=== PATIENT | male | born 1950 | race Caucasian/White ===

== ENCOUNTER → 2021-11-11 | Outpatient (CLI) | payer BC, MEDICARE ==
--- NOTE | 2021-11-11 13:47 | CT ---
EXAMINATION TYPE: CT chest wo con DATE OF EXAM: 11/11/2021 COMPARISON: Outside x-ray 10/24/2021 HISTORY: chest pain CT DLP: 714 mGycm. Automated Exposure Control for Dose Reduction was Utilized. TECHNIQUE: CT scan of the thorax is performed without IV contrast. FINDINGS: LUNGS: There is loss of volume on the left with hyperinflation compatible with COPD. Subsegmental con solidation and pleural thickening on the left with a very tiny pleural effusion. Volume loss is stabl e relative to recent CT scan. Emphysematous changes are noted and there is interlobular septal thickening compatible with chronic i nterstitial lung disease such as pulmonary fibrosis. No focal pneumonia. No pneumothorax. There is subpleural sub-5 mm nodularity bilaterally which most l ikely is benign.. MEDIASTINUM: Lack of IV contrast is noted to limit evaluation for mediastinal and especially hilar ad enopathy. There are no definitive greater than 1 cm hilar or mediastinal lymph nodes. There is mild a neurysmal dilation of the ascending aorta measuring 4.2 cm. Sternotomy changes are seen. There is mil d atherosclerotic changes aorta. There is dense coronary artery calcification. Calcification involvin g the apex of the myocardium can be associated with mild hernia calcinosis and previous infarction.. OTHER: Hypertrophic and degenerative change of the spine. There is cortical loss involving the left k idney compatible with chronic medical renal disease. IMPRESSION: 1. COPD with findings suggestive of pulmonary fibrosis. There is elevated left hemidiaphragm with chr onic pleural thickening and tiny effusion. Stable from recent chest x-ray. 2. Coronary artery calcification with calcification involving the apex of the myocardium in the ray tible with myocardial calcinosis in previous infarction correlate clinically. 3. 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
== END | disposition home or self-care (01) ==
LOC: RADCTMAIN 13:05
PROVIDERS: ATTEND Thoracic Surgery (Cardiothoracic Vascular Surgery)
DX: J44.9 Chronic obstructive pulmonary disease, unspecified (principal); I25.10 Atherosclerotic heart disease of native coronary artery without angina pectoris
CPT/HCPCS: 71250

== ENCOUNTER → 2021-11-17 | Outpatient (CLI) | payer BC, MEDICARE ==
[2021-11-17 07:30] LABS: Basophils # (A) 0.1 k/uL (0-0.2); Basophils % (A) 2 %; Eosinophils # (A) 0.4 k/uL (0-0.7); Eosinophils % (A) 5 %; HCT 51.6 % (39.0-53.0); HGB 16.7 gm/dL (13.0-17.5); Lymphocytes # (A) 1.6 k/uL (1.0-4.8); Lymphocytes % (A) 22 %; MCH 30.5 pg (25.0-35.0); MCHC 32.4 g/dL (31.0-37.0); Mean Platelet Volume 7.5; Monocytes # (A) 0.6 k/uL (0-1.0); Monocytes % (A) 9 %; Neutrophils # (A) 4.5 k/uL (1.3-7.7); Neutrophils % (A) 62 %; Platelet Count 205 k/uL (150-450); RBC 5.49 m/uL (4.30-5.90); RDW 15.1 % (11.5-15.5); WBC 7.3 k/uL (3.8-10.6)
[2021-11-17 07:38] LABS: Partial Thromboplastin Time 27.9 sec (22.0-30.0); Prothrombin Time 10.5 sec (9.0-12.0)
[2021-11-17 07:42] LABS: Potassium 4.5 mmol/L (3.5-5.1)
== END | disposition home or self-care (01) ==
LOC: LABPAT 06:57
PROVIDERS: ATTEND Thoracic Surgery (Cardiothoracic Vascular Surgery)
DX: Z01.812 Encounter for preprocedural laboratory examination (principal); R07.9 Chest pain, unspecified
CPT/HCPCS: 80051; 82565; 82947; 85025; 85610; 85730; 93005

== ENCOUNTER 2021-11-18 13:15 | Day surgery (SDC) | payer BC, MEDICARE ==
[2021-11-17 13:06] VITALS: BMI 36.0
[2021-11-18] MEDS ORDERED: LACTATED RINGERS 1,000 ML IV ONE (13:53)
[2021-11-18] MEDS ORDERED: ONDANSETRON 4 MG/2 ML VIAL ONE (13:59)
[2021-11-18] MEDS ORDERED: ONDANSETRON 4 MG/2 ML VIAL IVP ONE (14:00)
[2021-11-18] MEDS ORDERED: DEXAMETHASONE SOD PHOSPHATE 4 MG/ML 1 ML VIAL IVP ONE (14:00)
[2021-11-18] MEDS ORDERED: LIDOCAINE 2% INJ 20 MG/ML (2 ML VIAL) ONE (15:39)
[2021-11-18] MEDS ORDERED: PROPOFOL 10 MG/ML 20 ML VIAL IV ONE (15:39)
[2021-11-18] MEDS ORDERED: fentaNYL (PF) 50 MCG/ML 2 ML AMP ONE (15:39)
[2021-11-18] MEDS ORDERED: MIDAZOLAM 2 MG/2 ML VIAL ONE (15:39)
[2021-11-18] MEDS ORDERED: BUPIVACAINE (PF) 0.25% 30 ML VIAL SQ ONE ×2 (15:55→16:15)
--- NOTE | 2021-11-18 16:34 | P.OP ---
Date of Procedure: 11/18/21 Preoperative Diagnosis: Sternal pain Postoperative Diagnosis: same Anesthesia: MAC Surgeon: Sukumar Glynn Estimated Blood Loss (ml): 10 Pathology: none sent Condition: stable Disposition: PACU Indications for Procedure: This patient is a 71 year-old male who had a CABG years ago. He presented to my office with sternal wire pain. CT scan revealed no vital structures behind the first sternal wire which is the culprit wire. He asked that the wire be removed due to recent worsening discomfort. Operative Findings: Wire tip elevated from sternal table. Description of Procedure: The patient was brought to the operating room and placed in the supine position. General anesthesia was induced with LMA. The chest was prepped and draped in the usual sterile fashion, antibiotics were given and a time-out was performed. I made a 3cm incision over the sternal notch and carried it down to the wire using electrocautery. The wire was cut and removed. The wound was closed in layers of vicryl. 0.25% marcaine was instilled into the wound and glue was applied. The patient was awaken from anesthesia and transferred to recovery in stable condition.
[2021-11-18 16:41] VITALS: TEMP 96.8
[2021-11-18 17:15] VITALS: RESP 20
[2021-11-18 17:36] VITALS: BP 125/79
[2021-11-18 17:55] VITALS: PULSE 70
== END 2021-11-18 18:21 | disposition home or self-care (01) ==
LOC: OR 13:15
PROVIDERS: ATTEND Thoracic Surgery (Cardiothoracic Vascular Surgery)
DX: Z47.2 Encounter for removal of internal fixation device (principal); R07.2 Precordial pain; Z95.1 Presence of aortocoronary bypass graft; Z88.0 Allergy status to penicillin; Z79.82 Long term (current) use of aspirin; Z79.899 Other long term (current) drug therapy; E78.5 Hyperlipidemia, unspecified; I10 Essential (primary) hypertension; I25.10 Atherosclerotic heart disease of native coronary artery without angina pectoris
CPT/HCPCS: 20680; J2250; J1100; J0690; J2405; J3010; J2704; J2001

== ENCOUNTER 2023-02-12 10:29 | Inpatient (IN) | payer BC, MEDICARE ==
[2023-02-12 11:55] LABS: INR 1.1 (<1.2); Partial Thromboplastin Time 24.5 sec (22.0-30.0); Prothrombin Time 12.2 sec (10.0-12.5)
[2023-02-12 11:58] LABS: Basophils # (A) 0.1 k/uL (0-0.2); Basophils % (A) 1 %; Eosinophils # (A) 0.1 k/uL (0-0.7); Eosinophils % (A) 1 %; HCT 45.2 % (39.0-53.0); HGB 15.2 gm/dL (13.0-17.5); Lymphocytes # (A) 1.4 k/uL (1.0-4.8); Lymphocytes % (A) 14 %; MCH 31.8 pg (25.0-35.0); MCHC 33.6 g/dL (31.0-37.0); MCV 94.7 fL (80.0-100.0); Mean Platelet Volume 9.1; Monocytes # (A) 0.8 k/uL (0-1.0); Monocytes % (A) 9 %; Neutrophils # (A) 7.2 k/uL (1.3-7.7); Neutrophils % (A) 75 %; Platelet Count 168 k/uL (150-450); RBC 4.77 m/uL (4.30-5.90); RDW 15.1 % (11.5-15.5); WBC 9.7 k/uL (3.8-10.6)
[2023-02-12 12:02] LABS: ALT 20 U/L (4-49); African American GFR (CKD) 60 (>60 ml/min/1.73 sqM); Albumin 4.2 g/dL (3.5-5.0); Anion Gap 13 mmol/L; Blood Urea Nitrogen 26 mg/dL (9-20); Calcium 9.1 mg/dL (8.4-10.2); Carbon Dioxide 24 mmol/L (22-30); Chloride 100 mmol/L (98-107); Glucose 119 mg/dL (74-99); Non-African American GFR(CKD) 52 (>60 ml/min/1.73 sqM); Sodium 137 mmol/L (137-145); Total Bilirubin 1.8 mg/dL (0.2-1.3); Total Protein 7.5 g/dL (6.3-8.2)
[2023-02-12 12:03] LABS: Magnesium 2.3 mg/dL (1.6-2.3); Potassium 3.8 mmol/L (3.5-5.1)
[2023-02-12 12:04] LABS: AST 37 U/L (17-59); Alkaline Phosphatase 137 U/L (38-126)
[2023-02-12 12:11] LABS: NT-Pro-B-Type Natriuretic Pept 5850 pg/mL
--- NOTE | 2023-02-12 12:15 | XR ---
EXAMINATION TYPE: XR chest 2V DATE OF EXAM: 02/12/2023 11:54 AM CLINICAL INDICATION:Male, 72 years old with history of difficulty breathing; [facility] COMPARISON: Chest radiographs from 12/10/2021 TECHNIQUE: XR chest 2V Frontal and lateral views of the chest. FINDINGS: Lungs/Pleura: There is no evidence of pleural effusion, focal consolidation, or pneumothorax. Pulmonary vascularity: Pulmonary vascular congestion. Heart/mediastinum: Cardiomediastinal silhouette is enlarged and stable. Musculoskeletal: No acute osseous pathology. Midline sternotomy wires are noted. Other findings: None IMPRESSION: Cardiomegaly, pulmonary vascular congestion and left pleural effusion. Correlate with BNP for congest [place] heart failure.
[2023-02-12 12:31] LABS: Appearance,Urine Clear (Clear); Bilirubin,Urine Negative (Negative); Blood,Urine Negative (Negative); Color,Urine Light Yellow; Glucose,Urine (UA) Negative (Negative); Ketones,Urine Negative (Negative); Leukocyte Esterase,Urine Negative (Negative); Nitrite,Urine Negative (Negative); PH, Urine 5.5 (5.0-8.0); Protein,Urine Negative (Negative); Specific Gravity,Urine 1.011 (1.001-1.035); Urobilinogen,Urine <2.0 mg/dL (<2.0)
[2023-02-12] MEDS ORDERED: NALOXONE 0.4 MG/ML 1 ML VIAL IV PRN (12:54)
[2023-02-12] MEDS ORDERED: ASPIRIN 81 MG PO STA (12:54)
[2023-02-12] MEDS: FUROSEMIDE 10 MG/ML 4 ML VIAL IV SCH ×2 (13:12→20:06)
--- NOTE | 2023-02-12 13:15 | P.HPIM ---
History of Present Illness 72-year-old male with known history of CABG and congestive heart failure noncompliant with his medications as her heart failure medications are making him feel worse came in with compensative shortness of breath orthopnea progressively getting worse for last few days. Patient is found to have pulmonary edema with the elevated BNP of around 5000. As per the patient patient's last EF was 60%. Following with a oven loader and titrates his Lasix at home apparently patient is taking 40 mg of Lasix not taking anything else. She denied any chest pain. EKG is not available in the system yet troponin is mildly elevated to 0.072. REVIEW OF SYSTEMS: CONSTITUTIONAL: No fever, no malaise, no fatigue. HEENT: No recent visual problems or hearing problems. Denied any sore throat. CARDIOVASCULAR: No chest pain, no palpitations, no syncope. PULMONARY:no hemoptysis. GASTROINTESTINAL: No diarrhea, no nausea, no vomiting, no abdominal pain. NEUROLOGICAL: No headaches, no weakness, no numbness. HEMATOLOGICAL: Denies any bleeding or petechiae. GENITOURINARY: Denies any burning micturition, frequency, or urgency. MUSCULOSKELETAL/RHEUMATOLOGICAL: Denies any joint pain, swelling, or any muscle pain. ENDOCRINE: Denies any polyuria or polydipsia. The rest of the 14-point review of systems is negative. PHYSICAL EXAMINATION: GENERAL: The patient is alert and oriented x3, not in any acute distress. Well developed, well nourished. HEENT: Pupils are round and equally reacting to light. EOMI. No scleral icterus. No conjunctival pallor. Normocephalic, atraumatic. No pharyngeal erythema. No thyromegaly. CARDIOVASCULAR: S1 and S2 present. No murmurs, rubs, or gallops. PULMONARY: Chest is clear to auscultation, no wheezing or crackles. ABDOMEN: Soft, nontender, nondistended, normoactive bowel sounds. No palpable organomegaly. MUSCULOSKELETAL: No joint swelling or deformity. EXTREMITIES: No cyanosis, clubbing, mild ankle edema bilateral lower extremities NEUROLOGICAL: Gross neurological examination did not reveal any focal deficits. SKIN: No rashes. Assessment and plan -Congestive heart failure with acute exacerbation, ejection fraction is not known patient was started on 40 mg twice a day of Lasix with the close input and output monitoring. -Mildly elevated first set of troponin we'll repeat troponins troponin elevation may be related to heart failure etiology will evaluate the patient -Chronic kidney disease stage II with a mild acute renal failure competent secondary to prerenal azotemia. Heart failure exacerbation expected to improve with Lasix -Coronary artery disease status post CABG Sayra patient doesn't want to take all the cardiac medications because of which was just started on aspirin for now and continue to discuss with the patient regarding importance of statins. DVT prophylaxis: Probably will need to be on intravenous heparin because of elevated troponins Past Medical History Past Medical History: Coronary Artery Disease (CAD) History of Any Multi-Drug Resistant Organisms: None Reported Past Surgical History: Coronary Bypass/CABG Past Anesthesia/Blood Transfusion Reactions: No Reported Reaction Past Psychological History: No Psychological Hx Reported Smoking Status: Current every day smoker Past Alcohol Use History: Occasional Past Drug Use History: None Reported - Past Family History Mother Family Medical History: Unable to Obtain Additional Family Medical History / Comment(s): pt is adopted Medications and Allergies Home Medications Medication Instructions Recorded Confirmed Type Aspirin [Adult Low Dose Aspirin EC] 81 mg PO DAILY 11/17/21 02/12/23 History Furosemide [Lasix] 40 mg PO DIRECTED 02/12/23 02/12/23 History Allergies Allergy/AdvReac Type Severity Reaction Status Date / Time lisinopril Allergy Unknown Verified 02/12/23 12:54 metoprolol Allergy Unknown Verified 02/12/23 12:54 mexiletine Allergy Unknown Verified 02/12/23 12:54 Penicillins Allergy Anaphylaxis Verified 02/12/23 12:54 pravastatin Allergy Unknown Verified 02/12/23 12:54 NF-yogurt Allergy Anaphylaxis Uncoded 02/12/23 12:54 Physical Exam Vitals: Vital Signs Temp Pulse Resp BP Pulse Ox 02/12/23 10:33 97.5 F L 82 20 127/54 96 Intake and Output 02/11/23 02/12/23 02/12/23 22:59 06:59 14:59 Other: Weight 95.254 kg Results CBC & Chem 7: 02/12/23 11:32 02/12/23 11:32 Labs: Abnormal Lab Results - Last 24 Hours (Table) 02/12/23 02/12/23 Range/Units 11:32 11:32 BUN 26 H (9-20) mg/dL Creatinine 1.36 H (0.66-1.25) mg/dL Glucose 119 H (74-99) mg/dL Total Bilirubin 1.8 H (0.2-1.3) mg/dL Alkaline Phosphatase 137 H (38-126) U/L Troponin I 0.072 H* (0.000-0.034) ng/mL
--- NOTE | 2023-02-12 13:40 | ED ---
General Adult HPI - General Chief complaint: Shortness of Breath Stated complaint: sob Time Seen by Provider: 02/12/23 10:39 Source: patient, RN notes reviewed, old records reviewed Mode of arrival: ambulatory Limitations: no limitations - History of Present Illness Initial comments: Patient is a 72-year-old male with past medical history remarkable for CHF, coronary bypass presents immersed department plenty of shortness of breath. Has been ongoing for the last 2-3 weeks. Is relatively noncompliant with most medications, but does titrate his own Lasix dosing based on state of volume overload status at home. This is nonproductive cough, exertional dyspnea, mild lower extremity edema, orthopnea. Presents for further evaluation at this time. Denies chest pain, abdominal pain, nausea, vomiting, fevers, chills, productive cough. Is not normally on oxygen at home. - Related Data Home Medications Medication Instructions Recorded Confirmed Aspirin [Adult Low Dose Aspirin EC] 81 mg PO DAILY 11/17/21 02/12/23 Furosemide [Lasix] 40 mg PO DIRECTED 02/12/23 02/12/23 Allergies Allergy/AdvReac Type Severity Reaction Status Date / Time lisinopril Allergy Unknown Verified 02/12/23 12:54 metoprolol Allergy Unknown Verified 02/12/23 12:54 mexiletine Allergy Unknown Verified 02/12/23 12:54 Penicillins Allergy Anaphylaxis Verified 02/12/23 12:54 pravastatin Allergy Unknown Verified 02/12/23 12:54 NF-yogurt Allergy Anaphylaxis Uncoded 02/12/23 12:54 Review of Systems ROS Statement: Those systems with pertinent positive or pertinent negative responses have been documented in the HPI. Review of Systems: CONST: Denies fever EYES: Denies blurry vision ENT: Denies nasal congestion C/V: Denies Chest pain RESP: Endorses shortness of breath GI: Denies abdominal pain : Denies dysuria SKIN: Denies rash. MSK: Denies joint pain. NEURO: Denies headache ROS Other: All systems not noted in ROS Statement are negative. Past Medical History Past Medical History: Coronary Artery Disease (CAD) History of Any Multi-Drug Resistant Organisms: None Reported Past Surgical History: Coronary Bypass/CABG Past Anesthesia/Blood Transfusion Reactions: No Reported Reaction Past Psychological History: No Psychological Hx Reported Smoking Status: Current every day smoker Past Alcohol Use History: Occasional Past Drug Use History: None Reported - Past Family History Mother Family Medical History: Unable to Obtain Additional Family Medical History / Comment(s): pt is adopted General Exam - General Exam Comments Initial Comments: General: Appears in no acute distress. HEAD: Normal with no signs of head trauma. EYES: PERRLA, EOMI, conjunctiva normal, no discharge. ENT: Hearing grossly intact, normal oropharynx. RESPIRATORY: Coarse breath sounds bilaterally. No significant hypoxia at rest. Mild increased work of breathing. C/V: Regular rate and rhythm. S1 and S2 auscultated, mild peripheral edema bilaterally, peripheral pulses 2+ and intact throughout ABD: Abd is soft, nontender, nondistended EXT: Normal range of motion, no obvious deformity SKIN: No rashes or lesions observed on exposed skin. NEURO: Alert and oriented x 4. Limitations: no limitations Course Vital Signs 02/12/23 02/12/23 10:33 13:14 Temperature 97.5 F L Pulse Rate 82 88 Respiratory 20 20 Rate Blood Pressure 127/54 111/93 O2 Sat by Pulse 96 97 Oximetry Medical Decision Making - Medical Decision Making Was pt. sent in by a medical professional or institution (, PA, CAMPUS ADMINISTRATIVE ASSISTANT, urgent care, hospital, or jail...) When possible be specific @ -No Did you speak to anyone other than the patient for history (EMS, parent, family, police, friend...)? What history was obtained from this source @ -No Did you review nursing and triage notes (agree or disagree)? Why? @ -I reviewed and agree with nursing and triage notes Were old charts reviewed (outside hosp., previous admission, EMS record, old EKG, old radiological studies, urgent care reports/EKG's, jail records)? Report findings @ -Old charts reviewed Differential Diagnosis (chest pain, altered mental status, abdominal pain women, abdominal pain men, vaginal bleeding, weakness, fever, dyspnea, syncope, headache, dizziness, GI bleed, back pain, seizure, CVA, palpatations, mental health, musculoskeletal)? @ -Differential Dyspnea: Coronary syndrome, arrhythmia, tamponade, asthma, COPD, pulmonary embolism, pneumonia, pneumothorax, pulmonary effusion, anaphylaxis, diabetic ketoacidosis, flailed chest, pulmonary contusion, diaphragmatic rupture, anemia, neuromuscular, this is not meant to be an all-inclusive list. EKG interpreted by me (3pts min.). @ -As above X-rays interpreted by me (1pt min.). @ -Chest x-ray shows left pleural effusion and pulmonary vascular congestion. CT interpreted by me (1pt min.). @ -None done U/S interpreted by me (1pt. min.). @ -None done What testing was considered but not performed or refused? (CT, X-rays, U/S, labs)? Why? @ -None What meds were considered but not given or refused? Why? @ -None Did you discuss the management of the patient with other professionals (professionals i.e. , PA, CAMPUS ADMINISTRATIVE ASSISTANT, lab, RT, psych nurse, hospice social worker, supercharger mechanic, teacher, horticultural technical officer, case assistant)? Give summary @ -I spoke with Dr. Navas who accepted the admission as a city call admit. Was smoking cessation discussed for >3mins.? @ -No Was critical care preformed (if so, how long)? @ -No Were there social determinants of health that impacted care today? How? (Homelessness, low income, unemployed, alcoholism, drug addiction, transportation, low edu. Level, literacy, decrease access to med. care, [place] [facility], rehab)? @ -No Was there de-escalation of care discussed even if they declined (Discuss DNR or withdrawal of care, Hospice)? DNR status @ -No What co-morbidities impacted this encounter? (DM, HTN, Smoking, COPD, CAD, Cancer, CVA, ARF, Chemo, Hep., AIDS, mental health diagnosis, sleep apnea, morbid obesity)? @ -None Was patient admitted / discharged? Hospital course, mention meds given and [place], prescriptions, significant lab abnormalities, going to OR and other pertinent info. @ -Based on the patient's presentation and physical exam, he will be worked up for congestive heart failure. He was in agreement this plan. Vital signs within except for limits. Chest x-ray shows pulmonary vascular congestion and left pleural effusion. EKG shows no obvious acute ischemia. Labs remarkable for elevated BNP of 5800, as well as mildly elevated troponin of 0.072 likely se condary to CHF. On reevaluation I updated the patient. Patient will be admitted to the hospital. He was in agreement this plan. He was started on IV Lasix, echo was ordered. Patient agreement this plan. Cardiology consulted. I spoke with Dr. Navas who accepted the admission as a city call admit. Undiagnosed new problem with uncertain prognosis? @ -No Drug Therapy requiring intensive monitoring for toxicity (Heparin, Nitro, Insulin, Cardizem)? @ -No Were any procedures done? @ -No Diagnosis/symptom? @ -CHF, elevated troponin, pleural effusion Acute, or Chronic, or Acute on Chronic? @ -Acute Uncomplicated (without systemic symptoms) or Complicated (systemic symptoms)? @ -Complicated Side effects of treatment? @ -No Exacerbation, Progression, or Severe Exacerbation? @ -No Poses a threat to life or bodily function? How? (Chest pain, [place], [place], pneumonia, PE, COPD, DKA, ARF, appy, cholecystitis, CVA, Diverticulitis, Homicidal, Suicidal, threat to staff... and all critical care pts) @ -Yes - Lab Data Result diagrams: 02/12/23 11:32 02/12/23 11:32 Lab Results 02/12/23 02/12/23 02/12/23 Range/Units 11:32 11:32 11:32 WBC 9.7 (3.8-10.6) k/uL RBC 4.77 (4.30-5.90) m/uL Hgb 15.2 (13.0-17.5) gm/dL Hct 45.2 (39.0-53.0) % MCV 94.7 (80.0-100.0) fL MCH 31.8 (25.0-35.0) pg MCHC 33.6 (31.0-37.0) g/dL RDW 15.1 (11.5-15.5) % Plt Count 168 (150-450) k/uL MPV 9.1 Neutrophils % 75 % Lymphocytes % 14 % Monocytes % 9 % Eosinophils % 1 % Basophils % 1 % Neutrophils # 7.2 (1.3-7.7) k/uL Lymphocytes # 1.4 (1.0-4.8) k/uL Monocytes # 0.8 (0-1.0) k/uL Eosinophils # 0.1 (0-0.7) k/uL Basophils # 0.1 (0-0.2) k/uL PT 12.2 (10.0-12.5) sec INR 1.1 (<1.2) APTT 24.5 (22.0-30.0) sec Sodium 137 (137-145) mmol/L Potassium 3.8 (3.5-5.1) mmol/L Chloride 100 (98-107) mmol/L Carbon Dioxide 24 (22-30) mmol/L Anion Gap 13 mmol/L BUN 26 H (9-20) mg/dL Creatinine 1.36 H (0.66-1.25) mg/dL Est GFR (CKD-EPI)AfAm 60 (>60 ml/min/1.73 sqM) Est GFR (CKD-EPI)NonAf 52 (>60 ml/min/1.73 sqM) Glucose 119 H (74-99) mg/dL Calcium 9.1 (8.4-10.2) mg/dL Magnesium 2.3 (1.6-2.3) mg/dL Total Bilirubin 1.8 H (0.2-1.3) mg/dL AST 37 (17-59) U/L ALT 20 (4-49) U/L Alkaline Phosphatase 137 H (38-126) U/L Troponin I (0.000-0.034) ng/mL NT-Pro-B Natriuret Pep 5850 pg/mL Total Protein 7.5 (6.3-8.2) g/dL Albumin 4.2 (3.5-5.0) g/dL Urine Color Urine Appearance (Clear) Urine pH (5.0-8.0) Ur Specific [place] (1.001-1.035) Urine Protein (Negative) Urine Glucose (UA) (Negative) Urine Ketones (Negative) Urine Blood (Negative) Urine Nitrite (Negative) Urine Bilirubin (Negative) Urine Urobilinogen (<2.0) mg/dL Ur Leukocyte Esterase (Negative) Influenza Type A (PCR) (Not Detectd) Influenza Type B (PCR) (Not Detectd) RSV (PCR) (Not Detectd) SARS-CoV-2 (PCR) (Not Detectd) 02/12/23 02/12/23 02/12/23 Range/Units 11:32 11:32 12:07 WBC (3.8-10.6) k/uL RBC (4.30-5.90) m/uL Hgb (13.0-17.5) gm/dL Hct (39.0-53.0) % MCV (80.0-100.0) fL MCH (25.0-35.0) pg MCHC (31.0-37.0) g/dL RDW (11.5-15.5) % Plt Count (150-450) k/uL MPV Neutrophils % % Lymphocytes % % Monocytes % % Eosinophils % % Basophils % % Neutrophils # (1.3-7.7) k/uL Lymphocytes # (1.0-4.8) k/uL Monocytes # (0-1.0) k/uL Eosinophils # (0-0.7) k/uL Basophils # (0-0.2) k/uL PT (10.0-12.5) sec INR (<1.2) APTT (22.0-30.0) sec Sodium (137-145) mmol/L Potassium (3.5-5.1) mmol/L Chloride (98-107) mmol/L Carbon Dioxide (22-30) mmol/L Anion Gap mmol/L BUN (9-20) mg/dL Creatinine (0.66-1.25) mg/dL Est GFR (CKD-EPI)AfAm (>60 ml/min/1.73 sqM) Est GFR (CKD-EPI)NonAf (>60 ml/min/1.73 sqM) Glucose (74-99) mg/dL Calcium (8.4-10.2) mg/dL Magnesium (1.6-2.3) mg/dL Total Bilirubin (0.2-1.3) mg/dL AST (17-59) U/L ALT (4-49) U/L Alkaline Phosphatase (38-126) U/L Troponin I 0.072 H* (0.000-0.034) ng/mL NT-Pro-B Natriuret Pep pg/mL Total Protein (6.3-8.2) g/dL Albumin (3.5-5.0) g/dL Urine Color Light Yellow Urine Appearance Clear (Clear) Urine pH 5.5 (5.0-8.0) Ur Specific [place] 1.011 (1.001-1.035) Urine Protein Negative (Negative) Urine Glucose (UA) Negative (Negative) Urine Ketones Negative (Negative) Urine Blood Negative (Negative) Urine Nitrite Negative (Negative) Urine Bilirubin Negative (Negative) Urine Urobilinogen <2.0 (<2.0) mg/dL Ur Leukocyte Esterase Negative (Negative) Influenza Type A (PCR) Not Detected (Not Detectd) Influenza Type B (PCR) Not Detected (Not Detectd) RSV (PCR) Not Detected (Not Detectd) SARS-CoV-2 (PCR) Not Detected (Not Detectd) - EKG Data -: EKG Interpreted by Me EKG Comments: 12-lead Electrocardiogram Interpretation Note EKG was reviewed and interpreted by myself. 12-lead ECG performed at 1144 is interpreted by me as revealing normal sinus rhythm at a rate of 81 beats per minute. Right axis deviation. TX intervals 226 ms, QRS duration is 148 ms, QTc is 413 ms.. Frequent PVCs present. There were no ST or T wave abnormalities to suggest myocardial ischemia or injury. R wave progression across the precordium was delayed. By my interpretation this EKG is non-diagnostic for acute ischemia. Disposition Clinical Impression: CHF (congestive heart failure), Elevated troponin, Pleural effusion Disposition: ADMITTED IP TO THIS HOSP Condition: Stable Referrals: None,Stated [Primary Care Provider] - 1-2 days Time of Disposition: 12:40
[2023-02-12] MEDS ORDERED: HEPARIN SODIUM,PORCINE 5,000 UNIT/ML 1 ML VIAL SQ SCH (16:00)
[2023-02-12] MEDS: HEPARIN SOD,PORK IN 0.45% NACL 25,000 UNIT in 0.45% NACL 1 250ML.BAG IV SCH (16:06)
--- NOTE | 2023-02-12 17:46 | CA ---
Transthoracic Echo Report Name: Iam Mims Age: 72 Gender: M : 1950 Exam Date: 02/12/2023 13:27 Exam Location: [facility] Ht (in): 67 Wt (lb): 210 Ordering Physician: Oscar Velarde MD Attending/Referring Phys: Event Marketing Representative Marily Mccann RDCS Procedure CPT: Indications: chf Cardiac Hx: Hx of CABG Technical Quality: Technically difficult study Contrast 1: Definity Total Dose (mL): 2 Contrast 2: Total Dose (mL): MEASUREMENTS (Male / Female) Normal Values 2D ECHO LV Diastolic Diameter PLAX 6.2 cm 4.2 - 5.9 / 3.9 - 5.3 cm LV Systolic Diameter PLAX 5.4 cm IVS Diastolic Thickness 1.3 cm 0.6 - 1.0 / 0.6 - 0.9 cm LVPW Diastolic Thickness 1.2 cm 0.6 - 1.0 / 0.6 - 0.9 cm LV Relative Wall Thickness 0.4 RV Internal Dim ED PLAX 3.3 cm LA Systolic Diameter LX 4.6 cm 3.0 - 4.0 / 2.7 - 3.8 cm LV Diastolic Volume MOD BP 78.4 cm??? 67 - 155 / 56 - 104 cm??? LV Systolic Volume MOD BP 48.5 cm??? 22 - 58 / 19 - 49 cm??? LV Ejection Fraction MOD BP 38.1 % >= 55 % LV Cardiac Index MOD BP 1304.3 cm???/min???m??? LV Diastolic Volume MOD 4C 98.9 cm??? LV Systolic Volume MOD 4C 54.7 cm??? LV Ejection Fraction MOD 4C 44.7 % LV Cardiac Index MOD 4C 1928.0 cm???/min???m??? LV Diastolic Length 4C 7.6 cm LV Systolic Length 4C 7.2 cm LV Diastolic Volume MOD 2C 72.6 cm??? LV Systolic Volume MOD 2C 48.5 cm??? LV Ejection Fraction MOD 2C 33.3 % LV Cardiac Index MOD 2C 1053.6 cm???/min???m??? LV Diastolic Length 2C 7.1 cm LV Systolic Length 2C 6.7 cm LA Volume 100.9 cm??? 18 - 58 / 22 - 52 cm??? LA Volume Index 46.8 cm???/m??? 16 - 28 cm???/m??? M-MODE Aortic Root Diameter MM 3.4 cm AV Cusp Separation MM 1.7 cm DOPPLER AV Peak Velocity 93.9 cm/s AV Peak Gradient 3.5 mmHg MV Area PHT 6.9 cm??? MV Deceleration Time 135.3 ms TR Peak Velocity 371.6 cm/s TR Peak Gradient 55.2 mmHg Right Ventricular Systolic Press 59.4 mmHg FINDINGS Left Ventricle Left ventricular ejection fraction is estimated at 15-20 %. Severly decreased left ventricular ejection fraction. Moderate left ventricular dilatation. Apical akinesia Right Ventricle Mild right ventricular dilatation. Severe pulmonary hypertension. Right ventricular systolic pressure estimated at 59 mm hg. Right Atrium Moderate RA dilatation Left Atrium Severe LA dilatation Mitral Valve Structurally normal mitral valve. Mild mitral regurgitation. Aortic Valve Trileaflet aortic valve. Aortic valve sclerosis. Tricuspid Valve Structurally normal tricuspid valve. Mild tricuspid regurgitation. Pulmonic Valve Structurally normal pulmonic valve. Trace pulmonic regurgitation. Pericardium No pericardial effusion. Aorta Normal size aortic root and proximal ascending aorta. CONCLUSIONS Left ventricular ejection fraction is estimated at 15-20 %. Severly decreased left ventricular ejection fraction. Moderate left ventricular dilatation. Apical akinesia Severe pulmonary hypertension. Right ventricular systolic pressure estimated at 59 mm hg. Previewed by: Dr Ned Vazquez (Electronically Signed) Final Date: 12 February 2023 17:45
[2023-02-12 21:47] LABS: INR 1.2 (<1.2); Partial Thromboplastin Time 36.2 sec (22.0-30.0)
[2023-02-13 04:14] LABS: African American GFR (CKD) 67 (>60 ml/min/1.73 sqM); Anion Gap 11 mmol/L; Blood Urea Nitrogen 26 mg/dL (9-20); Calcium 8.8 mg/dL (8.4-10.2); Carbon Dioxide 26 mmol/L (22-30); Chloride 100 mmol/L (98-107); Glucose 114 mg/dL (74-99); Magnesium 2.4 mg/dL (1.6-2.3); Non-African American GFR(CKD) 58 (>60 ml/min/1.73 sqM); Sodium 137 mmol/L (137-145)
[2023-02-13] MEDS ORDERED: Potassium Replacement Protocol 1 EACH MISC MISCELLANE PRN (04:43)
[2023-02-13] MEDS: POTASSIUM CHLORIDE ER 20 MEQ TAB.ER PO SCH ×2 (05:46→05:47)
[2023-02-13 08:14] LABS: Basophils # (A) 0.1 k/uL (0-0.2); Basophils % (A) 1 %; Eosinophils # (A) 0.1 k/uL (0-0.7); Eosinophils % (A) 1 %; HCT 46.5 % (39.0-53.0); Lymphocytes # (A) 1.3 k/uL (1.0-4.8); Lymphocytes % (A) 18 %; MCH 31.3 pg (25.0-35.0); MCHC 32.3 g/dL (31.0-37.0); MCV 96.8 fL (80.0-100.0); Mean Platelet Volume 9.2; Monocytes # (A) 0.7 k/uL (0-1.0); Monocytes % (A) 9 %; Neutrophils # (A) 5.1 k/uL (1.3-7.7); Neutrophils % (A) 69 %; Platelet Count 158 k/uL (150-450); RDW 15.1 % (11.5-15.5); WBC 7.4 k/uL (3.8-10.6)
[2023-02-13 08:43] LABS: African American GFR (CKD) 64 (>60 ml/min/1.73 sqM); Anion Gap 14 mmol/L; Blood Urea Nitrogen 27 mg/dL (9-20); Calcium 9.1 mg/dL (8.4-10.2); Carbon Dioxide 22 mmol/L (22-30); Chloride 101 mmol/L (98-107); Glucose 116 mg/dL (74-99); Non-African American GFR(CKD) 55 (>60 ml/min/1.73 sqM); Potassium 3.8 mmol/L (3.5-5.1); Sodium 137 mmol/L (137-145)
[2023-02-13] MEDS: FUROSEMIDE 10 MG/ML 4 ML VIAL IV SCH ×2 (09:18→20:24)
--- NOTE | 2023-02-13 10:57 | P.PN ---
Subjective 72-year-old male with known history of CABG and congestive heart failure noncompliant with his medications as her heart failure medications are making him feel worse came in with compensative shortness of breath orthopnea progressively getting worse for last few days. Patient is found to have pulmonary edema with the elevated BNP of around 5000. As per the patient patient's last EF was 60%. Following with a quiller machine fixer and titrates his Lasix at home apparently patient is taking 40 mg of Lasix not taking anything else. She denied any chest pain. EKG is not available in the system yet troponin is mildly elevated to 0.072. 02/13/2023 Patient does feel better but still short of breath still requiring oxygen still has pedal edema and bibasilar crackles patient was started on losartan and patient is also on IV heparin for elevated troponin and cardiology evaluated the patient awaiting their recommendations. Patient's serum creatinine is fairly stable at 1.29 Constitutional: Denied any fatigue denied any fever. Cardio vascular: denied any chest pain, palpitations Gastrointestinal denied any nausea vomiting Pulmonary: Patient does have shortness of breath Neurologic denied any new focal deficits All inpatient medications were reviewed and appropriate changes in these medications as dictated in the interval history and assessment and plan. PHYSICAL EXAMINATION: GENERAL: The patient is alert and oriented x3, not in any acute distress. Well developed, well nourished. HEENT: Pupils are round and equally reacting to light. EOMI. No scleral icterus. No conjunctival pallor. Normocephalic, atraumatic. No pharyngeal erythema. No thyromegaly. CARDIOVASCULAR: S1 and S2 present. No murmurs, rubs, or gallops. PULMONARY: Chest is clear to auscultation, no wheezing or crackles. ABDOMEN: Soft, nontender, nondistended, normoactive bowel sounds. No palpable organomegaly. MUSCULOSKELETAL: No joint swelling or deformity. EXTREMITIES: No cyanosis, clubbing, mild ankle edema bilateral lower extremities NEUROLOGICAL: Gross neurological examination did not reveal any focal deficits. SKIN: No rashes. Assessment and plan -Congestive heart failure chronic systolic dysfunction with acute exacerbation, and has EF of 15-20% patient is on 40 mg twice a day of Lasix with the close input and output monitoring. There is slight improvement in his heart failure but still requiring oxygen patient was started on losartan -Elevated troponins: Unsure whether patient has type I non-ST elevation [place] cardiology will evaluate the patient and patient is on IV heparin -Chronic kidney disease stage II with a mild acute renal failure competent secondary to prerenal azotemia. Heart failure exacerbation expected to improve with Lasix -Coronary artery disease status post CABG Sayra patient doesn't want to take all the cardiac medications because of which was just started on aspirin for now and continue to discuss with the patient regarding importance of statins. DVT prophylaxis: Probably will need to be on intravenous heparin because of elevated troponins Objective - Vital Signs Vital signs: Vital Signs Temp 97.6 F 02/13/23 09:15 Pulse 59 L 02/13/23 09:15 Resp 22 02/13/23 09:15 BP 112/74 02/13/23 09:15 Pulse Ox 94 L 02/13/23 09:15 FiO2 Intake & Output 02/12/23 02/13/23 02/13/23 18:59 06:59 18:59 Intake Total 320.167 103.6 Output Total 825 Balance -504.833 103.6 Weight 95.254 kg 79 kg Intake: Intake, IV Titration 84.167 103.6 Amount Heparin Sod,Pork in 0.45% 84.167 103.6 NaCl 25,000 unit In 0.45 % NaCl 1 250ml.bag @ 10. 498 UNITS/KG/HR 10 mls/hr IV .Q24H [facility] Rx#: [id number] Oral 236 Output: Urine 825 Other: Voiding Method Toilet Toilet Urinal Urinal # Voids 2 - Labs CBC & Chem 7: 02/13/23 07:21 02/13/23 07:21 Labs: Abnormal Lab Results - Last 24 Hours (Table) 02/12/23 02/12/23 02/12/23 Range/Units 11:32 11:32 14:19 PT (10.0-12.5) sec INR (<1.2) APTT (22.0-30.0) sec Potassium (3.5-5.1) mmol/L BUN 26 H (9-20) mg/dL Creatinine 1.36 H (0.66-1.25) mg/dL Glucose 119 H (74-99) mg/dL Magnesium (1.6-2.3) mg/dL Total Bilirubin 1.8 H (0.2-1.3) mg/dL Alkaline Phosphatase 137 H (38-126) U/L Troponin I 0.072 H* 0.075 H* (0.000-0.034) ng/mL 02/12/23 02/12/23 02/13/23 Range/Units 18:16 21:30 03:01 PT 13.0 H (10.0-12.5) sec INR 1.2 H (<1.2) APTT 36.2 H (22.0-30.0) sec Potassium 3.0 L (3.5-5.1) mmol/L BUN 26 H (9-20) mg/dL Creatinine (0.66-1.25) mg/dL Glucose 114 H (74-99) mg/dL Magnesium 2.4 H (1.6-2.3) mg/dL Total Bilirubin (0.2-1.3) mg/dL Alkaline Phosphatase (38-126) U/L Troponin I 0.094 H* (0.000-0.034) ng/mL 02/13/23 02/13/23 Range/Units 07:21 07:21 PT (10.0-12.5) sec INR (<1.2) APTT 33.6 H (22.0-30.0) sec Potassium (3.5-5.1) mmol/L BUN 27 H (9-20) mg/dL Creatinine 1.29 H (0.66-1.25) mg/dL Glucose 116 H (74-99) mg/dL Magnesium (1.6-2.3) mg/dL Total Bilirubin (0.2-1.3) mg/dL Alkaline Phosphatase (38-126) U/L Troponin I (0.000-0.034) ng/mL
[2023-02-13] MEDS ORDERED: POTASSIUM CHLORIDE ER 20 MEQ TAB.ER PO SCH (11:00)
[2023-02-13] MEDS: LOSARTAN 25 MG TAB PO SCH (11:30)
--- NOTE | 2023-02-13 13:52 | P.CRDCN ---
History of Present Illness Consult date: 02/13/23 Consult reason: congestive heart failure, shortness of breath Chief complaint: shortness of breath History of present illness: History of present illness: Patient is a pleasant 72-year-old male with significant past medical history of CAD and CHF who presented with complaints of worsening shortness of breath for the past couple weeks. He reports that he used to follow with Dr. Talbert in [place] however he retired approximately 3 years ago and has apparently not seen cardiology since then. Family history is unknown as he is adopted. He denies smoking, uses alcohol rarely. He reports up until couple weeks ago he had not been having any issues. He could walk 1 to 2 miles without difficulty. Then he began getting progressively short of breath. He denies any swelling. He has only been taking aspirin and Lasix at home. He reports many ALLERGIES to his heart medications in the past and has stopped them. Troponins were elevated 0.072, 0.075, 0.094. BNP 5850. Creat 1.29. EKG shows sinus rhythm with first- degree AV block and frequent PVCs. Echocardiogram 02/12/23 with EF 15-20%, apical akinesis, severe pulmonary hypertension, RVSP 59. Prior EF unknown. X-ray shows cardiomegaly, pulmonary vascular congestion and left pleural effusion. REVIEW OF SYSTEMS: No fever or chills. No cough or expectoration. No diaphoresis. Patient denies headache, dizziness, blurred vision, double vision. Patient denies any stomach discomfort. No nausea, vomiting. No hematochezia. No hematemesis. Denies any black stools or blood in his stools. Denies dysuria or hematuria. No muscle weakness or numbness. No chest pain or pressure. Reports shortness of breath. PHYSICAL EXAMINATION: This is a 72-year-old male in no apparent distress at the time of my examination. HEENT: Head is atraumatic, normocephalic. Pupils are equal, round. Sclerae anicteric. Conjunctivae are clear. Mucous membranes of the mouth are moist. Neck is supple. There is no jugular venous distention. No carotid bruit is heard. CHEST EXAMINATION: Lungs are diminished with bibsilar crackles. On [place] O2. No chest wall tenderness is noted on palpation or with deep breathing. HEART EXAMINATION: Heart regular rate and rhythm. S1, S2 heard. No murmurs, gallops or rub. ABDOMEN: Soft, nontender. Bowel sounds are heard. EXTREMITIES: 2+ peripheral pulses with no evidence of peripheral edema and no calf tenderness noted. NEUROLOGIC EXAMINATION: Patient is awake, alert and oriented x3. IMPRESSION AND PLAN: 1. Acute on chronic systolic heart failure, EF 15% 2. CAD status post CABG 3. Dyspnea 4. Medical noncompliance 5. Pulmonary hypertension, RVSP 59 6. Pleural effusion, left 7. Elevated troponins PLAN: Patient with medical noncompliance. He has multiple ALLERGIES to LYNETTE inhibitor's and beta blockers. Continue IV diuretics. Monitor kidney function. Consider left and right heart catheterization. Start losartan 12.5 mg to try to optimize heart failure regimen as tolerates. Suspect possible stage D heart failure given inability to tolerate medications due to multiple ALLERGIES an ejection fraction of 15%. Hold beta blockers given concern of end-stage heart failure. We'll continue to follow. I am dictating on behalf of Dr. Kameron King's history/physical and assessment/plan. Past Medical History Past Medical History: Coronary Artery Disease (CAD), Myocardial Infarction (NC) Additional Past Medical History / Comment(s): last NC 2014 Last Myocardial Infarction Date:: 2014 History of Any Multi-Drug Resistant Organisms: None Reported Past Surgical History: Coronary Bypass/CABG Past Anesthesia/Blood Transfusion Reactions: No Reported Reaction Past Psychological History: No Psychological Hx Reported Smoking Status: Former smoker Past Alcohol Use History: Occasional Past Drug Use History: None Reported - Past Family History Mother Family Medical History: Unable to Obtain Additional Family Medical History / Comment(s): pt is adopted Medications and Allergies Home Medications Medication Instructions Recorded Confirmed Type Aspirin [Adult Low Dose Aspirin EC] 81 mg PO DAILY 11/17/21 02/12/23 History Furosemide [Lasix] 40 mg PO DAILY 02/12/23 02/12/23 History Allergies Allergy/AdvReac Type Severity Reaction Status Date / Time lisinopril Allergy Unknown Verified 02/12/23 12:54 metoprolol Allergy Unknown Verified 02/12/23 12:54 mexiletine Allergy Unknown Verified 02/12/23 12:54 Penicillins Allergy Anaphylaxis Verified 02/12/23 12:54 pravastatin Allergy Unknown Verified 02/12/23 12:54 NF-yogurt Allergy Anaphylaxis Uncoded 12/15/23 12:54 Physical Exam Vitals: Vital Signs Temp Pulse Pulse Resp BP BP Pulse Ox 02/13/23 11:29 98.1 F 62 22 109/69 98 02/13/23 09:15 97.6 F 59 L 22 112/74 94 L 02/13/23 04:00 61 22 103/59 98 02/13/23 02:00 70 24 02/13/23 00:00 70 24 94/62 97 02/12/23 20:00 74 22 102/63 97 02/12/23 19:40 74 24 102/63 97 02/12/23 18:00 78 20 91/51 97 02/12/23 16:09 87 22 106/83 97 Intake and Output 02/12/23 02/13/23 02/13/23 22:59 06:59 14:59 Intake Total 236 84.167 103.6 Output Total 825 300 Balance 236 -740.833 -196.4 Intake: Intake, IV Titration 84.167 103.6 Amount Heparin Sod,Pork in 0.45% 84.167 103.6 NaCl 25,000 unit In 0.45 % NaCl 1 250ml.bag @ 10. 498 UNITS/KG/HR 10 mls/hr IV .Q24H [facility] Rx#: [id number] Oral 236 Output: Urine 825 300 Other: Voiding Method Toilet Toilet Toilet Urinal Urinal Urinal # Voids 2 Weight 95.254 kg 79 kg Results 02/13/23 07:21 02/13/23 07:21 Cardiac Enzymes 02/12/23 02/12/23 Range/Units 14:19 18:16 Troponin I 0.075 H* 0.094 H* (0.000-0.034) ng/mL Coagulation 02/12/23 02/13/23 Range/Units 21:30 07:21 PT 13.0 H (10.0-12.5) sec APTT 36.2 H 33.6 H (22.0-30.0) sec CBC 02/13/23 Range/Units 07:21 WBC 7.4 (3.8-10.6) k/uL RBC 4.80 (4.30-5.90) m/uL Hgb 15.0 (13.0-17.5) gm/dL Hct 46.5 (39.0-53.0) % Plt Count 158 (150-450) k/uL Comprehensive Metabolic Panel 02/13/23 02/13/23 Range/Units 03:01 07:21 Sodium 137 137 (137-145) mmol/L Potassium 3.0 L 3.8 (3.5-5.1) mmol/L Chloride 100 101 (98-107) mmol/L Carbon Dioxide 26 22 (22-30) mmol/L BUN 26 H 27 H (9-20) mg/dL Creatinine 1.25 1.29 H (0.66-1.25) mg/dL Glucose 114 H 116 H (74-99) mg/dL Calcium 8.8 9.1 (8.4-10.2) mg/dL Current Medications Generic Name Dose Route Start Last Admin Trade Name Freq PRN Reason Stop Dose Admin Furosemide 40 mg 02/12/23 13:00 02/13/23 09:18 Furosemide 10 Mg/Ml 4 Ml Vial IV 40 mg Q12HR [facility] Administration Heparin Sodium/Sodium Chloride 250 mls @ 10 mls/hr 02/12/23 16:00 02/13/23 09:09 25,000 unit/ Sodium Chloride IV 15.6 units/kg/hr .Q24H [facility] 14.86 mls/hr Titration Protocol 10.498 UNITS/KG/HR Losartan Potassium 12.5 mg 02/13/23 10:45 02/13/23 11:30 Losartan 25 Mg Tab PO 12.5 mg DAILY [facility]OLA Administration Miscellaneous Information 1 each 02/13/23 04:43 Potassium Replacement Protocol 1 Each Misc MISCELLANE DAILY PRN Per Protocol Protocol Naloxone HCl 0.2 mg 02/12/23 12:54 Naloxone 0.4 Mg/Ml 1 Ml Vial IV Q2M PRN Opioid Reversal Intake and Output 02/12/23 02/13/23 02/13/23 22:59 06:59 14:59 Intake Total 236 84.167 103.6 Output Total 825 300 Balance 236 -740.833 -196.4 Intake: Intake, IV Titration 84.167 103.6 Amount Heparin Sod,Pork in 0.45% 84.167 103.6 NaCl 25,000 unit In 0.45 % NaCl 1 250ml.bag @ 10. 498 UNITS/KG/HR 10 mls/hr IV .Q24H [facility] Rx#: [id number] Oral 236 Output: Urine 825 300 Other: Voiding Method Toilet Toilet Toilet Urinal Urinal Urinal # Voids 2 Weight 95.254 kg 79 kg 02/13/23 07:21 02/13/23 07:21
[2023-02-13] MEDS: HEPARIN SOD,PORK IN 0.45% NACL 25,000 UNIT in 0.45% NACL 1 250ML.BAG IV SCH (14:47)
[2023-02-13 23:28] LABS: Magnesium 2.4 mg/dL (1.6-2.3); Potassium 3.2 mmol/L (3.5-5.1)
[2023-02-14] MEDS: POTASSIUM CHLORIDE ER 20 MEQ TAB.ER PO SCH ×2 (00:05→05:15)
[2023-02-14 08:21] LABS: African American GFR (CKD) 57 (>60 ml/min/1.73 sqM); Anion Gap 11 mmol/L; Blood Urea Nitrogen 31 mg/dL (9-20); Calcium 9.1 mg/dL (8.4-10.2); Carbon Dioxide 24 mmol/L (22-30); Chloride 103 mmol/L (98-107); Glucose 113 mg/dL (74-99); Non-African American GFR(CKD) 49 (>60 ml/min/1.73 sqM); Potassium 3.9 mmol/L (3.5-5.1); Sodium 138 mmol/L (137-145)
[2023-02-14] MEDS: FUROSEMIDE 10 MG/ML 4 ML VIAL IV SCH (08:51)
[2023-02-14] MEDS: LOSARTAN 25 MG TAB PO SCH (08:51)
--- NOTE | 2023-02-14 11:59 | P.PN ---
Subjective 72-year-old male with known history of CABG and congestive heart failure noncompliant with his medications as her heart failure medications are making him feel worse came in with compensative shortness of breath orthopnea progressively getting worse for last few days. Patient is found to have pulmonary edema with the elevated BNP of around 5000. As per the patient patient's last EF was 60%. Following with a etl programmer and titrates his Lasix at home apparently patient is taking 40 mg of Lasix not taking anything else. She denied any chest pain. EKG is not available in the system yet troponin is mildly elevated to 0.072. 02/13/2023 Patient does feel better but still short of breath still requiring oxygen still has pedal edema and bibasilar crackles patient was started on losartan and patient is also on IV heparin for elevated troponin and cardiology evaluated the patient awaiting their recommendations. Patient's serum creatinine is fairly stable at 1.29 Constitutional: Denied any fatigue denied any fever. Cardio vascular: denied any chest pain, palpitations Gastrointestinal denied any nausea vomiting Pulmonary: Improved shortness of breath Neurologic denied any new focal deficits All inpatient medications were reviewed and appropriate changes in these medications as dictated in the interval history and assessment and plan. PHYSICAL EXAMINATION: GENERAL: The patient is alert and oriented x3, not in any acute distress. Well developed, well nourished. HEENT: Pupils are round and equally reacting to light. EOMI. No scleral icterus. No conjunctival pallor. Normocephalic, atraumatic. No pharyngeal erythema. No thyromegaly. CARDIOVASCULAR: S1 and S2 present. No murmurs, rubs, or gallops. PULMONARY: Chest is clear to auscultation, no wheezing or crackles. ABDOMEN: Soft, nontender, nondistended, normoactive bowel sounds. No palpable organomegaly. MUSCULOSKELETAL: No joint swelling or deformity. EXTREMITIES: No cyanosis, clubbing, mild ankle edema bilateral lower extremities NEUROLOGICAL: Gross neurological examination did not reveal any focal deficits. SKIN: No rashes. Assessment and plan -Congestive heart failure chronic systolic dysfunction with acute exacerbation, and has EF of 15-20% patient is fairly euvolemic patient will be switched to oral Lasix, continue with losartan slight worsening of serum creatinine which was monitored blood pressure is low because of heart failure and extremely low EF -Elevated troponins: Unsure whether patient has type I non-ST elevation [place] cardiology will evaluate the patient and patient is on IV heparin, cardiac catheterization tomorrow -Chronic kidney disease stage II with a mild acute renal failure competent secondary to prerenal azotemia from heart failure -Coronary artery disease status post CABG , history of CABG in the past continue with aspirin DVT prophylaxis: Probably will need to be on intravenous heparin because of elevated troponins Objective - Vital Signs Vital signs: Vital Signs Temp 97.9 F 02/14/23 11:41 Pulse 86 02/14/23 11:41 Resp 20 02/14/23 11:41 BP 92/69 02/14/23 11:41 Pulse Ox 92 L 02/14/23 11:41 FiO2 Intake & Output 02/13/23 02/14/23 02/14/23 18:59 06:59 18:59 Intake Total 165.833 222 Output Total 300 400 300 Balance -134.167 -400 -78 Weight 79.4 kg Intake: Intake, IV Titration 165.833 0 Amount Heparin Sod,Pork in 0.45% 165.833 0 NaCl 25,000 unit In 0.45 % NaCl 1 250ml.bag @ 10. 498 UNITS/KG/HR 10 mls/hr IV .Q24H [facility] Rx#: [id number] Oral 222 Output: Urine 300 400 300 Other: Voiding Method Toilet Toilet Toilet Urinal Urinal Urinal - Labs CBC & Chem 7: 02/13/23 07:21 02/14/23 07:19 Labs: Abnormal Lab Results - Last 24 Hours (Table) 02/13/23 02/13/23 02/14/23 Range/Units 15:02 22:30 07:19 APTT 49.7 H 103.6 H* (22.0-30.0) sec Potassium 3.2 L (3.5-5.1) mmol/L BUN (9-20) mg/dL Creatinine (0.66-1.25) mg/dL Glucose (74-99) mg/dL Magnesium 2.4 H (1.6-2.3) mg/dL 02/14/23 Range/Units 07:19 APTT (22.0-30.0) sec Potassium (3.5-5.1) mmol/L BUN 31 H (9-20) mg/dL Creatinine 1.42 H (0.66-1.25) mg/dL Glucose 113 H (74-99) mg/dL Magnesium (1.6-2.3) mg/dL
[2023-02-14] MEDS: ASPIRIN 81 MG PO SCH (12:05)
[2023-02-14] MEDS ORDERED: NITROGLYCERIN SL TABS 0.4 MG TAB SUBLINGUAL PRN (12:32)
[2023-02-14] MEDS ORDERED: ALPRAZolam 0.5 MG TAB PO PRN (12:32)
[2023-02-14] MEDS ORDERED: ALPRAZolam 0.25 MG TAB PO PRN (12:32)
--- NOTE | 2023-02-14 12:42 | P.PN ---
Subjective Progress Note Date: 02/14/23 Consult reason: congestive heart failure, shortness of breath Chief complaint: shortness of breath History of present illness: History of present illness: Patient is a pleasant 72-year-old male with significant past medical history of CAD and CHF who presented with complaints of worsening shortness of breath for the past couple weeks. He reports that he used to follow with Dr. Talbert in [place] however he retired approximately 3 years ago and has apparently not seen cardiology since then. Family history is unknown as he is adopted. He denies smoking, uses alcohol rarely. He reports up until couple weeks ago he had not been having any issues. He could walk 1 to 2 miles without difficulty. Then he began getting progressively short of breath. He denies any swelling. He has only been taking aspirin and Lasix at home. He reports many ALLERGIES to his heart medications in the past and has stopped them. Troponins were elevated 0.072, 0.075, 0.094. BNP 5850. Creat 1.29. EKG shows sinus rhythm with first- degree AV block and frequent PVCs. Echocardiogram 02/12/23 with EF 15-20%, apical akinesis, severe pulmonary hypertension, RVSP 59. Prior EF unknown. X-ray shows cardiomegaly, pulmonary vascular congestion and left pleural effusion. 02/14 Patient remains on Heparin gtt, IV Lasix. He is still on O2 at 3L. He states he ambulated the full floor and tolerated well. No lightheadedness or dizziness, no chest pain. He states he is breathing better. BP 94/64, HR 73, afebrile, PO 99%. Discussed options of cardiac catheterization being done tomorrow which patient initially stated he wanted to wait until after the first of the year in March. He subsequently agreed to have the cardiac catheterization tomorrow. He is also in agreement to take the necessary medication such as Plavix and aspirin following procedure if indicated. Patient is in agreement. PHYSICAL EXAMINATION: This is a 72-year-old male in no apparent distress at the time of my examination. HEENT: Head is atraumatic, normocephalic. Pupils are equal, round. Sclerae anicteric. Conjunctivae are clear. Mucous membranes of the mouth are moist. Neck is supple. There is no jugular venous distention. No carotid bruit is heard. CHEST EXAMINATION: Lungs are diminished with bibsilar crackles. On [place] O2. No chest wall tenderness is noted on palpation or with deep breathing. HEART EXAMINATION: Heart regular rate and rhythm. S1, S2 heard. No murmurs, gallops or rub. ABDOMEN: Soft, nontender. Bowel sounds are heard. EXTREMITIES: 2+ peripheral pulses with no evidence of peripheral edema and no calf tenderness noted. NEUROLOGIC EXAMINATION: Patient is awake, alert and oriented x3. IMPRESSION AND PLAN: 1. Acute on chronic systolic heart failure, EF 15% 2. CAD status post CABG 3. Dyspnea 4. Medical noncompliance 5. Pulmonary hypertension, RVSP 59 6. Pleural effusion, left 7. Elevated troponins PLAN: Patient with medical noncompliance. He has multiple ALLERGIES to LYNETTE inhibitor's and beta blockers. Continue oral diuretics. Monitor kidney function. Consider left and right heart catheterization. Patient will be scheduled for cardiac cath tomowow with Dr. King Please obain CABG and cath reports from Shon Arora (Dr. Talbert) Continue losartan 12.5 mg to try to optimize heart failure regimen as tolerates--add parameters due to hypotension Suspect possible stage D heart failure given inability to tolerate medications due to multiple ALLERGIES an ejection fraction of 15%. Hold beta blockers given concern of end-stage heart failure. We'll continue to follow. Nurse practitioner note has been reviewed, I agree with the documented findings and plan of care. Patient was seen and examined. Objective - Vital Signs Vital signs: Vital Signs Temp 98.2 F 02/14/23 08:49 Pulse 73 02/14/23 08:49 Resp 20 02/14/23 08:49 BP 94/64 02/14/23 08:49 Pulse Ox 99 02/14/23 08:49 FiO2 Intake & Output 02/13/23 02/14/23 02/14/23 18:59 06:59 18:59 Intake Total 165.833 222 Output Total 300 400 300 Balance -134.167 -400 -78 Weight 79.4 kg Intake: Intake, IV Titration 165.833 0 Amount Heparin Sod,Pork in 0.45% 165.833 0 NaCl 25,000 unit In 0.45 % NaCl 1 250ml.bag @ 10. 498 UNITS/KG/HR 10 mls/hr IV .Q24H [facility] Rx#: [id number] Oral 222 Output: Urine 300 400 300 Other: Voiding Method Toilet Toilet Toilet Urinal Urinal Urinal - Labs CBC & Chem 7: 02/13/23 07:21 02/14/23 07:19 Labs: Abnormal Lab Results - Last 24 Hours (Table) 02/13/23 02/13/23 02/14/23 Range/Units 15:02 22:30 07:19 APTT 49.7 H 103.6 H* (22.0-30.0) sec Potassium 3.2 L (3.5-5.1) mmol/L BUN (9-20) mg/dL Creatinine (0.66-1.25) mg/dL Glucose (74-99) mg/dL Magnesium 2.4 H (1.6-2.3) mg/dL 02/14/23 Range/Units 07:19 APTT (22.0-30.0) sec Potassium (3.5-5.1) mmol/L BUN 31 H (9-20) mg/dL Creatinine 1.42 H (0.66-1.25) mg/dL Glucose 113 H (74-99) mg/dL Magnesium (1.6-2.3) mg/dL
[2023-02-15] MEDS: HEPARIN SOD,PORK IN 0.45% NACL 25,000 UNIT in 0.45% NACL 1 250ML.BAG IV SCH (04:06)
[2023-02-15] MEDS: ASPIRIN 81 MG PO SCH (05:31)
[2023-02-15] MEDS ORDERED: ASPIRIN 325 MG TAB PO ONE (06:00)
[2023-02-15] MEDS ORDERED: ATORVASTATIN 80 MG TAB PO ONE (06:00)
[2023-02-15] MEDS ORDERED: HEPARIN SODIUM,PORCINE 10,000 UNIT in SODIUM CHLORIDE 0.9% 1,000 ML IRRIGATION PRN (07:00)
[2023-02-15] MEDS ORDERED: HEPARIN SODIUM,PORCINE (1 ML) 2,500 UNIT in SODIUM CHLORIDE 0.9% 250 ML IRRIGATION PRN (07:00)
[2023-02-15 07:07] LABS: African American GFR (CKD) 60 (>60 ml/min/1.73 sqM); Anion Gap 12 mmol/L; Blood Urea Nitrogen 32 mg/dL (9-20); Calcium 9.2 mg/dL (8.4-10.2); Carbon Dioxide 23 mmol/L (22-30); Chloride 102 mmol/L (98-107); Glucose 109 mg/dL (74-99); Non-African American GFR(CKD) 52 (>60 ml/min/1.73 sqM); Potassium 3.6 mmol/L (3.5-5.1); Sodium 137 mmol/L (137-145)
--- NOTE | 2023-02-15 10:56 | P.PN ---
Subjective Progress Note Date: 02/15/23 Consult reason: congestive heart failure, shortness of breath Chief complaint: shortness of breath History of present illness: History of present illness: Patient is a pleasant 72-year-old male with significant past medical history of CAD and CHF who presented with complaints of worsening shortness of breath for the past couple weeks. He reports that he used to follow with Dr. Talbert in [place] however he retired approximately 3 years ago and has apparently not seen cardiology since then. Family history is unknown as he is adopted. He denies smoking, uses alcohol rarely. He reports up until couple weeks ago he had not been having any issues. He could walk 1 to 2 miles without difficulty. Then he began getting progressively short of breath. He denies any swelling. He has only been taking aspirin and Lasix at home. He reports many ALLERGIES to his heart medications in the past and has stopped them. Troponins were elevated 0.072, 0.075, 0.094. BNP 5850. Creat 1.29. EKG shows sinus rhythm with first- degree AV block and frequent PVCs. Echocardiogram 02/12/23 with EF 15-20%, apical akinesis, severe pulmonary hypertension, RVSP 59. Prior EF unknown. X-ray shows cardiomegaly, pulmonary vascular congestion and left pleural effusion. 02/14 Patient remains on Heparin gtt, IV Lasix. He is still on O2 at 3L. He states he ambulated the full floor and tolerated well. No lightheadedness or dizziness, no chest pain. He states he is breathing better. BP 94/64, HR 73, afebrile, PO 99%. Discussed options of cardiac catheterization being done tomorrow which patient initially stated he wanted to wait until after the first of the year in March. He subsequently agreed to have the cardiac catheterization tomorrow. He is also in agreement to take the necessary medication such as Plavix and aspirin following procedure if indicated. Patient is in agreement. 02/15 patient is seen today in follow-up. He continues to be willing to go through with cardiac catheterization today that scheduled with Dr. King.blood pressure 111/75, heart rate 76, afebrile, pulse ox 96% on 2 L.repeat blood work reveals potassium 3.6, BUN 32 creatinine 1.35. Telemetry sinus rhythm. Patient remains on heparin drip which will be discontinued. PHYSICAL EXAMINATION: This is a 72-year-old male in no apparent distress at the time of my examination. HEENT: Head is atraumatic, normocephalic. Pupils are equal, round. Sclerae anicteric. CHEST EXAMINATION: Lungs are diminished with bibsilar crackles. HEART EXAMINATION: Heart regular rate and rhythm. S1, S2 heard. No murmurs, gallops or rub. EXTREMITIES: 2+ peripheral pulses with no evidence of peripheral edema and no calf tenderness noted. NEUROLOGIC EXAMINATION: Patient is awake, alert and oriented x3. IMPRESSION AND PLAN: 1. Acute on chronic systolic heart failure, EF 15% 2. CAD status post CABG 3. Dyspnea 4. Medical noncompliance 5. Pulmonary hypertension, RVSP 59 6. Pleural effusion, left 7. Elevated troponins PLAN: Patient with medical noncompliance. He has multiple ALLERGIES to LYNETTE inhibitor's and beta blockers. Continue oral diuretics. Monitor kidney function. Patient will be scheduled for cardiac cath today with Dr. King Please obain CABG and cath reports from [facility] (Dr. Talbert) Continue losartan 12.5 mg to try to optimize heart failure regimen as tolerates--add parameters due to hypotension Suspect possible stage D heart failure given inability to tolerate medications due to multiple ALLERGIES an ejection fraction of 15%. Hold beta blockers given concern of end-stage heart failure. We'll continue to follow. Nurse practitioner note has been reviewed, I agree with the documented findings and plan of care. Patient was seen and examined. Objective - Vital Signs Vital signs: Vital Signs Temp 98.3 F 02/15/23 08:25 Pulse 76 02/15/23 08:25 Resp 16 02/15/23 08:25 BP 111/75 02/15/23 08:25 Pulse Ox 96 02/15/23 08:25 FiO2 Intake & Output 02/14/23 02/15/23 02/15/23 18:59 06:59 18:59 Intake Total 222 219.037 46.808 Output Total 700 Balance -478 219.037 46.808 Weight 79 kg Intake: Intake, IV Titration 0 219.037 46.808 Amount Heparin Sod,Pork in 0.45% 0 219.037 46.808 NaCl 25,000 unit In 0.45 % NaCl 1 250ml.bag @ 10. 498 UNITS/KG/HR 10 mls/hr IV .Q24H [facility] Rx#: [id number] Oral 222 Output: Urine 700 Other: Voiding Method Toilet Toilet Urinal # Voids 9 # Bowel Movements 1 - Labs CBC & Chem 7: 02/13/23 07:21 02/15/23 06:31 Labs: Abnormal Lab Results - Last 24 Hours (Table) 02/14/23 02/15/23 02/15/23 Range/Units 16:28 06:31 06:31 APTT 71.4 H 66.0 H (22.0-30.0) sec BUN 32 H (9-20) mg/dL Creatinine 1.35 H (0.66-1.25) mg/dL Glucose 109 H (74-99) mg/dL
[2023-02-15] MEDS ORDERED: LIDOCAINE 1% INJ 10MG/ML (20 ML MDV) ONE (13:12)
[2023-02-15] MEDS ORDERED: fentaNYL (PF) 50 MCG/ML 2 ML AMP ONE (13:13)
[2023-02-15] MEDS ORDERED: fentaNYL (PF) 50 MCG/1 ML VIAL IVP ONE (13:27)
[2023-02-15] MEDS ORDERED: MIDAZOLAM 2 MG/2 ML VIAL IVP ONE (13:27)
[2023-02-15] MEDS ORDERED: SODIUM CHLORIDE 0.9% 1,000 ML IV ONE (13:28)
[2023-02-15] MEDS ORDERED: LIDOCAINE 1% INJ 10MG/ML (20 ML MDV) SQ ONE (13:28)
[2023-02-15 14:00] LABS: O2 Sat Blood Gas 95.9 %
[2023-02-15 14:05] LABS: O2 Sat Blood Gas 54.3 %
[2023-02-15] MEDS ORDERED: CLOPIDOGREL 75 MG TAB PO ONE (14:05)
[2023-02-15] MEDS ORDERED: IOPAMIDOL-370 100ML BTL INJ ONE ×3 (14:05→14:23)
[2023-02-15] MEDS: HEPARIN SODIUM 1,000 UN/ML (10ML VL) IV ONE ×2 (14:05→14:16)
[2023-02-15] MEDS ORDERED: CLOPIDOGREL 75 MG TAB ONE (14:06)
[2023-02-15 14:07] LABS: O2 Sat Blood Gas 56.6 %
[2023-02-15] MEDS ORDERED: NITROGLYCERIN 1000MCG/10ML SYRINGE INTRACORON ONE (14:20)
--- NOTE | 2023-02-15 15:09 | P.PRCINT ---
Percutaneous Coronary Int. - Percutaneous Coronary Intervention Percutaneous Coronary Intervention: PROCEDURES PERFORMED: Left heart catheterization, bilateral coronary angiography, ultrasound guided arterial access, TOLLIVER to LAD angiography, balloon angioplasty mid RCA with 3.0 x 12 mm noncompliant balloon INDICATION: Non-STEMI, cardiomyopathy CONSENT:I have discussed the risks, benefits and alternative therapies for the above-mentioned procedure and for both sedation/analgesia as well as necessary blood product administration, if indicated, as they pertain to this patient. The patient has indicated understanding and acceptance of the risks and procedures discussed. PROCEDURE: After the risks, benefits and alternatives of the above mentioned procedure explained in detail with the patient, informed consent was obtained. Patient was taken to the catheterization lab and prepped and draped in usual fashion. Ultrasound guidance was used to assess for arterial access. 1% lidocaine was used to anesthetize the right femoral vein and artery. A 6-Algerian sheath was placed in the right femoral vein and artery using modified Seldinger technique and ultrasound guidance. A 6-Algerian [place] catheter was inserted into the right atrium, right ventricle, pulmonary artery and pulmonary A wedge position and pressure measurements and oxygen saturation were obtained. Thermodilution was performed. Next, Left coronary angiography was performed with a 6-Algerian JL 4.0 catheter and right coronary angiography was performed with a 4-Algerian FR4 catheter in various views. A TOLLIVER to LAD angiography was performed with a 6-Algerian FR4. Aortic root angiography was performed with a 6- Algerian pigtail catheter with power injection. No other grafts were noted to be patent other than TOLLIVER to LAD. A 6-Algerian FR4 catheter was inserted into the left ventricle and pressure measurements were obtained. The decision was made to perform angioplasty of the RCA. Heparin was given for ACT greater than 250. A 6-Algerian AL 0.75 guide was used to engage the RCA. A 0.014 BMW wire was advanced in the distal RCA. Balloon angioplasty was performed with a 2.5 x 12, 2.75 x 12 noncompliant and 3.0 x 12 mm noncompliant balloon. Given in-stent stenosis, medical noncompliance decision was made to perform angioplasty with excellent result. The wire was pulled and final angiograms were performed. Per intervention there was 90% stenosis and NATHAN-3 flow and postintervention there is less than 10% stenosis and NATHAN-3 flow. Right femoral angiogram showed adequate anatomy for closure and a 6-Algerian Angio-Seal was placed with hemostasis achieved. The venous sheath was left in place to be pulled in the post catheterization holding area. The patient tolerated the procedure well. Patient was transported back to the post catheterization holding area in stable condition. Conscious Sedation: Patient was monitored under the direct supervision of myself for conscious sedation using Versed and fentanyl for a total duration of 71 minutes HEMODYNAMICS: Aorta: 97/62 LV: 97/12, LVEDP 19 PCWP: 21 PA: 60/28 RV: 67/10 RA: 14 Right femoral oxygen saturation: 96% PA oxygen saturation: 57% RA oxygen saturation: 54% Cardiac output by thermodilution: 3.1 L/m Cardiac index by thermodilution: 1.6 L/m/m Cardiac output by Praveena: 3.1 L/m/m Cardiac index by Praveena: 1.6 L/m/m SELECTIVE CORONARY ARTERIOGRAPHY: LEFT MAIN: The left main is a large caliber vessel which bifurcates into the LAD and circumflex. There is ostial 20-30% left main stenosis LEFT ANTERIOR DESCENDING CORONARY ARTERY: LAD is a large caliber vessel which wraps around to the apex. There is 100% proximal LAD stenosis LEFT CIRCUMFLEX CORONARY ARTERY: Left circumflex is a moderate caliber vessel which gives off 3 small to moderate caliber OM branches. There is a 40-50% mid circumflex stenosis between the OM 2 and on 3 and otherwise mild luminal irregularities. RIGHT CORONARY ARTERY: The right coronary artery is a moderate caliber vessel which gives off a PDA and PLV branch and is the dominant vessel. There is a proximal to mid RCA stent with mid RCA 90% stenosis and otherwise mild 20-30% stenoses. TOLLIVER to LAD: Only patent graft noted and is patent. TOLLIVER to LAD back flows to the mid LAD and fills a small caliber diagonal branch as well. FINAL IMPRESSION: 1. CAD as described above including 100% proximal LAD stenosis, 40-50% mid circumflex stenosis, 90% RCA in-stent stenosis 2. Elevated left and right sided filling pressures 3. Decreased cardiac output, cardiac index 4. Pulmonary hypertension related to left-sided heart failure 5. Status post balloon angioplasty RCA 3.0 x 12 mm noncompliant balloon PLAN: 1. Aggressive risk factor modification per most recent ACC/AHA guidelines. 2. Continue Dual anti platelets with aspirin and Plavix for 12 months 3. Patient with end-stage heart failure with decreased cardiac output, cardiac index. Avoid beta raj. Unlikely candidate for advanced heart failure options due to medical noncompliance
[2023-02-15] MEDS ORDERED: MAG HYDROX/AL HYDROX/SIMETH 30 ML CUP PO PRN (15:10)
[2023-02-15] MEDS ORDERED: ZOLPIDEM 5 MG TAB PO PRN (15:10)
[2023-02-15] MEDS ORDERED: ATROPINE SULFATE 0.1 MG/ML 10ML SYRINGE IV PRN (15:10)
[2023-02-15] MEDS ORDERED: RX INFO: IV CONTRAST WAS GIVEN 1 EACH MISC MISCELLANE PRN (15:10)
[2023-02-15] MEDS ORDERED: SODIUM CHLORIDE 0.9% 1,000 ML in EMPTY BAG 1 BAG IV SCH (15:15)
[2023-02-15] MEDS: LOSARTAN 25 MG TAB PO SCH (18:18)
[2023-02-15] MEDS: FUROSEMIDE 40 MG TAB PO SCH (18:18)
[2023-02-16 04:46] VITALS: RESP 18
--- NOTE | 2023-02-16 05:56 | P.PN ---
Subjective Progress Note Date: 02/15/23 Subjective 72-year-old male with known history of CABG and congestive heart failure noncompliant with his medications as her heart failure medications are making him feel worse came in with compensative shortness of breath orthopnea progressively getting worse for last few days. Patient is found to have pulmonary edema with the elevated BNP of around 5000. As per the patient patient's last EF was 60%. Following with a senior finance manager and titrates his Lasix at home apparently patient is taking 40 mg of Lasix not taking anything else. She denied any chest pain. EKG is not available in the system yet troponin is mildly elevated to 0.072. 02/13/2023 Patient does feel better but still short of breath still requiring oxygen still has pedal edema and bibasilar crackles patient was started on losartan and patient is also on IV heparin for elevated troponin and cardiology evaluated the patient awaiting their recommendations. Patient's serum creatinine is fairly stable at 1.29 02/14/2023 Patient has slight worsening of serum creatinine to 1.4 to patient is bit hypotensive as well but patient's EF is only 15% and was started on low-dose of losartan patient will be switched to oral Lasix patient is fairly euvolemic at this time. Patient wanted to get cardiac catheterization here tomorrow. Able to wean him off oxygen. Patient orthopnea and paroxysmal nocturnal dyspnea resolved 02/15/2023 Patient is seen in follow-up this morning currently nothing by mouth as patient is scheduled to undergo cardiac catheterization. Patient remains on 2 L via nasal cannula and reports to feeling significant shortness of breath. Patient does have extensive past medical history of previous smoking most likely COPD as well as continued CHF with poor EF. Patient has been up and walking around the room and has reported he needs to take frequent breaks due to significant shortness of breath. Will await cardiac catheterization report and discuss further with cardiology. Will perform home O2 eval upon discharge. Patient is currently afebrile with no reported chest pain or palpitations. Patient did have some stomach upset earlier today and reports has resolved. Patient is extremely agitated and feels frustrated about his medical conditions and overall care. Review of systems: Constitutional: Denied any fatigue denied any fever. Cardio vascular: denied any chest pain, palpitations Gastrointestinal denied any nausea vomiting Pulmonary: Reports continued shortness of breath, feels extremely short of breath with exertion Neurologic: denied any new focal deficits All inpatient medications were reviewed and appropriate changes in these medications as dictated in the interval history and assessment and plan. PHYSICAL EXAMINATION: GENERAL: The patient is alert and oriented x3, appears anxious and frustrated. Well developed, well nourished. HEENT: Pupils are round and equally reacting to light. EOMI. No scleral icterus. No conjunctival pallor. Normocephalic, atraumatic. No pharyngeal erythema. No thyromegaly. CARDIOVASCULAR: S1 and S2 present. No murmurs, rubs, or gallops. PULMONARY: Diminished breath sounds bilaterally otherwise Chest is clear to auscultation, no wheezing or crackles. ABDOMEN: Soft, nontender, nondistended, normoactive bowel sounds. No palpable organomegaly. MUSCULOSKELETAL: No joint swelling or deformity. EXTREMITIES: No cyanosis, clubbing, mild ankle edema bilateral lower extremities NEUROLOGICAL: Gross neurological examination did not reveal any focal deficits. SKIN: No rashes. Assessment and plan: -Congestive heart failure chronic systolic dysfunction with acute exacerbation, and has EF of 15-20% patient is fairly euvolemic, has been switched to oral Lasix, continue with losartan slight worsening of serum creatinine which was monitored blood pressure is low because of heart failure and extremely low EF -Acute hypoxic respiratory failure, currently on 2 L, multifactorial secondary to CHF exacerbation and possible COPD -Elevated troponins: Unsure whether patient has type I non-ST elevation MT. cardiology following and continued on IV heparin and scheduled to undergo cardiac catheterization today -Chronic kidney disease stage II with a mild acute renal failure component secondary to prerenal azotemia from heart failure -Coronary artery disease status post CABG , history of CABG in the past continue with aspirin -Former smoker of many years, likely COPD -GI prophylaxis -DVT prophylaxis: On IV heparin -Full code currently and requesting to be DO NOT RESUSCITATE, will await cardiac catheterization The impression and plan of care has been dictated by Bernarda Mendez, Nurse Practitioner as directed. Dr. Eloise MD I have performed a history and examination and MDM of this patient, discussed the same with the dictator, and agree with the dictator's assessment and plan as written ,documented as a scribe. Based on total visit time, I have performed more than 50% of the visit. Objective - Vital Signs Vital signs: Vital Signs Temp 98.3 F 02/15/23 08:25 Pulse 76 02/15/23 08:25 Resp 16 02/15/23 08:25 BP 111/75 02/15/23 08:25 Pulse Ox 96 02/15/23 08:25 FiO2 Intake & Output 02/14/23 02/15/23 02/15/23 18:59 06:59 18:59 Intake Total 222 219.037 46.808 Output Total 700 Balance -478 219.037 46.808 Weight 79 kg Intake: Intake, IV Titration 0 219.037 46.808 Amount Heparin Sod,Pork in 0.45% 0 219.037 46.808 NaCl 25,000 unit In 0.45 % NaCl 1 250ml.bag @ 10. 498 UNITS/KG/HR 10 mls/hr IV .Q24H [facility] Rx#: [id number] Oral 222 Output: Urine 700 Other: Voiding Method Toilet Toilet Urinal # Voids 9 # Bowel Movements 1 - Labs CBC & Chem 7: 02/13/23 07:21 02/15/23 06:31 Labs: Abnormal Lab Results - Last 24 Hours (Table) 02/14/23 02/15/23 02/15/23 Range/Units 16:28 06:31 06:31 APTT 71.4 H 66.0 H (22.0-30.0) sec BUN 32 H (9-20) mg/dL Creatinine 1.35 H (0.66-1.25) mg/dL Glucose 109 H (74-99) mg/dL
[2023-02-16 06:46] LABS: Basophils % (A) 1 %; Eosinophils # (A) 0.1 k/uL (0-0.7); Eosinophils % (A) 2 %; HCT 46.4 % (39.0-53.0); HGB 15.6 gm/dL (13.0-17.5); Lymphocytes % (A) 14 %; MCH 32.5 pg (25.0-35.0); MCHC 33.7 g/dL (31.0-37.0); MCV 96.4 fL (80.0-100.0); Mean Platelet Volume 8.8; Monocytes # (A) 0.6 k/uL (0-1.0); Monocytes % (A) 9 %; Neutrophils # (A) 5.1 k/uL (1.3-7.7); Neutrophils % (A) 73 %; Platelet Count 161 k/uL (150-450); RBC 4.81 m/uL (4.30-5.90); RDW 15.2 % (11.5-15.5); WBC 6.9 k/uL (3.8-10.6)
[2023-02-16 07:01] LABS: African American GFR (CKD) 74 (>60 ml/min/1.73 sqM); Anion Gap 13 mmol/L; Blood Urea Nitrogen 26 mg/dL (9-20); Calcium 9.2 mg/dL (8.4-10.2); Carbon Dioxide 18 mmol/L (22-30); Chloride 105 mmol/L (98-107); Glucose 117 mg/dL (74-99); Non-African American GFR(CKD) 64 (>60 ml/min/1.73 sqM); Sodium 136 mmol/L (137-145)
[2023-02-16 07:03] LABS: Potassium 4.5 mmol/L (3.5-5.1)
[2023-02-16] MEDS ORDERED: PANTOPRAZOLE 40 MG TABLET PO SCH (07:30)
[2023-02-16] MEDS: LOSARTAN 25 MG TAB PO SCH (08:54)
[2023-02-16] MEDS: FUROSEMIDE 40 MG TAB PO SCH (08:54)
[2023-02-16] MEDS: ASPIRIN 81 MG PO SCH (08:54)
[2023-02-16] MEDS ORDERED: CLOPIDOGREL 75 MG TAB PO SCH (09:00)
[2023-02-16 09:11] VITALS: TEMP 98
--- NOTE | 2023-02-16 10:58 | P.PN ---
Subjective Progress Note Date: 02/16/23 Consult reason: congestive heart failure, shortness of breath Chief complaint: shortness of breath History of present illness: History of present illness: Patient is a pleasant 72-year-old male with significant past medical history of CAD and CHF who presented with complaints of worsening shortness of breath for the past couple weeks. He reports that he used to follow with Dr. Talbert in [place] however he retired approximately 3 years ago and has apparently not seen cardiology since then. Family history is unknown as he is adopted. He denies smoking, uses alcohol rarely. He reports up until couple weeks ago he had not been having any issues. He could walk 1 to 2 miles without difficulty. Then he began getting progressively short of breath. He denies any swelling. He has only been taking aspirin and Lasix at home. He reports many ALLERGIES to his heart medications in the past and has stopped them. Troponins were elevated 0.072, 0.075, 0.094. BNP 5850. Creat 1.29. EKG shows sinus rhythm with first- degree AV block and frequent PVCs. Echocardiogram 02/12/23 with EF 15-20%, apical akinesis, severe pulmonary hypertension, RVSP 59. Prior EF unknown. X-ray shows cardiomegaly, pulmonary vascular congestion and left pleural effusion. 02/14 Patient remains on Heparin gtt, IV Lasix. He is still on O2 at 3L. He states he ambulated the full floor and tolerated well. No lightheadedness or dizziness, no chest pain. He states he is breathing better. BP 94/64, HR 73, afebrile, PO 99%. Discussed options of cardiac catheterization being done tomorrow which patient initially stated he wanted to wait until after the first of the year in March. He subsequently agreed to have the cardiac catheterization tomorrow. He is also in agreement to take the necessary medication such as Plavix and aspirin following procedure if indicated. Patient is in agreement. 02/15 patient is seen today in follow-up. He continues to be willing to go through with cardiac catheterization today that scheduled with Dr. King.blood pressure 111/75, heart rate 76, afebrile, pulse ox 96% on 2 L.repeat blood work reveals potassium 3.6, BUN 32 creatinine 1.35. Telemetry sinus rhythm. Patient remains on heparin drip which will be discontinued. 02/16 Surgery, patient underwent left heart catheterization which revealed 100% proximal LAD stenosis, 40-50% mid circumflex stenosis, 90% RCA in-stent stenosis. Elevated left and right sided filling pressures. Decreased cardiac output, cardiac index. Pulmonary hypertension related to left-sided heart failure. Patient underwent balloon angioplasty of the RCA with plan for aspirin and Plavix for 12 months. Patient denies any new concerns today. No significa nt tenderness, hematoma at the right groin site. Blood pressure 113/74, heart rate 80, pulse ox 97% on room air. Repeat blood work reveals hemoglobin 15.6. BUN 26 creatinine 1.14. PHYSICAL EXAMINATION: This is a 72-year-old male in no apparent distress at the time of my examination. HEENT: Head is atraumatic, normocephalic. Pupils are equal, round. Sclerae anicteric. CHEST EXAMINATION: Lungs are diminished. HEART EXAMINATION: Heart regular rate and rhythm. S1, S2 heard. No murmurs, gallops or rub. EXTREMITIES: 2+ peripheral pulses with no evidence of peripheral edema and no calf tenderness noted. NEUROLOGIC EXAMINATION: Patient is awake, alert and oriented x3. IMPRESSION AND PLAN: 1. Acute on chronic systolic heart failure, EF 15% 2. CAD status post CABG 3. Dyspnea 4. Medical noncompliance 5. Pulmonary hypertension, RVSP 59 6. Pleural effusion, left 7. Elevated troponins PLAN: Patient with medical noncompliance. He has multiple ALLERGIES to LYNETTE inhibitor's and beta blockers and statin. Continue current cardiac medications Suspect possible stage D heart failure given inability to tolerate medications due to multiple ALLERGIES an ejection fraction of 15%. No beta raj due to end-stage heart failure and decreased cardio output Patient is cleared from cardiology for discharge to make follow-up with Dr. King in 1-2 weeks. Nurse practitioner note has been reviewed, I agree with the documented findings and plan of care. Patient was seen and examined. Objective - Vital Signs Vital signs: Vital Signs Temp 97.9 F 02/16/23 04:40 Pulse 71 02/16/23 04:40 Resp 18 02/16/23 04:40 BP 109/74 02/16/23 04:40 Pulse Ox 98 02/16/23 04:40 FiO2 Intake & Output 02/15/23 02/16/23 02/16/23 18:59 06:59 18:59 Intake Total 196.808 Balance 196.808 Weight 79.6 kg Intake: IV 150 Intake, IV Titration 46.808 Amount Heparin Sod,Pork in 0.45% 46.808 NaCl 25,000 unit In 0.45 % NaCl 1 250ml.bag @ 10. 498 UNITS/KG/HR 10 mls/hr IV .Q24H [facility] Rx#: [id number] Oral 0 Other: Voiding Method Toilet Toilet # Voids 1 - Labs CBC & Chem 7: 02/16/23 06:23 02/16/23 06:23 Labs: Abnormal Lab Results - Last 24 Hours (Table) 02/16/23 Range/Units 06:23 Sodium 136 L (137-145) mmol/L Carbon Dioxide 18 L (22-30) mmol/L BUN 26 H (9-20) mg/dL Glucose 117 H (74-99) mg/dL
[2023-02-16 11:13] VITALS: BMI 27.4
[2023-02-16] MEDS: HEPARIN SOD,PORK IN 0.45% NACL 25,000 UNIT in 0.45% NACL 1 250ML.BAG IV SCH (11:39)
[2023-02-16 12:01] VITALS: BP 145/95; PULSE 83
== END 2023-02-16 14:26 | disposition home or self-care (01) | DRG 250 ==
LOC: EC 10:29 → 3SCARD 12:54
PROVIDERS: ADMIT Internal Medicine; ATTEND Internal Medicine
PROC: B2131ZZ Fluoroscopy of Multiple Coronary Artery Bypass Grafts using Low Osmolar Contrast (ICD-10-PCS; 2023-02-15)
PROC: 02703ZZ Dilation of Coronary Artery, One Artery, Percutaneous Approach (ICD-10-PCS; principal; 2023-02-15 10:25)
PROC: 4A023N7 Measurement of Cardiac Sampling and Pressure, Left Heart, Percutaneous Approach (ICD-10-PCS; 2023-02-15 10:25)
PROC: B2111ZZ Fluoroscopy of Multiple Coronary Arteries using Low Osmolar Contrast (ICD-10-PCS; 2023-02-15 10:25)
PROC: B2181ZZ Fluoroscopy of Left Internal Mammary Bypass Graft using Low Osmolar Contrast (ICD-10-PCS; 2023-02-15 10:25)
DX: I13.0 Hypertensive heart and chronic kidney disease with heart failure and stage 1 through stage 4 chronic kidney disease, or unspecified chronic kidney disease (principal); I21.4 Non-ST elevation (NSTEMI) myocardial infarction; I50.23 Acute on chronic systolic (congestive) heart failure; J96.01 Acute respiratory failure with hypoxia; N17.9 Acute kidney failure, unspecified; T82.855A Stenosis of coronary artery stent, initial encounter; Z20.822 Contact with and (suspected) exposure to COVID-19; E11.22 Type 2 diabetes mellitus with diabetic chronic kidney disease; N18.2 Chronic kidney disease, stage 2 (mild); F17.210 Nicotine dependence, cigarettes, uncomplicated; Z71.6 Tobacco abuse counseling; I25.10 Atherosclerotic heart disease of native coronary artery without angina pectoris; I25.2 Old myocardial infarction; I08.1 Rheumatic disorders of both mitral and tricuspid valves; I27.20 Pulmonary hypertension, unspecified; I44.0 Atrioventricular block, first degree; Y83.1 Surgical operation with implant of artificial internal device as the cause of abnormal reaction of the patient, or of later complication, without mention of misadventure at the time of the procedure; Z79.82 Long term (current) use of aspirin; Z79.899 Other long term (current) drug therapy; Z91.148 Patient's other noncompliance with medication regimen for other reason; Z95.1 Presence of aortocoronary bypass graft; Z88.0 Allergy status to penicillin; Z88.8 Allergy status to other drugs, medicaments and biological substances
CPT/HCPCS: 36415; 71046; 76937; 80048; 80053; 81003; 82810; 83735; 83880; 84132; 84484; 85018; 85025; 85610; 85730; 87636; 92920; 93005; 93306; 93461; 93567; 96365; 96366; 96375; 99285

== ENCOUNTER 2023-04-08 11:30 | Inpatient (IN) | payer BC, MEDICARE ==
[2023-04-08 12:39] LABS: Anisocytosis Slight; Basophils % (A) 0 %; Eosinophils # (A) 0.1 k/uL (0-0.7); Eosinophils % (A) 1 %; HGB 16.1 gm/dL (13.0-17.5); Lymphocytes % (A) 8 %; MCH 31.6 pg (25.0-35.0); MCHC 32.9 g/dL (31.0-37.0); MCV 95.8 fL (80.0-100.0); Mean Platelet Volume 9.6; Monocytes % (A) 7 %; Neutrophils # (A) 10.9 k/uL (1.3-7.7); Neutrophils % (A) 83 %; Platelet Count 191 k/uL (150-450); RBC 5.12 m/uL (4.30-5.90); RDW 16.2 % (11.5-15.5); WBC 13.2 k/uL (3.8-10.6)
--- NOTE | 2023-04-08 12:44 | ED ---
General Adult HPI - General Chief complaint: Shortness of Breath Stated complaint: SOB Time Seen by Provider: 04/08/23 11:58 Source: patient, RN notes reviewed Mode of arrival: ambulatory Limitations: no limitations - History of Present Illness Initial comments: 73-year-old male presents emergency department chief complaint shortness of breath. Patient states he has had increasing shortness of breath the last few days. Patient states he has extensive cardiac history including multiple stents, CAD, CHF, CABG Patient states he does have a history of CHF states he has poor functioning heart in which she is on Lasix, multiple other cardiac medications. He states he sees Dr. King which she had a heart cath in January. Patient noticed increase the leg swelling - Related Data Home Medications Medication Instructions Recorded Confirmed Aspirin [Adult Low Dose Aspirin EC] 81 mg PO DAILY 11/17/21 04/08/23 Allergies Allergy/AdvReac Type Severity Reaction Status Date / Time lisinopril Allergy Unknown Verified 04/08/23 13:36 metoprolol Allergy Unknown Verified 04/08/23 13:36 mexiletine Allergy Unknown Verified 04/08/23 13:36 Penicillins Allergy Anaphylaxis Verified 04/08/23 13:36 pravastatin Allergy Unknown Verified 04/08/23 13:36 Review of Systems ROS Statement: Those systems with pertinent positive or pertinent negative responses have been documented in the HPI. ROS Other: All systems not noted in ROS Statement are negative. Past Medical History Past Medical History: Coronary Artery Disease (CAD), Myocardial Infarction (VT) Additional Past Medical History / Comment(s): last VT 2014 Last Myocardial Infarction Date:: 2014 History of Any Multi-Drug Resistant Organisms: None Reported Past Surgical History: Coronary Bypass/CABG Additional Past Surgical History / Comment(s): Angiogram, Past Anesthesia/Blood Transfusion Reactions: No Reported Reaction Past Psychological History: No Psychological Hx Reported Smoking Status: Former smoker Past Alcohol Use History: Occasional Past Drug Use History: None Reported - Past Family History Mother Family Medical History: Unable to Obtain Additional Family Medical History / Comment(s): pt is adopted General Exam Limitations: no limitations General appearance: alert, in no apparent distress Head exam: Present: atraumatic, normocephalic, normal inspection Eye exam: Present: normal appearance, PERRL, EOMI. Absent: scleral icterus, conjunctival injection, periorbital swelling ENT exam: Present: normal exam, normal oropharynx, mucous membranes moist Neck exam: Present: normal inspection, full ROM. Absent: tenderness, meningismus, lymphadenopathy Respiratory exam: Present: decreased breath sounds. Absent: normal lung sounds bilaterally, respiratory distress, wheezes, rales, rhonchi, stridor Cardiovascular Exam: Present: tachycardia, irregular rhythm, normal heart sounds. Absent: regular rate, normal rhythm, systolic murmur, diastolic murmur, rubs, gallop, clicks Extremities exam: Present: pedal edema Course Vital Signs 04/08/23 04/08/23 04/08/23 11:46 12:53 14:32 Temperature 97.8 F Pulse Rate 133 H 101 H 109 H Respiratory 20 16 22 Rate Blood Pressure 125/86 110/86 118/97 O2 Sat by Pulse 98 96 96 Oximetry 04/08/23 04/08/23 15:58 16:41 Temperature Pulse Rate 98 Respiratory 19 26 H Rate Blood Pressure 113/88 O2 Sat by Pulse 97 Oximetry EKG Findings - EKG Comments: EKG Findings:: EKG performed at 12: 03 atrial flutter with a rate of 116 QRS 130 QT/QTc 333/402 - EKG Results: EKG: interpreted by JOSE MIGUEL Medical Decision Making - Medical Decision Making Was pt. sent in by a medical professional or institution (, PA, FINISHING TUNNEL OPERATOR, urgent care, hospital, or fci...) When possible be specific @ -No Did you speak to anyone other than the patient for history (EMS, parent, family, police, friend...)? What history was obtained from this source @ -No Did you review nursing and triage notes (agree or disagree)? Why? @ -I reviewed and agree with nursing and triage notes Were old charts reviewed (outside hosp., previous admission, EMS record, old EKG, old radiological studies, urgent care reports/EKG's, fci records)? Report findings @ -Reviewed recent admission, cardiology evaluation, heart cath, echocardiogram Differential Diagnosis (chest pain, altered mental status, abdominal pain women, abdominal pain men, vaginal bleeding, weakness, fever, dyspnea, syncope, headache, dizziness, GI bleed, back pain, seizure, CVA, palpatations, mental health, musculoskeletal)? @ -[Differential Dyspnea: Coronary syndrome, arrhythmia, tamponade, asthma, COPD, pulmonary embolism, pneumonia, pneumothorax, pulmonary effusion, anaphylaxis, diabetic ketoacidosis, flailed chest, pulmonary contusion, diaphragmatic rupture, anemia, neuromuscular, this is not meant to be an all-inclusive list. EKG interpreted by me (3pts min.). @ -As above X-rays interpreted by me (1pt min.). @ -Chest x-ray shows pulmonary edema CT interpreted by me (1pt min.). @ -None done U/S interpreted by me (1pt. min.). @ -[All show Limited abdomen no acute process evidence of gallbladder adenomyostosis What testing was considered but not performed or refused? (CT, X-rays, U/S, labs)? Why? @ -None What meds were considered but not given or refused? Why? @ -None Did you discuss the management of the patient with other professionals (professionals i.e. , PA, FINISHING TUNNEL OPERATOR, lab, RT, psych nurse, 7th grade social studies teacher, svp research & ebusiness operations, teacher, county records management officer, caseworker)? Give summary @ -Dr. Nguyen for admission secondary to acute CHF exacerbation Was smoking cessation discussed for >3mins.? @ -No Was critical care preformed (if so, how long)? @ -No Were there social determinants of health that impacted care today? How? (Homelessness, low income, unemployed, alcoholism, drug addiction, transportation, low edu. Level, literacy, decrease access to med. care, [place] [facility], rehab)? @ -No Was there de-escalation of care discussed even if they declined (Discuss DNR or withdrawal of care, Hospice)? DNR status @ -No What co-morbidities impacted this encounter? (DM, HTN, Smoking, COPD, CAD, Cancer, CVA, ARF, Chemo, Hep., AIDS, mental health diagnosis, sleep apnea, morbid obesity)? @ -[CAD, CHF Was patient admitted / discharged? Hospital course, mention meds given and route, prescriptions, significant lab abnormalities, going to OR and other pertinent info. @ -Admitted patient is found to have acute CHF exacerbation, mild hypoxia requiring oxygenation at this time. Patient was given Lasix. Patient is medication noncompliance history of CHF with an EF of 15% patient does have some hepatic congestion related to CHF. Ultrasound is reviewed and shows no evidence of acute process he does have gallbladder adenomatosis. Patient was given Lasix. Patient will have repeat potassium as it was mildly elevated. Patient presenting atrial flutter heart rate improved without medication treatment. Undiagnosed new problem with uncertain prognosis? @ -[No Drug Therapy requiring intensive monitoring for toxicity (Heparin, Nitro, Insulin, Cardizem)? @ -No Were any procedures done? @ -No Diagnosis/symptom? @ -[Acute CHF exacerbation, elevated troponin, pulmonary edema Acute, or Chronic, or Acute on Chronic? @ -Acute Uncomplicated (without systemic symptoms) or Complicated (systemic symptoms)? @ -[Complicated Side effects of treatment? @ -No Exacerbation, Progression, or Severe Exacerbation? @ -Exacerbation Poses a threat to life or bodily function? How? (Chest pain, USA, VT, pneumonia, PE, COPD, DKA, ARF, appy, cholecystitis, CVA, Diverticulitis, Homicidal, Suicidal, threat to staff... and all critical care pts) @ -yes CHF possible ACS] - Lab Data Result diagrams: 04/08/23 12:20 04/08/23 12:20 Lab Results 04/08/23 04/08/23 04/08/23 Range/Units 12:20 12:20 12:20 WBC 13.2 H (3.8-10.6) k/uL RBC 5.12 (4.30-5.90) m/uL Hgb 16.1 (13.0-17.5) gm/dL Hct 49.0 (39.0-53.0) % MCV 95.8 (80.0-100.0) fL MCH 31.6 (25.0-35.0) pg MCHC 32.9 (31.0-37.0) g/dL RDW 16.2 H (11.5-15.5) % Plt Count 191 (150-450) k/uL MPV 9.6 Neutrophils % 83 % Lymphocytes % 8 % Monocytes % 7 % Eosinophils % 1 % Basophils % 0 % Neutrophils # 10.9 H (1.3-7.7) k/uL Lymphocytes # 1.0 (1.0-4.8) k/uL Monocytes # 1.0 (0-1.0) k/uL Eosinophils # 0.1 (0-0.7) k/uL Basophils # 0.0 (0-0.2) k/uL Anisocytosis Slight PT 15.6 H (10.0-12.5) sec INR 1.5 H (<1.2) APTT 27.7 (22.0-30.0) sec Sodium 136 L (137-145) mmol/L Potassium 5.8 H (3.5-5.1) mmol/L Chloride 104 (98-107) mmol/L Carbon Dioxide 19 L (22-30) mmol/L Anion Gap 13 mmol/L BUN 48 H (9-20) mg/dL Creatinine 1.24 (0.66-1.25) mg/dL Est GFR (CKD-EPI)AfAm 67 (>60 ml/min/1.73 sqM) Est GFR (CKD-EPI)NonAf 58 (>60 ml/min/1.73 sqM) Glucose 112 H (74-99) mg/dL Lactic Ac Sepsis Rflx Plasma Lactic Acid Chris (0.7-2.0) mmol/L Calcium 9.6 (8.4-10.2) mg/dL Magnesium 2.7 H (1.6-2.3) mg/dL Total Bilirubin 3.8 H (0.2-1.3) mg/dL AST 179 H (17-59) U/L ALT 108 H (4-49) U/L Alkaline Phosphatase 177 H (38-126) U/L Troponin I (0.000-0.034) ng/mL NT-Pro-B Natriuret Pep 81986 pg/mL Total Protein 8.1 (6.3-8.2) g/dL Albumin 4.3 (3.5-5.0) g/dL Lipase (23-300) U/L 04/08/23 04/08/23 04/08/23 Range/Units 12:20 12:20 12:20 WBC (3.8-10.6) k/uL RBC (4.30-5.90) m/uL Hgb (13.0-17.5) gm/dL Hct (39.0-53.0) % MCV (80.0-100.0) fL MCH (25.0-35.0) pg MCHC (31.0-37.0) g/dL RDW (11.5-15.5) % Plt Count (150-450) k/uL MPV Neutrophils % % Lymphocytes % % Monocytes % % Eosinophils % % Basophils % % Neutrophils # (1.3-7.7) k/uL Lymphocytes # (1.0-4.8) k/uL Monocytes # (0-1.0) k/uL Eosinophils # (0-0.7) k/uL Basophils # (0-0.2) k/uL Anisocytosis PT (10.0-12.5) sec INR (<1.2) APTT (22.0-30.0) sec Sodium (137-145) mmol/L Potassium (3.5-5.1) mmol/L Chloride (98-107) mmol/L Carbon Dioxide (22-30) mmol/L Anion Gap mmol/L BUN (9-20) mg/dL Creatinine (0.66-1.25) mg/dL Est GFR (CKD-EPI)AfAm (>60 ml/min/1.73 sqM) Est GFR (CKD-EPI)NonAf (>60 ml/min/1.73 sqM) Glucose (74-99) mg/dL Lactic Ac Sepsis Rflx Plasma Lactic Acid Chris 2.2 H* (0.7-2.0) mmol/L Calcium (8.4-10.2) mg/dL Magnesium (1.6-2.3) mg/dL Total Bilirubin (0.2-1.3) mg/dL AST (17-59) U/L ALT (4-49) U/L Alkaline Phosphatase (38-126) U/L Troponin I 0.070 H* (0.000-0.034) ng/mL NT-Pro-B Natriuret Pep pg/mL Total Protein (6.3-8.2) g/dL Albumin (3.5-5.0) g/dL Lipase 74 (23-300) U/L 04/08/23 04/08/23 Range/Units 13:08 15:47 WBC (3.8-10.6) k/uL RBC (4.30-5.90) m/uL Hgb (13.0-17.5) gm/dL Hct (39.0-53.0) % MCV (80.0-100.0) fL MCH (25.0-35.0) pg MCHC (31.0-37.0) g/dL RDW (11.5-15.5) % Plt Count (150-450) k/uL MPV Neutrophils % % Lymphocytes % % Monocytes % % Eosinophils % % Basophils % % Neutrophils # (1.3-7.7) k/uL Lymphocytes # (1.0-4.8) k/uL Monocytes # (0-1.0) k/uL Eosinophils # (0-0.7) k/uL Basophils # (0-0.2) k/uL Anisocytosis PT (10.0-12.5) sec INR (<1.2) APTT (22.0-30.0) sec Sodium (137-145) mmol/L Potassium (3.5-5.1) mmol/L Chloride (98-107) mmol/L Carbon Dioxide (22-30) mmol/L Anion Gap mmol/L BUN (9-20) mg/dL Creatinine (0.66-1.25) mg/dL Est GFR (CKD-EPI)AfAm (>60 ml/min/1.73 sqM) Est GFR (CKD-EPI)NonAf (>60 ml/min/1.73 sqM) Glucose (74-99) mg/dL Lactic Ac Sepsis Rflx Y Plasma Lactic Acid Chris 2.2 H* (0.7-2.0) mmol/L Calcium (8.4-10.2) mg/dL Magnesium (1.6-2.3) mg/dL Total Bilirubin (0.2-1.3) mg/dL AST (17-59) U/L ALT (4-49) U/L Alkaline Phosphatase (38-126) U/L Troponin I (0.000-0.034) ng/mL NT-Pro-B Natriuret Pep pg/mL Total Protein (6.3-8.2) g/dL Albumin (3.5-5.0) g/dL Lipase (23-300) U/L Disposition Clinical Impression: CHF (congestive heart failure), Elevated troponin, Hepatic congestion Disposition: ADMITTED IP TO THIS HOSP Condition: Poor Referrals: None,Stated [Primary Care Provider] - 1-2 days Time of Disposition: 16:18
--- NOTE | 2023-04-08 12:57 | XR ---
EXAMINATION TYPE: XR chest 2V DATE OF EXAM: 04/08/2023 COMPARISON: 02/12/2023 HISTORY: Shortness of breath TECHNIQUE: Frontal and lateral views of the chest are obtained. FINDINGS: Scattered senescent parenchymal changes noted. Hyperinflation compatible with COPD. Pulmonary venous congestion with cardiomegaly and small left-sided effusion somewhat improved from prior study. No evidence for infiltrate. No evidence for atelectasis. Mediastinal structures are stable and grossly unremarkable. No evidence for hilar prominence. Degenerative changes dorsal spine. IMPRESSION: 1. Pulmonary venous congestion with cardiomegaly and small left-sided effusion somewhat improved from prior study.
[2023-04-08 13:02] LABS: INR 1.5 (<1.2); Partial Thromboplastin Time 27.7 sec (22.0-30.0); Prothrombin Time 15.6 sec (10.0-12.5)
[2023-04-08 13:06] LABS: ALT 108 U/L (4-49); AST 179 U/L (17-59); African American GFR (CKD) 67 (>60 ml/min/1.73 sqM); Albumin 4.3 g/dL (3.5-5.0); Alkaline Phosphatase 177 U/L (38-126); Anion Gap 13 mmol/L; Blood Urea Nitrogen 48 mg/dL (9-20); Calcium 9.6 mg/dL (8.4-10.2); Carbon Dioxide 19 mmol/L (22-30); Chloride 104 mmol/L (98-107); Glucose 112 mg/dL (74-99); Magnesium 2.7 mg/dL (1.6-2.3); Non-African American GFR(CKD) 58 (>60 ml/min/1.73 sqM); Sodium 136 mmol/L (137-145); Total Bilirubin 3.8 mg/dL (0.2-1.3); Total Protein 8.1 g/dL (6.3-8.2)
[2023-04-08 13:09] LABS: Potassium 5.8 mmol/L (3.5-5.1)
[2023-04-08 13:14] LABS: NT-Pro-B-Type Natriuretic Pept 12900 pg/mL
[2023-04-08] MEDS: FUROSEMIDE 10 MG/ML 4 ML VIAL IV STA (14:31)
--- NOTE | 2023-04-08 16:31 | US ---
EXAMINATION TYPE: US abdomen limited DATE OF EXAM: 04/08/2023 COMPARISON: NONE CLINICAL INDICATION: Male, 73 years old with history of Transaminitis; pain TECHNIQUE: Multiple sonographic images of the right upper quadrant are obtained. FINDINGS: EXAM MEASUREMENTS: Liver Length: 16.4 cm Gallbladder Wall: 0.5 cm CBD: .5 cm Right Kidney: 11.4 x 5.3 x 4.2 cm Pancreas: Obscured by bowel gas Liver: wnl Gallbladder: Ringdown visualized anterior wall. Evidence for sonographic Dillard's sign: No CBD: wnl Right Kidney: No hydronephrosis or masses seen IMPRESSION: 1. No evidence for acute process. 2. Gallbladder adenomyomatosis.
[2023-04-08] MEDS ORDERED: HEPARIN SODIUM 1,000 UN/ML (10ML VL) IV PRN (16:37)
--- NOTE | 2023-04-08 17:01 | P.HPIM ---
History of Present Illness H&P Date: 04/08/23 History of Presenting Illness: Patient is a very pleasant 73-year-old male with a past medical history of CAD status post CABG, Chronic systolic heart failure with previously known EF of 15 to 20%, ischemic cardiomyopathy, severe pulmonary hypertension, and medication noncompliance. Pt reports that his employment and claims aide is Dr. King and that he has not seen him since his last hospitalization back in January. Patient reports employment and claims aide recommended AICD placement secondary to his severely impaired heart function but patient declined stating he will never get that procedure. During last hospitalization patient was also discharged home on aspirin 81 mg daily, Lasix 40 mg daily, losartan 12.5 mg daily, Plavix 75 mg daily, Jardiance 10 mg daily and as needed nitroglycerin sublingual tablets 0.4 mg. Patient reports he did not take any of these medications because they are not good for you. Patient states the last time he took medications was during previous hospitalization. Patient denies following up outpatient with PCP and reports last time he saw his employment and claims aide was just after his last hospitalization back in January. He presented to the emergency department today for reports of progressively worsening shortness of breath accompanied by bilateral lower extremity swelling. Patient reports increased shortness of breath beginning ap proximately 3 to 4 days ago and progressively worsening. Patient reports his legs swell every now and then, but have also increased in swelling over the past few days. He denies having any headache, lightheadedness, dizziness, chest pain, palpitations, diaphoresis, nausea, or vomiting. He underwent full evaluation in the emergency department. Vital signs upon arrival showing heart rate of 133, blood pressure 125/86, respiratory rate 20, temp 97.8 F, and SpO2 of 98% on room air. EKG showing atrial flutter with RVR at 116 bpm with occasional PACs. Labs completed and reviewed. CBC showing leukocytosis with WBC count of 13.2, coagulation profile showing elevated PT of 15.6 and INR of 1.5. BMP showing hyperkalemia with potassium of 5.8 but reported as a hemolyzed specimen, elevated BUN of 48, and blood glucose of 112. Lactic acid elevated at 2.2. Liver profile showing hyperbilirubinemia with bilirubin of 3.8 and transaminitis with AST of 179, ALT of 108, and alkaline phosphatase of 177. Troponin elevated at 0.070 and proBNP of 12,900. Chest x-ray was completed showing pulmonary venous congestion with cardiomegaly and small left-sided pleural effusion. Abdominal ultrasound showing gallbladder adenomyomatosis. In the emergency department patient was given aspirin 325 mg p.o. x 1 dose, Lasix 40 mg IVP x 1 dose, and started on low intensity heparin infusion at 10 units/kg/h. Patient admitted under our services with consultation to cardiology for acute systolic heart failure exacerbation and general surgery for gallbladder adenomyomatosis accompanied by hyperbilirubinemia and transaminitis. Review of systems: Pertinent positives and negatives as discussed in HPI, a complete review of systems was performed and all other systems are negative. Physical exam: Vital signs reviewed and stable. General: Nontoxic, no distress and appears stated age. Derm: Skin warm and dry, normal coloration for ethnicity. Head: Atraumatic, normocephalic and symmetric. Eyes: EOMs intact, no lid lag, and anicteric sclera Mouth: no lip lesions, mucus membranes moist Cardiovascular: Irregularly irregular, systolic murmur, positive posterior tibial pulses bilaterally, and cap refill < 2 seconds. Lungs: Respirations even, regular, and unlabored on supplemental oxygen. Lungs diminished, no rhonchi, no rales, no wheezing, and no accessory muscle usage. Abdominal: soft, nontender to palpation, no guarding, no appreciable organomegaly Ext: ROM intact. No gross muscle atrophy, 2+ pitting bilateral lower extremity edema, no contractures Neuro: Speech clear, face symmetrical and CN II-XII grossly intact with no noted focal neuro deficits Psych: Alert and oriented to person, place, time, and situation. Appropriate and pleasant affect. Assessment and Plan of Care: Acute exacerbation of chronic systolic heart failure Elevated troponin History of CAD status post CABG Ischemic cardiomyopathy with previously known EF of 15 to 20% Severe pulmonary hypertension -Cardiology consult -Telemetry monitoring -Trend troponins -ProBNP -Daily weights -Close monitoring of I's and O's -Cardiac diet -Lasix -Aspirin, atorvastatin, and metoprolol -Continuation of daily medications including: -Lipid profile and Hgb A1c with a.m. labs. -Continued close monitoring of electrolytes while diuresing. Transaminitis with hyperbilirubinemia, possibly secondary to gallbladder adenomyomatosis vs right-sided heart failure Lactic acidosis Elevated INR -Abdominal ultrasound showing gallbladder adenomyomatosis -Liver profile showing hyperbilirubinemia with total bili of 3.8 and transaminitis with AST of 179, ALT of 108, and alkaline phosphatase of 177 -Consult placed to general surgery for evaluation -Hepatitis panel was drawn in the emergency department and pending results. Patient with extremely guarded prognosis. Data and imaging reviewed: As stated above in HPI The patient is admitted with an anticipated greater than 2 midnight stay for evaluation of acute systolic heart failure exacerbation CODE STATUS: Full code DVT prophylaxis: Heparin Anticipated discharge date: Pending clinical course Anticipated discharge place: Pending clinical course Patient was seen independently by Nurse Practitioner. This document was prepared using [employer] dictation software. Please allow for errors in sheet metal fabricator while rare they do occur. I reviewed the documentation as provided by the SHAREE above, who is the original author of this note. I agree with the documented assessment and plan, with the following changes: none Past Medical History Past Medical History: Coronary Artery Disease (CAD), Myocardial Infarction (CT) Additional Past Medical History / Comment(s): last CT 2014 Last Myocardial Infarction Date:: 2014 History of Any Multi-Drug Resistant Organisms: None Reported Past Surgical History: Coronary Bypass/CABG Additional Past Surgical History / Comment(s): Angiogram, Past Anesthesia/Blood Transfusion Reactions: No Reported Reaction Past Psychological History: No Psychological Hx Reported Smoking Status: Former smoker Past Alcohol Use History: Occasional Past Drug Use History: None Reported - Past Family History Mother Family Medical History: Unable to Obtain Additional Family Medical History / Comment(s): pt is adopted Medications and Allergies Home Medications Medication Instructions Recorded Confirmed Type Aspirin [Adult Low Dose Aspirin EC] 81 mg PO DAILY 11/17/21 04/08/23 History Allergies Allergy/AdvReac Type Severity Reaction Status Date / Time lisinopril Allergy Unknown Verified 04/08/23 13:36 metoprolol Allergy Unknown Verified 04/08/23 13:36 mexiletine Allergy Unknown Verified 04/08/23 13:36 Penicillins Allergy Anaphylaxis Verified 04/08/23 13:36 pravastatin Allergy Unknown Verified 04/08/23 13:36 Physical Exam Osteopathic Statement: *. No significant issues noted on an osteopathic structural exam other than those noted in the History and Physical/Consult. Vitals: Vital Signs Temp Pulse Resp BP Pulse Ox 04/08/23 16:57 99.2 F 105 H 16 112/81 99 04/08/23 16:41 26 H 04/08/23 15:58 98 19 113/88 97 04/08/23 14:32 109 H 22 118/97 96 04/08/23 12:53 101 H 16 110/86 96 04/08/23 11:46 97.8 F 133 H 20 125/86 98 Intake and Output 04/08/23 04/08/23 04/08/23 06:59 14:59 22:59 Other: Weight 99.79 kg Results CBC & Chem 7: 04/09/23 07:02 04/09/23 07:02 Labs: Abnormal Lab Results - Last 24 Hours (Table) 04/08/23 04/08/23 04/08/23 Range/Units 12:20 12:20 12:20 WBC 13.2 H (3.8-10.6) k/uL RDW 16.2 H (11.5-15.5) % Neutrophils # 10.9 H (1.3-7.7) k/uL PT 15.6 H (10.0-12.5) sec INR 1.5 H (<1.2) Sodium 136 L (137-145) mmol/L Potassium 5.8 H (3.5-5.1) mmol/L Carbon Dioxide 19 L (22-30) mmol/L BUN 48 H (9-20) mg/dL Glucose 112 H (74-99) mg/dL Plasma Lactic Acid Chris (0.7-2.0) mmol/L Magnesium 2.7 H (1.6-2.3) mg/dL Total Bilirubin 3.8 H (0.2-1.3) mg/dL AST 179 H (17-59) U/L ALT 108 H (4-49) U/L Alkaline Phosphatase 177 H (38-126) U/L Troponin I (0.000-0.034) ng/mL 04/08/23 04/08/23 04/08/23 Range/Units 12:20 12:20 15:47 WBC (3.8-10.6) k/uL RDW (11.5-15.5) % Neutrophils # (1.3-7.7) k/uL PT (10.0-12.5) sec INR (<1.2) Sodium (137-145) mmol/L Potassium (3.5-5.1) mmol/L Carbon Dioxide (22-30) mmol/L BUN (9-20) mg/dL Glucose (74-99) mg/dL Plasma Lactic Acid Chris 2.2 H* 2.2 H* (0.7-2.0) mmol/L Magnesium (1.6-2.3) mg/dL Total Bilirubin (0.2-1.3) mg/dL AST (17-59) U/L ALT (4-49) U/L Alkaline Phosphatase (38-126) U/L Troponin I 0.070 H* (0.000-0.034) ng/mL
[2023-04-08] MEDS: ASPIRIN 325 MG TAB PO STA (17:15)
[2023-04-08] MEDS: HEPARIN SOD,PORK IN 0.45% NACL 25,000 UNIT in 0.45% NACL 1 250ML.BAG IV SCH (17:15)
[2023-04-08] MEDS: HEPARIN SODIUM 1,000 UN/ML (10ML VL) IV ONE (17:20)
[2023-04-08 19:18] LABS: Hepatitis A Antibody IgM Nonreactive; Hepatitis B Core IgM Nonreactive; Hepatitis B Surface Antigen Nonreactive; Hepatitis C IgG Antibody Nonreactive
[2023-04-08] MEDS: FUROSEMIDE 10 MG/ML 4 ML VIAL IV SCH (20:15)
[2023-04-09 07:20] LABS: Basophils % (A) 0 %; Eosinophils # (A) 0.1 k/uL (0-0.7); Eosinophils % (A) 1 %; HCT 44.5 % (39.0-53.0); HGB 14.5 gm/dL (13.0-17.5); Hypochromasia Slight; Lymphocytes # (A) 0.9 k/uL (1.0-4.8); Lymphocytes % (A) 7 %; MCH 31.7 pg (25.0-35.0); MCHC 32.5 g/dL (31.0-37.0); MCV 97.5 fL (80.0-100.0); Macrocytosis Slight; Mean Platelet Volume 8.8; Monocytes # (A) 1.1 k/uL (0-1.0); Monocytes % (A) 8 %; Neutrophils # (A) 11.2 k/uL (1.3-7.7); Neutrophils % (A) 83 %; Platelet Count 178 k/uL (150-450); RBC 4.56 m/uL (4.30-5.90); RDW 15.7 % (11.5-15.5); WBC 13.5 k/uL (3.8-10.6)
[2023-04-09 07:32] LABS: ALT 89 U/L (4-49); AST 84 U/L (17-59); African American GFR (CKD) 71 (>60 ml/min/1.73 sqM); Albumin 3.4 g/dL (3.5-5.0); Alkaline Phosphatase 158 U/L (38-126); Anion Gap 11 mmol/L; Blood Urea Nitrogen 47 mg/dL (9-20); Calcium 8.7 mg/dL (8.4-10.2); Carbon Dioxide 23 mmol/L (22-30); Chloride 103 mmol/L (98-107); Glucose 111 mg/dL (74-99); Magnesium 2.4 mg/dL (1.6-2.3); Non-African American GFR(CKD) 61 (>60 ml/min/1.73 sqM); Potassium 3.5 mmol/L (3.5-5.1); Sodium 137 mmol/L (137-145); Total Bilirubin 2.7 mg/dL (0.2-1.3); Total Protein 6.3 g/dL (6.3-8.2)
[2023-04-09 07:35] LABS: INR 1.5 (<1.2); Prothrombin Time 15.9 sec (10.0-12.5)
[2023-04-09] MEDS: ASPIRIN 81 MG PO SCH (08:46)
[2023-04-09] MEDS: LOSARTAN 25 MG TAB PO SCH (08:58)
[2023-04-09] MEDS ORDERED: ASPIRIN 325 MG TAB PO SCH (09:00)
[2023-04-09] MEDS: CLOPIDOGREL 75 MG TAB PO SCH (09:03)
[2023-04-09] MEDS: POTASSIUM CHLORIDE ER 20 MEQ TAB.ER PO STA (09:03)
[2023-04-09] MEDS: APIXABAN 5 MG TAB PO SCH (09:03)
[2023-04-09] MEDS: carvediloL 3.125 MG TAB PO SCH (09:04)
--- NOTE | 2023-04-09 10:54 | CDI ---
Documentation Clarification Form Date: From: Kristal Kim Phone: [phone] Admit Date: 04/08/2023 04:59:00 PM Patient Name: Iam Mims Visit Number: [id number] Discharge Date: ATTENTION: The Clinical Documentation Specialists (CDI) and [facility] Coding Staff appreciate your assistance in clarifying documentation. Please respond to the clarification below the line at the bottom and electronically sign. The CDI & [facility] Coding staff will review the response and follow-up if needed. Please note: Queries are made part of the Legal Health Record. If you have any questions, please contact the author of this message via ITS. Dr. Sarah Nguyen Your patient has "mild hypoxia requiring oxygenation at this time" documented in the ED Note on 04/08. Based on this information and the findings below, is there an additional diagnosis that is clinically appropriate for this patient? History/Risk Factors: "73-year-old male with a past medical history of CAD status post CABG, Chronic systolic heart failure with previously known EF of 15 to 20%, ischemic cardiomyopathy, severe pulmonary hypertension, and medication noncompliance." - Per H&P on 04/08 Tobacco use: Former Home oxygen: no Clinical Indicators: "chief complaint shortness of breath. Patient states he has had increasing shortness of breath the last few days" "found to have acute CHF exacerbation, mild hypoxia requiring oxygenation at this time" - Per ED Note Vital signs / Pulse oximetry: 04/08 11: 46 - Temp. 97.8, HR 133, RR 20, BP 125/86, 98% on room air 04/08 14:32 - HR 109, RR 22, BP 118/97, O2 96% on 2L NC 04/08 16:41 - RR 26 "Short of Breath" - Per Vitals note 04/09 04:00 - O2 94% on 2L NC 04/09 08:00 - O2 86% on 2L NC 04/09 09:54 - O2 98% on 2L NC Lung/Breathing assessment: "decreased breath sounds" - Per ED Note on 04/08 Lactate: 04/08 - 2.2, 2.1, 2.0 Treatment: Per H&P on 04/08: Cardiology consult, daily weights, close monitoring of I&O's, Lasix Per ED note on 04/08: oxygen Is there an additional diagnosis that is clinically appropriate for this patient? [x] Acute Hypoxic Respiratory Failure [ ] Acute Respiratory Distress [ ] Acute Respiratory Insufficiency [ ] Other Diagnosis, please specify [ ] Unable to determine MTDD
--- NOTE | 2023-04-09 11:40 | P.CRDCN ---
History of Present Illness History of present illness: HISTORY OF PRESENT ILLNESS: This is a 73-year-old male with a past medical history significant for coronary artery disease with previous CABG and stenting, congestive heart failure, and m edication noncompliance. Patient follows in the office with Dr. King. We have been asked to see the patient in consultation for congestive heart failure. Patient examined at the bedside. Patient presented to the hospital with a chief complaint of shortness of breath. It is noted that the patient was recently hospitalized in January and underwent balloon angioplasty of RCA in-stent restenosis. The patient was discharged home on multiple cardiac medications including aspirin, Lasix, losartan, Plavix, and Jardiance. The patient states he stopped taking all of these medications because they did not make him feel unwell. He states that he felt like he was "stoned" all the time. The patient was found to be in congestive heart failure. He was started on IV Lasix. He was also started on IV heparin secondary to abnormal troponins. He denies having any chest pain or pressure. EKG on admission reveals atrial fibrillation/flutter. The patient denies a history of atrial fibrillation or atrial flutter. DIAGNOSTICS: - EKG reveals atrial fibrillation with no signs of acute ischemia - Chest xray pulmonary venous congestion with cardiomegaly and small left-sided pleural effusion - Laboratory data: WBC 13.5. Hemoglobin 14.5. Platelet count 178. Sodium 137. Potassium 3.5. BUN is 47. Creatinine 1.17. Lactic acid 2.1. AST 84. ALT 89. proBNP 12,900. Troponin 0.070. - Current home cardiac medications include none - Most recent echocardiogram obtained in January 2023 revealed ejection fraction 15 to 20%, severe pulmonary hypertension, mild TR, mild MR - Cardiac catheterization history: January 2023 revealing coronary artery disease including 100% proximal LAD stenosis, 40 to 50% mid circumflex stenosis, 90% RCA in-stent stenosis. Elevated left and right-sided filling pressures. Decreased cardiac output and cardiac index. Pulmonary hypertension related to left-sided heart failure. Patient underwent balloon angioplasty of the RCA. REVIEW OF SYSTEMS: At the time of my exam: CONSTITUTIONAL: Denies fever or chills. HEENT: Denies blurred vision, vision changes, or eye pain. Denies hemoptysis CARDIOVASCULAR: Denies chest pain. Denies orthopnea. Denies PND. Denies palpitations RESPIRATORY: Denies shortness of breath. GASTROINTESTINAL: Denies abdominal pain. Denies nausea or vomiting. HEMATOLOGIC: Denies bleeding disorders. GENITOURINARY: Denies any blood in urine. SKIN: Denies pruitis. Denies rash. PHYSICAL EXAM: VITAL SIGNS: Reviewed. GENERAL: Well-developed in no acute distress. HEENT: Head is normocephalic. Pupils are equal, round. Sclerae anicteric. Mucous membranes of the mouth are moist. Neck supple. Positive JVD LUNGS: Respirations even and unlabored. Lungs diminished with bibasilar rales HEART: Irregular rate and rhythm. S1 and S2 heard. ABDOMEN: Soft. Nondistended. Nontender. EXTREMITIES: Normal range of motion. No clubbing or cyanosis. Peripheral pulses intact. 2+ bilateral lower extremity edema NEUROLOGIC: Awake and alert. Oriented x 3. ASSESSMENT: Shortness of breath Acute on chronic heart failure with reduced EF, 15 to 20% New onset atrial fibrillation/flutter Abnormal troponins, flat, type II [place] Coronary artery disease with previous CABG and stenting Status post balloon angioplasty of RCA in-stent stenosis, January 2023 Ischemic cardiomyopathy, refusing AICD implantation Pulmonary hypertension History of medication noncompliance Reported intolerance to multiple medications including beta-blockers and Ald actone Transaminitis Former nicotine dependence PLAN: No need to repeat echocardiogram as this was performed in January 2023 Patient has previously refused AICD implantation. Patient now states he will think about it. Discontinue IV heparin. Begin Eliquis 5 mg twice a day Add Plavix 75 mg daily due to recent balloon angioplasty. Discontinue aspirin. Patient with previous intolerance to metoprolol. We will add carvedilol 3.125 mg twice a day and assess patient response Add atorvastatin 40 mg at night Continue IV Lasix 40 mg every 12 hours Daily weights, accurate I&O, and monitoring of kidney function Continue to monitor blood pressure. If blood pressure remains stable, will add Entresto tomorrow Patient educated on importance of medication noncompliance Further recommendations pending patient course Nurse practitioner note has been reviewed by physician. Signing provider agrees with the documented findings, assessment, and plan of care documented by ETHANOL OPERATOR as a scribe. Past Medical History Past Medical History: Coronary Artery Disease (CAD), Myocardial Infarction ([place]) Additional Past Medical History / Comment(s): last [place] 2014 Last Myocardial Infarction Date:: 2014 History of Any Multi-Drug Resistant Organisms: None Reported Past Surgical History: Coronary Bypass/CABG Additional Past Surgical History / Comment(s): Angiogram, Past Anesthesia/Blood Transfusion Reactions: No Reported Reaction Date of Last Stent Placement:: unknown Past Psychological History: No Psychological Hx Reported Smoking Status: Former smoker Past Alcohol Use History: Occasional Past Drug Use History: None Reported - Past Family History Mother Family Medical History: Unable to Obtain Additional Family Medical History / Comment(s): pt is adopted Medications and Allergies Home Medications Medication Instructions Recorded Confirmed Type Aspirin [Adult Low Dose Aspirin EC] 81 mg PO DAILY 11/17/21 04/08/23 History Allergies Allergy/AdvReac Type Severity Reaction Status Date / Time lisinopril Allergy Unknown Verified 04/08/23 13:36 metoprolol Allergy Unknown Verified 04/08/23 13:36 mexiletine Allergy Unknown Verified 04/08/23 13:36 Penicillins Allergy Anaphylaxis Verified 04/08/23 13:36 pravastatin Allergy Unknown Verified 04/08/23 13:36 Physical Exam Vitals: Vital Signs Temp Pulse Pulse Resp BP BP Pulse Ox 04/09/23 04:00 97.6 F 97 22 102/53 94 L 04/09/23 02:00 105 H 23 04/09/23 01:25 97.5 F L 89 21 105/56 95 04/08/23 23:29 98 16 95/79 99 04/08/23 20:00 105 H 16 101/82 100 04/08/23 16:57 99.2 F 105 H 16 112/81 99 04/08/23 16:41 26 H 04/08/23 15:58 98 19 113/88 97 04/08/23 14:32 109 H 22 118/97 96 04/08/23 12:53 101 H 16 110/86 96 04/08/23 11:46 97.8 F 133 H 20 125/86 98 Intake and Output 04/08/23 04/09/23 04/09/23 22:59 06:59 14:59 Intake Total 1080 Output Total 1000 800 Balance -1000 280 Intake: Oral 1080 Output: Urine 1000 800 Other: Voiding Method Urinal Toilet Urinal # Voids 3 Weight 99.79 kg 77.9 kg Results 04/09/23 07:02 04/09/23 07:02 Cardiac Enzymes 04/08/23 04/08/23 04/09/23 Range/Units 12:20 12:20 07:02 AST 179 H 84 H (17-59) U/L Troponin I 0.070 H* (0.000-0.034) ng/mL Coagulation 04/08/23 04/08/23 04/09/23 Range/Units 12:20 22:20 07:02 PT 15.6 H 15.9 H (10.0-12.5) sec APTT 27.7 60.3 H (22.0-30.0) sec 04/09/23 Range/Units 07:02 PT (10.0-12.5) sec APTT 45.1 H (22.0-30.0) sec CBC 04/08/23 04/09/23 Range/Units 12:20 07:02 WBC 13.2 H 13.5 H (3.8-10.6) k/uL RBC 5.12 4.56 (4.30-5.90) m/uL Hgb 16.1 14.5 (13.0-17.5) gm/dL Hct 49.0 44.5 (39.0-53.0) % Plt Count 191 178 (150-450) k/uL Comprehensive Metabolic Panel 04/08/23 04/08/23 04/09/23 Range/Units 12:20 18:58 07:02 Sodium 136 L 137 (137-145) mmol/L Potassium 5.8 H 4.1 3.5 (3.5-5.1) mmol/L Chloride 104 103 (98-107) mmol/L Carbon Dioxide 19 L 23 (22-30) mmol/L BUN 48 H 47 H (9-20) mg/dL Creatinine 1.24 1.17 (0.66-1.25) mg/dL Glucose 112 H 111 H (74-99) mg/dL Calcium 9.6 8.7 (8.4-10.2) mg/dL AST 179 H 84 H (17-59) U/L ALT 108 H 89 H (4-49) U/L Alkaline Phosphatase 177 H 158 H (38-126) U/L Total Protein 8.1 6.3 (6.3-8.2) g/dL Albumin 4.3 3.4 L (3.5-5.0) g/dL Current Medications Generic Name Dose Route Start Last Admin Trade Name Eva PRN Reason Stop Dose Admin Aspirin 81 mg 04/09/23 09:00 Aspirin 81 Mg PO DAILY YOLA Furosemide 40 mg 04/08/23 21:00 04/08/23 20:15 Furosemide 10 Mg/Ml 4 Ml Vial IV 40 mg Q12H YOLA Administration Heparin Sodium (Porcine) 0 unit 04/08/23 16:37 Heparin Sodium 1,000 Un/Ml (10ml Vl) IV PER PROTOCOL PRN Low PTT Protocol Heparin Sodium/Sodium Chloride 250 mls @ 9.999 mls/hr 04/08/23 16:45 04/08/23 17:15 25,000 unit/ Sodium Chloride IV 10.02 units/kg/hr .Q24H YOLA 9.999 mls/hr Administration Protocol 10.02 UNITS/KG/HR Intake and Output 04/08/23 04/09/23 04/09/23 22:59 06:59 14:59 Intake Total 1080 Output Total 1000 800 Balance -1000 280 Intake: Oral 1080 Output: Urine 1000 800 Other: Voiding Method Urinal Toilet Urinal # Voids 3 Weight 99.79 kg 77.9 kg 04/09/23 07:02 04/09/23 07:02
--- NOTE | 2023-04-09 12:56 | P.GSCN ---
History of Present Illness Consult date: 04/09/23 History of present illness: CHIEF COMPLAINT: Shortness of breath HISTORY OF PRESENT ILLNESS: This is a 73-year-old male who presented to the hospital with shortness of breath. He was found to have evidence of acute CHF exacerbation, new onset of atrial fibrillation and type II [place]. Patient is followed by cardiology. He is on IV heparin and IV Lasix. He has a significant cardiac history with prior CABG and stenting, reduced EF 15 to 20%. Patient does have elevated liver enzymes. Gallbladder ultrasound was completed and had reported adenomyomatosis of the gallbladder. Surgical service was consulted for evaluation. Patient currently denies any abdominal pain. Denies any nausea or vomiting. Denies any fever chills or sweats. Patient seen and examined with Dr. Smith PAST MEDICAL HISTORY: Coronary Artery Disease (CAD), Myocardial Infarction ([place]) PAST SURGICAL HISTORY: CABG, cardiac stents MEDICATIONS: See below ALLERGIES: See below SOCIAL HISTORY: No illicit drug use. REVIEW OF SYSTEMS: CONSTITUTIONAL: Denies fever or chills. HEENT: Denies blurred vision, vision changes, or eye pain. Denies hemoptysis CARDIOVASCULAR: Denies chest pain or pressure. RESPIRATORY: No shortness of breath. GASTROINTESTINAL: See HPI for pertinent findings HEMATOLOGIC: Denies bleeding disorders. GENITOURINARY: Denies any blood in urine or increased urinary frequency. SKIN: Denies pruitis. Denies rash. PHYSICAL EXAM: VITAL SIGNS: Reviewed GENERAL: Well-developed in no acute distress. HEENT: No sclera icterus. Extraocular movements grossly intact. Moist buccal mucosa. Head is atraumatic, normocephalic. No nasal drainage. ABDOMEN: Soft. Nondistended. Nontender NEUROLOGIC: Alert and oriented. Cranial nerves II through XII grossly intact. LABORATORY DATA: WBC 13.5 Hgb 14.5 platelets 178 INR 1.5 Sodium is 137 potassium is 3.5 creatinine 1.17 Total bilirubin 3.8 down to 2.7 AST 179 down to 84 ALT 108 down to 89 alk phos 177 down to 158 Mildly elevated troponins Elevated BNP Lipase 74 Hepatitis panel nonreactive IMAGING: Chest x-ray reports pulmonary venous congestion with cardiomegaly and small left-sided effusion somewhat improved from prior study gallbladder ultrasound reports no evidence for acute process. Gallbladder adenomyomatosis ASSESSMENT: 1. Gallbladder adenomyomatosis noted on ultrasound. Patient has no right upper quadrant abdominal pain 2. Elevated LFTs trending down 3. Acute on chronic CHF exacerbation PLAN: -Dr. Smith recommends outpatient cholecystectomy when medically stable. Patient is high surgical risk due to extensive cardiac history. -Continue heart healthy diet -Continue to monitor Thank you for this consultation Physician [employer] note has been reviewed by physician. Signing provider agrees with the documented findings, assessment, and plan of care. Past Medical History Past Medical History: Coronary Artery Disease (CAD), Myocardial Infarction ([place]) Additional Past Medical History / Comment(s): last [place] 2014 Last Myocardial Infarction Date:: 2014 History of Any Multi-Drug Resistant Organisms: None Reported Past Surgical History: Coronary Bypass/CABG Additional Past Surgical History / Comment(s): Angiogram, Past Anesthesia/Blood Transfusion Reactions: No Reported Reaction Date of Last Stent Placement:: unknown Past Psychological History: No Psychological Hx Reported Smoking Status: Former smoker Past Alcohol Use History: Occasional Past Drug Use History: None Reported - Past Family History Mother Family Medical History: Unable to Obtain Additional Family Medical History / Comment(s): pt is adopted Medications and Allergies Home Medications Medication Instructions Recorded Confirmed Type Aspirin [Adult Low Dose Aspirin EC] 81 mg PO DAILY 11/17/21 04/08/23 History Allergies Allergy/AdvReac Type Severity Reaction Status Date / Time lisinopril Allergy Unknown Verified 04/08/23 13:36 metoprolol Allergy Unknown Verified 04/08/23 13:36 mexiletine Allergy Unknown Verified 04/08/23 13:36 Penicillins Allergy Anaphylaxis Verified 04/08/23 13:36 pravastatin Allergy Unknown Verified 04/08/23 13:36 Surgical - Exam Vital Signs Temp Pulse Resp BP Pulse Ox 97.8 F 133 H 20 125/86 98 04/08/23 11:46 04/08/23 11:46 04/08/23 11:46 04/08/23 11:46 04/08/23 11:46 Results - Labs 04/09/23 07:02 04/09/23 07:02 Abnormal Lab Results - Last 24 Hours (Table) 04/08/23 04/08/23 04/08/23 Range/Units 12:20 12:20 12:20 WBC 13.2 H (3.8-10.6) k/uL RDW 16.2 H (11.5-15.5) % Neutrophils # 10.9 H (1.3-7.7) k/uL Lymphocytes # (1.0-4.8) k/uL Monocytes # (0-1.0) k/uL PT 15.6 H (10.0-12.5) sec INR 1.5 H (<1.2) APTT (22.0-30.0) sec Sodium 136 L (137-145) mmol/L Potassium 5.8 H (3.5-5.1) mmol/L Carbon Dioxide 19 L (22-30) mmol/L BUN 48 H (9-20) mg/dL Glucose 112 H (74-99) mg/dL Plasma Lactic Acid Chris (0.7-2.0) mmol/L Magnesium 2.7 H (1.6-2.3) mg/dL Total Bilirubin 3.8 H (0.2-1.3) mg/dL AST 179 H (17-59) U/L ALT 108 H (4-49) U/L Alkaline Phosphatase 177 H (38-126) U/L Troponin I (0.000-0.034) ng/mL Albumin (3.5-5.0) g/dL 04/08/23 04/08/23 04/08/23 Range/Units 12:20 12:20 15:47 WBC (3.8-10.6) k/uL RDW (11.5-15.5) % Neutrophils # (1.3-7.7) k/uL Lymphocytes # (1.0-4.8) k/uL Monocytes # (0-1.0) k/uL PT (10.0-12.5) sec INR (<1.2) APTT (22.0-30.0) sec Sodium (137-145) mmol/L Potassium (3.5-5.1) mmol/L Carbon Dioxide (22-30) mmol/L BUN (9-20) mg/dL Glucose (74-99) mg/dL Plasma Lactic Acid Chris 2.2 H* 2.2 H* (0.7-2.0) mmol/L Magnesium (1.6-2.3) mg/dL Total Bilirubin (0.2-1.3) mg/dL AST (17-59) U/L ALT (4-49) U/L Alkaline Phosphatase (38-126) U/L Troponin I 0.070 H* (0.000-0.034) ng/mL Albumin (3.5-5.0) g/dL 04/08/23 04/08/23 04/09/23 Range/Units 18:58 22:20 07:02 WBC 13.5 H (3.8-10.6) k/uL RDW 15.7 H (11.5-15.5) % Neutrophils # 11.2 H (1.3-7.7) k/uL Lymphocytes # 0.9 L (1.0-4.8) k/uL Monocytes # 1.1 H (0-1.0) k/uL PT (10.0-12.5) sec INR (<1.2) APTT 60.3 H (22.0-30.0) sec Sodium (137-145) mmol/L Potassium (3.5-5.1) mmol/L Carbon Dioxide (22-30) mmol/L BUN (9-20) mg/dL Glucose (74-99) mg/dL Plasma Lactic Acid Chris 2.1 H* (0.7-2.0) mmol/L Magnesium (1.6-2.3) mg/dL Total Bilirubin (0.2-1.3) mg/dL AST (17-59) U/L ALT (4-49) U/L Alkaline Phosphatase (38-126) U/L Troponin I (0.000-0.034) ng/mL Albumin (3.5-5.0) g/dL 04/09/23 04/09/23 04/09/23 Range/Units 07:02 07:02 07:02 WBC (3.8-10.6) k/uL RDW (11.5-15.5) % Neutrophils # (1.3-7.7) k/uL Lymphocytes # (1.0-4.8) k/uL Monocytes # (0-1.0) k/uL PT 15.9 H (10.0-12.5) sec INR 1.5 H (<1.2) APTT 45.1 H (22.0-30.0) sec Sodium (137-145) mmol/L Potassium (3.5-5.1) mmol/L Carbon Dioxide (22-30) mmol/L BUN 47 H (9-20) mg/dL Glucose 111 H (74-99) mg/dL Plasma Lactic Acid Chris (0.7-2.0) mmol/L Magnesium 2.4 H (1.6-2.3) mg/dL Total Bilirubin 2.7 H (0.2-1.3) mg/dL AST 84 H (17-59) U/L ALT 89 H (4-49) U/L Alkaline Phosphatase 158 H (38-126) U/L Troponin I (0.000-0.034) ng/mL Albumin 3.4 L (3.5-5.0) g/dL 04/09/23 Range/Units 09:54 WBC (3.8-10.6) k/uL RDW (11.5-15.5) % Neutrophils # (1.3-7.7) k/uL Lymphocytes # (1.0-4.8) k/uL Monocytes # (0-1.0) k/uL PT (10.0-12.5) sec INR (<1.2) APTT (22.0-30.0) sec Sodium (137-145) mmol/L Potassium (3.5-5.1) mmol/L Carbon Dioxide (22-30) mmol/L BUN (9-20) mg/dL Glucose (74-99) mg/dL Plasma Lactic Acid Chris (0.7-2.0) mmol/L Magnesium (1.6-2.3) mg/dL Total Bilirubin (0.2-1.3) mg/dL AST (17-59) U/L ALT (4-49) U/L Alkaline Phosphatase (38-126) U/L Troponin I 0.066 H* (0.000-0.034) ng/mL Albumin (3.5-5.0) g/dL Diabetes panel 04/08/23 04/08/23 04/09/23 Range/Units 12:20 18:58 07:02 Sodium 136 L 137 (137-145) mmol/L Potassium 5.8 H 4.1 3.5 (3.5-5.1) mmol/L Chloride 104 103 (98-107) mmol/L Carbon Dioxide 19 L 23 (22-30) mmol/L BUN 48 H 47 H (9-20) mg/dL Creatinine 1.24 1.17 (0.66-1.25) mg/dL Glucose 112 H 111 H (74-99) mg/dL Calcium 9.6 8.7 (8.4-10.2) mg/dL AST 179 H 84 H (17-59) U/L ALT 108 H 89 H (4-49) U/L Alkaline Phosphatase 177 H 158 H (38-126) U/L Total Protein 8.1 6.3 (6.3-8.2) g/dL Albumin 4.3 3.4 L (3.5-5.0) g/dL Calcium panel 04/08/23 04/09/23 Range/Units 12:20 07:02 Calcium 9.6 8.7 (8.4-10.2) mg/dL Albumin 4.3 3.4 L (3.5-5.0) g/dL Pituitary panel 04/08/23 04/08/23 04/09/23 Range/Units 12:20 18:58 07:02 Sodium 136 L 137 (137-145) mmol/L Potassium 5.8 H 4.1 3.5 (3.5-5.1) mmol/L Chloride 104 103 (98-107) mmol/L Carbon Dioxide 19 L 23 (22-30) mmol/L BUN 48 H 47 H (9-20) mg/dL Creatinine 1.24 1.17 (0.66-1.25) mg/dL Glucose 112 H 111 H (74-99) mg/dL Calcium 9.6 8.7 (8.4-10.2) mg/dL Adrenal panel 04/08/23 04/08/23 04/09/23 Range/Units 12:20 18:58 07:02 Sodium 136 L 137 (137-145) mmol/L Potassium 5.8 H 4.1 3.5 (3.5-5.1) mmol/L Chloride 104 103 (98-107) mmol/L Carbon Dioxide 19 L 23 (22-30) mmol/L BUN 48 H 47 H (9-20) mg/dL Creatinine 1.24 1.17 (0.66-1.25) mg/dL Glucose 112 H 111 H (74-99) mg/dL Calcium 9.6 8.7 (8.4-10.2) mg/dL Total Bilirubin 3.8 H 2.7 H (0.2-1.3) mg/dL AST 179 H 84 H (17-59) U/L ALT 108 H 89 H (4-49) U/L Alkaline Phosphatase 177 H 158 H (38-126) U/L Total Protein 8.1 6.3 (6.3-8.2) g/dL Albumin 4.3 3.4 L (3.5-5.0) g/dL
--- NOTE | 2023-04-09 13:09 | P.PN ---
Subjective Progress Note Date: 04/09/23 Hospital course: Patient is a very pleasant 73-year-old male with a past medical history of CAD status post CABG, Chronic systolic heart failure with previously known EF of 15 to 20%, ischemic cardiomyopathy, severe pulmonary hypertension, and medication noncompliance. Pt reports that his manager food beverage is Dr. King and that he has not seen him since his last hospitalization back in January. Patient reports manager food beverage recommended AICD placement secondary to his severely impaired heart function but patient declined stating he will never get that procedure. During last hospitalization patient was also discharged home on aspirin 81 mg daily, Lasix 40 mg daily, losartan 12.5 mg daily, Plavix 75 mg daily, Jardiance 10 mg daily and as needed nitroglycerin sublingual tablets 0.4 mg. Patient reports he did not take any of these medications because they are not good for you. Patient states the last time he took medications was during previous hospita lization. Patient denies following up outpatient with PCP and reports last time he saw his manager food beverage was just after his last hospitalization back in January. He presented to the emergency department today for reports of progressively worsening shortness of breath accompanied by bilateral lower extremity swelling. He underwent full evaluation in the emergency department. Vital signs upon arrival showing heart rate of 133, blood pressure 125/86, respiratory rate 20, temp 97.8 F, and SpO2 of 98% on room air. EKG showing atrial flutter with RVR at 116 bpm with occasional PACs. Labs completed and reviewed. CBC showing leukocytosis with WBC count of 13.2, coagulation profile showing elevated PT of 15.6 and INR of 1.5. BMP showing hyperkalemia with potassium of 5.8 but reported as a hemolyzed specimen, elevated BUN of 48, and blood glucose of 112. Lactic acid elevated at 2.2. Liver profile showing hyperbilirubinemia with bilirubin of 3.8 and transaminitis with AST of 179, ALT of 108, and alkaline phosphatase of 177. Troponin elevated at 0.070 and proBNP of 12,900. Chest x-ray was completed showing pulmonary venous congestion with cardiomegaly and small left-sided pleural effusion. Abdominal ultrasound showing gallbladder adenomyomatosis. In the emergency department patient was given aspirin 325 mg p.o. x 1 dose, Lasix 40 mg IVP x 1 dose, and started on low intensity heparin infusion at 10 units/kg/h. Patient admitted under our services with consultation to cardiology for acute systolic heart failure exacerbation and general surgery for gallbladder adenomyomatosis accompanied by hyperbilirubinemia and transaminitis. Physical exam: Vital signs reviewed and stable. General: Nontoxic, no distress and appears stated age. Derm: Skin warm and dry, normal coloration for ethnicity. Head: Atraumatic, normocephalic and symmetric. Eyes: EOMs intact, no lid lag, and anicteric sclera Mouth: no lip lesions, mucus membranes moist Cardiovascular: Irregularly irregular, systolic murmur, positive posterior tibial pulses bilaterally, and cap refill < 2 seconds. Lungs: Respirations even, regular, and unlabored on supplemental oxygen. Lungs diminished, no rhonchi, no rales, no wheezing, and no accessory muscle usage. Abdominal: soft, nontender to palpation, no guarding, no appreciable organomegaly Ext: ROM intact. No gross muscle atrophy, 2+ pitting bilateral lower extremity edema, no contractures Neuro: Speech clear, face symmetrical and CN II-XII grossly intact with no noted focal neuro deficits Psych: Alert and oriented to person, place, time, and situation. Appropriate and pleasant affect. Assessment and Plan of Care: Acute exacerbation of chronic systolic heart failure Acute hypoxic respiratory failure secondary to CHF exacerbation. New onset atrial fibrillation/flutter with episodes of RVR Elevated troponins, flat likely chronic secondary to CHF History of CAD status post CABG Ischemic cardiomyopathy with previously known EF of 15 to 20% Severe pulmonary hypertension -Cardiology evaluated discontinued heparin infusion starting patient on Eliquis 5 mg twice daily and recommending AICD implantation. -Continue Daily weights and Close monitoring of I's and O's -Cardiac diet -Continue Lasix 40 mg IVP every 12 hours -Continue Eliquis 5 mg twice daily, atorvastatin 40 mg nightly, carvedilol 3.125 mg twice daily, and Plavix 75 mg daily. -Continuation of daily medications including: -Lipid profile and Hgb A1c with a.m. labs. -Continued close monitoring of electrolytes while diuresing. Transaminitis with hyperbilirubinemia, possibly secondary to gallbladder adenomyomatosis vs right-sided heart failure Lactic acidosis, resolved Elevated INR -Abdominal ultrasound showing gallbladder adenomyomatosis -Liver profile showing improvement of hyperbilirubinemia and transaminitis with IV diuresis, therefore it is likely these are resulting from right-sided heart failure. -Morning labs showing total bili decreasing to 2.7, AST of 84, ALT of 89, and alkaline phosphatase of 158. -General surgery evaluated recommending outpatient cholecystectomy if patient able to become medically stable, currently patient unstable for surgical intervention at this time. -Hepatitis panel was drawn in the emergency department and nonreactive Patient with extremely guarded prognosis. Data and imaging reviewed: Vital signs reviewed. Blood pressure 135/71, heart rate 86, respiratory rate 16, temp 97.6 F, and SpO2 of 94% on 2 L. Troponins trended resulting at 0.070 and 0.066. Morning labs completed and reviewed. CBC showing mild leukocytosis with WBC count of 13.5 otherwise showing no significant abnormalities. BMP unremarkable with the exception of slight elevation of BUN but improved from yesterday's labs with renal function stable with BUN of 47, creatinine 1.17, GFR of 61. Blood glucose 111. Magnesium was 2.4. Liver profile improving with total bili of 2.7, AST of 84, ALT of 89, and alkaline phosphatase of 158. CODE STATUS: Full code DVT prophylaxis: Heparin Anticipated discharge date: Pending clinical course Anticipated discharge place: Pending clinical course Patient was seen independently by Nurse Practitioner. This document was prepared using [employer] dictation software. Please allow for errors in director of guidance while rare they do occur. I reviewed the documentation as provided by the SHAREE above, who is the original author of this note. I agree with the documented assessment and plan, with the following changes: none Objective - Vital Signs Vital signs: Vital Signs Temp 97.6 F 04/09/23 04:00 Pulse 97 04/09/23 04:00 Resp 22 04/09/23 04:00 BP 102/53 04/09/23 04:00 Pulse Ox 94 L 04/09/23 04:00 FiO2 Intake & Output 04/08/23 04/09/23 04/09/23 18:59 06:59 18:59 Intake Total 1080 Output Total 1000 800 Balance -1000 280 Weight 99.79 kg 77.9 kg Intake: Oral 1080 Output: Urine 1000 800 Other: Voiding Method Toilet Urinal # Voids 3 - Labs CBC & Chem 7: 04/10/23 07:51 04/10/23 07:51 Labs: Abnormal Lab Results - Last 24 Hours (Table) 02/10/2204/08/23 04/08/23 Range/Units 12:20 12:20 12:20 WBC 13.2 H (3.8-10.6) k/uL RDW 16.2 H (11.5-15.5) % Neutrophils # 10.9 H (1.3-7.7) k/uL Lymphocytes # (1.0-4.8) k/uL Monocytes # (0-1.0) k/uL PT 15.6 H (10.0-12.5) sec INR 1.5 H (<1.2) APTT (22.0-30.0) sec Sodium 136 L (137-145) mmol/L Potassium 5.8 H (3.5-5.1) mmol/L Carbon Dioxide 19 L (22-30) mmol/L BUN 48 H (9-20) mg/dL Glucose 112 H (74-99) mg/dL Plasma Lactic Acid Chris (0.7-2.0) mmol/L Magnesium 2.7 H (1.6-2.3) mg/dL Total Bilirubin 3.8 H (0.2-1.3) mg/dL AST 179 H (17-59) U/L ALT 108 H (4-49) U/L Alkaline Phosphatase 177 H (38-126) U/L Troponin I (0.000-0.034) ng/mL Albumin (3.5-5.0) g/dL 04/08/23 04/08/23 04/08/23 Range/Units 12:20 12:20 15:47 WBC (3.8-10.6) k/uL RDW (11.5-15.5) % Neutrophils # (1.3-7.7) k/uL Lymphocytes # (1.0-4.8) k/uL Monocytes # (0-1.0) k/uL PT (10.0-12.5) sec INR (<1.2) APTT (22.0-30.0) sec Sodium (137-145) mmol/L Potassium (3.5-5.1) mmol/L Carbon Dioxide (22-30) mmol/L BUN (9-20) mg/dL Glucose (74-99) mg/dL Plasma Lactic Acid Chris 2.2 H* 2.2 H* (0.7-2.0) mmol/L Magnesium (1.6-2.3) mg/dL Total Bilirubin (0.2-1.3) mg/dL AST (17-59) U/L ALT (4-49) U/L Alkaline Phosphatase (38-126) U/L Troponin I 0.070 H* (0.000-0.034) ng/mL Albumin (3.5-5.0) g/dL 04/08/23 04/08/23 04/09/23 Range/Units 18:58 22:20 07:02 WBC 13.5 H (3.8-10.6) k/uL RDW 15.7 H (11.5-15.5) % Neutrophils # 11.2 H (1.3-7.7) k/uL Lymphocytes # 0.9 L (1.0-4.8) k/uL Monocytes # 1.1 H (0-1.0) k/uL PT (10.0-12.5) sec INR (<1.2) APTT 60.3 H (22.0-30.0) sec Sodium (137-145) mmol/L Potassium (3.5-5.1) mmol/L Carbon Dioxide (22-30) mmol/L BUN (9-20) mg/dL Glucose (74-99) mg/dL Plasma Lactic Acid Chris 2.1 H* (0.7-2.0) mmol/L Magnesium (1.6-2.3) mg/dL Total Bilirubin (0.2-1.3) mg/dL AST (17-59) U/L ALT (4-49) U/L Alkaline Phosphatase (38-126) U/L Troponin I (0.000-0.034) ng/mL Albumin (3.5-5.0) g/dL 04/09/23 04/09/23 04/09/23 Range/Units 07:02 07:02 07:02 WBC (3.8-10.6) k/uL RDW (11.5-15.5) % Neutrophils # (1.3-7.7) k/uL Lymphocytes # (1.0-4.8) k/uL Monocytes # (0-1.0) k/uL PT 15.9 H (10.0-12.5) sec INR 1.5 H (<1.2) APTT 45.1 H (22.0-30.0) sec Sodium (137-145) mmol/L Potassium (3.5-5.1) mmol/L Carbon Dioxide (22-30) mmol/L BUN 47 H (9-20) mg/dL Glucose 111 H (74-99) mg/dL Plasma Lactic Acid Chris (0.7-2.0) mmol/L Magnesium 2.4 H (1.6-2.3) mg/dL Total Bilirubin 2.7 H (0.2-1.3) mg/dL AST 84 H (17-59) U/L ALT 89 H (4-49) U/L Alkaline Phosphatase 158 H (38-126) U/L Troponin I (0.000-0.034) ng/mL Albumin 3.4 L (3.5-5.0) g/dL
[2023-04-09] MEDS: ALPRAZolam 0.5 MG TAB PO PRN (18:02)
[2023-04-09] MEDS: ATORVASTATIN 40 MG TAB PO SCH (21:09)
[2023-04-10] MEDS: POTASSIUM CHLORIDE ER 20 MEQ TAB.ER PO SCH (08:55)
[2023-04-10 08:56] LABS: Anisocytosis Slight; HCT 44.6 % (39.0-53.0); HGB 14.3 gm/dL (13.0-17.5); Hypochromasia Slight; MCH 31.3 pg (25.0-35.0); MCV 98.1 fL (80.0-100.0); Macrocytosis Slight; Mean Platelet Volume 9.8; Platelet Count 172 k/uL (150-450); RBC 4.55 m/uL (4.30-5.90); RDW 16.2 % (11.5-15.5); WBC 12.2 k/uL (3.8-10.6)
[2023-04-10 09:18] LABS: ALT 102 U/L (4-49); AST 94 U/L (17-59); African American GFR (CKD) 77 (>60 ml/min/1.73 sqM); Albumin 3.3 g/dL (3.5-5.0); Alkaline Phosphatase 183 U/L (38-126); Anion Gap 10 mmol/L; Blood Urea Nitrogen 48 mg/dL (9-20); Calcium 8.6 mg/dL (8.4-10.2); Carbon Dioxide 24 mmol/L (22-30); Chloride 102 mmol/L (98-107); Glucose 134 mg/dL (74-99); Magnesium 2.5 mg/dL (1.6-2.3); Non-African American GFR(CKD) 66 (>60 ml/min/1.73 sqM); Sodium 136 mmol/L (137-145); Total Bilirubin 2.7 mg/dL (0.2-1.3); Total Protein 6.3 g/dL (6.3-8.2)
--- NOTE | 2023-04-10 13:34 | P.PN ---
Subjective Progress Note Date: 04/10/23 Hospital course: Patient is a very pleasant 73-year-old male with a past medical history of CAD status post CABG, Chronic systolic heart failure with previously known EF of 15 to 20%, ischemic cardiomyopathy, severe pulmonary hypertension, and medication noncompliance. Pt reports that his lining feller is Dr. King and that he has not seen him since his last hospitalization back in January. Patient reports lining feller recommended AICD placement secondary to his severely impaired heart function but patient declined stating he will never get that procedure. During last hospitalization patient was also discharged home on aspirin 81 mg daily, Lasix 40 mg daily, losartan 12.5 mg daily, Plavix 75 mg daily, Jardiance 10 mg daily and as needed nitroglycerin sublingual tablets 0.4 mg. Patient reports he did not take any of these medications because they are not good for you. Patient states the last time he took medications was during previous hospita lization. Patient denies following up outpatient with PCP and reports last time he saw his lining feller was just after his last hospitalization back in January. He presented to the emergency department today for reports of progressively worsening shortness of breath accompanied by bilateral lower extremity swelling. He underwent full evaluation in the emergency department. Vital signs upon arrival showing heart rate of 133, blood pressure 125/86, respiratory rate 20, temp 97.8 F, and SpO2 of 98% on room air. EKG showing atrial flutter with RVR at 116 bpm with occasional PACs. Labs completed and reviewed. CBC showing leukocytosis with WBC count of 13.2, coagulation profile showing elevated PT of 15.6 and INR of 1.5. BMP showing hyperkalemia with potassium of 5.8 but reported as a hemolyzed specimen, elevated BUN of 48, and blood glucose of 112. Lactic acid elevated at 2.2. Liver profile showing hyperbilirubinemia with bilirubin of 3.8 and transaminitis with AST of 179, ALT of 108, and alkaline phosphatase of 177. Troponin elevated at 0.070 and proBNP of 12,900. Chest x-ray was completed showing pulmonary venous congestion with cardiomegaly and small left-sided pleural effusion. Abdominal ultrasound showing gallbladder adenomyomatosis. In the emergency department patient was given aspirin 325 mg p.o. x 1 dose, Lasix 40 mg IVP x 1 dose, and started on low intensity heparin infusion at 10 units/kg/h. Patient admitted under our services with consultation to cardiology for acute systolic heart failure exacerbation and general surgery for gallbladder adenomyomatosis accompanied by hyperbilirubinemia and transaminitis.Troponins trended resulting at 0.070 and 0.066. Physical exam: Vital signs reviewed and stable. General: Nontoxic, no distress and appears stated age. Derm: Skin warm and dry, normal coloration for ethnicity. Head: Atraumatic, normocephalic and symmetric. Eyes: EOMs intact, no lid lag, and anicteric sclera Mouth: no lip lesions, mucus membranes moist Cardiovascular: Irregularly irregular, systolic murmur, positive posterior tibial pulses bilaterally, and cap refill < 2 seconds. Lungs: Respirations even, regular, and unlabored on supplemental oxygen. Lungs diminished, no rhonchi, no rales, no wheezing, and no accessory muscle usage. Abdominal: soft, nontender to palpation, no guarding, no appreciable organomegaly Ext: ROM intact. No gross muscle atrophy, 2+ pitting bilateral lower extremity edema, no contractures Neuro: Speech clear, face symmetrical and CN II-XII grossly intact with no noted focal neuro deficits Psych: Alert and oriented to person, place, time, and situation. Appropriate and pleasant affect. Assessment and Plan of Care: Acute exacerbation of chronic systolic heart failure Acute hypoxic respiratory failure secondary to CHF exacerbation. New onset atrial fibrillation/flutter with episodes of RVR Elevated troponins, flat likely chronic secondary to CHF History of CAD status post CABG Ischemic cardiomyopathy with previously known EF of 15 to 20% Severe pulmonary hypertension -Cardiology evaluated discontinued heparin infusion starting patient on Eliquis 5 mg twice daily and recommending AICD implantation. -Continue Daily weights and Close monitoring of I's and O's -Cardiac diet -Continue Lasix 40 mg IVP every 12 hours -Continue Eliquis 5 mg twice daily, atorvastatin 40 mg nightly, carvedilol 3.125 mg twice daily, and Plavix 75 mg daily. -Continuation of daily medications including: -Lipid profile and Hgb A1c with a.m. labs. -Continued close monitoring of electrolytes while diuresing. Transaminitis with hyperbilirubinemia, possibly secondary to gallbladder adenomyomatosis vs right-sided heart failure Lactic acidosis, resolved Elevated INR -Abdominal ultrasound showing gallbladder adenomyomatosis -Liver profile showing improvement of hyperbilirubinemia and transaminitis with IV diuresis, therefore it is likely these are resulting from right-sided heart failure. -Morning labs showing total bili decreasing to 2.7, AST of 84, ALT of 89, and alkaline phosphatase of 158. -General surgery evaluated recommending outpatient cholecystectomy if patient able to become medically stable, currently patient unstable for surgical intervention at this time. -Hepatitis panel was drawn in the emergency department and nonreactive Patient with extremely guarded prognosis. Data and imaging reviewed: Vital signs reviewed. Blood pressure 99/60, heart rate 97, respiratory rate 18, temp 97.4 F, SpO2 of 97% on 2 L. .Morning labs reviewed. CBC showing mild leukocytosis with WBC count of 12.2 otherwise normal findings. BMP revealing persistent but stable prerenal azotemia with BUN of 48 otherwise normal findings. Magnesium 2.5. Liver profile continues to show hyperbilirubinemia with total bili of 2.7 and transaminitis with AST of 94, ALT 102, and alkaline phosphatase of 183. CODE STATUS: Full code DVT prophylaxis: Heparin Anticipated discharge date: Pending clinical course Anticipated discharge place: Pending clinical course Patient was seen independently by Nurse Practitioner. This document was prepared using [employer] dictation software. Please allow for errors in welding systems and equipment repairer while rare they do occur. I reviewed the documentation as provided by the SHAREE above, who is the original author of this note. I agree with the documented assessment and plan, with the following changes: none Objective - Vital Signs Vital signs: Vital Signs Temp 98.2 F 04/09/23 19:26 Pulse 105 H 04/10/23 03:40 Resp 18 04/10/23 03:40 BP 103/74 04/10/23 03:40 Pulse Ox 92 L 04/10/23 03:40 FiO2 Intake & Output 04/09/23 04/10/23 04/10/23 18:59 06:59 18:59 Intake Total 1016 540 Output Total 400 300 350 Balance 616 240 -350 Weight 77.9 kg 77.5 kg Intake: Oral 1016 540 Output: Urine 400 300 350 Other: Voiding Method Toilet Toilet Urinal Urinal - Labs CBC & Chem 7: 04/12/23 06:59 04/12/23 06:59 Labs: Abnormal Lab Results - Last 24 Hours (Table) 04/09/23 04/09/23 Range/Units 09:54 12:56 Troponin I 0.066 H* 0.056 H* (0.000-0.034) ng/mL
[2023-04-10] MEDS: AMIODARONE 200 MG TAB PO SCH (13:47)
--- NOTE | 2023-04-10 15:15 | P.PN ---
Subjective HISTORY OF PRESENT ILLNESS: This is a 73-year-old male with a past medical history significant for coronary artery disease with previous CABG and stenting, congestive heart failure, and medication noncompliance. Patient follows in the office with Dr. King. We have been asked to see the patient in consultation for congestive heart failure. Patient examined at the bedside. Patient presented to the hospital with a chief complaint of shortness of breath. It is noted that the patient was recently hospitalized in January and underwent balloon angioplasty of RCA in-stent restenosis. The patient was discharged home on multiple cardiac medications including aspirin, Lasix, losartan, Plavix, and Jardiance. The patient states he stopped taking all of these medications because they did not make him feel unwell. He states that he felt like he was "stoned" all the time. The patient was found to be in congestive heart failure. He was started on IV Lasix. He was also started on IV heparin secondary to abnormal troponins. He denies having any chest pain or pressure. EKG on admission reveals atrial fibrillation/flutter. The patient denies a history of atrial fibrillation or atrial flutter. DIAGNOSTICS: - EKG reveals atrial fibrillation with no signs of acute ischemia - Chest xray pulmonary venous congestion with cardiomegaly and small left-sided pleural effusion - Laboratory data: WBC 13.5. Hemoglobin 14.5. Platelet count 178. Sodium 137. Potassium 3.5. BUN is 47. Creatinine 1.17. Lactic acid 2.1. AST 84. ALT 89 . proBNP 12,900. Troponin 0.070. - Current home cardiac medications include none - Most recent echocardiogram obtained in January 2023 revealed ejection fraction 15 to 20%, severe pulmonary hypertension, mild TR, mild MR - Cardiac catheterization history: January 2023 revealing coronary artery d isease including 100% proximal LAD stenosis, 40 to 50% mid circumflex stenosis, 90% RCA in-stent stenosis. Elevated left and right-sided filling pressures. Decreased cardiac output and cardiac index. Pulmonary hypertension related to left-sided heart failure. Patient underwent balloon angioplasty of the RCA. 04/10/2023 Pt is seen and examined sitting up at the edge of the bed. He states he just got back from the bathroom. He denies shortness of breath. He is tachy on exam in atrial fib. He answers questions but is not forthcoming and somewhat crabby. Blood pressure is well controlled, 109/76, heart rate 95-110 on telemetry. Laboratory data reviewed, WBC 12.2, hemoglobin 14.3, platelets 172, sodium 136, potassium 4 and creatinine 1.1. PHYSICAL EXAM: VITAL SIGNS: Reviewed. GENERAL: Well-developed in no acute distress. HEENT: Head is normocephalic. Pupils are equal, round. Sclerae anicteric. Mucous membranes of the mouth are moist. Neck supple. Positive JVD LUNGS: Respirations even and unlabored. Lungs diminished with bibasilar rales HEART: Irregular rate and rhythm. S1 and S2 heard. Tachycardic. ABDOMEN: Soft. Nondistended. Nontender. EXTREMITIES: Normal range of motion. No clubbing or cyanosis. Peripheral pulses intact. 2+ bilateral lower extremity edema NEUROLOGIC: Awake and alert. Oriented x 3. ASSESSMENT: Shortness of breath Acute on chronic heart failure with reduced EF, 15 to 20% New onset atrial fibrillation/flutter Abnormal troponins, flat, type II ND Coronary artery disease with previous CABG and stenting Status post balloon angioplasty of RCA in-stent stenosis, January 2023 Ischemic cardiomyopathy, refusing AICD implantation Pulmonary hypertension History of medication noncompliance Reported intolerance to multiple medications including beta-blockers and Aldactone Transaminitis Former nicotine dependence PLAN: Add amiodarone 400 mg twice a day. Initiate entresto 24/26 mg by mouth twice a day. No need to repeat echocardiogram as this was performed in January 2023 Patient has previously refused AICD implantation. Patient now states he will think about it. Continue IV Lasix 40 mg every 12 hours Daily weights, accurate I&O, and monitoring of kidney function Continue to monitor blood pressure. Patient educated on importance of medication noncompliance Further recommendations pending patient course Nurse practitioner note has been reviewed by physician. Signing provider agrees with the documented findings, assessment, and plan of care documented by CAREER TECHNICAL SUPERVISOR as a scribe. Objective - Vital Signs Vital signs: Vital Signs Temp 97.4 F L 04/10/23 08:50 Pulse 58 L 04/10/23 11:40 Resp 18 04/10/23 13:28 BP 109/76 04/10/23 11:40 Pulse Ox 97 04/10/23 11:40 FiO2 Intake & Output 04/09/23 04/10/23 04/10/23 18:59 06:59 18:59 Intake Total 1016 540 118 Output Total 400 300 650 Balance 610 491 -918 Weight 77.9 kg 77.5 kg Intake: Oral 1016 540 118 Output: Urine 400 300 650 Other: Voiding Method Toilet Toilet Toilet Urinal Urinal Urinal - Labs CBC & Chem 7: 04/10/23 07:51 04/10/23 07:51 Labs: Abnormal Lab Results - Last 24 Hours (Table) 04/10/23 04/10/23 Range/Units 07:51 07:51 WBC 12.2 H (3.8-10.6) k/uL RDW 16.2 H (11.5-15.5) % Sodium 136 L (137-145) mmol/L BUN 48 H (9-20) mg/dL Glucose 134 H (74-99) mg/dL Magnesium 2.5 H (1.6-2.3) mg/dL Total Bilirubin 2.7 H (0.2-1.3) mg/dL AST 94 H (17-59) U/L ALT 102 H (4-49) U/L Alkaline Phosphatase 183 H (38-126) U/L Albumin 3.3 L (3.5-5.0) g/dL
[2023-04-10] MEDS: SACUBITRIL/VALSARTAN 24 MG-26 MG TABLET PO SCH (20:09)
[2023-04-11 08:45] LABS: Anisocytosis Slight; HCT 44.8 % (39.0-53.0); HGB 14.4 gm/dL (13.0-17.5); Hypochromasia Slight; MCH 31.5 pg (25.0-35.0); MCHC 32.1 g/dL (31.0-37.0); MCV 97.9 fL (80.0-100.0); Macrocytosis Slight; Mean Platelet Volume 9.5; Platelet Count 197 k/uL (150-450); RBC 4.58 m/uL (4.30-5.90); RDW 16.1 % (11.5-15.5); WBC 10.9 k/uL (3.8-10.6)
[2023-04-11 09:01] LABS: ALT 96 U/L (4-49); AST 74 U/L (17-59); African American GFR (CKD) 57 (>60 ml/min/1.73 sqM); Albumin 2.9 g/dL (3.5-5.0); Alkaline Phosphatase 184 U/L (38-126); Anion Gap 7 mmol/L; Blood Urea Nitrogen 61 mg/dL (9-20); Calcium 8.2 mg/dL (8.4-10.2); Carbon Dioxide 29 mmol/L (22-30); Chloride 98 mmol/L (98-107); Glucose 121 mg/dL (74-99); Magnesium 2.7 mg/dL (1.6-2.3); Non-African American GFR(CKD) 50 (>60 ml/min/1.73 sqM); Potassium 4.4 mmol/L (3.5-5.1); Sodium 134 mmol/L (137-145); Total Protein 5.7 g/dL (6.3-8.2)
--- NOTE | 2023-04-11 11:18 | P.PN ---
Subjective Progress Note Date: 04/11/23 Patient corina clinically unchanged. His abdomen is soft. There is no sign of tenderness. Chronic cholecystitis. Patient will be scheduled for outpatient cholecystectomy when medically stable. Objective - Vital Signs Vital signs: Vital Signs Temp 97.5 F L 04/11/23 05:58 Pulse 57 L 04/11/23 08:00 Resp 18 04/11/23 08:00 BP 73/52 04/11/23 08:00 Pulse Ox 97 04/11/23 08:00 FiO2 Intake & Output 04/10/23 04/11/23 04/11/23 18:59 06:59 18:59 Intake Total 358 236 236 Output Total 650 Balance -292 236 236 Weight 78.5 kg Intake: Oral 358 236 236 Output: Urine 650 Other: Voiding Method Toilet Toilet Toilet Urinal Urinal Urinal # Bowel Movements 1 - Labs CBC & Chem 7: 04/11/23 08:02 04/11/23 08:02 Labs: Abnormal Lab Results - Last 24 Hours (Table) 04/11/23 04/11/23 Range/Units 08:02 08:02 WBC 10.9 H (3.8-10.6) k/uL RDW 16.1 H (11.5-15.5) % Sodium 134 L (137-145) mmol/L BUN 61 H (9-20) mg/dL Creatinine 1.40 H (0.66-1.25) mg/dL Glucose 121 H (74-99) mg/dL Calcium 8.2 L (8.4-10.2) mg/dL Magnesium 2.7 H (1.6-2.3) mg/dL Total Bilirubin 2.0 H (0.2-1.3) mg/dL AST 74 H (17-59) U/L ALT 96 H (4-49) U/L Alkaline Phosphatase 184 H (38-126) U/L Total Protein 5.7 L (6.3-8.2) g/dL Albumin 2.9 L (3.5-5.0) g/dL
[2023-04-11] MEDS: DOBUTamine DRIP 500 MG in DEXTROSE/WATER 1 250ML.BAG IV SCH (12:29)
--- NOTE | 2023-04-11 13:41 | P.PN ---
Subjective HISTORY OF PRESENT ILLNESS: This is a 73-year-old male with a past medical history significant for coronary artery disease with previous CABG and stenting, congestive heart failure, and medication noncompliance. Patient follows in the office with Dr. King. We have been asked to see the patient in consultation for congestive heart failure. Patient examined at the bedside. Patient presented to the hospital with a chief complaint of shortness of breath. It is noted that the patient was recently hospitalized in January and underwent balloon angioplasty of RCA in-stent restenosis. The patient was discharged home on multiple cardiac medications including aspirin, Lasix, losartan, Plavix, and Jardiance. The patient states he stopped taking all of these medications because they did not make him feel unwell. He states that he felt like he was "stoned" all the time. The patient was found to be in congestive heart failure. He was started on IV Lasix. He was also started on IV heparin secondary to abnormal troponins. He denies having any chest pain or pressure. EKG on admission reveals atrial fibrillation/flutter. The patient denies a history of atrial fibrillation or atrial flutter. DIAGNOSTICS: - EKG reveals atrial fibrillation with no signs of acute ischemia - Chest xray pulmonary venous congestion with cardiomegaly and small left-sided pleural effusion - Laboratory data: WBC 13.5. Hemoglobin 14.5. Platelet count 178. Sodium 137. Potassium 3.5. BUN is 47. Creatinine 1.17. Lactic acid 2.1. AST 84. ALT 89 . proBNP 12,900. Troponin 0.070. - Current home cardiac medications include none - Most recent echocardiogram obtained in January 2023 revealed ejection fraction 15 to 20%, severe pulmonary hypertension, mild TR, mild MR - Cardiac catheterization history: January 2023 revealing coronary artery d isease including 100% proximal LAD stenosis, 40 to 50% mid circumflex stenosis, 90% RCA in-stent stenosis. Elevated left and right-sided filling pressures. Decreased cardiac output and cardiac index. Pulmonary hypertension related to left-sided heart failure. Patient underwent balloon angioplasty of the RCA. 04/10/2023 Pt is seen and examined sitting up at the edge of the bed. He states he just got back from the bathroom. He denies shortness of breath. He is tachy on exam in atrial fib. He answers questions but is not forthcoming and somewhat crabby. Blood pressure is well controlled, 109/76, heart rate 95-110 on telemetry. Laboratory data reviewed, WBC 12.2, hemoglobin 14.3, platelets 172, sodium 136, potassium 4 and creatinine 1.1. 04/11/2023 Patient seen and examined resting comfortably in bed with spouse at the bedside. Blood pressure has been running on the low side in the 70s to 80s systolic. Heart rate in the 50s. Laboratory data reviewed, WBC 10.9, hemoglobin 14.4, pl atelets 197, sodium 134, potassium 4.4, creatinine 1.4, magnesium 2.7. PHYSICAL EXAM: VITAL SIGNS: Reviewed. GENERAL: Well-developed in no acute distress. HEENT: Head is normocephalic. Pupils are equal, round. Sclerae anicteric. Mucous membranes of the mouth are moist. Neck supple. Positive JVD LUNGS: Respirations even and unlabored. Lungs diminished with bibasilar rales HEART: Irregular rate and rhythm. S1 and S2 heard. Tachycardic. ABDOMEN: Soft. Nondistended. Nontender. EXTREMITIES: Normal range of motion. No clubbing or cyanosis. Peripheral pulses intact. 2+ bilateral lower extremity edema NEUROLOGIC: Awake and alert. Oriented x 3. ASSESSMENT: Shortness of breath Acute on chronic heart failure with reduced EF, 15 to 20% New onset atrial fibrillation/flutter Abnormal troponins, flat, type II [place] Coronary artery disease with previous CABG and stenting Status post balloon angioplasty of RCA in-stent stenosis, January 2023 Ischemic cardiomyopathy, refusing AICD implantation Pulmonary hypertension History of medication noncompliance Reported intolerance to multiple medications including beta-blockers and Aldactone Transaminitis Former nicotine dependence PLAN: Check baseline TSH with initiation of amiodarone. Discontinue coreg and start metoprolol succinate 12.5 mg daily. He has documented an allergy however it is not an allergy just an intolerance. Please try and see if he can tolerate. Initiate dobutamine infusion. Repeat BMP in the morning. Discussed at length with the patient and his spouse the need for ICD and he is now agreeable, however it seems to be more his spouse that is in agreement. We will discuss further with Dr. King and Dr. Palafox. Explained to them in detail we will continue to optimize his heart failure during this admission and set up for evaluation for ICD in the outpatient setting. No need to repeat echocardiogram as this was performed in January 2023 Continue IV Lasix 40 mg every 12 hours Patient educated on importance of medication noncompliance Further recommendations pending patient course Nurse practitioner note has been reviewed by physician. Signing provider agrees with the documented findings, assessment, and plan of care documented by PEDIATRIC PHYSICAL THERAPIST as a scribe. Objective - Vital Signs Vital signs: Vital Signs Temp 97.5 F L 04/11/23 05:58 Pulse 57 L 04/11/23 12:00 Resp 18 04/11/23 12:00 BP 84/52 04/11/23 12:00 Pulse Ox 97 04/11/23 12:00 FiO2 Intake & Output 04/10/23 04/11/23 04/11/23 18:59 06:59 18:59 Intake Total 358 236 236 Output Total 650 Balance -292 236 236 Weight 78.5 kg Intake: Oral 358 236 236 Output: Urine 650 Other: Voiding Method Toilet Toilet Toilet Urinal Urinal Urinal # Bowel Movements 1 - Labs CBC & Chem 7: 04/11/23 08:02 04/11/23 08:02 Labs: Abnormal Lab Results - Last 24 Hours (Table) 04/11/23 04/11/23 Range/Units 08:02 08:02 WBC 10.9 H (3.8-10.6) k/uL RDW 16.1 H (11.5-15.5) % Sodium 134 L (137-145) mmol/L BUN 61 H (9-20) mg/dL Creatinine 1.40 H (0.66-1.25) mg/dL Glucose 121 H (74-99) mg/dL Calcium 8.2 L (8.4-10.2) mg/dL Magnesium 2.7 H (1.6-2.3) mg/dL Total Bilirubin 2.0 H (0.2-1.3) mg/dL AST 74 H (17-59) U/L ALT 96 H (4-49) U/L Alkaline Phosphatase 184 H (38-126) U/L Total Protein 5.7 L (6.3-8.2) g/dL Albumin 2.9 L (3.5-5.0) g/dL
--- NOTE | 2023-04-11 14:47 | P.PN ---
Subjective Progress Note Date: 04/11/23 Hospital course: Patient is a very pleasant 73-year-old male with a past medical history of CAD status post CABG, Chronic systolic heart failure with previously known EF of 15 to 20%, ischemic cardiomyopathy, severe pulmonary hypertension, and medication noncompliance. 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 King and that he has not seen him since his last hospitalization back in January. Patient reports sand mill operator facing sand recommended AICD placement secondary to his severely impaired heart function but patient declined stating he will never get that procedure. During last hospitalization patient was also discharged home on aspirin 81 mg daily, Lasix 40 mg daily, losartan 12.5 mg daily, Plavix 75 mg daily, Jardiance 10 mg daily and as needed nitroglycerin sublingual tablets 0.4 mg. Patient reports he did not take any of these medications because they are not good for you. Patient states the last time he took medications was during previous hospita lization. 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 He presented to the emergency department today for reports of progressively worsening shortness of breath accompanied by bilateral lower extremity swelling. He underwent full evaluation in the emergency department. Vital signs upon arrival showing heart rate of 133, blood pressure 125/86, respiratory rate 20, temp 97.8 F, and SpO2 of 98% on room air. EKG showing atrial flutter with RVR at 116 bpm with occasional PACs. Labs completed and reviewed. CBC showing leukocytosis with WBC count of 13.2, coagulation profile showing elevated PT of 15.6 and INR of 1.5. BMP showing hyperkalemia with potassium of 5.8 but reported as a hemolyzed specimen, elevated BUN of 48, and blood glucose of 112. Lactic acid elevated at 2.2. Liver profile showing hyperbilirubinemia with bilirubin of 3.8 and transaminitis with AST of 179, ALT of 108, and alkaline phosphatase of 177. Troponin elevated at 0.070 and proBNP of 12,900. Chest x-ray was completed showing pulmonary venous congestion with cardiomegaly and small left-sided pleural effusion. Abdominal ultrasound showing gallbladder adenomyomatosis. In the emergency department patient was given aspirin 325 mg p.o. x 1 dose, Lasix 40 mg IVP x 1 dose, and started on low intensity heparin infusion at 10 units/kg/h. Patient admitted under our services with consultation to cardiology for acute systolic heart failure exacerbation and general surgery for gallbladder adenomyomatosis accompanied by hyperbilirubinemia and transaminitis.Troponins trended resulting at 0.070 and 0.066. Physical exam: Vital signs reviewed and stable. General: Nontoxic, no distress and appears stated age. Derm: Skin warm and dry, normal coloration for ethnicity. Head: Atraumatic, normocephalic and symmetric. Eyes: EOMs intact, no lid lag, and anicteric sclera Mouth: no lip lesions, mucus membranes moist Cardiovascular: Irregularly irregular, systolic murmur, positive posterior tibial pulses bilaterally, and cap refill < 2 seconds. Lungs: Respirations even, regular, and unlabored on supplemental oxygen. Lungs diminished, no rhonchi, no rales, no wheezing, and no accessory muscle usage. Abdominal: soft, nontender to palpation, no guarding, no appreciable organomegaly Ext: ROM intact. No gross muscle atrophy, 2+ pitting bilateral lower extremity edema, no contractures Neuro: Speech clear, face symmetrical and CN II-XII grossly intact with no noted focal neuro deficits Psych: Alert and oriented to person, place, time, and situation. Appropriate and pleasant affect. Assessment and Plan of Care: Acute exacerbation of chronic systolic heart failure with EF of 15 to 20% Acute hypoxic respiratory failure secondary to CHF exacerbation. New onset atrial fibrillation/flutter with episodes of RVR Elevated troponins, flat likely chronic secondary to CHF History of CAD status post CABG Ischemic cardiomyopathy with previously known EF of 15 to 20% Severe pulmonary hypertension Acute kidney injury, secondary to much-needed IV diuresis -Cardiology following and starting patient on dobutamine infusion at 2 mcg/kg/min and will further evaluate/schedule for ICD placement. -Continue Daily weights and Close monitoring of I's and O's. Documented urinary output over the past 24 hours is only 650 cc. -Patient to remain on continuous telemetry monitoring -Continue Lasix 40 mg IVP every 12 hours -Continue Eliquis 5 mg twice daily, atorvastatin 40 mg nightly, amiodarone 400 mg twice daily, metoprolol 12.5 mg daily, Entresto 24/26 mg tablet twice daily and Plavix 75 mg daily. -Continued close monitoring of electrolytes while diuresing. Transaminitis with hyperbilirubinemia, possibly secondary to gallbladder adenomyomatosis vs right-sided heart failure Lactic acidosis, resolved Elevated INR -Abdominal ultrasound showing gallbladder adenomyomatosis -Liver profile showing improvement of hyperbilirubinemia and transaminitis with IV diuresis, therefore it is likely these are resulting from right-sided heart failure. -Morning labs showing total bili decreasing to 2.7, AST of 84, ALT of 89, and alkaline phosphatase of 158. -General surgery evaluated recommending outpatient cholecystectomy if patient able to become medically stable, currently patient unstable for surgical intervention at this time. -Hepatitis panel was drawn in the emergency department and nonreactive Patient with extremely guarded prognosis. Data and imaging reviewed: Vital signs reviewed. Blood pressure 73/52, heart rate 57, respiratory rate 18, temp 97.5 F, and SpO2 of 97% on 2 L. Patient being started on dobutamine infusion. .Morning labs reviewed. CBC showing mild leukocytosis with WBC count of 10.9 otherwise normal findings. BMP showing acute kidney injury with BUN of 61, creatinine 1.40, and GFR 50. Liver profile showing persistent hyperbilirubinemia with transaminitis with bilirubin of 2.7, AST 74, ALT 96, and alkaline phosphatase of 184. CODE STATUS: Full code DVT prophylaxis: Heparin Anticipated discharge date: Pending clinical course Anticipated discharge place: Pending clinical course Patient was seen independently by Nurse Practitioner. This document was prepared using [employer] dictation software. Please allow for errors in grain merchandising manager while rare they do occur. Rod Gilbert NP rendered care for this patient independently, reviewed the findings and plan as documented in the note above. I did not physically speak with or examine the patient on this date. Objective - Vital Signs Vital signs: Vital Signs Temp 97.5 F L 04/11/23 05:58 Pulse 58 L 04/11/23 05:58 Resp 18 04/11/23 03:11 BP 73/49 04/11/23 05:58 Pulse Ox 97 04/11/23 03:11 FiO2 Intake & Output 04/10/23 04/11/23 04/11/23 18:59 06:59 18:59 Intake Total 358 236 236 Output Total 650 Balance -292 236 236 Weight 78.5 kg Intake: Oral 358 236 236 Output: Urine 650 Other: Voiding Method Toilet Toilet Urinal Urinal # Bowel Movements 1 - Labs CBC & Chem 7: 04/11/23 08:02 04/11/23 08:02 Labs: Abnormal Lab Results - Last 24 Hours (Table) 04/10/23 04/11/23 Range/Units 07:51 08:02 WBC 10.9 H (3.8-10.6) k/uL RDW 16.1 H (11.5-15.5) % Sodium 136 L (137-145) mmol/L BUN 48 H (9-20) mg/dL Glucose 134 H (74-99) mg/dL Magnesium 2.5 H (1.6-2.3) mg/dL Total Bilirubin 2.7 H (0.2-1.3) mg/dL AST 94 H (17-59) U/L ALT 102 H (4-49) U/L Alkaline Phosphatase 183 H (38-126) U/L Albumin 3.3 L (3.5-5.0) g/dL
[2023-04-12] MEDS: MELATONIN 5 MG TABLET PO ONE (01:36)
[2023-04-12 07:19] LABS: HCT 42.8 % (39.0-53.0); HGB 13.8 gm/dL (13.0-17.5); Hypochromasia Slight; MCH 31.4 pg (25.0-35.0); MCHC 32.2 g/dL (31.0-37.0); MCV 97.3 fL (80.0-100.0); Macrocytosis Slight; Mean Platelet Volume 8.6; Platelet Count 192 k/uL (150-450); WBC 9.7 k/uL (3.8-10.6)
[2023-04-12 07:42] LABS: African American GFR (CKD) 46 (>60 ml/min/1.73 sqM); Anion Gap 8 mmol/L; Blood Urea Nitrogen 70 mg/dL (9-20); Calcium 7.8 mg/dL (8.4-10.2); Carbon Dioxide 22 mmol/L (22-30); Chloride 101 mmol/L (98-107); Glucose 103 mg/dL (74-99); Magnesium 2.6 mg/dL (1.6-2.3); Non-African American GFR(CKD) 40 (>60 ml/min/1.73 sqM); Sodium 131 mmol/L (137-145)
[2023-04-12 07:44] LABS: Potassium 4.5 mmol/L (3.5-5.1)
[2023-04-12] MEDS: METOPROLOL SUCCINATE (ER) 25 MG TAB.ER.24H PO SCH (09:01)
--- NOTE | 2023-04-12 12:02 | P.PN ---
Subjective Progress Note Date: 04/12/23 HISTORY OF PRESENT ILLNESS: This is a 73-year-old male with a past medical history significant for coronary artery disease with previous CABG and stenting, congestive heart failure, and medication noncompliance. Patient follows in the office with Dr. King. We have been asked to see the patient in consultation for congestive heart failure. Patient examined at the bedside. Patient presented to the hospital with a chief complaint of shortness of breath. It is noted that the patient was recently hospitalized in January and underwent balloon angioplasty of RCA in-stent restenosis. The patient was discharged home on multiple cardiac medications including aspirin, Lasix, losartan, Plavix, and Jardiance. The patient states he stopped taking all of these medications because they did not make him feel unwell. He states that he felt like he was "stoned" all the time. The patient was found to be in congestive heart failure. He was started on IV Lasix. He was also started on IV heparin secondary to abnormal troponins. He denies having any chest pain or pressure. EKG on admission reveals atrial fibrillation/flutter. The patient denies a history of atrial fibrillation or atrial flutter. DIAGNOSTICS: - EKG reveals atrial fibrillation with no signs of acute ischemia - Chest xray pulmonary venous congestion with cardiomegaly and small left-sided pleural effusion - Laboratory data: WBC 13.5. Hemoglobin 14.5. Platelet count 178. Sodium 137. Potassium 3.5. BUN is 47. Creatinine 1.17. Lactic acid 2.1. AST 84. ALT 89. proBNP 12,900. Troponin 0.070. - Current home cardiac medications include none - Most recent echocardiogram obtained in January 2023 revealed ejection fr action 15 to 20%, severe pulmonary hypertension, mild TR, mild MR - Cardiac catheterization history: January 2023 revealing coronary artery disease including 100% proximal LAD stenosis, 40 to 50% mid circumflex stenosis, 90% RCA in-stent stenosis. Elevated left and right-sided filling pressures. Decreased cardiac output and cardiac index. Pulmonary hypertension related to left-sided heart failure. Patient underwent balloon angioplasty of the RCA. 04/10/2023 Pt is seen and examined sitting up at the edge of the bed. He states he just got back from the bathroom. He denies shortness of breath. He is tachy on exam in atrial fib. He answers questions but is not forthcoming and somewhat crabby. Blood pressure is well controlled, 109/76, heart rate 95-110 on telemetry. Laboratory data reviewed, WBC 12.2, hemoglobin 14.3, platelets 172, sodium 136, potassium 4 and creatinine 1.1. 04/11/2023 Patient seen and examined resting comfortably in bed with spouse at the bedside. Blood pressure has been running on the low side in the 70s to 80s systolic. Heart rate in the 50s. Laboratory data reviewed, WBC 10.9, hemoglobin 14.4, platelets 197, sodium 134, potassium 4.4, creatinine 1.4, magnesium 2.7. 04/12 Patient is seen today in follow-up. Patient is on dobutamine 2 mcg/kg/min as well as amiodarone 4 mg twice daily, Eliquis 5 mg twice daily, atorvastatin 40 mg daily, Plavix 75 mg daily, Lasix 40 mg IV every 12 hours, Toprol-XL 12.5 mg daily and Entresto 24-26 mg twice daily. Systolic blood pressures have been low sometimes in the 60s to 70s. He is currently 88/47, heart rate is in the 50s and 60s. Patient states that his shortness of breath is better. Patient's documented weights appear to be increasing. He only has a documented fluid balance of -56 mL. TSH 1.88. Hemoglobin 13.8. Sodium 131, potassium 4.5, BUN 70 creatinine 1.67. PHYSICAL EXAM: VITAL SIGNS: Reviewed. GENERAL: Well-developed in no acute distress. HEENT: Head is normocephalic. Pupils are equal, round. Sclerae anicteric. Mucous membranes of the mouth are moist. Neck supple. Positive JVD LUNGS: Respirations even and unlabored. Lungs diminished with bibasilar rales HEART: Irregular rate and rhythm. S1 and S2 heard. Tachycardic. ABDOMEN: Soft. Nondistended. Nontender. EXTREMITIES: No clubbing or cyanosis. Peripheral pulses intact. 2+ bilateral lower extremity edema NEUROLOGIC: Awake and alert. Oriented x 3. ASSESSMENT: Shortness of breath Acute on chronic heart failure with reduced EF, 15 to 20% New onset atrial fibrillation/flutter Abnormal troponins, flat, type II [place] Coronary artery disease with previous CABG and stenting Status post balloon angioplasty of RCA in-stent stenosis, January 2023 Ischemic cardiomyopathy, refusing AICD implantation Pulmonary hypertension History of medication noncompliance Reported intolerance to multiple medications including beta-blockers and Aldactone Transaminitis Former nicotine dependence PLAN: Continue metoprolol succinate 12.5 mg daily. He has documented an allergy however it is not an allergy just an intolerance. Please try and see if he can tolerate. Continue at 2 mcg/kg/min dobutamine infusion. Monitor HAJA, daily weights, electrolytes and renal function Discussed at length with the patient and his spouse the need for ICD and he is now agreeable, however it seems to be more his spouse that is in agreement. We will discuss further with Dr. King and Dr. Palafox. Explained to them in detail we will continue to optimize his heart failure during this admission and set up for evaluation for ICD in the outpatient setting. No need to repeat echocardiogram as this was performed in January 2023 Continue IV Lasix 40 mg every 12 hours Parameters added for Entresto to hold if systolic is less than 90 Add midodrine 5 mg 3 times daily Patient educated on importance of medication noncompliance Further recommendations pending patient course Nurse practitioner note has been reviewed by physician. Signing provider agrees with the documented findings, assessment, and plan of care documented by ORDER WORKER as a scribe. Objective - Vital Signs Vital signs: Vital Signs Temp 97.6 F 04/12/23 08:00 Pulse 60 04/12/23 08:00 Resp 18 04/12/23 08:00 BP 88/47 04/12/23 08:00 Pulse Ox 95 04/12/23 08:00 FiO2 Intake & Output 04/11/23 04/12/23 04/12/23 18:59 06:59 18:59 Intake Total 596 360 240 Output Total 400 Balance 196 360 240 Weight 79.6 kg Intake: Oral 596 360 240 Output: Urine 400 Other: Voiding Method Toilet Toilet Urinal Urinal # Voids 1 # Bowel Movements 1 - Labs CBC & Chem 7: 04/12/23 06:59 04/12/23 06:59 Labs: Abnormal Lab Results - Last 24 Hours (Table) 04/12/23 04/12/23 Range/Units 06:59 06:59 RDW 16.0 H (11.5-15.5) % Sodium 131 L (137-145) mmol/L BUN 70 H (9-20) mg/dL Creatinine 1.67 H (0.66-1.25) mg/dL Glucose 103 H (74-99) mg/dL Calcium 7.8 L (8.4-10.2) mg/dL Magnesium 2.6 H (1.6-2.3) mg/dL
[2023-04-12] MEDS: MIDODRINE 5 MG TAB PO SCH (12:05)
--- NOTE | 2023-04-12 13:21 | P.PN ---
Subjective Progress Note Date: 04/12/23 CHIEF COMPLAINT: CHF exacerbation HISTORY OF PRESENT ILLNESS: Patient denies any abdominal pain. Denies any nausea or vomiting. Afebrile. WBC 9.7 Hgb 13.8 PHYSICAL EXAM: VITAL SIGNS: Reviewed. GENERAL: Well-developed in no acute distress. ABDOMEN: Soft. Nondistended. Nontender. NEUROLOGIC: Alert and oriented. Cranial nerves II through XII grossly intact. ASSESSMENT: 1. Chronic cholecystitis PLAN: -Dr. Smith recommends outpatient cholecystectomy when medically stable Physician Sign Language Instructor note has been reviewed by physician. Signing provider agrees with the documented findings, assessment, and plan of care. Objective - Vital Signs Vital signs: Vital Signs Temp 97.6 F 04/12/23 08:00 Pulse 71 04/12/23 11:50 Resp 18 04/12/23 11:50 BP 80/45 04/12/23 11:50 Pulse Ox 98 04/12/23 11:50 FiO2 Intake & Output 04/11/23 04/12/23 04/12/23 18:59 06:59 18:59 Intake Total 596 360 240 Output Total 400 Balance 196 360 240 Weight 79.6 kg Intake: Oral 596 360 240 Output: Urine 400 Other: Voiding Method Toilet Toilet Urinal Urinal # Voids 1 # Bowel Movements 1 - Labs CBC & Chem 7: 04/12/23 06:59 04/12/23 06:59 Labs: Abnormal Lab Results - Last 24 Hours (Table) 04/12/23 04/12/23 Range/Units 06:59 06:59 RDW 16.0 H (11.5-15.5) % Sodium 131 L (137-145) mmol/L BUN 70 H (9-20) mg/dL Creatinine 1.67 H (0.66-1.25) mg/dL Glucose 103 H (74-99) mg/dL Calcium 7.8 L (8.4-10.2) mg/dL Magnesium 2.6 H (1.6-2.3) mg/dL
--- NOTE | 2023-04-12 16:55 | P.PN ---
Subjective Progress Note Date: 04/12/23 Hospital course: Patient is a very pleasant 73-year-old male with a past medical history of CAD status post CABG, Chronic systolic heart failure with previously known EF of 15 to 20%, ischemic cardiomyopathy, severe pulmonary hypertension, and medication noncompliance. Pt reports that his river boat captain is Dr. King and that he has not seen him since his last hospitalization back in January. Patient reports river boat captain recommended AICD placement secondary to his severely impaired heart function but patient declined stating he will never get that procedure. During last hospitalization patient was also discharged home on aspirin 81 mg daily, Lasix 40 mg daily, losartan 12.5 mg daily, Plavix 75 mg daily, Jardiance 10 mg daily and as needed nitroglycerin sublingual tablets 0.4 mg. Patient reports he did not take any of these medications because they are not good for you. Patient states the last time he took medications was during previous hospita lization. Patient denies following up outpatient with PCP and reports last time he saw his river boat captain was just after his last hospitalization back in January. He presented to the emergency department 04/08/2023 for reports of progressively worsening shortness of breath accompanied by bilateral lower extremity swelling. He underwent full evaluation in the emergency department. Vital signs upon arrival showing heart rate of 133, blood pressure 125/86, respiratory rate 20, temp 97.8 F, and SpO2 of 98% on room air. EKG showing atrial flutter with RVR at 116 bpm with occasional PACs. Labs completed and reviewed. CBC showing leukocytosis with WBC count of 13.2, coagulation profile showing elevated PT of 15.6 and INR of 1.5. BMP showing hyperkalemia with potassium of 5.8 but reported as a hemolyzed specimen, elevated BUN of 48, and blood glucose of 112. Lactic acid elevated at 2.2. Liver profile showing hyperbilirubinemia with bilirubin of 3.8 and transaminitis with AST of 179, ALT of 108, and alkaline phosphatase of 177. Troponin elevated at 0.070 and proBNP of 12,900. Chest x-ray was completed showing pulmonary venous congestion with cardiomegaly and small left-sided pleural effusion. Abdominal ultrasound showing gallbladder adenomyomatosis. In the emergency department patient was given aspirin 325 mg p.o. x 1 dose, Lasix 40 mg IVP x 1 dose, and started on low intensity heparin infusion at 10 units/kg/h. Patient admitted under our services with consultation to cardiology for acute systolic heart failure exacerbation and general surgery for gallbladder adenomyomatosis accompanied by hyperbilirubinemia and transaminitis. Troponins trended resulting at 0.070 and 0.066. Patient evaluated by general surgery recommending outpatient cholecystectomy once patient is medically stable. Patient was evaluated by cardiology. Heart failure medication regimen was initiated with metoprolol 12.5 mg daily, Entresto 24/26 mg tablet twice daily, Plavix 75 mg daily, atorvastatin 40 mg daily, and Eliquis 5 mg twice daily. Patient also placed on IV diuresis with Lasix and started on dobutamine infusion. Physical exam: Patient seen and fully evaluated at bedside. He reports breathing is slightly better today. He denies having any complaints at this time including headache, lightheadedness, dizziness, chest pain, or palpitations. Vital signs reviewed and stable. General: Nontoxic, no distress and appears stated age. Derm: Skin warm and dry, normal coloration for ethnicity. Head: Atraumatic, normocephalic and symmetric. Eyes: EOMs intact, no lid lag, and anicteric sclera Mouth: no lip lesions, mucus membranes moist Cardiovascular: Irregularly irregular, systolic murmur, positive posterior tibial pulses bilaterally, and cap refill < 2 seconds. Lungs: Respirations even, regular, and unlabored on supplemental oxygen. Lungs diminished, no rhonchi, no rales, no wheezing, and no accessory muscle usage. Abdominal: soft, nontender to palpation, no guarding, no appreciable organomegaly Ext: ROM intact. No gross muscle atrophy, 1-2+ pitting bilateral lower extremity edema, no contractures Neuro: Speech clear, face symmetrical and CN II-XII grossly intact with no noted focal neuro deficits Psych: Alert and oriented to person, place, time, and situation. Appropriate and pleasant affect. Assessment and Plan of Care: Acute exacerbation of chronic systolic heart failure with EF of 15 to 20% Acute hypoxic respiratory failure secondary to CHF exacerbation. New onset atrial fibrillation/flutter with episodes of RVR Elevated troponins, flat likely chronic secondary to CHF History of CAD status post CABG Ischemic cardiomyopathy with previously known EF of 15 to 20% Severe pulmonary hypertension Acute kidney injury, secondary to much-needed IV diuresis -Cardiology following and discussed the possibility of increasing dobutamine infusion secondary to persistent hypotensionhowever cardiology recommending to continue dobutamine infusion at 2 mcg/kg/min and will further evaluate/schedule for ICD placement. -Continue Daily weights and Close monitoring of I's and O's. Documented urinary output over the past 24 hours is only 650 cc. -Patient to remain on continuous telemetry monitoring -Continue Lasix 40 mg IVP every 12 hours -Continue Eliquis 5 mg twice daily, atorvastatin 40 mg nightly, amiodarone 400 mg twice daily, metoprolol 12.5 mg daily, Entresto 24/26 mg tablet twice daily and Plavix 75 mg daily. -Continued close monitoring of electrolytes and renal function while diuresing. Transaminitis with hyperbilirubinemia, possibly secondary to gallbladder adenomyomatosis vs right-sided heart failure Lactic acidosis, resolved Elevated INR -Abdominal ultrasound showing gallbladder adenomyomatosis -Liver profile showing improvement of hyperbilirubinemia and transaminitis with IV diuresis, therefore it is likely these are resulting from right-sided heart failure. -Morning labs showing total bili decreasing to 2.7, AST of 84, ALT of 89, and alkaline phosphatase of 158. -General surgery evaluated recommending outpatient cholecystectomy once medically stable, currently patient unstable for surgical intervention at this time. -Hepatitis panel was drawn in the emergency department and nonreactive Patient with extremely guarded prognosis. Data and imaging reviewed: Vital signs reviewed. Blood pressure 88/47, heart rate 60, respiratory rate 18, temp 97.6 F, and SpO2 of 95% on 2 L. .Morning labs reviewed. CBC unremarkable. BMP revealing hyponatremia with sodium of 131 and acute kidney injury with BUN of 70, creatinine 1.67, and GFR 40. CODE STATUS: Full code DVT prophylaxis: Eliquis Anticipated discharge date: Pending clinical course Anticipated discharge place: Pending clinical course Patient was seen independently by Nurse Practitioner. This document was prepared using [employer] dictation software. Please allow for errors in business account executive while rare they do occur. Rod Gilbert NP rendered care for this patient independently, reviewed the findings and plan as documented in the note above. I did not physically speak with or examine the patient on this date. With low blood pressures and worsening creatinine consistent with acute kidney injury likely related to diuresis versus due to ATN from hypotension. Would consider stopping Entresto and maximizing blood pressures prior to proceeding with guideline directed medical therapy. Patient may also benefit from admission to the ICU with invasive cardiac monitoring via [place] catheter. Objective - Vital Signs Vital signs: Vital Signs Temp 97.3 F L 04/11/23 20:17 Pulse 57 L 04/12/23 03:22 Resp 18 04/12/23 03:22 BP 73/53 04/12/23 03:22 Pulse Ox 93 L 04/12/23 03:22 FiO2 Intake & Output 04/11/23 04/12/23 04/12/23 18:59 06:59 18:59 Intake Total 596 360 Output Total 400 Balance 196 360 Weight 79.6 kg Intake: Oral 596 360 Output: Urine 400 Other: Voiding Method Toilet Toilet Urinal Urinal # Voids 1 # Bowel Movements 1 - Labs CBC & Chem 7: 04/12/23 06:59 04/12/23 06:59 Labs: Abnormal Lab Results - Last 24 Hours (Table) 04/11/23 04/11/23 04/12/23 Range/Units 08:02 08:02 06:59 WBC 10.9 H (3.8-10.6) k/uL RDW 16.1 H 16.0 H (11.5-15.5) % Sodium 134 L (137-145) mmol/L BUN 61 H (9-20) mg/dL Creatinine 1.40 H (0.66-1.25) mg/dL Glucose 121 H (74-99) mg/dL Calcium 8.2 L (8.4-10.2) mg/dL Magnesium 2.7 H (1.6-2.3) mg/dL Total Bilirubin 2.0 H (0.2-1.3) mg/dL AST 74 H (17-59) U/L ALT 96 H (4-49) U/L Alkaline Phosphatase 184 H (38-126) U/L Total Protein 5.7 L (6.3-8.2) g/dL Albumin 2.9 L (3.5-5.0) g/dL 04/12/23 Range/Units 06:59 WBC (3.8-10.6) k/uL RDW (11.5-15.5) % Sodium 131 L (137-145) mmol/L BUN 70 H (9-20) mg/dL Creatinine 1.67 H (0.66-1.25) mg/dL Glucose 103 H (74-99) mg/dL Calcium 7.8 L (8.4-10.2) mg/dL Magnesium 2.6 H (1.6-2.3) mg/dL Total Bilirubin (0.2-1.3) mg/dL AST (17-59) U/L ALT (4-49) U/L Alkaline Phosphatase (38-126) U/L Total Protein (6.3-8.2) g/dL Albumin (3.5-5.0) g/dL
[2023-04-13 08:42] LABS: Anisocytosis Slight; HCT 45.2 % (39.0-53.0); HGB 14.4 gm/dL (13.0-17.5); Hypochromasia Slight; MCH 30.9 pg (25.0-35.0); MCHC 31.9 g/dL (31.0-37.0); MCV 96.9 fL (80.0-100.0); Macrocytosis Slight; Mean Platelet Volume 9.3; Platelet Count 230 k/uL (150-450); RBC 4.67 m/uL (4.30-5.90); RDW 16.2 % (11.5-15.5); WBC 9.1 k/uL (3.8-10.6)
[2023-04-13 08:52] LABS: ALT 89 U/L (4-49); AST 74 U/L (17-59); African American GFR (CKD) 32 (>60 ml/min/1.73 sqM); Albumin 3.1 g/dL (3.5-5.0); Alkaline Phosphatase 176 U/L (38-126); Anion Gap 8 mmol/L; Blood Urea Nitrogen 79 mg/dL (9-20); Calcium 8.3 mg/dL (8.4-10.2); Carbon Dioxide 27 mmol/L (22-30); Chloride 96 mmol/L (98-107); Glucose 101 mg/dL (74-99); Magnesium 2.7 mg/dL (1.6-2.3); Non-African American GFR(CKD) 28 (>60 ml/min/1.73 sqM); Potassium 4.9 mmol/L (3.5-5.1); Sodium 131 mmol/L (137-145); Total Bilirubin 1.4 mg/dL (0.2-1.3); Total Protein 6.2 g/dL (6.3-8.2)
--- NOTE | 2023-04-13 14:12 | P.PN ---
Subjective Progress Note Date: 04/13/23 Hospital course: Patient is a very pleasant 73-year-old male with a past medical history of CAD status post CABG, Chronic systolic heart failure with previously known EF of 15 to 20%, ischemic cardiomyopathy, severe pulmonary hypertension, and medication noncompliance. Pt reports that his wall covering installer is Dr. King and that he has not seen him since his last hospitalization back in January. Patient reports wall covering installer recommended AICD placement secondary to his severely impaired heart function but patient declined stating he will never get that procedure. During last hospitalization patient was also discharged home on aspirin 81 mg daily, Lasix 40 mg daily, losartan 12.5 mg daily, Plavix 75 mg daily, Jardiance 10 mg daily and as needed nitroglycerin sublingual tablets 0.4 mg. Patient reports he did not take any of these medications because they are not good for you. Patient states the last time he took medications was during previous hospitalization. Patient denies following up outpatient with PCP and reports last time he saw his wall covering installer was just after his last hospitalization back in January. He presented to the emergency department 04/08/2023 for reports of progressively worsening shortness of breath accompanied by bilateral lower extremity swelling. He underwent full evaluation in the emergency department. Vital signs upon arrival showing heart rate of 133, blood pressure 125/86, respiratory rate 20, temp 97.8 F, and SpO2 of 98% on room air. EKG showing atrial flutter with RVR at 116 bpm with occasional PACs. Labs completed and reviewed. CBC showing leukocytosis with WBC count of 13.2, coagulation profile showing elevated PT of 15.6 and INR of 1.5. BMP showing hyperkalemia with potassium of 5.8 but reported as a hemolyzed specimen, elevated BUN of 48, and blood glucose of 112. Lactic acid elevated at 2.2. Liver profile showing hyperbilirubinemia with bilirubin of 3.8 and transaminitis with AST of 179, ALT of 108, and alkaline phosphatase of 177. Troponin elevated at 0.070 and proBNP of 12,900. Chest x-ray was completed showing pulmonary venous congestion with cardiomegaly and small left-sided pleural effusion. Abdominal ultrasound showing gallbladder adenomyomatosis. In the emergency department patient was given aspirin 325 mg p.o. x 1 dose, Lasix 40 mg IVP x 1 dose, and started on low intensity heparin infusion at 10 units/kg/h. Patient admitted under our services with consultation to cardiology for acute systolic heart failure exa cerbation and general surgery for gallbladder adenomyomatosis accompanied by hyperbilirubinemia and transaminitis. Troponins trended resulting at 0.070 and 0.066. Patient evaluated by general surgery recommending outpatient cholecystectomy once patient is medically stable. Patient was evaluated by cardiology. Heart failure medication regimen was initiated with metoprolol 12.5 mg daily, Entresto 24/26 mg tablet twice daily, Plavix 75 mg daily, atorvastatin 40 mg daily, and Eliquis 5 mg twice daily. Patient also placed on IV diuresis with Lasix and started on dobutamine infusion. Was hypotensive yesterday, also started on midodrine, blood pressure now improved. Subjective: Patient seen and examined at bedside. No acute events overnight. Denies any significant shortness of breath Physical exam: Vital signs reviewed and stable. General: Nontoxic, no distress and appears stated age. Derm: Skin warm and dry, normal coloration for ethnicity. Head: Atraumatic, normocephalic and symmetric. Eyes: EOMs intact, no lid lag, and anicteric sclera Mouth: no lip lesions, mucus membranes moist Cardiovascular: Irregularly irregular, systolic murmur, positive posterior tibial pulses bilaterally, and cap refill < 2 seconds. Lungs: Respirations even, regular, and unlabored on supplemental oxygen. Lungs diminished, no rhonchi, no rales, no wheezing, and no accessory muscle usage. Abdominal: soft, nontender to palpation, no guarding, no appreciable organomegaly Ext: ROM intact. No gross muscle atrophy, 1-2+ pitting bilateral lower extremity edema, no contractures Neuro: Speech clear, face symmetrical and CN II-XII grossly intact with no noted focal neuro deficits Psych: Alert and oriented to person, place, time, and situation. Appropriate and pleasant affect. Assessment and Plan of Care: Acute exacerbation of chronic systolic heart failure with EF of 15 to 20% Acute hypoxic respiratory failure secondary to CHF exacerbation. New onset atrial fibrillation/flutter with episodes of RVR Elevated troponins, flat likely chronic secondary to CHF History of CAD status post CABG Ischemic cardiomyopathy Severe pulmonary hypertension Acute kidney injury, nonoliguric -Cardiology following, patient on continuous dobutamine infusion 2 mcg/kg/min and will further evaluate/schedule for ICD placement. -Continue Daily weights and Close monitoring of I's and O's -Patient to remain on continuous telemetry monitoring -Continue Lasix 40 mg IVP every 12 hours, monitor electrolytes and renal function -Continue Eliquis 5 mg twice daily, atorvastatin 40 mg nightly, amiodarone 400 m g twice daily, metoprolol 12.5 mg daily, Entresto 24/26 mg tablet twice daily and Plavix 75 mg daily. Transaminitis with hyperbilirubinemia, possibly secondary to gallbladder adenomyomatosis vs right-sided heart failure Lactic acidosis, resolved Elevated INR -Abdominal ultrasound showing gallbladder adenomyomatosis -Liver profile showing improvement of hyperbilirubinemia and transaminitis with IV diuresis, therefore it is likely these are resulting from right-sided heart failure. -General surgery evaluated recommending outpatient cholecystectomy once medically stable, signed off -Hepatitis panel was drawn in the emergency department and nonreactive Patient with extremely guarded prognosis. Data and imaging reviewed: WBC 9.1, hemoglobin 14.4, platelet 230, sodium 131, creatinine 2.27, magnesium 2.7 CODE STATUS: Full code DVT prophylaxis: Eliquis Anticipated discharge date: Pending clinical course Anticipated discharge place: Pending clinical course Objective - Vital Signs Vital signs: Vital Signs Temp 97.3 F L 04/13/23 11:43 Pulse 56 L 04/13/23 11:43 Resp 16 04/13/23 11:43 BP 77/48 04/13/23 11:43 Pulse Ox 95 04/13/23 11:43 FiO2 Intake & Output 04/12/23 04/13/23 04/13/23 18:59 06:59 18:59 Intake Total 1437.2 50 Output Total 875 Balance 562.2 50 Weight 79.379 kg 79.379 kg Intake: Intake, IV Titration 117.2 Amount DOBUTamine DRIP 500 mg In 117.2 Dextrose/Water 1 250ml. bag @ 2 MCG/KG/MIN 4.71 mls/hr IV .Q24H [facility] Rx#: [id number] Oral 1320 50 Output: Urine 875 Other: Voiding Method Toilet Toilet Urinal Urinal # Voids 1 # Bowel Movements 2 - Labs CBC & Chem 7: 04/13/23 08:06 04/13/23 08:06 Labs: Abnormal Lab Results - Last 24 Hours (Table) 04/13/23 04/13/23 Range/Units 08:06 08:06 RDW 16.2 H (11.5-15.5) % Sodium 131 L (137-145) mmol/L Chloride 96 L (98-107) mmol/L BUN 79 H (9-20) mg/dL Creatinine 2.27 H (0.66-1.25) mg/dL Glucose 101 H (74-99) mg/dL Calcium 8.3 L (8.4-10.2) mg/dL Magnesium 2.7 H (1.6-2.3) mg/dL Total Bilirubin 1.4 H (0.2-1.3) mg/dL AST 74 H (17-59) U/L ALT 89 H (4-49) U/L Alkaline Phosphatase 176 H (38-126) U/L Total Protein 6.2 L (6.3-8.2) g/dL Albumin 3.1 L (3.5-5.0) g/dL
--- NOTE | 2023-04-13 14:48 | P.PN ---
Subjective Progress Note Date: 04/13/23 HISTORY OF PRESENT ILLNESS: This is a 73-year-old male with a past medical history significant for coronary artery disease with previous CABG and stenting, congestive heart failure, and medication noncompliance. Patient follows in the office with Dr. King. We have been asked to see the patient in consultation for congestive heart failure. Patient examined at the bedside. Patient presented to the hospital with a chief complaint of shortness of breath. It is noted that the patient was recently hospitalized in January and underwent balloon angioplasty of RCA in-stent restenosis. The patient was discharged home on multiple cardiac medications including aspirin, Lasix, losartan, Plavix, and Jardiance. The patient states he stopped taking all of these medications because they did not make him feel unwell. He states that he felt like he was "stoned" all the time. The patient was found to be in congestive heart failure. He was started on IV Lasix. He was also started on IV heparin secondary to abnormal troponins. He denies having any chest pain or pressure. EKG on admission reveals atrial fibrillation/flutter. The patient denies a history of atrial fibrillation or atrial flutter. DIAGNOSTICS: - EKG reveals atrial fibrillation with no signs of acute ischemia - Chest xray pulmonary venous congestion with cardiomegaly and small left-sided pleural effusion - Laboratory data: WBC 13.5. Hemoglobin 14.5. Platelet count 178. Sodium 137. Potassium 3.5. BUN is 47. Creatinine 1.17. Lactic acid 2.1. AST 84. ALT 89. proBNP 12,900. Troponin 0.070. - Current home cardiac medications include none - Most recent echocardiogram obtained in January 2023 revealed ejection fr action 15 to 20%, severe pulmonary hypertension, mild TR, mild MR - Cardiac catheterization history: January 2023 revealing coronary artery disease including 100% proximal LAD stenosis, 40 to 50% mid circumflex stenosis, 90% RCA in-stent stenosis. Elevated left and right-sided filling pressures. Decreased cardiac output and cardiac index. Pulmonary hypertension related to left-sided heart failure. Patient underwent balloon angioplasty of the RCA. 04/10/2023 Pt is seen and examined sitting up at the edge of the bed. He states he just got back from the bathroom. He denies shortness of breath. He is tachy on exam in atrial fib. He answers questions but is not forthcoming and somewhat crabby. Blood pressure is well controlled, 109/76, heart rate 95-110 on telemetry. Laboratory data reviewed, WBC 12.2, hemoglobin 14.3, platelets 172, sodium 136, potassium 4 and creatinine 1.1. 04/11/2023 Patient seen and examined resting comfortably in bed with spouse at the bedside. Blood pressure has been running on the low side in the 70s to 80s systolic. Heart rate in the 50s. Laboratory data reviewed, WBC 10.9, hemoglobin 14.4, platelets 197, sodium 134, potassium 4.4, creatinine 1.4, magnesium 2.7. 04/12 Patient is seen today in follow-up. Patient is on dobutamine 2 mcg/kg/min as well as amiodarone 4 mg twice daily, Eliquis 5 mg twice daily, atorvastatin 40 mg daily, Plavix 75 mg daily, Lasix 40 mg IV every 12 hours, Toprol-XL 12.5 mg daily and Entresto 24-26 mg twice daily. Systolic blood pressures have been low sometimes in the 60s to 70s. He is currently 88/47, heart rate is in the 50s and 60s. Patient states that his shortness of breath is better. Patient's documented weights appear to be increasing. He only has a documented fluid balance of -56 mL. TSH 1.88. Hemoglobin 13.8. Sodium 131, potassium 4.5, BUN 70 creatinine 1.67. 04/13 Patient's blood pressures remain on the low side 70/56 but patient seems to be asymptomatic. Patient is able to ambulate to the bathroom and back to his bed and does not have lightheadedness or dizziness. He denies having any chest pain and no shortness of breath. Repeat blood work reveals BUN 79 creatinine 2.27. He remains on dobutamine at 2 mics. He is also on amiodarone, Eliquis and Plavix as well as a Toprol and midodrine and Entresto. Lasix 40 mg IV was held this morning. PHYSICAL EXAM: VITAL SIGNS: Reviewed. GENERAL: Well-developed in no acute distress. HEENT: Head is normocephalic. Pupils are equal, round. Sclerae anicteric. Mucous membranes of the mouth are moist. Neck supple. Positive JVD LUNGS: Respirations even and unlabored. Lungs diminished with bibasilar rales HEART: Irregular rate and rhythm. S1 and S2 heard. ABDOMEN: Soft. Nondistended. Nontender. EXTREMITIES: No clubbing or cyanosis. Peripheral pulses intact. 2+ bilateral lower extremity edema NEUROLOGIC: Awake and alert. Oriented x 3. ASSESSMENT: Shortness of breath Acute on chronic heart failure with reduced EF, 15 to 20% New onset atrial fibrillation/flutter Abnormal troponins, flat, type II LA Coronary artery disease with previous CABG and stenting Status post balloon angioplasty of RCA in-stent stenosis, January 2023 Ischemic cardiomyopathy, refusing AICD implantation Pulmonary hypertension History of medication noncompliance Reported intolerance to multiple medications including beta-blockers and Aldactone Transaminitis Former nicotine dependence PLAN: Continue metoprolol succinate 12.5 mg daily. He has documented an allergy however it is not an allergy just an intolerance. Please try and see if he can tolerate. Continue at 2 mcg/kg/min dobutamine infusion. Monitor HAJA, daily weights, electrolytes and renal function Discussed at length with the patient and his spouse the need for ICD and he is now agreeable, however it seems to be more his spouse that is in agreement. We will discuss further with Dr. King and Dr. Palafox. Explained to them in detail we will continue to optimize his heart failure during this admission and set up for evaluation for ICD in the outpatient setting. Continue IV Lasix 40 mg every 12 hours-hold a.m. dose due to hypotension Parameters added for Entresto to hold if systolic is less than 90 Continue midodrine 5 mg 3 times daily Patient educated on importance of medication noncompliance Further recommendations pending patient course Nurse practitioner note has been reviewed by physician. Signing provider agrees with the documented findings, assessment, and plan of care documented by [employer] as a scribe. Objective - Vital Signs Vital signs: Vital Signs Temp 97.5 F L 04/13/23 08:00 Pulse 61 04/13/23 08:00 Resp 16 04/13/23 08:00 BP 70/46 04/13/23 08:00 Pulse Ox 97 04/13/23 08:06 FiO2 Intake & Output 04/12/23 04/13/23 04/13/23 18:59 06:59 18:59 Intake Total 1437.2 50 Output Total 875 Balance 562.2 50 Weight 79.379 kg Intake: Intake, IV Titration 117.2 Amount DOBUTamine DRIP 500 mg In 117.2 Dextrose/Water 1 250ml. bag @ 2 MCG/KG/MIN 4.71 mls/hr IV .Q24H [facility] Rx#: [id number] Oral 1320 50 Output: Urine 875 Other: Voiding Method Toilet Urinal # Voids 1 # Bowel Movements 2 - Labs CBC & Chem 7: 04/13/23 08:06 04/13/23 08:06 Labs: Abnormal Lab Results - Last 24 Hours (Table) 04/13/23 04/13/23 Range/Units 08:06 08:06 RDW 16.2 H (11.5-15.5) % Sodium 131 L (137-145) mmol/L Chloride 96 L (98-107) mmol/L BUN 79 H (9-20) mg/dL Creatinine 2.27 H (0.66-1.25) mg/dL Glucose 101 H (74-99) mg/dL Calcium 8.3 L (8.4-10.2) mg/dL Magnesium 2.7 H (1.6-2.3) mg/dL Total Bilirubin 1.4 H (0.2-1.3) mg/dL AST 74 H (17-59) U/L ALT 89 H (4-49) U/L Alkaline Phosphatase 176 H (38-126) U/L Total Protein 6.2 L (6.3-8.2) g/dL Albumin 3.1 L (3.5-5.0) g/dL
[2023-04-13] MEDS: ZOLPIDEM 5 MG TAB PO PRN (20:44)
[2023-04-14 08:38] LABS: Anisocytosis Slight; HCT 41.4 % (39.0-53.0); HGB 13.4 gm/dL (13.0-17.5); Hypochromasia Slight; MCH 31.1 pg (25.0-35.0); MCHC 32.3 g/dL (31.0-37.0); Mean Platelet Volume 8.8; Platelet Count 211 k/uL (150-450); RBC 4.32 m/uL (4.30-5.90); RDW 16.1 % (11.5-15.5); WBC 11.9 k/uL (3.8-10.6)
[2023-04-14 09:36] LABS: ALT 80 U/L (4-49); AST 64 U/L (17-59); African American GFR (CKD) 25 (>60 ml/min/1.73 sqM); Alkaline Phosphatase 182 U/L (38-126); Anion Gap 10 mmol/L; Calcium 8.2 mg/dL (8.4-10.2); Carbon Dioxide 24 mmol/L (22-30); Chloride 96 mmol/L (98-107); Glucose 106 mg/dL (74-99); Magnesium 2.7 mg/dL (1.6-2.3); Non-African American GFR(CKD) 21 (>60 ml/min/1.73 sqM); Potassium 5.1 mmol/L (3.5-5.1); Sodium 130 mmol/L (137-145); Total Bilirubin 1.3 mg/dL (0.2-1.3); Total Protein 5.9 g/dL (6.3-8.2)
[2023-04-14 09:39] LABS: Blood Urea Nitrogen 101 mg/dL (9-20)
[2023-04-14 10:18] LABS: Glucose,Whole Blood 200 mg/dL (70-110)
[2023-04-14 10:52] LABS: Glucose,Whole Blood 137 mg/dL (70-110)
[2023-04-14] MEDS: AMIODARONE 200 MG TAB PO SCH (11:09)
[2023-04-14 12:31] LABS: VBG PH 7.31 (7.31-7.41)
[2023-04-14] MEDS: MIDODRINE 5 MG TAB PO SCH (12:31)
--- NOTE | 2023-04-14 12:38 | P.NPCON ---
History of Present Illness - Reason for Consult acute renal failure - History of Present Illness Reason for consultation: Acute kidney injury History of present illness: Patient is a 73-year-old male seen in renal consultation for acute kidney injury. Patient's creatinine on admission was 1.24 and as low as 1.1 this admission dated April 10, 2023. It is up to 2.8 this morning. Patient came to the hospital due to shortness of breath. Also worsening edema over the last few days. Patient was receiving IV Lasix as well as dobutamine. Patient states edema did improve. Dobutamine was stopped and he was started back on Entresto. Patient's blood pressure has been low in the systolic 60s to 80s. This morning his blood pressure was again in the systolic 60s and a rapid response was called. He was subsequently transferred to the ICU. Patient has systolic CHF ejection fraction of 15 to 20% with severe pulmonary hypertension. He has been voiding. Denies hematuria or dysuria. Denies use of nonsteroidals. Denies history of diabetes. Patient does have history of coronary artery disease with cardiac stents. Patient has also been in A-fib/flutter at this admission. Vital signs - in A-flutter. Blood pressure low. General: No acute distress. HEENT: Head exam is unremarkable. LUNGS: No audible rhonchi or wheezes. HEART: Irregular rate and rhythm. ABDOMEN: Nontender. EXTREMITITES: 2+ edema. Past Medical History Past Medical History: Coronary Artery Disease (CAD), Myocardial Infarction (VT) Additional Past Medical History / Comment(s): last VT 2014 Last Myocardial Infarction Date:: 2014 History of Any Multi-Drug Resistant Organisms: None Reported Past Surgical History: Coronary Bypass/CABG Additional Past Surgical History / Comment(s): Angiogram, Past Anesthesia/Blood Transfusion Reactions: No Reported Reaction Date of Last Stent Placement:: unknown Past Psychological History: No Psychological Hx Reported Smoking Status: Former smoker Past Alcohol Use History: Occasional Past Drug Use History: None Reported - Past Family History Mother Family Medical History: Unable to Obtain Additional Family Medical History / Comment(s): pt is adopted Medications and Allergies Home Medications Medication Instructions Recorded Confirmed Type Aspirin [Adult Low Dose Aspirin EC] 81 mg PO DAILY 11/17/21 04/08/23 History Allergies Allergy/AdvReac Type Severity Reaction Status Date / Time lisinopril Allergy Unknown Verified 04/08/23 13:36 metoprolol Allergy Unknown Verified 04/08/23 13:36 mexiletine Allergy Unknown Verified 04/08/23 13:36 Penicillins Allergy Anaphylaxis Verified 04/08/23 13:36 pravastatin Allergy Unknown Verified 04/08/23 13:36 Physical Exam Vitals: Vital Signs Temp Pulse Resp BP BP Pulse Ox 04/14/23 11:10 97.6 F 50 L 20 81/55 94 L 04/14/23 10:14 58/30 04/14/23 09:55 65/39 04/14/23 09:50 97.5 F L 51 L 16 62/38 95 04/14/23 07:48 100 04/14/23 07:34 97.7 F 57 L 18 95/60 96 04/14/23 04:00 97.9 F 56 L 18 81/49 100 04/14/23 00:00 97.9 F 50 L 16 80/50 96 04/13/23 20:00 97.8 F 48 L 17 72/49 96 04/13/23 17:21 49 L 16 04/13/23 15:41 97.5 F L 49 L 16 77/50 96 Intake and Output 04/13/23 04/14/23 04/14/23 22:59 06:59 14:59 Intake Total 446.926 Balance 446.926 Intake: Intake, IV Titration 206.926 Amount DOBUTamine DRIP 500 mg In 206.926 Dextrose/Water 1 250ml. bag @ 2 MCG/KG/MIN 4.71 mls/hr IV .Q24H [facility] Rx#: [id number] Oral 240 Other: Voiding Method Toilet Toilet # Voids 1 2 Weight 80.4 kg Results - Lab Results Most recent lab results Calcium 8.2 mg/dL (8.4-10.2) L 04/14/23 08:12 Magnesium 2.7 mg/dL (1.6-2.3) H 04/14/23 08:12 04/14/23 08:12 04/14/23 08:12 Assessment and Plan Plan: Assessment: 1. Acute kidney injury secondary to ATN secondary to hypotension and cardiorenal syndrome. Creatinine as low as 1.1 this admission and is up to 2.8 today. 2. Hypervolemic hyponatremia. 3. Acute on chronic systolic CHF with ejection fraction of 15 to 20% with severe pulmonary hypertension. 4. Coronary disease with cardiac stenting. 5. A-fib/flutter. Cardiology following. 6. Fluid overload. Plan: Increase dose of midodrine to 10 mg 3 times daily. Hold Lasix until blood pressure improves. Check a.m. cortisol level. Hold all antihypertensives including Entresto. Also stop potassium supplementation. May need vasopressor support. Check UA. Check renal ultrasound. Strict I's and O's. Just transferred to the ICU. Thank you for the consultation. I will continue to follow the patient with you during his hospital stay.
--- NOTE | 2023-04-14 13:28 | P.PN ---
Subjective Progress Note Date: 04/14/23 Hospital course: Patient is a very pleasant 73-year-old male with a past medical history of CAD status post CABG, Chronic systolic heart failure with previously known EF of 15 to 20%, ischemic cardiomyopathy, severe pulmonary hypertension, and medication noncompliance. 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 Patient reports shorthand teacher recommended AICD placement secondary to his severely impaired heart function but patient declined stating he will never get that procedure. During last hospitalization patient was also discharged home on aspirin 81 mg daily, Lasix 40 mg daily, losartan 12.5 mg daily, Plavix 75 mg daily, Jardiance 10 mg daily and as needed nitroglycerin sublingual tablets 0.4 mg. Patient reports he did not take any of these medications because they are not good for you. Patient states the last time he took medications was during previous hospitalization. Patient denies following up outpatient with PCP and reports last time he saw his shorthand teacher was just after his last hospitalization back in January. He presented to the emergency department 04/08/2023 for reports of progressively worsening shortness of breath accompanied by bilateral lower extremity swelling. He underwent full evaluation in the emergency department. Vital signs upon arrival showing heart rate of 133, blood pressure 125/86, respiratory rate 20, temp 97.8 F, and SpO2 of 98% on room air. EKG showing atrial flutter with RVR at 116 bpm with occasional PACs. Labs completed and reviewed. CBC showing leukocytosis with WBC count of 13.2, coagulation profile showing elevated PT of 15.6 and INR of 1.5. BMP showing hyperkalemia with potassium of 5.8 but reported as a hemolyzed specimen, elevated BUN of 48, and blood glucose of 112. Lactic acid elevated at 2.2. Liver profile showing hyperbilirubinemia with bilirubin of 3.8 and transaminitis with AST of 179, ALT of 108, and alkaline phosphatase of 177. Troponin elevated at 0.070 and proBNP of 12,900. Chest x-ray was completed showing pulmonary venous congestion with cardiomegaly and small left-sided pleural effusion. Abdominal ultrasound showing gallbladder adenomyomatosis. In the emergency department patient was given aspirin 325 mg p.o. x 1 dose, Lasix 40 mg IVP x 1 dose, and started on low intensity heparin infusion at 10 units/kg/h. Patient admitted under our services with consultation to cardiology for acute systolic heart failure exa cerbation and general surgery for gallbladder adenomyomatosis accompanied by hyperbilirubinemia and transaminitis. Troponins trended resulting at 0.070 and 0.066. Patient evaluated by general surgery recommending outpatient cholecystectomy once patient is medically stable. Patient was evaluated by cardiology. Heart failure medication regimen was initiated with metoprolol 12.5 mg daily, Entresto 24/26 mg tablet twice daily, Plavix 75 mg daily, atorvastatin 40 mg daily, and Eliquis 5 mg twice daily. Patient also placed on IV diuresis with Lasix and started on dobutamine infusion, now discontinued. Has been persistently hypertensive. Transferred to the medical ICU. Subjective: Patient seen and examined at bedside. No acute events overnight. Denies any significant shortness of breath. Complaining of lower extremity pain. Denies any lightheadedness. Has been persistently hypotensive. Physical exam: Vital signs reviewed and stable. General: Nontoxic, no distress and appears stated age. Derm: Skin warm and dry, normal coloration for ethnicity. Head: Atraumatic, normocephalic and symmetric. Eyes: EOMs intact, no lid lag, and anicteric sclera Mouth: no lip lesions, mucus membranes moist Cardiovascular: Irregularly irregular, systolic murmur, positive posterior tibial pulses bilaterally, and cap refill < 2 seconds. Lungs: Respirations even, regular, and unlabored on supplemental oxygen. Lungs diminished, no rhonchi, no rales, no wheezing, and no accessory muscle usage. Abdominal: soft, nontender to palpation, no guarding, no appreciable organomegaly Ext: ROM intact. No gross muscle atrophy, 1-2+ pitting bilateral lower extremity edema, no contractures Neuro: Speech clear, face symmetrical and CN II-XII grossly intact with no noted focal neuro deficits Psych: Alert and oriented to person, place, time, and situation. Appropriate and pleasant affect. Assessment and Plan of Care: Acute exacerbation of chronic systolic heart failure with EF of 15 to 20% Acute hypoxic respiratory failure secondary to CHF exacerbation. New onset atrial fibrillation/flutter with episodes of RVR Elevated troponins, flat likely chronic secondary to CHF History of CAD status post CABG Ischemic cardiomyopathy Severe pulmonary hypertension Acute kidney injury, nonoliguric Hypotension Hypervolemic hyponatremia -Discussed management with cardiology, holding off all antihypertensives, consulted pulmonology -Discussed management with pulmonology, patient being transferred to medical ICU -Nephrology note reviewed, hold diuretics, and antihypertensives. Midodrine increased to 10 3 times daily -Continue Daily weights and Close monitoring of I's and O's -Patient to remain on continuous telemetry monitoring -May need further diuresis once pressures improve -Continue Eliquis 5 mg twice daily, atorvastatin 40 mg nightly, amiodarone 200 mg twice daily, metoprolol 12.5 mg daily, and Plavix 75 mg daily. -Entresto discontinued Transaminitis with hyperbilirubinemia, possibly secondary to gallbladder adenomyomatosis vs right-sided heart failure Lactic acidosis, resolved Elevated INR -Abdominal ultrasound showing gallbladder adenomyomatosis -Liver profile showing improvement of hyperbilirubinemia and transaminitis with IV diuresis, therefore it is likely these are resulting from right-sided heart failure. -General surgery evaluated recommending outpatient cholecystectomy once medically stable, signed off -Hepatitis panel was drawn in the emergency department and nonreactive Patient with extremely guarded prognosis. Data and imaging reviewed: WBC 11.9, hemoglobin 13.4, creatinine 2.82, sodium 130, BUN 101, blood sugars range between 10 6-200, lactate 1.2, pH 7.31, pCO2 56, bicarb 28 CODE STATUS: Full code DVT prophylaxis: Eliquis Anticipated discharge date: Pending clinical course Anticipated discharge place: Pending clinical course Objective - Vital Signs Vital signs: Vital Signs Temp 98.1 F 04/14/23 12:50 Pulse 54 L 04/14/23 12:50 Resp 16 04/14/23 12:50 BP 76/45 04/14/23 12:50 Pulse Ox 96 04/14/23 12:50 FiO2 Intake & Output 04/13/23 04/14/23 04/14/23 18:59 06:59 18:59 Intake Total 250 446.926 Balance 250 446.926 Weight 79.379 kg 80.4 kg Intake: Intake, IV Titration 206.926 Amount DOBUTamine DRIP 500 mg In 206.926 Dextrose/Water 1 250ml. bag @ 2 MCG/KG/MIN 4.71 mls/hr IV .Q24H [facility] Rx#: [id number] Oral 250 240 Other: Voiding Method Toilet Toilet Urinal # Voids 2 2 - Labs CBC & Chem 7: 04/14/23 08:12 04/14/23 08:12 Labs: Abnormal Lab Results - Last 24 Hours (Table) 04/14/23 04/14/23 04/14/23 Range/Units 08:12 08:12 10:16 WBC 11.9 H (3.8-10.6) k/uL RDW 16.1 H (11.5-15.5) % VBG pCO2 (37-51) mmHg Sodium 130 L (137-145) mmol/L Chloride 96 L (98-107) mmol/L BUN 101 H* (9-20) mg/dL Creatinine 2.80 H (0.66-1.25) mg/dL Glucose 106 H (74-99) mg/dL POC Glucose (mg/dL) 200 H (70-110) mg/dL Calcium 8.2 L (8.4-10.2) mg/dL Magnesium 2.7 H (1.6-2.3) mg/dL AST 64 H (17-59) U/L ALT 80 H (4-49) U/L Alkaline Phosphatase 182 H (38-126) U/L Total Protein 5.9 L (6.3-8.2) g/dL Albumin 3.0 L (3.5-5.0) g/dL 04/14/23 04/14/23 Range/Units 10:51 11:28 WBC (3.8-10.6) k/uL RDW (11.5-15.5) % VBG pCO2 56 H (37-51) mmHg Sodium (137-145) mmol/L Chloride (98-107) mmol/L BUN (9-20) mg/dL Creatinine (0.66-1.25) mg/dL Glucose (74-99) mg/dL POC Glucose (mg/dL) 137 H (70-110) mg/dL Calcium (8.4-10.2) mg/dL Magnesium (1.6-2.3) mg/dL AST (17-59) U/L ALT (4-49) U/L Alkaline Phosphatase (38-126) U/L Total Protein (6.3-8.2) g/dL Albumin (3.5-5.0) g/dL
[2023-04-14] MEDS: SODIUM CHLORIDE 0.9% 1,000 ML IV SCH (13:39)
[2023-04-14 13:43] LABS: Appearance,Urine Clear (Clear); Bilirubin,Urine Negative (Negative); Blood,Urine Trace (Negative); Color,Urine Yellow; Glucose,Urine (UA) Negative (Negative); Hyaline Casts,Urine 45 /lpf (0-2); Ketones,Urine Negative (Negative); Leukocyte Esterase,Urine Negative (Negative); Mucus,Urine Rare /hpf; Nitrite,Urine Negative (Negative); Protein,Urine Negative (Negative); RBC,Urine <1 /hpf (0-5); Specific Gravity,Urine 1.017 (1.001-1.035); Squamous Epithelial Cell,Urine <1 /hpf (0-4); WBC,Urine 3 /hpf (0-5)
--- NOTE | 2023-04-14 13:52 | P.PN ---
Subjective Progress Note Date: 04/14/23 HISTORY OF PRESENT ILLNESS: This is a 73-year-old male with a past medical history significant for coronary artery disease with previous CABG and stenting, congestive heart failure, and medication noncompliance. Patient follows in the office with Dr. King. We have been asked to see the patient in consultation for congestive heart failure. Patient examined at the bedside. Patient presented to the hospital with a chief complaint of shortness of breath. It is noted that the patient was recently hospitalized in January and underwent balloon angioplasty of RCA in-stent restenosis. The patient was discharged home on multiple cardiac medications including aspirin, Lasix, losartan, Plavix, and Jardiance. The patient states he stopped taking all of these medications because they did not make him feel unwell. He states that he felt like he was "stoned" all the time. The patient was found to be in congestive heart failure. He was started on IV Lasix. He was also started on IV heparin secondary to abnormal troponins. He denies having any chest pain or pressure. EKG on admission reveals atrial fibrillation/flutter. The patient denies a history of atrial fibrillation or atrial flutter. DIAGNOSTICS: - EKG reveals atrial fibrillation with no signs of acute ischemia - Chest xray pulmonary venous congestion with cardiomegaly and small left-sided pleural effusion - Laboratory data: WBC 13.5. Hemoglobin 14.5. Platelet count 178. Sodium 137. Potassium 3.5. BUN is 47. Creatinine 1.17. Lactic acid 2.1. AST 84. ALT 89. proBNP 12,900. Troponin 0.070. - Current home cardiac medications include none - Most recent echocardiogram obtained in January 2023 revealed ejection fr action 15 to 20%, severe pulmonary hypertension, mild TR, mild MR - Cardiac catheterization history: January 2023 revealing coronary artery disease including 100% proximal LAD stenosis, 40 to 50% mid circumflex stenosis, 90% RCA in-stent stenosis. Elevated left and right-sided filling pressures. Decreased cardiac output and cardiac index. Pulmonary hypertension related to left-sided heart failure. Patient underwent balloon angioplasty of the RCA. 04/10/2023 Pt is seen and examined sitting up at the edge of the bed. He states he just got back from the bathroom. He denies shortness of breath. He is tachy on exam in atrial fib. He answers questions but is not forthcoming and somewhat crabby. Blood pressure is well controlled, 109/76, heart rate 95-110 on telemetry. Laboratory data reviewed, WBC 12.2, hemoglobin 14.3, platelets 172, sodium 136, potassium 4 and creatinine 1.1. 04/11/2023 Patient seen and examined resting comfortably in bed with spouse at the bedside. Blood pressure has been running on the low side in the 70s to 80s systolic. Heart rate in the 50s. Laboratory data reviewed, WBC 10.9, hemoglobin 14.4, platelets 197, sodium 134, potassium 4.4, creatinine 1.4, magnesium 2.7. 04/12 Patient is seen today in follow-up. Patient is on dobutamine 2 mcg/kg/min as well as amiodarone 4 mg twice daily, Eliquis 5 mg twice daily, atorvastatin 40 mg daily, Plavix 75 mg daily, Lasix 40 mg IV every 12 hours, Toprol-XL 12.5 mg daily and Entresto 24-26 mg twice daily. Systolic blood pressures have been low sometimes in the 60s to 70s. He is currently 88/47, heart rate is in the 50s and 60s. Patient states that his shortness of breath is better. Patient's documented weights appear to be increasing. He only has a documented fluid balance of -56 mL. TSH 1.88. Hemoglobin 13.8. Sodium 131, potassium 4.5, BUN 70 creatinine 1.67. 04/13 Patient's blood pressures remain on the low side 70/56 but patient seems to be asymptomatic. Patient is able to ambulate to the bathroom and back to his bed and does not have lightheadedness or dizziness. He denies having any chest pain and no shortness of breath. Repeat blood work reveals BUN 79 creatinine 2.27. He remains on dobutamine at 2 mics. He is also on amiodarone, Eliquis and Plavix as well as a Toprol and midodrine and Entresto. Lasix 40 mg IV was held this morning. 04/14 Patient's blood pressures continue to be low. This morning 95/60, Entresto and Lasix have been held yesterday and this morning. He has been essentially asymptomatic with the low blood pressures but feels tired. No lightheadedness o r dizziness he is able to ambulate from his bed to the bathroom without symptoms. Patient denies having chest pain. Patient has been on dobutamine infusion which will be discontinued today. PHYSICAL EXAM: VITAL SIGNS: Reviewed. GENERAL: Well-developed in no acute distress. HEENT: Head is normocephalic. Pupils are equal, round. Sclerae anicteric. Mucous membranes of the mouth are moist. Neck supple. Positive JVD LUNGS: Respirations even and unlabored. Lungs diminished with bibasilar rales HEART: Irregular rate and rhythm. S1 and S2 heard. ABDOMEN: Soft. Nondistended. Nontender. EXTREMITIES: No clubbing or cyanosis. Peripheral pulses intact. 2+ bilateral lower extremity edema NEUROLOGIC: Awake and alert. Oriented x 3. ASSESSMENT: Shortness of breath Acute on chronic heart failure with reduced EF, 15 to 20% New onset atrial fibrillation/flutter Abnormal troponins, flat, type II [place] Coronary artery disease with previous CABG and stenting Status post balloon angioplasty of RCA in-stent stenosis, January 2023 Ischemic cardiomyopathy, refusing AICD implantation Pulmonary hypertension History of medication noncompliance Reported intolerance to multiple medications including beta-blockers and Aldactone Transaminitis Former nicotine dependence PLAN: Continue metoprolol succinate 12.5 mg daily. Discontinue dobutamine infusion Continue IV Lasix 40 mg every 12 hours Monitor HAJA, daily weights, electrolytes and renal function Continue Entresto to hold if systolic is less than 85 Continue midodrine 5 mg 3 times daily Further recommendations pending patient course Nurse practitioner note has been reviewed by physician. Signing provider agrees with the documented findings, assessment, and plan of care documented by [employer] O[employer]ATOR as a scribe. Objective - Vital Signs Vital signs: Vital Signs Temp 97.7 F 04/14/23 07:34 Pulse 57 L 04/14/23 07:34 Resp 18 04/14/23 07:34 BP 95/60 04/14/23 07:34 Pulse Ox 100 04/14/23 07:48 FiO2 Intake & Output 04/13/23 04/14/23 04/14/23 18:59 06:59 18:59 Intake Total 250 Balance 250 Weight 79.379 kg 80.4 kg Intake: Oral 250 Other: Voiding Method Toilet Toilet Urinal # Voids 2 - Labs CBC & Chem 7: 04/14/23 08:12 04/14/23 08:12 Labs: Abnormal Lab Results - Last 24 Hours (Table) 04/13/23 04/13/23 Range/Units 08:06 08:06 RDW 16.2 H (11.5-15.5) % Sodium 131 L (137-145) mmol/L Chloride 96 L (98-107) mmol/L BUN 79 H (9-20) mg/dL Creatinine 2.27 H (0.66-1.25) mg/dL Glucose 101 H (74-99) mg/dL Calcium 8.3 L (8.4-10.2) mg/dL Magnesium 2.7 H (1.6-2.3) mg/dL Total Bilirubin 1.4 H (0.2-1.3) mg/dL AST 74 H (17-59) U/L ALT 89 H (4-49) U/L Alkaline Phosphatase 176 H (38-126) U/L Total Protein 6.2 L (6.3-8.2) g/dL Albumin 3.1 L (3.5-5.0) g/dL
[2023-04-14] MEDS: DOBUTamine DRIP 500 MG in DEXTROSE/WATER 1 250ML.BAG IV SCH (13:54)
--- NOTE | 2023-04-14 14:05 | US ---
EXAMINATION TYPE: US kidneys/renal and bladder DATE OF EXAM: 04/14/2023 COMPARISON: NONE CLINICAL INDICATION: Male, 73 years old with history of nina; Abnormal labs EXAM MEASUREMENTS: Right Kidney: 11.2 x 5.9 x 5.5 cm Left Kidney: 10.4 x 4.6 x 5.4 cm Right Kidney: Cortical thinning Left Kidney: No hydronephrosis or masses seen Bladder: mildly distended Bilateral Jets were not seen, however there is no hydronephrosis. There is no evidence for hydronephrosis at this point in time. No nephrolithiasis is seen. No steven s are identified. The urinary bladder is anechoic. IMPRESSION: 1. No hydronephrosis or shadowing renal stones. 2. No solid renal mass identified.
--- NOTE | 2023-04-14 15:03 | P.CNPUL ---
History of Present Illness Consult date: 04/14/23 Requesting physician: Francisco Javier Garcia Reason for consult: other (Critical care management) Chief complaint: Shortness of breath History of present illness: This is a 73-year-old male patient with a known history of chronic systolic congestive heart failure with an ejection fraction of 15 to 20%, coronary artery disease previous coronary bypass grafting, ischemic cardiomyopathy, severe pulmonary hypertension, he had recently undergone balloon angioplasty of the RCA for in-stent restenosis in January 2023. He was discharged home on multiple cardiac medications all of which he had stopped taking because he made feel "stoned all the time". He was admitted again on April 08, 2023 with c omplaints of increasing shortness of breath and swelling of the lower extremities. He was found to have new onset atrial fibrillation/flutter who was admitted here back on April 08, 2023. He had been followed by surgical services and cardiology. He had been on a dobutamine drip up until earlier this morning. Later today they called a rapid response team on the patient for hypotension. He was felt to possibly need norepinephrine and was to be admitted to the intensive care unit. We are consulted today for ICU management. He is currently seen resting fairly comfortably in bed. Awake and alert in no acute distress. He is maintaining good O2 saturations in the 90s on room air. He has been afebrile. He is bradycardic. He pressure is in the 70s systolic with mean arterial pressures in the 50s. He had been receiving diuretics. He was on amiodarone. He was on beta-blockers. All of which have been placed on hold. He is anticoagulated with Eliquis. White count 11.9. Hemoglobin 13.4. Sodium 130. Potassium 5.1. Bicarb 24. BUN 101. Creatinine 2.80. Glucose 106. AST 64. ALT 80. Alk phos 182. Review of Systems REVIEW OF SYSTEMS: CONSTITUTIONAL: Denies any recent significant weight loss or weight gain. EYES: Denies change in vision. EARS, NOSE, MOUTH, THROAT: Denies headaches, denies sore throat. CARDIOVASCULAR: Denies chest pain, palpitations or syncopal episodes. RESPIRATORY: Positive for shortness of breath, no cough, congestion or hemoptysis. GASTROINTESTINAL: Denies change in appetite, denies abdominal pain GENITOURINARY: Denies hematuria, denies infections. MUSKULOSKELETAL: Lower extremity swelling. INTEGUMENTARY: Denies rash, denies eczema. NEUROLOGICAL: Denies recent memory loss, no recent seizure activity. PSYCHIATRIC: Denies anxiety, denies depression. HEMATOLOGIC/LYMPHATIC: Denies anemia, denies enlarged lymph nodes. Past Medical History Past Medical History: Coronary Artery Disease (CAD), Myocardial Infarction (ID) Additional Past Medical History / Comment(s): last ID [id number] Last Myocardial Infarction Date:: 2014 History of Any Multi-Drug Resistant Organisms: None Reported Past Surgical History: Coronary Bypass/CABG Additional Past Surgical History / Comment(s): Angiogram, Past Anesthesia/Blood Transfusion Reactions: No Reported Reaction Date of Last Stent Placement:: unknown Past Psychological History: No Psychological Hx Reported Smoking Status: Former smoker Past Alcohol Use History: Occasional Past Drug Use History: None Reported - Past Family History Mother Family Medical History: Unable to Obtain Additional Family Medical History / Comment(s): pt is adopted Medications and Allergies Home Medications Medication Instructions Recorded Confirmed Type Aspirin [Adult Low Dose Aspirin EC] 81 mg PO DAILY 11/17/21 04/08/23 History Allergies Allergy/AdvReac Type Severity Reaction Status Date / Time lisinopril Allergy Unknown Verified 04/08/23 13:36 metoprolol Allergy Unknown Verified 04/08/23 13:36 mexiletine Allergy Unknown Verified 04/08/23 13:36 Penicillins Allergy Anaphylaxis Verified 04/08/23 13:36 pravastatin Allergy Unknown Verified 04/08/23 13:36 Physical Exam Vitals: Vital Signs Temp Pulse Pulse Resp BP BP BP 04/14/23 13:30 53 L 23 64/35 04/14/23 13:00 50 L 28 H 76/45 04/14/23 12:50 98.1 F 54 L 16 76/45 04/14/23 12:41 52 L 12 04/14/23 11:10 97.6 F 50 L 20 81/55 04/14/23 10:14 58/30 04/14/23 09:55 65/39 04/14/23 09:50 97.5 F L 51 L 16 62/38 04/14/23 08:00 54 L 20 04/14/23 07:48 04/14/23 07:34 97.7 F 57 L 18 95/60 04/14/23 04:00 97.9 F 56 L 18 81/49 04/14/23 00:00 97.9 F 50 L 16 80/50 04/13/23 20:00 97.8 F 48 L 17 72/49 04/13/23 17:21 49 L 16 04/13/23 15:41 97.5 F L 49 L 16 77/50 Pulse Ox 04/14/23 13:30 95 04/14/23 13:00 95 04/14/23 12:50 96 04/14/23 12:41 95 04/14/23 11:10 94 L 04/14/23 10:14 04/14/23 09:55 04/14/23 09:50 95 04/14/23 08:00 04/14/23 07:48 100 04/14/23 07:34 96 04/14/23 04:00 100 04/14/23 00:00 96 04/13/23 20:00 96 04/13/23 17:21 04/13/23 15:41 96 Intake and Output 04/13/23 04/14/23 04/14/23 22:59 06:59 14:59 Intake Total 446.926 Output Total 30 Balance 416.926 Intake: Intake, IV Titration 206.926 Amount DOBUTamine DRIP 500 mg In 206.926 Dextrose/Water 1 250ml. bag @ 2 MCG/KG/MIN 4.71 mls/hr IV .Q24H [facility] Rx#: [id number] Oral 240 Output: Urine 30 Other: Voiding Method Toilet Toilet Toilet # Voids 1 2 1 Weight 80.4 kg GENERAL EXAM: Alert, 73-year-old male, on room air, in no apparent distress. HEAD: Normocephalic. EYES: Normal reaction of pupils, equal size. NOSE: Clear with pink turbinates. THROAT: No erythema or exudates. NECK: No masses, no JVD. CHEST: No chest wall deformity. LUNGS: Equal air entry with basilar crackles. CVS: S1 and S2 normal with no audible murmur, regular rhythm. ABDOMEN: No hepatosplenomegaly, normal bowel sounds, no guarding or rigidity. SPINE: No scoliosis or deformity SKIN: No rashes CENTRAL NERVOUS SYSTEM: No focal deficits, tone is normal in all 4 extremities. EXTREMITIES: There is 1-2+ peripheral edema. No clubbing, no cyanosis. Peripheral pulses are intact. Results - Laboratory Findings CBC and BMP: 04/14/23 08:12 04/14/23 08:12 PT/INR, D-dimer PT 15.9 sec (10.0-12.5) H 04/09/23 07:02 INR 1.5 (<1.2) H 04/09/23 07:02 Abnormal lab findings: Abnormal Labs 04/08/23 04/08/23 04/08/23 12:20 12:20 12:20 WBC 13.2 H RDW 16.2 H Neutrophils # 10.9 H Lymphocytes # Monocytes # PT 15.6 H INR 1.5 H APTT VBG pCO2 Sodium 136 L Potassium 5.8 H Chloride Carbon Dioxide 19 L BUN 48 H Creatinine Glucose 112 H POC Glucose (mg/dL) Plasma Lactic Acid Chris Calcium Magnesium 2.7 H Total Bilirubin 3.8 H AST 179 H ALT 108 H Alkaline Phosphatase 177 H Troponin I Total Protein Albumin Urine Blood Hyaline Casts Urine Mucus 04/08/23 04/08/23 04/08/23 12:20 12:20 15:47 WBC RDW Neutrophils # Lymphocytes # Monocytes # PT INR APTT VBG pCO2 Sodium Potassium Chloride Carbon Dioxide BUN Creatinine Glucose POC Glucose (mg/dL) Plasma Lactic Acid Chris 2.2 H* 2.2 H* Calcium Magnesium Total Bilirubin AST ALT Alkaline Phosphatase Troponin I 0.070 H* Total Protein Albumin Urine Blood Hyaline Casts Urine Mucus 04/08/23 04/08/23 04/09/23 18:58 22:20 07:02 WBC 13.5 H RDW 15.7 H Neutrophils # 11.2 H Lymphocytes # 0.9 L Monocytes # 1.1 H PT INR APTT 60.3 H VBG pCO2 Sodium Potassium Chloride Carbon Dioxide BUN Creatinine Glucose POC Glucose (mg/dL) Plasma Lactic Acid Chris 2.1 H* Calcium Magnesium Total Bilirubin AST ALT Alkaline Phosphatase Troponin I Total Protein Albumin Urine Blood Hyaline Casts Urine Mucus 04/09/23 04/09/23 04/09/23 07:02 07:02 07:02 WBC RDW Neutrophils # Lymphocytes # Monocytes # PT 15.9 H INR 1.5 H APTT 45.1 H VBG pCO2 Sodium Potassium Chloride Carbon Dioxide BUN 47 H Creatinine Glucose 111 H POC Glucose (mg/dL) Plasma Lactic Acid Chris Calcium Magnesium 2.4 H Total Bilirubin 2.7 H AST 84 H ALT 89 H Alkaline Phosphatase 158 H Troponin I Total Protein Albumin 3.4 L Urine Blood Hyaline Casts Urine Mucus 04/09/23 04/09/23 04/10/23 09:54 12:56 07:51 WBC 12.2 H RDW 16.2 H Neutrophils # Lymphocytes # Monocytes # PT INR APTT VBG pCO2 Sodium Potassium Chloride Carbon Dioxide BUN Creatinine Glucose POC Glucose (mg/dL) Plasma Lactic Acid Chris Calcium Magnesium Total Bilirubin AST ALT Alkaline Phosphatase Troponin I 0.066 H* 0.056 H* Total Protein Albumin Urine Blood Hyaline Casts Urine Mucus 04/10/23 04/11/23 04/11/23 07:51 08:02 08:02 WBC 10.9 H RDW 16.1 H Neutrophils # Lymphocytes # Monocytes # PT INR APTT VBG pCO2 Sodium 136 L 134 L Potassium Chloride Carbon Dioxide BUN 48 H 61 H Creatinine 1.40 H Glucose 134 H 121 H POC Glucose (mg/dL) Plasma Lactic Acid Chris Calcium 8.2 L Magnesium 2.5 H 2.7 H Total Bilirubin 2.7 H 2.0 H AST 94 H 74 H ALT 102 H 96 H Alkaline Phosphatase 183 H 184 H Troponin I Total Protein 5.7 L Albumin 3.3 L 2.9 L Urine Blood Hyaline Casts Urine Mucus 04/12/23 04/12/23 04/13/23 06:59 06:59 08:06 WBC RDW 16.0 H 16.2 H Neutrophils # Lymphocytes # Monocytes # PT INR APTT VBG pCO2 Sodium 131 L Potassium Chloride Carbon Dioxide BUN 70 H Creatinine 1.67 H Glucose 103 H POC Glucose (mg/dL) Plasma Lactic Acid Chris Calcium 7.8 L Magnesium 2.6 H Total Bilirubin AST ALT Alkaline Phosphatase Troponin I Total Protein Albumin Urine Blood Hyaline Casts Urine Mucus 04/13/23 04/14/23 04/14/23 08:06 08:12 08:12 WBC 11.9 H RDW 16.1 H Neutrophils # Lymphocytes # Monocytes # PT INR APTT VBG pCO2 Sodium 131 L 130 L Potassium Chloride 96 L 96 L Carbon Dioxide BUN 79 H 101 H* Creatinine 2.27 H 2.80 H Glucose 101 H 106 H POC Glucose (mg/dL) Plasma Lactic Acid Chris Calcium 8.3 L 8.2 L Magnesium 2.7 H 2.7 H Total Bilirubin 1.4 H AST 74 H 64 H ALT 89 H 80 H Alkaline Phosphatase 176 H 182 H Troponin I Total Protein 6.2 L 5.9 L Albumin 3.1 L 3.0 L Urine Blood Hyaline Casts Urine Mucus 04/14/23 04/14/23 04/14/23 10:16 10:51 11:28 WBC RDW Neutrophils # Lymphocytes # Monocytes # PT INR APTT VBG pCO2 56 H Sodium Potassium Chloride Carbon Dioxide BUN Creatinine Glucose POC Glucose (mg/dL) 200 H 137 H Plasma Lactic Acid Chris Calcium Magnesium Total Bilirubin AST ALT Alkaline Phosphatase Troponin I Total Protein Albumin Urine Blood Hyaline Casts Urine Mucus 04/14/23 13:32 WBC RDW Neutrophils # Lymphocytes # Monocytes # PT INR APTT VBG pCO2 Sodium Potassium Chloride Carbon Dioxide BUN Creatinine Glucose POC Glucose (mg/dL) Plasma Lactic Acid Chris Calcium Magnesium Total Bilirubin AST ALT Alkaline Phosphatase Troponin I Total Protein Albumin Urine Blood Trace H Hyaline Casts 45 H Urine Mucus Rare H - Diagnostic Findings Chest x-ray: image reviewed Assessment and Plan Assessment: Hypotension secondary to ischemic cardiomyopathy Acute kidney injury secondary to above New onset atrial fibrillation/flutter, anticoagulated with Eliquis Acute exacerbation of chronic systolic congestive heart failure in a patient with a known ejection fraction of 15 to 20% Mild transaminitis secondary to above Coronary disease with recent PTBA for in-stent restenosis of the RCA in January 2023 Medication noncompliance with recurrence of congestive heart failure Coronary artery disease with previous coronary bypass grafting and previous stent placements Chronic cholecystitis, no plans for surgical intervention Former smoker Plan: The patient was seen and evaluated Medications and labs reviewed Resume dobutamine drip at 2 mcg/kg/min Add normal saline at 50 MLS per hour Continue to hold diuretics, beta-blockers, amiodarone Anticoagulated with Eliquis Educated regarding the importance of medication compliance Continue to monitor closely in the intensive care unit We will continue to follow and make further recommendations based on his clinical status I have personally seen and examined the patient, performed the documentation and the assessment and plan as written. Number of minutes spent on the visit: 20.
[2023-04-15 05:08] LABS: Basophils % (A) 0 %; Eosinophils # (A) 0.2 k/uL (0-0.7); Eosinophils % (A) 2 %; HCT 39.4 % (39.0-53.0); HGB 12.5 gm/dL (13.0-17.5); Hypochromasia Slight; Lymphocytes # (A) 0.9 k/uL (1.0-4.8); Lymphocytes % (A) 9 %; MCH 30.7 pg (25.0-35.0); MCHC 31.7 g/dL (31.0-37.0); MCV 96.8 fL (80.0-100.0); Mean Platelet Volume 8.6; Monocytes # (A) 1.1 k/uL (0-1.0); Monocytes % (A) 11 %; Neutrophils # (A) 7.7 k/uL (1.3-7.7); Neutrophils % (A) 76 %; Platelet Count 196 k/uL (150-450); RBC 4.07 m/uL (4.30-5.90); RDW 15.7 % (11.5-15.5); WBC 10.1 k/uL (3.8-10.6)
[2023-04-15 05:24] LABS: ALT 72 U/L (4-49); AST 58 U/L (17-59); African American GFR (CKD) 32 (>60 ml/min/1.73 sqM); Albumin 3.1 g/dL (3.5-5.0); Alkaline Phosphatase 183 U/L (38-126); Anion Gap 5 mmol/L; Calcium 8.1 mg/dL (8.4-10.2); Carbon Dioxide 26 mmol/L (22-30); Chloride 102 mmol/L (98-107); Glucose 94 mg/dL (74-99); Magnesium 2.6 mg/dL (1.6-2.3); Non-African American GFR(CKD) 27 (>60 ml/min/1.73 sqM); Potassium 4.8 mmol/L (3.5-5.1); Sodium 133 mmol/L (137-145); Total Bilirubin 1.1 mg/dL (0.2-1.3); Total Protein 5.8 g/dL (6.3-8.2)
[2023-04-15 06:31] LABS: Blood Urea Nitrogen 103 mg/dL (9-20)
--- NOTE | 2023-04-15 10:15 | P.PN ---
Subjective Patient is seen in follow-up for acute kidney injury. Renal function improving. On dobutamine drip and IV Lasix. Denies chest pain or shortness of breath. Vital signs are stable. General: No acute distress. HEENT: Head exam is unremarkable. LUNGS: No audible rhonchi or wheezes. HEART: Rate and Rhythm are regular. ABDOMEN: Nontender. EXTREMITITES: 1+ edema. Objective - Vital Signs Vital signs: Vital Signs Temp 98.0 F 04/15/23 08:00 Pulse 54 L 04/15/23 09:00 Resp 13 04/15/23 09:00 BP 83/45 04/15/23 09:00 Pulse Ox 96 04/15/23 09:00 FiO2 Intake & Output 04/14/23 04/15/23 04/15/23 18:59 06:59 18:59 Intake Total 696.926 700 50 Output Total 455 1830 Balance 241.926 -1130 50 Weight 82.1 kg Intake: IV 250 700 50 Sodium Chloride 0.9% 1, 250 700 50 000 ml @ 50 mls/hr IV . Q20H [facility] Rx#:[id number] Intake, IV Titration 206.926 Amount DOBUTamine DRIP 500 mg In 206.926 Dextrose/Water 1 250ml. bag @ 2 MCG/KG/MIN 4.71 mls/hr IV .Q24H [facility] Rx#: [id number] Oral 240 Output: Urine 455 1830 Other: Voiding Method Toilet Toilet Toilet # Voids 1 1 1 # Bowel Movements 1 1 1 - Labs CBC & Chem 7: 04/15/23 04:39 04/15/23 04:39 Labs: Abnormal Lab Results - Last 24 Hours (Table) 04/14/23 04/14/23 04/14/23 Range/Units 10:16 10:51 11:28 RBC (4.30-5.90) m/uL Hgb (13.0-17.5) gm/dL RDW (11.5-15.5) % Lymphocytes # (1.0-4.8) k/uL Monocytes # (0-1.0) k/uL VBG pCO2 56 H (37-51) mmHg Sodium (137-145) mmol/L BUN (9-20) mg/dL Creatinine (0.66-1.25) mg/dL POC Glucose (mg/dL) 200 H 137 H (70-110) mg/dL Calcium (8.4-10.2) mg/dL Magnesium (1.6-2.3) mg/dL ALT (4-49) U/L Alkaline Phosphatase (38-126) U/L Total Protein (6.3-8.2) g/dL Albumin (3.5-5.0) g/dL Urine Blood (Negative) Hyaline Casts (0-2) /lpf Urine Mucus (None) /hpf 04/14/23 04/15/23 04/15/23 Range/Units 13:32 04:39 04:39 RBC 4.07 L (4.30-5.90) m/uL Hgb 12.5 L (13.0-17.5) gm/dL RDW 15.7 H (11.5-15.5) % Lymphocytes # 0.9 L (1.0-4.8) k/uL Monocytes # 1.1 H (0-1.0) k/uL VBG pCO2 (37-51) mmHg Sodium 133 L (137-145) mmol/L BUN 103 H* (9-20) mg/dL Creatinine 2.28 H (0.66-1.25) mg/dL POC Glucose (mg/dL) (70-110) mg/dL Calcium 8.1 L (8.4-10.2) mg/dL Magnesium 2.6 H (1.6-2.3) mg/dL ALT 72 H (4-49) U/L Alkaline Phosphatase 183 H (38-126) U/L Total Protein 5.8 L (6.3-8.2) g/dL Albumin 3.1 L (3.5-5.0) g/dL Urine Blood Trace H (Negative) Hyaline Casts 45 H (0-2) /lpf Urine Mucus Rare H (None) /hpf Assessment and Plan Plan: Assessment: 1. Acute kidney injury secondary to ATN secondary to hypotension and cardiorenal syndrome. Creatinine as low as 1.1 this admission and peaked at 2.8 this admission -2.28 today. UA benign. No hydronephrosis noted on kidney ul trasound. 2. Hypervolemic hyponatremia. Better. 3. Acute on chronic systolic CHF with ejection fraction of 15 to 20% with severe pulmonary hypertension. 4. Coronary disease with cardiac stenting. 5. A-fib/flutter. Cardiology following. 6. Fluid overload. Plan: Maintain midodrine. Maintain IV Lasix. Dobutamine per cardiology. Follow-up a.m. cortisol level. Antihypertensives held. Strict I's and O's. Hep-Lock IV fluids.
--- NOTE | 2023-04-15 12:01 | PN ---
PROGRESS NOTE HISTORY OF PRESENT ILLNESS: Iam is a 73-year-old gentleman, who is admitted to ICU with hypotension and congestive heart failure. MEDICATIONS: He is currently on, 1. Dobutamine along with. 2. Eliquis. 3. Lipitor. 4. Plavix. 5. Toprol. 6. Lasix 40 b.i.d. 7. He is on amiodarone. PHYSICAL EXAMINATION: VITAL SIGNS: Heart rate is 54 beats per minute, blood pressure is 83/45, respiratory rate 18, and O2 saturation is 96%. NECK: There is no jugular venous distention. CHEST: Reveals diminished air entry at the bases. HEART: Reveals first and second heart sounds. Systolic murmur at the apex. EXTREMITIES: Reveals bilateral pitting edema. LABORATORY DATA: Hemoglobin of 12.5, potassium is 4.8, BUN is 103, creatinine is 2.2. ASSESSMENT: 1. Class 4 congestive heart failure. 2. Acute renal failure. 3. Hypotension. PLAN: We will continue him on his current medications. Prognosis is guarded. MMODL / IJN: [id number] /
--- NOTE | 2023-04-15 12:03 | P.PN ---
Subjective Progress Note Date: 04/15/23 Hospital course: Patient is a very pleasant 73-year-old male with a past medical history of CAD status post CABG, Chronic systolic heart failure with previously known EF of 15 to 20%, ischemic cardiomyopathy, severe pulmonary hypertension, and medication noncompliance. Pt reports that his apartment rental agent is Dr. King and that he has not seen him since his last hospitalization back in January. Patient reports apartment rental agent recommended AICD placement secondary to his severely impaired heart function but patient declined stating he will never get that procedure. During last hospitalization patient was also discharged home on aspirin 81 mg daily, Lasix 40 mg daily, losartan 12.5 mg daily, Plavix 75 mg daily, Jardiance 10 mg daily and as needed nitroglycerin sublingual tablets 0.4 mg. Patient reports he did not take any of these medications because they are not good for you. Patient states the last time he took medications was during previous hospitalization. Patient denies following up outpatient with PCP and reports last time he saw his apartment rental agent was just after his last hospitalization back in January. He presented to the emergency department 04/08/2023 for reports of progressively worsening shortness of breath accompanied by bilateral lower extremity swelling. He underwent full evaluation in the emergency department. Vital signs upon arrival showing heart rate of 133, blood pressure 125/86, respiratory rate 20, temp 97.8 F, and SpO2 of 98% on room air. EKG showing atrial flutter with RVR at 116 bpm with occasional PACs. Labs completed and reviewed. CBC showing leukocytosis with WBC count of 13.2, coagulation profile showing elevated PT of 15.6 and INR of 1.5. BMP showing hyperkalemia with potassium of 5.8 but reported as a hemolyzed specimen, elevated BUN of 48, and blood glucose of 112. Lactic acid elevated at 2.2. Liver profile showing hyperbilirubinemia with bilirubin of 3.8 and transaminitis with AST of 179, ALT of 108, and alkaline phosphatase of 177. Troponin elevated at 0.070 and proBNP of 12,900. Chest x-ray was completed showing pulmonary venous congestion with cardiomegaly and small left-sided pleural effusion. Abdominal ultrasound showing gallbladder adenomyomatosis. In the emergency department patient was given aspirin 325 mg p.o. x 1 dose, Lasix 40 mg IVP x 1 dose, and started on low intensity heparin infusion at 10 units/kg/h. Patient admitted under our services with consultation to cardiology for acute systolic heart failure exa cerbation and general surgery for gallbladder adenomyomatosis accompanied by hyperbilirubinemia and transaminitis. Troponins trended resulting at 0.070 and 0.066. Patient evaluated by general surgery recommending outpatient cholecystectomy once patient is medically stable. Patient was evaluated by cardiology. Heart failure medication regimen was initiated with metoprolol 12.5 mg daily, Entresto 24/26 mg tablet twice daily, Plavix 75 mg daily, atorvastatin 40 mg daily, and Eliquis 5 mg twice daily. Patient also placed on IV diuresis with Lasix and started on dobutamine infusion, now discontinued. Has been persistently hypertensive. Transferred to the medical ICU. Continues to be on dobutamine drip now. Renal function slightly improved. Hypotension resolving. Subjective: Patient seen and examined at bedside. No acute events overnight. Physical exam: Vital signs reviewed and stable. General: Nontoxic, no distress and appears stated age. Derm: Skin warm and dry, normal coloration for ethnicity. Head: Atraumatic, normocephalic and symmetric. Eyes: EOMs intact, no lid lag, and anicteric sclera Mouth: no lip lesions, mucus membranes moist Cardiovascular: Irregularly irregular, systolic murmur, positive posterior tibial pulses bilaterally, and cap refill < 2 seconds. Lungs: Respirations even, regular, and unlabored on supplemental oxygen. Lungs diminished, no rhonchi, no rales, no wheezing, and no accessory muscle usage. Abdominal: soft, nontender to palpation, no guarding, no appreciable organomegaly Ext: ROM intact. No gross muscle atrophy, 1-2+ pitting bilateral lower extremity edema, no contractures Neuro: Speech clear, face symmetrical and CN II-XII grossly intact with no noted focal neuro deficits Psych: Alert and oriented to person, place, time, and situation. Appropriate and pleasant affect. Assessment and Plan of Care: Acute exacerbation of chronic systolic heart failure with EF of 15 to 20% Acute hypoxic respiratory failure secondary to CHF exacerbation. New onset atrial fibrillation/flutter with episodes of RVR Elevated troponins, flat likely chronic secondary to CHF History of CAD status post CABG Ischemic cardiomyopathy Severe pulmonary hypertension Acute kidney injury, nonoliguric Hypotension Hypervolemic hyponatremia -Cardiology following, patient continued on dobutamine drip, Lasix 40 IV twice daily, monitor electrolytes and renal function -Pulmonology following -Nephrology note reviewed, maintain midodrine 10 3 times daily, IV Lasix and dobutamine, continue to hold antihypertensives, a.m. cortisol level pending -Continue Daily weights and Close monitoring of I's and O's -Patient to remain on continuous telemetry monitoring -Continue Eliquis 5 mg twice daily, atorvastatin 40 mg nightly, amiodarone 200 mg twice daily, metoprolol 12.5 mg daily, and Plavix 75 mg daily. Transaminitis with hyperbilirubinemia, possibly secondary to gallbladder adenomyomatosis vs right-sided heart failure Lactic acidosis, resolved Elevated INR -Abdominal ultrasound showing gallbladder adenomyomatosis -Liver profile showing improvement of hyperbilirubinemia and transaminitis with IV diuresis, therefore it is likely these are resulting from right-sided heart failure. -General surgery evaluated recommending outpatient cholecystectomy once medically stable, signed off -Hepatitis panel was drawn in the emergency department and nonreactive Patient with extremely guarded prognosis. Data and imaging reviewed: WBC 10.1, hemoglobin 12.5, sodium 133, BUN 103, creatinine 2.28, magnesium 2.6, blood sugars range between 94-1 37 CODE STATUS: Full code DVT prophylaxis: Eliquis Anticipated discharge date: Pending clinical course Anticipated discharge place: Pending clinical course Objective - Vital Signs Vital signs: Vital Signs Temp 98.0 F 04/15/23 08:00 Pulse 56 L 04/15/23 11:00 Resp 18 04/15/23 11:00 BP 99/67 04/15/23 11:00 Pulse Ox 95 04/15/23 11:00 FiO2 Intake & Output 04/14/23 04/15/23 04/15/23 18:59 06:59 18:59 Intake Total 696.926 700 250 Output Total 455 1830 700 Balance 241.926 -1130 -450 Weight 82.1 kg Intake: IV 250 700 250 Sodium Chloride 0.9% 1, 250 700 250 000 ml @ 50 mls/hr IV . Q20H [facility] Rx#:[id number] Intake, IV Titration 206.926 Amount DOBUTamine DRIP 500 mg In 206.926 Dextrose/Water 1 250ml. bag @ 2 MCG/KG/MIN 4.71 mls/hr IV .Q24H [facility] Rx#: [id number] Oral 240 Output: Urine 455 1830 700 Other: Voiding Method Toilet Toilet Toilet # Voids 1 1 1 # Bowel Movements 1 1 1 - Labs CBC & Chem 7: 04/15/23 04:39 04/15/23 04:39 Labs: Abnormal Lab Results - Last 24 Hours (Table) 04/14/23 04/14/23 04/15/23 Range/Units 11:28 13:32 04:39 RBC 4.07 L (4.30-5.90) m/uL Hgb 12.5 L (13.0-17.5) gm/dL RDW 15.7 H (11.5-15.5) % Lymphocytes # 0.9 L (1.0-4.8) k/uL Monocytes # 1.1 H (0-1.0) k/uL VBG pCO2 56 H (37-51) mmHg Sodium (137-145) mmol/L BUN (9-20) mg/dL Creatinine (0.66-1.25) mg/dL Calcium (8.4-10.2) mg/dL Magnesium (1.6-2.3) mg/dL ALT (4-49) U/L Alkaline Phosphatase (38-126) U/L Total Protein (6.3-8.2) g/dL Albumin (3.5-5.0) g/dL Urine Blood Trace H (Negative) Hyaline Casts 45 H (0-2) /lpf Urine Mucus Rare H (None) /hpf 04/15/23 Range/Units 04:39 RBC (4.30-5.90) m/uL Hgb (13.0-17.5) gm/dL RDW (11.5-15.5) % Lymphocytes # (1.0-4.8) k/uL Monocytes # (0-1.0) k/uL VBG pCO2 (37-51) mmHg Sodium 133 L (137-145) mmol/L BUN 103 H* (9-20) mg/dL Creatinine 2.28 H (0.66-1.25) mg/dL Calcium 8.1 L (8.4-10.2) mg/dL Magnesium 2.6 H (1.6-2.3) mg/dL ALT 72 H (4-49) U/L Alkaline Phosphatase 183 H (38-126) U/L Total Protein 5.8 L (6.3-8.2) g/dL Albumin 3.1 L (3.5-5.0) g/dL Urine Blood (Negative) Hyaline Casts (0-2) /lpf Urine Mucus (None) /hpf
--- NOTE | 2023-04-15 13:17 | P.PN ---
Subjective Progress Note Date: 04/15/23 Principal diagnosis: Ischemic cardiomyopathy and LV dysfunction with hypotension and congestive heart failure This is a 73-year-old male patient with a known history of chronic systolic congestive heart failure with an ejection fraction of 15 to 20%, coronary artery disease previous coronary bypass grafting, ischemic cardiomyopathy, severe pulmonary hypertension, he had recently undergone balloon angioplasty of the RCA for in-stent restenosis in January 2023. He was discharged home on multiple cardiac medications all of which he had stopped taking because he made feel " stoned all the time". He was admitted again on April 08, 2023 with complaints of increasing shortness of breath and swelling of the lower extremities. He was found to have new onset atrial fibrillation/flutter who was admitted here back on April 08, 2023. He had been followed by surgical services and cardiology. He had been on a dobutamine drip up until earlier this morning. Later today bryce coulter called a rapid response team on the patient for hypotension. He was felt to possibly need norepinephrine and was to be admitted to the intensive care unit. We are consulted today for ICU management. He is currently seen resting fairly comfortably in bed. Awake and alert in no acute distress. He is maintaining good O2 saturations in the 90s on room air. He has been afebrile. He is bradyc ardic. He pressure is in the 70s systolic with mean arterial pressures in the 50s. He had been receiving diuretics. He was on amiodarone. He was on beta- blockers. All of which have been placed on hold. He is anticoagulated with Eliquis. White count 11.9. Hemoglobin 13.4. Sodium 130. Potassium 5.1. Bicarb 24. BUN 101. Creatinine 2.80. Glucose 106. AST 64. ALT 80. Alk phos 182. Patient reevaluated today on 04/15/2023, patient remains in the ICU, yesterday I started the patient on dobutamine drip, patient is doing much better today compared to yesterday, blood pressure seems to be more stable. Patient has good urine output, and his renal functioning is improving. WBC count is 10.1 hemoglobin 12.5 BUN is 103 creatinine 2.28 improved compared to creatinine of 2.80 yesterday Objective - Vital Signs Vital signs: Vital Signs Temp 98.0 F 04/15/23 08:00 Pulse 76 04/15/23 12:00 Resp 23 04/15/23 12:00 BP 84/45 04/15/23 12:00 Pulse Ox 94 L 04/15/23 12:00 FiO2 Intake & Output 04/14/23 04/15/23 04/15/23 18:59 06:59 18:59 Intake Total 696.926 700 250 Output Total 455 1830 700 Balance 241.926 -1130 -450 Weight 82.1 kg Intake: IV 250 700 250 Sodium Chloride 0.9% 1, 250 700 250 000 ml @ 50 mls/hr IV . Q20H [facility] Rx#:[id number] Intake, IV Titration 206.926 Amount DOBUTamine DRIP 500 mg In 206.926 Dextrose/Water 1 250ml. bag @ 2 MCG/KG/MIN 4.71 mls/hr IV .Q24H [facility] Rx#: [id number] Oral 240 Output: Urine 455 1830 700 Other: Voiding Method Toilet Toilet Toilet # Voids 1 1 1 # Bowel Movements 1 1 1 - Exam GENERAL EXAM: 23-year-old in no distress, on room air O2 saturation 94% HEAD: Normocephalic. EYES: Normal reaction of pupils, equal size. NOSE: Clear with pink turbinates. THROAT: No erythema or exudates. NECK: No masses, no JVD. CHEST: No chest wall deformity. LUNGS: Equal air entry with basilar crackles. CVS: S1 and S2 normal with no audible murmur, regular rhythm. ABDOMEN: No hepatosplenomegaly, normal bowel sounds, no guarding or rigidity. SKIN: No rashes CENTRAL NERVOUS SYSTEM: Alert and oriented x 3 no gross focal deficit EXTREMITIES: There is 1-2+ peripheral edema. No clubbing, no cyanosis. Perip heral pulses are intact. - Labs CBC & Chem 7: 04/15/23 04:39 04/15/23 04:39 Labs: Abnormal Lab Results - Last 24 Hours (Table) 04/14/23 04/15/23 04/15/23 Range/Units 13:32 04:39 04:39 RBC 4.07 L (4.30-5.90) m/uL Hgb 12.5 L (13.0-17.5) gm/dL RDW 15.7 H (11.5-15.5) % Lymphocytes # 0.9 L (1.0-4.8) k/uL Monocytes # 1.1 H (0-1.0) k/uL Sodium 133 L (137-145) mmol/L BUN 103 H* (9-20) mg/dL Creatinine 2.28 H (0.66-1.25) mg/dL Calcium 8.1 L (8.4-10.2) mg/dL Magnesium 2.6 H (1.6-2.3) mg/dL ALT 72 H (4-49) U/L Alkaline Phosphatase 183 H (38-126) U/L Total Protein 5.8 L (6.3-8.2) g/dL Albumin 3.1 L (3.5-5.0) g/dL Urine Blood Trace H (Negative) Hyaline Casts 45 H (0-2) /lpf Urine Mucus Rare H (None) /hpf Assessment and Plan Assessment: Impression: Severe ischemic cardiomyopathy Hypertension secondary to ischemic cardiomyopathy and LV dysfunction Acute kidney injury/cardiorenal New onset atrial fibrillation/flutter on Eliquis Coronary artery disease with recent PTCA for in-stent restenosis of RCA in January 30, 2002 3 History of medication noncompliance with recurrent congestive heart failure Coronary artery disease and previous CABG Chronic cholecystitis Ex-smoker Recommendation: Continue to monitor in the ICU Continue dobutamine at 2 to 3 mcg/kg/min Continue IV fluid at 50 cc/h Continue to hold diuretics for now. Continue eliquis Will continue to follow while in the ICU until transfer back to cardiac floor Time with Patient: Less than 30
[2023-04-16 04:45] LABS: African American GFR (CKD) 51 (>60 ml/min/1.73 sqM); Anion Gap 6 mmol/L; Blood Urea Nitrogen 79 mg/dL (9-20); Calcium 8.5 mg/dL (8.4-10.2); Carbon Dioxide 24 mmol/L (22-30); Chloride 107 mmol/L (98-107); Glucose 123 mg/dL (74-99); Magnesium 2.5 mg/dL (1.6-2.3); Non-African American GFR(CKD) 44 (>60 ml/min/1.73 sqM); Potassium 4.4 mmol/L (3.5-5.1); Sodium 137 mmol/L (137-145)
[2023-04-16 05:51] LABS: Anisocytosis Slight; Basophils # (A) 0.1 k/uL (0-0.2); Basophils % (A) 1 %; Eosinophils # (A) 0.1 k/uL (0-0.7); Eosinophils % (A) 1 %; HCT 37.6 % (39.0-53.0); HGB 11.8 gm/dL (13.0-17.5); Hypochromasia Moderate; Lymphocytes % (A) 10 %; MCH 30.7 pg (25.0-35.0); MCHC 31.4 g/dL (31.0-37.0); MCV 97.9 fL (80.0-100.0); Macrocytosis Slight; Mean Platelet Volume 9.3; Monocytes % (A) 10 %; Neutrophils # (A) 7.1 k/uL (1.3-7.7); Neutrophils % (A) 75 %; Platelet Count 206 k/uL (150-450); RBC 3.84 m/uL (4.30-5.90); RDW 16.2 % (11.5-15.5); WBC 9.5 k/uL (3.8-10.6)
[2023-04-16] MEDS: FUROSEMIDE 10 MG/ML 4 ML VIAL IV SCH (09:28)
[2023-04-16] MEDS ORDERED: SODIUM CHLORIDE 0.65% NASAL SPRAY 44 ML BTL NASAL PRN (09:32)
--- NOTE | 2023-04-16 11:43 | P.PN ---
Subjective Patient is seen in follow-up for acute kidney injury. Renal function improving. On dobutamine drip and IV Lasix. Denies chest pain or shortness of breath. Nonoliguric. Vital signs are stable. General: No acute distress. HEENT: Head exam is unremarkable. LUNGS: No audible rhonchi or wheezes. HEART: Rate and Rhythm are regular. ABDOMEN: Nontender. EXTREMITITES: 1+ edema. Objective - Vital Signs Vital signs: Vital Signs Temp 98.0 F 04/16/23 08:00 Pulse 54 L 04/16/23 09:00 Resp 16 04/16/23 10:00 BP 106/49 04/16/23 10:00 Pulse Ox 95 04/16/23 10:00 FiO2 Intake & Output 04/15/23 04/16/23 04/16/23 18:59 06:59 18:59 Intake Total 900 188.699 250 Output Total 1500 2100 600 Balance -600 -1911.301 -350 Weight 82.1 kg 80.2 kg Intake: IV 250 Sodium Chloride 0.9% 1, 250 000 ml @ 50 mls/hr IV . Q20H [facility] Rx#:[id number] Intake, IV Titration 188.699 Amount DOBUTamine DRIP 500 mg In 188.699 Dextrose/Water 1 250ml. bag @ 2 MCG/KG/MIN 4.824 mls/hr IV .Q24H [facility] Rx#: [id number] Oral 650 250 Output: Urine 1500 2100 600 Other: Voiding Method Toilet Toilet Toilet # Voids 1 1 # Bowel Movements 1 - Labs CBC & Chem 7: 04/16/23 04:05 04/16/23 04:10 Labs: Abnormal Lab Results - Last 24 Hours (Table) 04/16/23 04/16/23 Range/Units 04:05 04:10 RBC 3.84 L (4.30-5.90) m/uL Hgb 11.8 L (13.0-17.5) gm/dL Hct 37.6 L (39.0-53.0) % RDW 16.2 H (11.5-15.5) % BUN 79 H (9-20) mg/dL Creatinine 1.53 H (0.66-1.25) mg/dL Glucose 123 H (74-99) mg/dL Magnesium 2.5 H (1.6-2.3) mg/dL Assessment and Plan Plan: Assessment: 1. Acute kidney injury secondary to ATN secondary to hypotension and cardiorenal syndrome. Creatinine as low as 1.1 this admission and peaked at 2.8 this admission -1.53 today. UA benign. No hydronephrosis noted on kidney ultrasound. 2. Hypervolemic hyponatremia. Better. 3. Acute on chronic systolic CHF with ejection fraction of 15 to 20% with severe pulmonary hypertension. 4. Coronary disease with cardiac stenting. 5. A-fib/flutter. Cardiology following. 6. Fluid overload. Improving with diuresis. Plan: Maintain midodrine. Maintain IV Lasix. Dobutamine per cardiology. Cortisol level normal. Antihypertensives held. Strict I's and O's.
[2023-04-16] MEDS: PANTOPRAZOLE 40 MG TABLET PO SCH (12:05)
--- NOTE | 2023-04-16 12:45 | P.PN ---
Subjective Progress Note Date: 04/16/23 Principal diagnosis: Ischemic cardiomyopathy and LV dysfunction with hypotension and congestive heart failure This is a 73-year-old male patient with a known history of chronic systolic congestive heart failure with an ejection fraction of 15 to 20%, coronary artery disease previous coronary bypass grafting, ischemic cardiomyopathy, severe pulmonary hypertension, he had recently undergone balloon angioplasty of the RCA for in-stent restenosis in January 2023. He was discharged home on multiple cardiac medications all of which he had stopped taking because he made feel " stoned all the time". He was admitted again on April 08, 2023 with complaints of increasing shortness of breath and swelling of the lower extremities. He was found to have new onset atrial fibrillation/flutter who was admitted here back on April 08, 2023. He had been followed by surgical services and cardiology. He had been on a dobutamine drip up until earlier this morning. Later today bryce coulter called a rapid response team on the patient for hypotension. He was felt to possibly need norepinephrine and was to be admitted to the intensive care unit. We are consulted today for ICU management. He is currently seen resting fairly comfortably in bed. Awake and alert in no acute distress. He is maintaining good O2 saturations in the 90s on room air. He has been afebrile. He is bradyc ardic. He pressure is in the 70s systolic with mean arterial pressures in the 50s. He had been receiving diuretics. He was on amiodarone. He was on beta- blockers. All of which have been placed on hold. He is anticoagulated with Eliquis. White count 11.9. Hemoglobin 13.4. Sodium 130. Potassium 5.1. Bicarb 24. BUN 101. Creatinine 2.80. Glucose 106. AST 64. ALT 80. Alk phos 182. Patient reevaluated today on 04/15/2023, patient remains in the ICU, yesterday I started the patient on dobutamine drip, patient is doing much better today compared to yesterday, blood pressure seems to be more stable. Patient has good urine output, and his renal functioning is improving. WBC count is 10.1 hemoglobin 12.5 BUN is 103 creatinine 2.28 improved compared to creatinine of 2.80 yesterday Reevaluate today on 04/16/2023, patient remains in the ICU on dobutamine drip, 2 mcg/kg/min, continues to have good urine output, he is on room air, O2 sat is 94%. He is hemodynamically stable with blood pressure of 106/49. Mean of 66. Renal profile is steadily improving. Creatinine today is down to 1.53 compared to yesterday 2.28 Objective - Vital Signs Vital signs: Vital Signs Temp 98.0 F 04/16/23 08:00 Pulse 54 L 04/16/23 09:00 Resp 16 04/16/23 10:00 BP 106/49 04/16/23 10:00 Pulse Ox 95 04/16/23 10:00 FiO2 Intake & Output 04/15/23 04/16/23 04/16/23 18:59 06:59 18:59 Intake Total 900 188.699 250 Output Total 1500 2100 600 Balance -600 -1911.301 -350 Weight 82.1 kg 80.2 kg Intake: IV 250 Sodium Chloride 0.9% 1, 250 000 ml @ 50 mls/hr IV . Q20H [facility] Rx#:[id number] Intake, IV Titration 188.699 Amount DOBUTamine DRIP 500 mg In 188.699 Dextrose/Water 1 250ml. bag @ 2 MCG/KG/MIN 4.824 mls/hr IV .Q24H [facility] Rx#: [id number] Oral 650 250 Output: Urine 1500 2100 600 Other: Voiding Method Toilet Toilet Toilet # Voids 1 1 # Bowel Movements 1 - Exam GENERAL EXAM: 23-year-old in no distress, on room air O2 saturation 94% HEAD: Normocephalic. EYES: Normal reaction of pupils, equal size. NOSE: Clear with pink turbinates. THROAT: No erythema or exudates. NECK: No masses, no JVD. CHEST: No chest wall deformity. LUNGS: Equal air entry with basilar crackles. CVS: S1 and S2 normal with no audible murmur, regular rhythm. ABDOMEN: No hepatosplenomegaly, normal bowel sounds, no guarding or rigidity. SKIN: No rashes CENTRAL NERVOUS SYSTEM: Alert and oriented x 3 no gross focal deficit EXTREMITIES: There is 1-2+ peripheral edema. No clubbing, no cyanosis. Peripheral pulses are intact. - Labs CBC & Chem 7: 04/16/23 04:05 04/16/23 04:10 Labs: Abnormal Lab Results - Last 24 Hours (Table) 04/16/23 04/16/23 Range/Units 04:05 04:10 RBC 3.84 L (4.30-5.90) m/uL Hgb 11.8 L (13.0-17.5) gm/dL Hct 37.6 L (39.0-53.0) % RDW 16.2 H (11.5-15.5) % BUN 79 H (9-20) mg/dL Creatinine 1.53 H (0.66-1.25) mg/dL Glucose 123 H (74-99) mg/dL Magnesium 2.5 H (1.6-2.3) mg/dL Assessment and Plan Assessment: Impression: Severe ischemic cardiomyopathy Hypertension secondary to ischemic cardiomyopathy and LV dysfunction Acute kidney injury/cardiorenal New onset atrial fibrillation/flutter on Eliquis Coronary artery disease with recent PTCA for in-stent restenosis of RCA in January 30, 2002 3 History of medication noncompliance with recurrent congestive heart failure Coronary artery disease and previous CABG Chronic cholecystitis Ex-smoker Recommendation: Consider transferring the patient up to the cardiac floor/monitored bed. Continue dobutamine at 2 micrograms per kilo per minute. Continue Lasix IV push. Lasix was restarted by cardiology at 40 mg IV push every 8 hours, patient had excellent urine output over the last couple of days with dobutamine only Continue eliquis Will continue to follow while in the ICU Time with Patient: Less than 30
--- NOTE | 2023-04-16 13:37 | PN ---
PROGRESS NOTE SUBJECTIVE: Iam is a 73-year-old gentleman with history of cardiomyopathy, chronic renal failure, hypotension, class 4 congestive heart failure and history of atrial fibrillation, who is in ICU on dobutamine and IV Lasix. His symptoms are improving leg edema is getting better. He is on dobutamine, metoprolol, Lasix 40 b.i.d., which I am going to increase to 40 t.i.d., Cordarone along with Eliquis. PHYSICAL EXAMINATION: GENERAL: Comfortable at rest. VITAL SIGNS: Stable. CHEST: Reveals good air entry bilaterally. HEART: Reveals first and second heart sounds. Systolic murmur at the apex. ABDOMEN: Soft. EXTREMITIES: Reveal bilateral pitting edema. LABS: Show the hemoglobin is 11.8, platelet count is 206, potassium is 4.4, creatinine is down to 1.5 from 2.8. BUN has come down from 101 to 79. ASSESSMENT: 1. Class 4 congestive heart failure. 2. Cardiomyopathy with severe LV dysfunction. 3. CAD. PLAN: I will continue him on his current medications and increase the dose of Lasix. MMODL / IJN: [id number] /
--- NOTE | 2023-04-16 13:51 | P.PN ---
Subjective Progress Note Date: 04/16/23 Hospital course: Patient is a very pleasant 73-year-old male with a past medical history of CAD status post CABG, Chronic systolic heart failure with previously known EF of 15 to 20%, ischemic cardiomyopathy, severe pulmonary hypertension, and medication noncompliance. 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 Patient reports sorority supervisor recommended AICD placement secondary to his severely impaired heart function but patient declined stating he will never get that procedure. During last hospitalization patient was also discharged home on aspirin 81 mg daily, Lasix 40 mg daily, losartan 12.5 mg daily, Plavix 75 mg daily, Jardiance 10 mg daily and as needed nitroglycerin sublingual tablets 0.4 mg. Patient reports he did not take any of these medications because they are not good for you. Patient states the last time he took medications was during previous hospitalization. 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 He presented to the emergency department 04/08/2023 for reports of progressively worsening shortness of breath accompanied by bilateral lower extremity swelling. He underwent full evaluation in the emergency department. Vital signs upon arrival showing heart rate of 133, blood pressure 125/86, respiratory rate 20, temp 97.8 F, and SpO2 of 98% on room air. EKG showing atrial flutter with RVR at 116 bpm with occasional PACs. Labs completed and reviewed. CBC showing leukocytosis with WBC count of 13.2, coagulation profile showing elevated PT of 15.6 and INR of 1.5. BMP showing hyperkalemia with potassium of 5.8 but reported as a hemolyzed specimen, elevated BUN of 48, and blood glucose of 112. Lactic acid elevated at 2.2. Liver profile showing hyperbilirubinemia with bilirubin of 3.8 and transaminitis with AST of 179, ALT of 108, and alkaline phosphatase of 177. Troponin elevated at 0.070 and proBNP of 12,900. Chest x-ray was completed showing pulmonary venous congestion with cardiomegaly and small left-sided pleural effusion. Abdominal ultrasound showing gallbladder adenomyomatosis. In the emergency department patient was given aspirin 325 mg p.o. x 1 dose, Lasix 40 mg IVP x 1 dose, and started on low intensity heparin infusion at 10 units/kg/h. Patient admitted under our services with consultation to cardiology for acute systolic heart failure exa cerbation and general surgery for gallbladder adenomyomatosis accompanied by hyperbilirubinemia and transaminitis. Troponins trended resulting at 0.070 and 0.066. Patient evaluated by general surgery recommending outpatient cholecystectomy once patient is medically stable. Patient was evaluated by cardiology. Heart failure medication regimen was initiated with metoprolol 12.5 mg daily, Entresto 24/26 mg tablet twice daily, Plavix 75 mg daily, atorvastatin 40 mg daily, and Eliquis 5 mg twice daily. Patient also placed on IV diuresis with Lasix and started on dobutamine infusion, now discontinued. Has been persistently hypertensive. Transferred to the medical ICU. Continues to be on dobutamine drip now. Renal function slightly improved. Hypotension resolving. Subjective: Patient seen and examined at bedside. He had an episode of melena. Physical exam: Vital signs reviewed and stable. General: Nontoxic, no distress and appears stated age. Derm: Skin warm and dry, normal coloration for ethnicity. Head: Atraumatic, normocephalic and symmetric. Eyes: EOMs intact, no lid lag, and anicteric sclera Mouth: no lip lesions, mucus membranes moist Cardiovascular: Irregularly irregular, systolic murmur, positive posterior tibial pulses bilaterally, and cap refill < 2 seconds. Lungs: Respirations even, regular, and unlabored on supplemental oxygen. Lungs diminished, no rhonchi, no rales, no wheezing, and no accessory muscle usage. Abdominal: soft, nontender to palpation, no guarding, no appreciable organomegaly Ext: ROM intact. No gross muscle atrophy, 1-2+ pitting bilateral lower extremity edema, no contractures Neuro: Speech clear, face symmetrical and CN II-XII grossly intact with no noted focal neuro deficits Psych: Alert and oriented to person, place, time, and situation. Appropriate and pleasant affect. Assessment and Plan of Care: Acute exacerbation of chronic systolic heart failure with EF of 15 to 20% Acute hypoxic respiratory failure secondary to CHF exacerbation. New onset atrial fibrillation/flutter with episodes of RVR Elevated troponins, flat likely chronic secondary to CHF History of CAD status post CABG Ischemic cardiomyopathy Severe pulmonary hypertension Acute kidney injury, nonoliguric, resolving Hypotension, resolved Hypervolemic hyponatremia -Cardiology note reviewed: Patient continued on dobutamine drip, Lasix increased to 40 IV every 8 hours, monitor electrolytes and renal function -Pulmonology note reviewed pending transfer to regular floors -Nephrology note reviewed, maintain midodrine 10 3 times daily, IV Lasix and do butamine, continue to hold antihypertensives -Continue Daily weights and Close monitoring of I's and O's -Patient to remain on continuous telemetry monitoring -Continue Eliquis 5 mg twice daily, atorvastatin 40 mg nightly, amiodarone 200 mg twice daily, metoprolol 12.5 mg daily, and Plavix 75 mg daily. Suspected upper GI bleed Mild normocytic anemia -On pantoprazole IV 40 twice daily -Surgery consulted Transaminitis with hyperbilirubinemia, possibly secondary to gallbladder adenomyomatosis vs right-sided heart failure Lactic acidosis, resolved Elevated INR -Abdominal ultrasound showing gallbladder adenomyomatosis -Liver profile showing improvement of hyperbilirubinemia and transaminitis with IV diuresis, therefore it is likely these are resulting from right-sided heart failure. -General surgery evaluated recommending outpatient cholecystectomy once medically stable, signed off -Hepatitis panel was drawn in the emergency department and nonreactive Patient with extremely guarded prognosis. Data and imaging reviewed: Hemoglobin 11.8, creatinine 1.53, magnesium 2.5 CODE STATUS: Full code DVT prophylaxis: Eliquis Anticipated discharge date: Pending clinical course Anticipated discharge place: Pending clinical course Objective - Vital Signs Vital signs: Vital Signs Temp 98.0 F 04/16/23 08:00 Pulse 54 L 04/16/23 09:00 Resp 16 04/16/23 10:00 BP 106/49 04/16/23 10:00 Pulse Ox 95 04/16/23 10:00 FiO2 Intake & Output 04/15/23 04/16/23 04/16/23 18:59 06:59 18:59 Intake Total 900 188.699 250 Output Total 1500 2100 600 Balance -600 -1911.301 -350 Weight 82.1 kg 80.2 kg Intake: IV 250 Sodium Chloride 0.9% 1, 250 000 ml @ 50 mls/hr IV . Q20H [facility] Rx#:[id number] Intake, IV Titration 188.699 Amount DOBUTamine DRIP 500 mg In 188.699 Dextrose/Water 1 250ml. bag @ 2 MCG/KG/MIN 4.824 mls/hr IV .Q24H [facility] Rx#: [id number] Oral 650 250 Output: Urine 1500 2100 600 Other: Voiding Method Toilet Toilet Toilet # Voids 1 1 # Bowel Movements 1 - Labs CBC & Chem 7: 04/16/23 04:05 04/16/23 04:10 Labs: Abnormal Lab Results - Last 24 Hours (Table) 04/16/23 04/16/23 Range/Units 04:05 04:10 RBC 3.84 L (4.30-5.90) m/uL Hgb 11.8 L (13.0-17.5) gm/dL Hct 37.6 L (39.0-53.0) % RDW 16.2 H (11.5-15.5) % BUN 79 H (9-20) mg/dL Creatinine 1.53 H (0.66-1.25) mg/dL Glucose 123 H (74-99) mg/dL Magnesium 2.5 H (1.6-2.3) mg/dL
--- NOTE | 2023-04-16 15:16 | P.GSCN ---
History of Present Illness Consult date: 04/16/23 History of present illness: CHIEF COMPLAINT: Shortness of breath HISTORY OF PRESENT ILLNESS: This is a 73-year-old male who presented with shortness of breath. He was found to have evidence of acute CHF exacerbation, new onset of atrial fibrillation and type II NC. Initially surgery was consulted in regards to abnormal gallbladder ultrasound that had reported adeno myomatosis of the gallbladder. And Dr. Smith recommended outpatient cholecystectomy for chronic cholecystitis when medically stable. Patient has significant cardiac history and high risk for surgery. We have been reconsulted in regards to a GI bleed. Patient required to be transferred to the ICU a couple days ago for hypotension. Blood pressures appear to be improving. Yesterday patient had 2 black tarry bowel movements. He is on Eliquis and Plavix. His hemoglobin has been slightly trending downwards. Hemoglobin on admission is 16. Hemoglobin yesterday was 12.5 and today it is at 11.8. Patient has no abdominal pain. Denies any nausea or vomiting. Tolerating regular diet. And has had no further melanotic stools. Last EGD was several years ago. He denies any history of stomach ulcers. Patient is currently in the ICU on dobutamine and also receiving IV Lasix. Followed closely by cardiology. PAST MEDICAL HISTORY: See below PAST SURGICAL HISTORY: Coronary Artery Disease (CAD), Myocardial Infarction (NC) MEDICATIONS: See below ALLERGIES: See below SOCIAL HISTORY: No illicit drug use. REVIEW OF SYSTEMS: CONSTITUTIONAL: Denies fever or chills. HEENT: Denies blurred vision, vision changes, or eye pain. Denies hemoptysis CARDIOVASCULAR: Denies chest pain or pressure. RESPIRATORY: No shortness of breath. GASTROINTESTINAL: See HPI for pertinent findings HEMATOLOGIC: Denies bleeding disorders. GENITOURINARY: Denies any blood in urine or increased urinary frequency. SKIN: Denies pruitis. Denies rash. PHYSICAL EXAM: VITAL SIGNS: Reviewed GENERAL: Well-developed in no acute distress. HEENT: No sclera icterus. Extraocular movements grossly intact. Moist buccal mucosa. Head is atraumatic, normocephalic. No nasal drainage. ABDOMEN: Soft. Nondistended. Nontender NEUROLOGIC: Alert and oriented. Cranial nerves II through XII grossly intact. LABORATORY DATA: WBCs 9.5 Hgb 16.1 on admission with slight downward trend to 11.8 platelets 206 Sodium is 137 potassium 4.4 creatinine 1.53 IMAGING: ASSESSMENT: 1. Acute GI bleed with black tarry stools on blood thinners 2. Significant cardiac history 3. Chronic cholecystitis PLAN: -Dr. Smith recommends transfer if active bleeding or can have EGD on Wednesday if stable -Hold Eliquis and Plavix -Repeat CBC in a.m. -Continue IV Protonix twice a day -Continue regular diet Physician Integrated Logistics Support Manager note has been reviewed by physician. Signing provider agrees with the documented findings, assessment, and plan of care. Past Medical History Past Medical History: Coronary Artery Disease (CAD), Myocardial Infarction (NC) Additional Past Medical History / Comment(s): last NC 2014 Last Myocardial Infarction Date:: 2014 History of Any Multi-Drug Resistant Organisms: None Reported Past Surgical History: Coronary Bypass/CABG Additional Past Surgical History / Comment(s): Angiogram, Past Anesthesia/Blood Transfusion Reactions: No Reported Reaction Date of Last Stent Placement:: unknown Past Psychological History: No Psychological Hx Reported Smoking Status: Former smoker Past Alcohol Use History: Occasional Past Drug Use History: None Reported - Past Family History Mother Family Medical History: Unable to Obtain Additional Family Medical History / Comment(s): pt is adopted Medications and Allergies Home Medications Medication Instructions Recorded Confirmed Type Aspirin [Adult Low Dose Aspirin EC] 81 mg PO DAILY 11/17/21 04/08/23 History Allergies Allergy/AdvReac Type Severity Reaction Status Date / Time lisinopril Allergy Unknown Verified 04/08/23 13:36 metoprolol Allergy Unknown Verified 04/08/23 13:36 mexiletine Allergy Unknown Verified 04/08/23 13:36 Penicillins Allergy Anaphylaxis Verified 04/08/23 13:36 pravastatin Allergy Unknown Verified 04/08/23 13:36 Surgical - Exam Vital Signs Temp Pulse Resp BP Pulse Ox 97.8 F 133 H 20 125/86 98 04/08/23 11:46 04/08/23 11:46 04/08/23 11:46 04/08/23 11:46 04/08/23 11:46 Results - Labs 04/16/23 04:05 04/16/23 04:10 Abnormal Lab Results - Last 24 Hours (Table) 04/16/23 04/16/23 Range/Units 04:05 04:10 RBC 3.84 L (4.30-5.90) m/uL Hgb 11.8 L (13.0-17.5) gm/dL Hct 37.6 L (39.0-53.0) % RDW 16.2 H (11.5-15.5) % BUN 79 H (9-20) mg/dL Creatinine 1.53 H (0.66-1.25) mg/dL Glucose 123 H (74-99) mg/dL Magnesium 2.5 H (1.6-2.3) mg/dL Diabetes panel 04/16/23 Range/Units 04:10 Sodium 137 (137-145) mmol/L Potassium 4.4 (3.5-5.1) mmol/L Chloride 107 (98-107) mmol/L Carbon Dioxide 24 (22-30) mmol/L BUN 79 H (9-20) mg/dL Creatinine 1.53 H (0.66-1.25) mg/dL Glucose 123 H (74-99) mg/dL Calcium 8.5 (8.4-10.2) mg/dL Calcium panel 04/16/23 Range/Units 04:10 Calcium 8.5 (8.4-10.2) mg/dL Pituitary panel 04/16/23 Range/Units 04:10 Sodium 137 (137-145) mmol/L Potassium 4.4 (3.5-5.1) mmol/L Chloride 107 (98-107) mmol/L Carbon Dioxide 24 (22-30) mmol/L BUN 79 H (9-20) mg/dL Creatinine 1.53 H (0.66-1.25) mg/dL Glucose 123 H (74-99) mg/dL Calcium 8.5 (8.4-10.2) mg/dL Adrenal panel 04/16/23 Range/Units 04:10 Sodium 137 (137-145) mmol/L Potassium 4.4 (3.5-5.1) mmol/L Chloride 107 (98-107) mmol/L Carbon Dioxide 24 (22-30) mmol/L BUN 79 H (9-20) mg/dL Creatinine 1.53 H (0.66-1.25) mg/dL Glucose 123 H (74-99) mg/dL Calcium 8.5 (8.4-10.2) mg/dL
[2023-04-16] MEDS: PANTOPRAZOLE 40 MG/10 ML VIAL IVP SCH (19:47)
--- NOTE | 2023-04-17 07:11 | XR ---
EXAMINATION TYPE: XR chest 1V portable DATE OF EXAM: 04/17/2023 CLINICAL HISTORY: Difficulty breathing CHF progress study. TECHNIQUE: Single AP portable upright view of the chest is obtained. COMPARISON: Chest x-ray from April 08, 2023 and older studies. FINDINGS: Overlying sternal wires and mediastinal clips are redemonstrated. Persistent mild cardiome yohana with small left pleural effusion. Increased opacities bilaterally redemonstrated. Osseous struct ures are intact. IMPRESSION: Stable mild cardiomegaly and small left pleural effusion. Chronic parenchymal changes richelle aterally redemonstrated. No new focal infiltrates seen. No significant change from most recent study.
[2023-04-17 07:58] LABS: Anisocytosis Slight; Basophils # (A) 0.1 k/uL (0-0.2); Basophils % (A) 0 %; Eosinophils # (A) 0.1 k/uL (0-0.7); Eosinophils % (A) 1 %; HCT 37.7 % (39.0-53.0); HGB 12.2 gm/dL (13.0-17.5); Hypochromasia Slight; Lymphocytes # (A) 1.1 k/uL (1.0-4.8); Lymphocytes % (A) 10 %; MCH 31.6 pg (25.0-35.0); MCHC 32.4 g/dL (31.0-37.0); MCV 97.4 fL (80.0-100.0); Macrocytosis Slight; Mean Platelet Volume 8.9; Monocytes # (A) 1.2 k/uL (0-1.0); Monocytes % (A) 10 %; Neutrophils # (A) 9.1 k/uL (1.3-7.7); Neutrophils % (A) 77 %; Platelet Count 239 k/uL (150-450); RBC 3.87 m/uL (4.30-5.90); WBC 11.8 k/uL (3.8-10.6)
[2023-04-17 08:44] LABS: African American GFR (CKD) 60 (>60 ml/min/1.73 sqM); Anion Gap 8 mmol/L; Blood Urea Nitrogen 52 mg/dL (9-20); Calcium 8.8 mg/dL (8.4-10.2); Carbon Dioxide 30 mmol/L (22-30); Chloride 101 mmol/L (98-107); Glucose 150 mg/dL (74-99); Non-African American GFR(CKD) 52 (>60 ml/min/1.73 sqM); Potassium 4.2 mmol/L (3.5-5.1); Sodium 139 mmol/L (137-145)
--- NOTE | 2023-04-17 09:19 | P.PN ---
Subjective Progress Note Date: 04/17/23 HISTORY OF PRESENT ILLNESS: This is a 73-year-old male with a past medical history significant for coronary artery disease with previous CABG and stenting, congestive heart failure, and medication noncompliance. Patient follows in the office with Dr. King. We have been asked to see the patient in consultation for congestive heart failure. Patient examined at the bedside. Patient presented to the hospital with a chief complaint of shortness of breath. It is noted that the patient was recently hospitalized in January and underwent balloon angioplasty of RCA in-stent restenosis. The patient was discharged home on multiple cardiac medications including aspirin, Lasix, losartan, Plavix, and Jardiance. The patient states he stopped taking all of these medications because they did not make him feel unwell. He states that he felt like he was "stoned" all the time. The patient was found to be in congestive heart failure. He was started on IV Lasix. He was also started on IV heparin secondary to abnormal troponins. He denies having any chest pain or pressure. EKG on admission reveals atrial fibrillation/flutter. The patient denies a history of atrial fibrillation or atrial flutter. DIAGNOSTICS: - EKG reveals atrial fibrillation with no signs of acute ischemia - Chest xray pulmonary venous congestion with cardiomegaly and small left-sided pleural effusion - Laboratory data: WBC 13.5. Hemoglobin 14.5. Platelet count 178. Sodium 137. Potassium 3.5. BUN is 47. Creatinine 1.17. Lactic acid 2.1. AST 84. ALT 89. proBNP 12,900. Troponin 0.070. - Current home cardiac medications include none - Most recent echocardiogram obtained in January 2023 revealed ejection fr action 15 to 20%, severe pulmonary hypertension, mild TR, mild MR - Cardiac catheterization history: January 2023 revealing coronary artery disease including 100% proximal LAD stenosis, 40 to 50% mid circumflex stenosis, 90% RCA in-stent stenosis. Elevated left and right-sided filling pressures. Decreased cardiac output and cardiac index. Pulmonary hypertension related to left-sided heart failure. Patient underwent balloon angioplasty of the RCA. 04/17 Patient has been transferred out of the intensive care unit now on the cardiac stepdown unit. He is noted to have decreased lower extremity edema. He remains on dobutamine drip and IV Lasix as well as midodrine. Yesterday, frequency of Lasix was increased to 3 times daily. He is also maintained on amiodarone. Eliquis is on hold for planned EGD on Wednesday. Repeat chest x-ray reveals stable mild cardiomegaly and small left pleural e ffusion. Chronic parenchymal changes bilaterally redemonstrated. No new infiltrates. No significant change.. PHYSICAL EXAM: VITAL SIGNS: Reviewed. GENERAL: Well-developed in no acute distress. HEENT: Head is normocephalic. Pupils are equal, round. Sclerae anicteric. Mucous membranes of the mouth are moist. Neck supple. Positive JVD LUNGS: Respirations even and unlabored. Lungs clear to auscultation HEART: Irregular rate and rhythm. S1 and S2 heard. Systolic murmur at the apex ABDOMEN: Soft. Nondistended. Nontender. EXTREMITIES: No clubbing or cyanosis. Peripheral pulses intact. 1+ bilateral lower extremity edema NEUROLOGIC: Awake and alert. Oriented x 3. ASSESSMENT: Shortness of breath Acute on chronic heart failure with reduced EF, 15 to 20% New onset atrial fibrillation/flutter Abnormal troponins, flat, type II CO Coronary artery disease with previous CABG and stenting Status post balloon angioplasty of RCA in-stent stenosis, January 2023 Ischemic cardiomyopathy, refusing AICD implantation Pulmonary hypertension History of medication noncompliance Reported intolerance to multiple medications including beta-blockers and Aldactone Transaminitis Former nicotine dependence PLAN: Continue dobutamine infusion for another 24 hours Continue IV Lasix 40 mg every 8 hours Continue patient on amiodarone (Eliquis is on hold for EGD scheduled for Wednesday) Continue midodrine 5 mg 3 times daily Further recommendations pending patient course Nurse practitioner note has been reviewed by physician. Signing provider agrees with the documented findings, assessment, and plan of care documented by PARKING ENFORCEMENT OFFICER as a scribe. Objective - Vital Signs Vital signs: Vital Signs Temp 97.9 F 04/17/23 04:00 Pulse 59 L 04/17/23 04:00 Resp 16 04/17/23 04:00 BP 106/67 04/17/23 04:00 Pulse Ox 96 04/17/23 04:00 FiO2 Intake & Output 04/16/23 04/17/23 04/17/23 18:59 06:59 18:59 Intake Total 650 150 Output Total 1400 1700 Balance -750 -1550 Weight 77.7 kg Intake: Oral 650 150 Output: Urine 1400 1700 Other: Voiding Method Toilet Toilet Urinal - Labs CBC & Chem 7: 04/17/23 07:41 04/17/23 07:41 Labs: Abnormal Lab Results - Last 24 Hours (Table) 04/17/23 Range/Units 07:41 WBC 11.8 H (3.8-10.6) k/uL RBC 3.87 L (4.30-5.90) m/uL Hgb 12.2 L (13.0-17.5) gm/dL Hct 37.7 L (39.0-53.0) % RDW 16.0 H (11.5-15.5) % Neutrophils # 9.1 H (1.3-7.7) k/uL Monocytes # 1.2 H (0-1.0) k/uL
--- NOTE | 2023-04-17 14:38 | P.PN ---
Subjective Progress Note Date: 04/17/23 Hospital course: Patient is a very pleasant 73-year-old male with a past medical history of CAD status post CABG, Chronic systolic heart failure with previously known EF of 15 to 20%, ischemic cardiomyopathy, severe pulmonary hypertension, and medication noncompliance. Pt reports that his technical support technician is Dr. King and that he has not seen him since his last hospitalization back in January. Patient reports technical support technician recommended AICD placement secondary to his severely impaired heart function but patient declined stating he will never get that procedure. During last hospitalization patient was also discharged home on aspirin 81 mg daily, Lasix 40 mg daily, losartan 12.5 mg daily, Plavix 75 mg daily, Jardiance 10 mg daily and as needed nitroglycerin sublingual tablets 0.4 mg. Patient reports he did not take any of these medications because they are not good for you. Patient states the last time he took medications was during previous hospita lization. Patient denies following up outpatient with PCP and reports last time he saw his technical support technician was just after his last hospitalization back in January. He presented to the emergency department 04/08/2023 for reports of progressively worsening shortness of breath accompanied by bilateral lower extremity swelling. He underwent full evaluation in the emergency department. Vital signs upon arrival showing heart rate of 133, blood pressure 125/86, respiratory rate 20, temp 97.8 F, and SpO2 of 98% on room air. EKG showing atrial flutter with RVR at 116 bpm with occasional PACs. Labs completed and reviewed. CBC showing leukocytosis with WBC count of 13.2, coagulation profile showing elevated PT of 15.6 and INR of 1.5. BMP showing hyperkalemia with potassium of 5.8 but reported as a hemolyzed specimen, elevated BUN of 48, and blood glucose of 112. Lactic acid elevated at 2.2. Liver profile showing hyperbilirubinemia with bilirubin of 3.8 and transaminitis with AST of 179, ALT of 108, and alkaline phosphatase of 177. Troponin elevated at 0.070 and proBNP of 12,900. Chest x-ray was completed showing pulmonary venous congestion with cardiomegaly and small left-sided pleural effusion. Abdominal ultrasound showing gallbladder adenomyomatosis. In the emergency department patient was given aspirin 325 mg p.o. x 1 dose, Lasix 40 mg IVP x 1 dose, and started on low intensity heparin infusion at 10 units/kg/h. Patient admitted under our services with consultation to cardiology for acute systolic heart failure exacerbation and general surgery for gallbladder adenomyomatosis accompanied by hyperbilirubinemia and transaminitis. Troponins trended resulting at 0.070 and 0.066. Patient evaluated by general surgery recommending outpatient cholecystectomy once patient is medically stable. Patient was evaluated by cardiology. Heart failure medication regimen was initiated with metoprolol 12.5 mg daily, Entresto 24/26 mg tablet twice daily, Plavix 75 mg daily, atorvastatin 40 mg daily, and Eliquis 5 mg twice daily. Patient also placed on IV diuresis with Lasix and started on dobutamine infusion, now discontinued. He has been persistently hypotensive and was Transferred to the medical ICU where he was found to have 2 episodes of black tarry stools. General surgery was consulted, Stopping patient's Eliquis and Plavix and recommending continued close monitoring of CBC and if patient remains stable, Dr. Smith to do EGD on Wednesday. Currently hemoglobin remained stable, patient has had no further episodes of black tarry stools, he remains on dobutamine but was transferred back to stepdown unit . Renal function slightly improving hypotension resolving. Physical exam: Vital signs reviewed and stable. General: Nontoxic, no distress and appears stated age. Derm: Skin warm and dry, normal coloration for ethnicity. Head: Atraumatic, normocephalic and symmetric. Eyes: EOMs intact, no lid lag, and anicteric sclera Mouth: no lip lesions, mucus membranes moist Cardiovascular: Irregularly irregular, systolic murmur, positive posterior tibial pulses bilaterally, and cap refill < 2 seconds. Lungs: Respirations even, regular, and unlabored on room air. Lungs clear to auscultation bilaterally with no rhonchi, no rales, no wheezing, and no accessory muscle usage. Abdominal: soft, nontender to palpation, no guarding, no appreciable organomegaly Ext: ROM intact. No gross muscle atrophy, 1+ bilateral lower extremity edema, no contractures Neuro: Speech clear, face symmetrical and CN II-XII grossly intact with no noted focal neuro deficits Psych: Alert and oriented to person, place, time, and situation. Appropriate and pleasant affect. Assessment and Plan of Care: Acute exacerbation of chronic systolic heart failure with EF of 15 to 20% Acute hypoxic respiratory failure secondary to CHF exacerbation. New onset atrial fibrillation/flutter with episodes of RVR Elevated troponins, flat likely chronic secondary to CHF Acute kidney injury History of CAD status post CABG Ischemic cardiomyopathy Severe pulmonary hypertension Acute kidney injury, nonoliguric, resolving Hypotension, resolved Hypervolemic hyponatremia -Cardiology note reviewed: Patient continued on dobutamine drip, Lasix increased to 40 IV every 8 hours, monitor electrolytes and renal function -Pulmonology note reviewed -Nephrology note reviewed, maintain midodrine 10 mg 3 times daily, IV Lasix 40 mg IVP every 8 hours and dobutamine 2 mcg/kg/min, continue to hold antihypertensives -Continue Daily weights and Close monitoring of I's and O's -Patient to remain on continuous telemetry monitoring -Continue atorvastatin 40 mg nightly, amiodarone 200 mg twice daily, and metoprolol 12.5 mg daily, -Eliquis and Plavix held secondary to suspected upper GI bleed. Suspected upper GI bleed Mild normocytic anemia -Continue pantoprazole 40 mg IVP twice daily -General surgery consulted, recommending holding Eliquis and Plavix and if patient remains stable plans for EGD on Wednesday Transaminitis with hyperbilirubinemia, possibly secondary to gallbladder adenomyomatosis vs right-sided heart failure Lactic acidosis, resolved Elevated INR -Abdominal ultrasound showing gallbladder adenomyomatosis -Liver profile showing improvement of hyperbilirubinemia and transaminitis with IV diuresis, therefore it is likely these are resulting from right-sided heart failure. -General surgery evaluated recommending outpatient cholecystectomy once medically stable, signed off -Hepatitis panel was drawn in the emergency department and nonreactive Patient with extremely guarded prognosis. Data and imaging reviewed: Labs completed and reviewed. CBC showing stable normocytic anemia with hemoglobin of 12.2 and mild leukocytosis with WBC count of 11.8. BMP revealing continued slight improvement of renal function with BUN of 52, creatinine 1.35, and GFR 52. Vital signs reviewed. Blood pressure 107/55, heart rate 65, respiratory rate 15, and temp 97.7 F. CODE STATUS: Full code DVT prophylaxis: CRISTINA fajardo and SCDs, Eliquis and Plavix held secondary to concerns of upper GI bleed and plans for EGD on Wednesday Anticipated discharge date: Pending clinical course Anticipated discharge place: Pending clinical course Patient was seen independently by Nurse Pracitioner. This document was prepared using [employer] dictation software. Please allow for errors in trimmer machine operator, while rare they do occur. This patient was seen independently by Ofelia WAREHOUSEMAN. I agree with the assessment and plan done by my colleague. Objective - Vital Signs Vital signs: Vital Signs Temp 97.9 F 04/17/23 04:00 Pulse 59 L 04/17/23 04:00 Resp 16 04/17/23 04:00 BP 106/67 04/17/23 04:00 Pulse Ox 96 04/17/23 04:00 FiO2 Intake & Output 04/16/23 04/17/23 04/17/23 18:59 06:59 18:59 Intake Total 650 150 Output Total 1400 1700 Balance -750 -1550 Weight 77.7 kg Intake: Oral 650 150 Output: Urine 1400 1700 Other: Voiding Method Toilet Toilet Urinal - Labs CBC & Chem 7: 04/18/23 07:58 04/18/23 07:58 Labs: Abnormal Lab Results - Last 24 Hours (Table) 04/17/23 04/17/23 Range/Units 07:41 07:41 WBC 11.8 H (3.8-10.6) k/uL RBC 3.87 L (4.30-5.90) m/uL Hgb 12.2 L (13.0-17.5) gm/dL Hct 37.7 L (39.0-53.0) % RDW 16.0 H (11.5-15.5) % Neutrophils # 9.1 H (1.3-7.7) k/uL Monocytes # 1.2 H (0-1.0) k/uL BUN 52 H (9-20) mg/dL Creatinine 1.35 H (0.66-1.25) mg/dL Glucose 150 H (74-99) mg/dL
--- NOTE | 2023-04-17 15:05 | P.PN ---
Subjective Progress Note Date: 04/17/23 Principal diagnosis: Ischemic cardiomyopathy and LV dysfunction with hypotension and congestive heart failure This is a 73-year-old male patient with a known history of chronic systolic congestive heart failure with an ejection fraction of 15 to 20%, coronary artery disease previous coronary bypass grafting, ischemic cardiomyopathy, severe pulmonary hypertension, he had recently undergone balloon angioplasty of the RCA for in-stent restenosis in January 2023. He was discharged home on multiple cardiac medications all of which he had stopped taking because he made feel " stoned all the time". He was admitted again on April 08, 2023 with complaints of increasing shortness of breath and swelling of the lower extremities. He was found to have new onset atrial fibrillation/flutter who was admitted here back on April 08, 2023. He had been followed by surgical services and cardiology. He had been on a dobutamine drip up until earlier this morning. Later today bryce coulter called a rapid response team on the patient for hypotension. He was felt to possibly need norepinephrine and was to be admitted to the intensive care unit. We are consulted today for ICU management. He is currently seen resting fairly comfortably in bed. Awake and alert in no acute distress. He is maintaining good O2 saturations in the 90s on room air. He has been afebrile. He is bradyc ardic. He pressure is in the 70s systolic with mean arterial pressures in the 50s. He had been receiving diuretics. He was on amiodarone. He was on beta- blockers. All of which have been placed on hold. He is anticoagulated with Eliquis. White count 11.9. Hemoglobin 13.4. Sodium 130. Potassium 5.1. Bicarb 24. BUN 101. Creatinine 2.80. Glucose 106. AST 64. ALT 80. Alk phos 182. Patient reevaluated today on 04/15/2023, patient remains in the ICU, yesterday I started the patient on dobutamine drip, patient is doing much better today compared to yesterday, blood pressure seems to be more stable. Patient has good urine output, and his renal functioning is improving. WBC count is 10.1 hemoglobin 12.5 BUN is 103 creatinine 2.28 improved compared to creatinine of 2.80 yesterday Reevaluate today on 04/16/2023, patient remains in the ICU on dobutamine drip, 2 mcg/kg/min, continues to have good urine output, he is on room air, O2 sat is 94%. He is hemodynamically stable with blood pressure of 106/49. Mean of 66. Renal profile is steadily improving. Creatinine today is down to 1.53 compared to yesterday 2.28 Reevaluate today on 04/17/2023, patient remains on dobutamine drip at 2 mcg/kg/min, doing fairly well, relatively asymptomatic, his Lasix was increased to 3 times a day, patient is supposed to have EGD tomorrow. Pulmonary lorenz he is relatively asymptomatic. No cough no wheezing no shortness of breath. And his congestive heart failure is being addressed by cardiology/Dr. Renee on the case decision will be made today regarding his dobutamine for Objective - Vital Signs Vital signs: Vital Signs Temp 97.7 F 04/17/23 09:16 Pulse 62 04/17/23 11:28 Resp 17 04/17/23 11:28 BP 114/58 04/17/23 11:28 Pulse Ox 97 04/17/23 11:28 FiO2 Intake & Output 04/16/23 04/17/23 04/17/23 18:59 06:59 18:59 Intake Total 650 150 240 Output Total 1400 1700 Balance -750 -1550 240 Weight 77.7 kg Intake: Oral 650 150 240 Output: Urine 1400 1700 Other: Voiding Method Toilet Toilet Toilet Urinal Urinal # Voids 3 - Exam GENERAL EXAM: 23-year-old in no distress, on room air O2 saturation 94% HEAD: Normocephalic. EYES: Normal reaction of pupils, equal size. NOSE: Clear with pink turbinates. THROAT: No erythema or exudates. NECK: No masses, no JVD. CHEST: No chest wall deformity. LUNGS: Equal air entry with basilar crackles. CVS: S1 and S2 normal with no audible murmur, regular rhythm. ABDOMEN: No hepatosplenomegaly, normal bowel sounds, no guarding or rigidity. SKIN: No rashes CENTRAL NERVOUS SYSTEM: Alert and oriented x 3 no gross focal deficit EXTREMITIES: There is trace of bipedal edema - Labs CBC & Chem 7: 04/17/23 07:41 04/17/23 07:41 Labs: Abnormal Lab Results - Last 24 Hours (Table) 04/17/23 04/17/23 Range/Units 07:41 07:41 WBC 11.8 H (3.8-10.6) k/uL RBC 3.87 L (4.30-5.90) m/uL Hgb 12.2 L (13.0-17.5) gm/dL Hct 37.7 L (39.0-53.0) % RDW 16.0 H (11.5-15.5) % Neutrophils # 9.1 H (1.3-7.7) k/uL Monocytes # 1.2 H (0-1.0) k/uL BUN 52 H (9-20) mg/dL Creatinine 1.35 H (0.66-1.25) mg/dL Glucose 150 H (74-99) mg/dL Assessment and Plan Assessment: Impression: Severe ischemic cardiomyopathy Hypertension secondary to ischemic cardiomyopathy and LV dysfunction Acute kidney injury/cardiorenal New onset atrial fibrillation/flutter on Eliquis Coronary artery disease with recent PTCA for in-stent restenosis of RCA in January 30, 2002 3 History of medication noncompliance with recurrent congestive heart failure Coronary artery disease and previous CABG Chronic cholecystitis Ex-smoker Recommendation: Continue dobutamine at 2 micrograms per kilo per minute. Cardiology may decide on stopping his dobutamine today. Continue Lasix IV push. 3 times daily. Hold for EGD tomorrow. Continue to follow Time with Patient: Less than 30
--- NOTE | 2023-04-17 15:15 | P.PN ---
Subjective Progress Note Date: 04/17/23 Patient is seen in follow-up for acute kidney injury. Renal function improving. On dobutamine drip and IV Lasix. Denies chest pain or shortness of breath. Feels swelling is a bit better but still not significantly improved. Vital signs are stable. General: No acute distress. HEENT: Head exam is unremarkable. LUNGS: No audible rhonchi or wheezes. HEART: Rate and Rhythm are regular. ABDOMEN: Nontender. EXTREMITITES: 1+ edema. Objective - Vital Signs Vital signs: Vital Signs Temp 97.7 F 04/17/23 09:16 Pulse 65 04/17/23 09:16 Resp 15 04/17/23 09:16 BP 107/55 04/17/23 09:16 Pulse Ox 96 04/17/23 09:16 FiO2 Intake & Output 04/16/23 04/17/23 04/17/23 18:59 06:59 18:59 Intake Total 650 150 Output Total 1400 1700 Balance -750 -1550 Weight 77.7 kg Intake: Oral 650 150 Output: Urine 1400 1700 Other: Voiding Method Toilet Toilet Toilet Urinal Urinal - Labs CBC & Chem 7: 04/17/23 07:41 04/17/23 07:41 Labs: Abnormal Lab Results - Last 24 Hours (Table) 04/17/23 04/17/23 Range/Units 07:41 07:41 WBC 11.8 H (3.8-10.6) k/uL RBC 3.87 L (4.30-5.90) m/uL Hgb 12.2 L (13.0-17.5) gm/dL Hct 37.7 L (39.0-53.0) % RDW 16.0 H (11.5-15.5) % Neutrophils # 9.1 H (1.3-7.7) k/uL Monocytes # 1.2 H (0-1.0) k/uL BUN 52 H (9-20) mg/dL Creatinine 1.35 H (0.66-1.25) mg/dL Glucose 150 H (74-99) mg/dL Assessment and Plan Plan: Assessment: 1. Acute kidney injury secondary to ATN secondary to hypotension and cardiorenal syndrome. Creatinine as low as 1.1 this admission and peaked at 2.8 this admission -1.3 today. UA benign. No hydronephrosis noted on kidney ultrasound. 2. Hypervolemic hyponatremia. Better. 3. Acute on chronic systolic CHF with ejection fraction of 15 to 20% with severe pulmonary hypertension. 4. Coronary disease with cardiac stenting. 5. A-fib/flutter. Cardiology following. 6. Fluid overload. Improving with diuresis. Plan: Maintain midodrine. Maintain IV Lasix If edema not improved tomorrow will add Metolazone 2.5mg. Dobutamine per cardiology. Cortisol level normal. Antihypertensives held. Strict I's and O's.
--- NOTE | 2023-04-17 17:28 | P.PN ---
Subjective Progress Note Date: 04/17/23 Principal diagnosis: Adenomyosis of gallbladder and new anemia No symptoms referable to gallbladder and no evidence of bleeding. Objective - Vital Signs Vital signs: Vital Signs Temp 97.7 F 04/17/23 09:16 Pulse 61 04/17/23 15:14 Resp 15 04/17/23 15:14 BP 106/57 04/17/23 15:14 Pulse Ox 100 04/17/23 15:14 FiO2 Intake & Output 04/16/23 04/17/23 04/17/23 18:59 06:59 18:59 Intake Total 650 150 405.624 Output Total 1400 1700 700 Balance -750 -1550 -294.376 Weight 77.7 kg Intake: Intake, IV Titration 165.624 Amount DOBUTamine DRIP 500 mg In 165.624 Dextrose/Water 1 250ml. bag @ 2 MCG/KG/MIN 4.824 mls/hr IV .Q24H [facility] Rx#: [id number] Oral 650 150 240 Output: Urine 1400 1700 700 Other: Voiding Method Toilet Toilet Toilet Urinal Urinal # Voids 3 - Gastrointestinal General gastrointestinal: Absent: tenderness - Labs CBC & Chem 7: 04/17/23 07:41 04/17/23 07:41 Labs: Abnormal Lab Results - Last 24 Hours (Table) 04/17/23 04/17/23 Range/Units 07:41 07:41 WBC 11.8 H (3.8-10.6) k/uL RBC 3.87 L (4.30-5.90) m/uL Hgb 12.2 L (13.0-17.5) gm/dL Hct 37.7 L (39.0-53.0) % RDW 16.0 H (11.5-15.5) % Neutrophils # 9.1 H (1.3-7.7) k/uL Monocytes # 1.2 H (0-1.0) k/uL BUN 52 H (9-20) mg/dL Creatinine 1.35 H (0.66-1.25) mg/dL Glucose 150 H (74-99) mg/dL Assessment and Plan Assessment: Adenomyosis and GI bleed for endoscopy
[2023-04-18 08:32] LABS: Anisocytosis Slight; HCT 34.2 % (39.0-53.0); HGB 10.9 gm/dL (13.0-17.5); Hypochromasia Slight; MCH 30.4 pg (25.0-35.0); MCHC 31.7 g/dL (31.0-37.0); MCV 95.8 fL (80.0-100.0); Mean Platelet Volume 8.6; Platelet Count 223 k/uL (150-450); RBC 3.57 m/uL (4.30-5.90); RDW 16.1 % (11.5-15.5); WBC 11.8 k/uL (3.8-10.6)
--- NOTE | 2023-04-18 09:14 | P.PN ---
Subjective Progress Note Date: 04/18/23 Patient is stable. He is scheduled for EGD in the a.m. His abdomen soft nontender. Objective - Vital Signs Vital signs: Vital Signs Temp 97.7 F 04/18/23 09:12 Pulse 70 04/18/23 09:12 Resp 15 04/18/23 09:12 BP 106/70 04/18/23 09:12 Pulse Ox 95 04/18/23 09:12 FiO2 Intake & Output 04/17/23 04/18/23 04/18/23 18:59 06:59 18:59 Intake Total 405.624 118 258 Output Total 700 700 Balance -294.376 -582 258 Weight 76.3 kg Intake: Intake, IV Titration 165.624 Amount DOBUTamine DRIP 500 mg In 165.624 Dextrose/Water 1 250ml. bag @ 2 MCG/KG/MIN 4.824 mls/hr IV .Q24H [facility] Rx#: [id number] Oral 240 118 258 Output: Urine 700 700 Other: Voiding Method Toilet Toilet Urinal Urinal # Voids 3 2 - Labs CBC & Chem 7: 04/18/23 07:58 04/17/23 07:41 Labs: Abnormal Lab Results - Last 24 Hours (Table) 04/18/23 Range/Units 07:58 WBC 11.8 H (3.8-10.6) k/uL RBC 3.57 L (4.30-5.90) m/uL Hgb 10.9 L (13.0-17.5) gm/dL Hct 34.2 L (39.0-53.0) % RDW 16.1 H (11.5-15.5) %
[2023-04-18 09:25] LABS: ALT 77 U/L (4-49); AST 64 U/L (17-59); African American GFR (CKD) 66 (>60 ml/min/1.73 sqM); Albumin 3.3 g/dL (3.5-5.0); Alkaline Phosphatase 185 U/L (38-126); Anion Gap 7 mmol/L; Blood Urea Nitrogen 38 mg/dL (9-20); Calcium 8.6 mg/dL (8.4-10.2); Carbon Dioxide 28 mmol/L (22-30); Chloride 101 mmol/L (98-107); Glucose 174 mg/dL (74-99); Magnesium 2.1 mg/dL (1.6-2.3); Non-African American GFR(CKD) 57 (>60 ml/min/1.73 sqM); Potassium 3.8 mmol/L (3.5-5.1); Sodium 136 mmol/L (137-145); Total Bilirubin 1.9 mg/dL (0.2-1.3); Total Protein 6.3 g/dL (6.3-8.2)
--- NOTE | 2023-04-18 10:29 | P.PN ---
Subjective Progress Note Date: 04/18/23 HISTORY OF PRESENT ILLNESS: This is a 73-year-old male with a past medical history significant for coronary artery disease with previous CABG and stenting, congestive heart failure, and medication noncompliance. Patient follows in the office with Dr. King. We have been asked to see the patient in consultation for congestive heart failure. Patient examined at the bedside. Patient presented to the hospital with a chief complaint of shortness of breath. It is noted that the patient was recently hospitalized in January and underwent balloon angioplasty of RCA in-stent restenosis. The patient was discharged home on multiple cardiac medications including aspirin, Lasix, losartan, Plavix, and Jardiance. The patient states he stopped taking all of these medications because they did not make him feel unwell. He states that he felt like he was "stoned" all the time. The patient was found to be in congestive heart failure. He was started on IV Lasix. He was also started on IV heparin secondary to abnormal troponins. He denies having any chest pain or pressure. EKG on admission reveals atrial fibrillation/flutter. The patient denies a history of atrial fibrillation or atrial flutter. DIAGNOSTICS: - EKG reveals atrial fibrillation with no signs of acute ischemia - Chest xray pulmonary venous congestion with cardiomegaly and small left-sided pleural effusion - Laboratory data: WBC 13.5. Hemoglobin 14.5. Platelet count 178. Sodium 137. Potassium 3.5. BUN is 47. Creatinine 1.17. Lactic acid 2.1. AST 84. ALT 89. proBNP 12,900. Troponin 0.070. - Current home cardiac medications include none - Most recent echocardiogram obtained in January 2023 revealed ejection fr action 15 to 20%, severe pulmonary hypertension, mild TR, mild MR - Cardiac catheterization history: January 2023 revealing coronary artery disease including 100% proximal LAD stenosis, 40 to 50% mid circumflex stenosis, 90% RCA in-stent stenosis. Elevated left and right-sided filling pressures. Decreased cardiac output and cardiac index. Pulmonary hypertension related to left-sided heart failure. Patient underwent balloon angioplasty of the RCA. 04/17 Patient has been transferred out of the intensive care unit now on the cardiac stepdown unit. He is noted to have decreased lower extremity edema. He remains on dobutamine drip and IV Lasix as well as midodrine. Yesterday, frequency of Lasix was increased to 3 times daily. He is also maintained on amiodarone. Eliquis is on hold for planned EGD on Wednesday. Repeat chest x-ray reveals stable mild cardiomegaly and small left pleural e ffusion. Chronic parenchymal changes bilaterally redemonstrated. No new infiltrates. No significant change.. 04/18 Patient has been continued on dobutamine drip at 2 mcg and also Lasix 40 mg IV every 8 hours. He continues to have good urine output with negative fluid balance and weight is decreasing. Patient has improvement of his renal function. Repeat blood work reveals hemoglobin 10.9, WBC 11.8. Sodium 136, potassium 3.8, BUN 38 creatinine 1.25. Patient is scheduled for EGD tomorrow. PHYSICAL EXAM: VITAL SIGNS: Reviewed. GENERAL: Well-developed in no acute distress. HEENT: Head is normocephalic. Pupils are equal, round. Sclerae anicteric. Mucous membranes of the mouth are moist. Neck supple. Positive JVD LUNGS: Respirations even and unlabored. Lungs clear to auscultation HEART: Irregular rate and rhythm. S1 and S2 heard. Systolic murmur at the apex ABDOMEN: Soft. Nondistended. Nontender. EXTREMITIES: No clubbing or cyanosis. Peripheral pulses intact. 1+ bilateral lower extremity edema NEUROLOGIC: Awake and alert. Oriented x 3. ASSESSMENT: Shortness of breath Acute on chronic heart failure with reduced EF, 15 to 20% New onset atrial fibrillation/flutter Abnormal troponins, flat, type II GA Coronary artery disease with previous CABG and stenting Status post balloon angioplasty of RCA in-stent stenosis, January 2023 Ischemic cardiomyopathy, refusing AICD implantation Pulmonary hypertension History of medication noncompliance Reported intolerance to multiple medications including beta-blockers and Aldactone Transaminitis Former nicotine dependence PLAN: Discontinue dobutamine drip Continue IV Lasix 40 mg every 8 hours Monitor HAJA, daily weights, to lites and renal function Continue patient on amiodarone (Eliquis is on hold for EGD scheduled for Wednesday) Continue midodrine 5 mg 3 times daily Further recommendations pending patient course Nurse practitioner note has been reviewed by physician. Signing provider agrees with the documented findings, assessment, and plan of care documented by DA[employer] OPERATOR as a scribe. Objective - Vital Signs Vital signs: Vital Signs Temp 97.9 F 04/17/23 20:00 Pulse 72 04/18/23 04:00 Resp 18 04/18/23 04:00 BP 114/68 04/18/23 04:00 Pulse Ox 92 L 04/18/23 04:00 FiO2 Intake & Output 04/17/23 04/18/23 04/18/23 18:59 06:59 18:59 Intake Total 405.624 118 Output Total 700 700 Balance -294.376 -582 Weight 76.3 kg Intake: Intake, IV Titration 165.624 Amount DOBUTamine DRIP 500 mg In 165.624 Dextrose/Water 1 250ml. bag @ 2 MCG/KG/MIN 4.824 mls/hr IV .Q24H [facility] Rx#: [id number] Oral 240 118 Output: Urine 700 700 Other: Voiding Method Toilet Toilet Urinal Urinal # Voids 3 2 - Labs CBC & Chem 7: 04/18/23 07:58 04/18/23 07:58 Labs: Abnormal Lab Results - Last 24 Hours (Table) 04/17/23 Range/Units 07:41 BUN 52 H (9-20) mg/dL Creatinine 1.35 H (0.66-1.25) mg/dL Glucose 150 H (74-99) mg/dL
--- NOTE | 2023-04-18 12:00 | P.PN ---
Subjective Progress Note Date: 04/18/23 Patient is seen in follow-up for acute kidney injury. States edema is slightly improved today but not too much better. Still urinating frequently and plan for EGD tomorrow. Vital signs are stable. General: No acute distress. HEENT: Head exam is unremarkable. LUNGS: No audible rhonchi or wheezes. HEART: Rate and Rhythm are regular. ABDOMEN: Nontender. EXTREMITITES: 2+ LE edema. Objective - Vital Signs Vital signs: Vital Signs Temp 97.7 F 04/18/23 09:12 Pulse 61 04/18/23 11:37 Resp 15 04/18/23 11:37 BP 107/67 04/18/23 11:37 Pulse Ox 93 L 04/18/23 11:37 FiO2 Intake & Output 04/17/23 04/18/23 04/18/23 18:59 06:59 18:59 Intake Total 405.624 118 258 Output Total 700 700 Balance -294.376 -582 258 Weight 76.3 kg Intake: Intake, IV Titration 165.624 Amount DOBUTamine DRIP 500 mg In 165.624 Dextrose/Water 1 250ml. bag @ 2 MCG/KG/MIN 4.824 mls/hr IV .Q24H [facility] Rx#: [id number] Oral 240 118 258 Output: Urine 700 700 Other: Voiding Method Toilet Toilet Toilet Urinal Urinal Urinal # Voids 3 2 - Labs CBC & Chem 7: 04/18/23 07:58 04/18/23 07:58 Labs: Abnormal Lab Results - Last 24 Hours (Table) 04/18/23 04/18/23 Range/Units 07:58 07:58 WBC 11.8 H (3.8-10.6) k/uL RBC 3.57 L (4.30-5.90) m/uL Hgb 10.9 L (13.0-17.5) gm/dL Hct 34.2 L (39.0-53.0) % RDW 16.1 H (11.5-15.5) % Sodium 136 L (137-145) mmol/L BUN 38 H (9-20) mg/dL Glucose 174 H (74-99) mg/dL Total Bilirubin 1.9 H (0.2-1.3) mg/dL AST 64 H (17-59) U/L ALT 77 H (4-49) U/L Alkaline Phosphatase 185 H (38-126) U/L Albumin 3.3 L (3.5-5.0) g/dL Assessment and Plan Plan: Assessment: 1. Acute kidney injury secondary to ATN secondary to hypotension and cardiorenal syndrome. Creatinine as low as 1.1 this admission and peaked at 2.8, improved 1.2 today which is baseline. UA benign. No hydronephrosis noted on kidney ultrasound. 2. Hypervolemic hyponatremia. Better. 3. Acute on chronic systolic CHF with ejection fraction of 15 to 20% with severe pulmonary hypertension. 4. Coronary disease with cardiac stenting. 5. A-fib/flutter. Cardiology following. 6. Fluid overload. Improving with diuresis. Plan: Maintain midodrine. Maintain IV Lasix, off dobutamine drip today Will add Metolazone 2.5mg one-time dose today and assess for increasing urine output. Antihypertensives held. Strict I's and O's.
[2023-04-18] MEDS: metOLazone 2.5 MG TAB PO ONE (12:46)
--- NOTE | 2023-04-18 14:38 | P.PN ---
Subjective Progress Note Date: 04/18/23 Principal diagnosis: Ischemic cardiomyopathy and LV dysfunction with hypotension and congestive heart failure This is a 73-year-old male patient with a known history of chronic systolic congestive heart failure with an ejection fraction of 15 to 20%, coronary artery disease previous coronary bypass grafting, ischemic cardiomyopathy, severe pulmonary hypertension, he had recently undergone balloon angioplasty of the RCA for in-stent restenosis in January 2023. He was discharged home on multiple cardiac medications all of which he had stopped taking because he made feel " stoned all the time". He was admitted again on April 08, 2023 with complaints of increasing shortness of breath and swelling of the lower extremities. He was found to have new onset atrial fibrillation/flutter who was admitted here back on April 08, 2023. He had been followed by surgical services and cardiology. He had been on a dobutamine drip up until earlier this morning. Later today bryce coulter called a rapid response team on the patient for hypotension. He was felt to possibly need norepinephrine and was to be admitted to the intensive care unit. We are consulted today for ICU management. He is currently seen resting fairly comfortably in bed. Awake and alert in no acute distress. He is maintaining good O2 saturations in the 90s on room air. He has been afebrile. He is bradyc ardic. He pressure is in the 70s systolic with mean arterial pressures in the 50s. He had been receiving diuretics. He was on amiodarone. He was on beta- blockers. All of which have been placed on hold. He is anticoagulated with Eliquis. White count 11.9. Hemoglobin 13.4. Sodium 130. Potassium 5.1. Bicarb 24. BUN 101. Creatinine 2.80. Glucose 106. AST 64. ALT 80. Alk phos 182. Patient reevaluated today on 04/15/2023, patient remains in the ICU, yesterday I started the patient on dobutamine drip, patient is doing much better today compared to yesterday, blood pressure seems to be more stable. Patient has good urine output, and his renal functioning is improving. WBC count is 10.1 hemoglobin 12.5 BUN is 103 creatinine 2.28 improved compared to creatinine of 2.80 yesterday Reevaluate today on 04/16/2023, patient remains in the ICU on dobutamine drip, 2 mcg/kg/min, continues to have good urine output, he is on room air, O2 sat is 94%. He is hemodynamically stable with blood pressure of 106/49. Mean of 66. Renal profile is steadily improving. Creatinine today is down to 1.53 compared to yesterday 2.28 Reevaluate today on 04/17/2023, patient remains on dobutamine drip at 2 mcg/kg/min, doing fairly well, relatively asymptomatic, his Lasix was increased to 3 times a day, patient is supposed to have EGD tomorrow. Pulmonary lorenz he is relatively asymptomatic. No cough no wheezing no shortness of breath. And his congestive heart failure is being addressed by cardiology/Dr. Renee on the case decision will be made today regarding his dobutamine Patient was reevaluated today on 04/18/2023, patient is doing well, he is now off dobutamine, remains on room air, not in any form of respiratory distress. Supposedly the patient is scheduled to have EGD tomorrow, cardiology is addressing his congestive heart failure and severe cardiomyopathy, remains on diuretics as per cardiology.Patient is on Lasix 40 mg IV push every 8 hours, he is also on amiodarone, and metoprolol 12.5 mg daily. Not much we are contributing at this point, and will see the patient on as-needed basis Objective - Vital Signs Vital signs: Vital Signs Temp 97.7 F 04/18/23 09:12 Pulse 61 04/18/23 11:37 Resp 15 04/18/23 11:37 BP 107/67 04/18/23 11:37 Pulse Ox 93 L 04/18/23 11:37 FiO2 Intake & Output 04/17/23 04/18/23 04/18/23 18:59 06:59 18:59 Intake Total 405.624 118 616 Output Total 700 700 350 Balance -294.376 -582 266 Weight 76.3 kg Intake: Intake, IV Titration 165.624 Amount DOBUTamine DRIP 500 mg In 165.624 Dextrose/Water 1 250ml. bag @ 2 MCG/KG/MIN 4.824 mls/hr IV .Q24H [facility] Rx#: [id number] Oral 240 118 616 Output: Urine 700 700 350 Other: Voiding Method Toilet Toilet Toilet Urinal Urinal Urinal # Voids 3 2 - Exam GENERAL EXAM: 23-year-old in no distress, on room air O2 saturation 95% HEAD: Normocephalic. EYES: Normal reaction of pupils, equal size. NOSE: Clear with pink turbinates. THROAT: No erythema or exudates. NECK: No masses, no JVD. CHEST: No chest wall deformity. LUNGS: Equal air entry with basilar crackles. CVS: S1 and S2 normal with no audible murmur, regular rhythm. ABDOMEN: No hepatosplenomegaly, normal bowel sounds, no guarding or rigidity. SKIN: No rashes CENTRAL NERVOUS SYSTEM: Alert and oriented x 3 no gross focal deficit EXTREMITIES: There is trace of bipedal edema - Labs CBC & Chem 7: 04/18/23 07:58 04/18/23 07:58 Labs: Abnormal Lab Results - Last 24 Hours (Table) 04/18/23 04/18/23 Range/Units 07:58 07:58 WBC 11.8 H (3.8-10.6) k/uL RBC 3.57 L (4.30-5.90) m/uL Hgb 10.9 L (13.0-17.5) gm/dL Hct 34.2 L (39.0-53.0) % RDW 16.1 H (11.5-15.5) % Sodium 136 L (137-145) mmol/L BUN 38 H (9-20) mg/dL Glucose 174 H (74-99) mg/dL Total Bilirubin 1.9 H (0.2-1.3) mg/dL AST 64 H (17-59) U/L ALT 77 H (4-49) U/L Alkaline Phosphatase 185 H (38-126) U/L Albumin 3.3 L (3.5-5.0) g/dL Assessment and Plan Assessment: Impression: Severe ischemic cardiomyopathy Hypertension secondary to ischemic cardiomyopathy and LV dysfunction Acute kidney injury/cardiorenal New onset atrial fibrillation/flutter on Eliquis Coronary artery disease with recent PTCA for in-stent restenosis of RCA in January 30, 2002 3 History of medication noncompliance with recurrent congestive heart failure Coronary artery disease and previous CABG Chronic cholecystitis Ex-smoker Recommendation: Continue treatment as per cardiology Continue Lasix IV push. 3 times daily. Scheduled for EGD tomorrow Will follow as needed Time with Patient: Less than 30
--- NOTE | 2023-04-18 14:54 | P.PN ---
Subjective Progress Note Date: 04/18/23 Hospital course: Patient is a very pleasant 73-year-old male with a past medical history of CAD status post CABG, Chronic systolic heart failure with previously known EF of 15 to 20%, ischemic cardiomyopathy, severe pulmonary hypertension, and medication noncompliance. Pt reports that his peoplesoft hrms developer is Dr. King and that he has not seen him since his last hospitalization back in January. Patient reports peoplesoft hrms developer recommended AICD placement secondary to his severely impaired heart function but patient declined stating he will never get that procedure. During last hospitalization patient was also discharged home on aspirin 81 mg daily, Lasix 40 mg daily, losartan 12.5 mg daily, Plavix 75 mg daily, Jardiance 10 mg daily and as needed nitroglycerin sublingual tablets 0.4 mg. Patient reports he did not take any of these medications because they are not good for you. Patient states the last time he took medications was during previous hospita lization. Patient denies following up outpatient with PCP and reports last time he saw his peoplesoft hrms developer was just after his last hospitalization back in January. He presented to the emergency department 04/08/2023 for reports of progressively worsening shortness of breath accompanied by bilateral lower extremity swelling. He underwent full evaluation in the emergency department. Vital signs upon arrival showing heart rate of 133, blood pressure 125/86, respiratory rate 20, temp 97.8 F, and SpO2 of 98% on room air. EKG showing atrial flutter with RVR at 116 bpm with occasional PACs. Labs completed and reviewed. CBC showing leukocytosis with WBC count of 13.2, coagulation profile showing elevated PT of 15.6 and INR of 1.5. BMP showing hyperkalemia with potassium of 5.8 but reported as a hemolyzed specimen, elevated BUN of 48, and blood glucose of 112. Lactic acid elevated at 2.2. Liver profile showing hyperbilirubinemia with bilirubin of 3.8 and transaminitis with AST of 179, ALT of 108, and alkaline phosphatase of 177. Troponin elevated at 0.070 and proBNP of 12,900. Chest x-ray was completed showing pulmonary venous congestion with cardiomegaly and small left-sided pleural effusion. Abdominal ultrasound showing gallbladder adenomyomatosis. In the emergency department patient was given aspirin 325 mg p.o. x 1 dose, Lasix 40 mg IVP x 1 dose, and started on low intensity heparin infusion at 10 units/kg/h. Patient admitted under our services with consultation to cardiology for acute systolic heart failure exacerbation and general surgery for gallbladder adenomyomatosis accompanied by hyperbilirubinemia and transaminitis. Troponins trended resulting at 0.070 and 0.066. Patient evaluated by general surgery recommending outpatient cholecystectomy once patient is medically stable. Patient was evaluated by cardiology. Heart failure medication regimen was initiated with metoprolol 12.5 mg daily, Entresto 24/26 mg tablet twice daily, Plavix 75 mg daily, atorvastatin 40 mg daily, and Eliquis 5 mg twice daily. Patient also placed on IV diuresis with Lasix and started on dobutamine infusion, now discontinued. He has been persistently hypotensive and was Transferred to the medical ICU where he was found to have 2 episodes of black tarry stools. General surgery was consulted, Stopping patient's Eliquis and Plavix and recommending continued close monitoring of CBC and if patient remains stable, Dr. Smith to do EGD on Wednesday. Currently hemoglobin remained stable, patient has had no further episodes of black tarry stools, he remains on dobutamine but was transferred back to stepdown unit . Renal function slightly improving hypotension resolving. Physical exam: Vital signs reviewed and stable. General: Nontoxic, no distress and appears stated age. Derm: Skin warm and dry, normal coloration for ethnicity. Head: Atraumatic, normocephalic and symmetric. Eyes: EOMs intact, no lid lag, and anicteric sclera Mouth: no lip lesions, mucus membranes moist Cardiovascular: Irregularly irregular, systolic murmur, positive posterior tibial pulses bilaterally, and cap refill < 2 seconds. Lungs: Respirations even, regular, and unlabored on room air. Lungs clear to auscultation bilaterally with no rhonchi, no rales, no wheezing, and no accessory muscle usage. Abdominal: soft, nontender to palpation, no guarding, no appreciable organomegaly Ext: ROM intact. No gross muscle atrophy, 1+ bilateral lower extremity edema, no contractures Neuro: Speech clear, face symmetrical and CN II-XII grossly intact with no noted focal neuro deficits Psych: Alert and oriented to person, place, time, and situation. Appropriate and pleasant affect. Assessment and Plan of Care: Acute exacerbation of chronic systolic heart failure with EF of 15 to 20% Acute hypoxic respiratory failure secondary to CHF exacerbation. New onset atrial fibrillation/flutter with episodes of RVR Elevated troponins, flat likely chronic secondary to CHF Acute kidney injury History of CAD status post CABG Ischemic cardiomyopathy Severe pulmonary hypertension Acute kidney injury, nonoliguric, resolving Hypotension, resolved Hypervolemic hyponatremia -Cardiology note reviewed: Patient remains on dobutamine infusion at 2 mcg/kg/min. Lasix increased to 40 IV every 8 hours, monitor electrolytes and renal function -Pulmonology note reviewed -Nephrology note reviewed, maintain midodrine 10 mg 3 times daily, IV Lasix 40 mg IVP every 8 hours and dobutamine 2 mcg/kg/min, continue to hold antihypertensives -Continue Daily weights and close monitoring of I's and O's. -Patient to remain on continuous telemetry monitoring. -Continue atorvastatin 40 mg nightly, amiodarone 200 mg twice daily, and metoprolol 12.5 mg daily, -Eliquis and Plavix held secondary to suspected upper GI bleed. Suspected upper GI bleed Mild normocytic anemia -Continue pantoprazole 40 mg IVP twice daily -General surgery evaluated, holding Eliquis and Plavix and plans for EGD tomorrow. -Orders placed for n.p.o. after midnight. Transaminitis with hyperbilirubinemia, possibly secondary to gallbladder iggy omyomatosis vs right-sided heart failure Lactic acidosis, resolved Elevated INR -Abdominal ultrasound showing gallbladder adenomyomatosis -Liver profile showing improvement of hyperbilirubinemia and transaminitis with IV diuresis, therefore it is likely these are resulting from right-sided heart failure. -General surgery evaluated recommending outpatient cholecystectomy once m edically stable, signed off -Hepatitis panel was drawn in the emergency department and nonreactive Patient with guarded prognosis. Data and imaging reviewed: Labs completed and reviewed. CBC showing mild leukocytosis with WBC count of 11.8, hemoglobin of 10.9, and platelet count of 223. BMP showing continued im provement of renal function with BUN of 38, creatinine 1.25, GFR 57. Liver profile showing elevated total bili of 1.9 and transaminitis with AST of 64, ALT of 77, and alkaline phosphatase of 185. Vital signs reviewed. Blood pressure 106/70, heart rate 70, respiratory rate 15, temp 97.7 F, and SpO2 of 95% on room air. CODE STATUS: Full code DVT prophylaxis: CRISTINA hose and SCDs, Eliquis and Plavix held secondary to concerns of upper GI bleed and plans for EGD on Wednesday Anticipated discharge date: Pending clinical course Anticipated discharge place: Pending clinical course Patient was seen independently by Nurse Pracitioner. This document was prepared using PT PAL dictation software. Please allow for errors in quiller runner, while rare they do occur. This patient was seen independently by Ofelia GLASS FURNACE TENDER. I agree with the assessment and plan done by my colleague. Objective - Vital Signs Vital signs: Vital Signs Temp 97.9 F 04/17/23 20:00 Pulse 72 04/18/23 04:00 Resp 18 04/18/23 04:00 BP 114/68 04/18/23 04:00 Pulse Ox 92 L 04/18/23 04:00 FiO2 Intake & Output 04/17/23 04/18/23 04/18/23 18:59 06:59 18:59 Intake Total 405.624 118 258 Output Total 700 700 Balance -294.376 -582 258 Weight 76.3 kg Intake: Intake, IV Titration 165.624 Amount DOBUTamine DRIP 500 mg In 165.624 Dextrose/Water 1 250ml. bag @ 2 MCG/KG/MIN 4.824 mls/hr IV .Q24H [facility]OL[facility] Rx#: [id number] Oral 240 118 258 Output: Urine 700 700 Other: Voiding Method Toilet Toilet Urinal Urinal # Voids 3 2 - Labs CBC & Chem 7: 04/18/23 07:58 04/18/23 07:58 Labs: Abnormal Lab Results - Last 24 Hours (Table) 04/17/23 04/18/23 Range/Units 07:41 07:58 WBC 11.8 H (3.8-10.6) k/uL RBC 3.57 L (4.30-5.90) m/uL Hgb 10.9 L (13.0-17.5) gm/dL Hct 34.2 L (39.0-53.0) % RDW 16.1 H (11.5-15.5) % BUN 52 H (9-20) mg/dL Creatinine 1.35 H (0.66-1.25) mg/dL Glucose 150 H (74-99) mg/dL
[2023-04-19] MEDS: FUROSEMIDE 40 MG TAB PO SCH (08:54)
[2023-04-19 09:24] LABS: Anisocytosis Slight; HCT 35.1 % (39.0-53.0); HGB 11.6 gm/dL (13.0-17.5); MCHC 33.1 g/dL (31.0-37.0); MCV 93.6 fL (80.0-100.0); Mean Platelet Volume 8.8; Platelet Count 266 k/uL (150-450); RBC 3.75 m/uL (4.30-5.90); RDW 16.1 % (11.5-15.5); WBC 12.9 k/uL (3.8-10.6)
[2023-04-19 09:52] LABS: ALT 83 U/L (4-49); AST 69 U/L (17-59); African American GFR (CKD) 68 (>60 ml/min/1.73 sqM); Albumin 3.5 g/dL (3.5-5.0); Alkaline Phosphatase 204 U/L (38-126); Anion Gap 9 mmol/L; Blood Urea Nitrogen 38 mg/dL (9-20); Calcium 8.9 mg/dL (8.4-10.2); Carbon Dioxide 33 mmol/L (22-30); Chloride 92 mmol/L (98-107); Glucose 102 mg/dL (74-99); Magnesium 2.2 mg/dL (1.6-2.3); Non-African American GFR(CKD) 59 (>60 ml/min/1.73 sqM); Sodium 134 mmol/L (137-145); Total Bilirubin 2.2 mg/dL (0.2-1.3); Total Protein 6.7 g/dL (6.3-8.2)
--- NOTE | 2023-04-19 11:49 | P.PN ---
Subjective HISTORY OF PRESENT ILLNESS: This is a 73-year-old male with a past medical history significant for coronary artery disease with previous CABG and stenting, congestive heart failure, and medication noncompliance. Patient follows in the office with Dr. King. We have been asked to see the patient in consultation for congestive heart failure. Patient examined at the bedside. Patient presented to the hospital with a chief complaint of shortness of breath. It is noted that the patient was recently hospitalized in January and underwent balloon angioplasty of RCA in-stent restenosis. The patient was discharged home on multiple cardiac medications including aspirin, Lasix, losartan, Plavix, and Jardiance. The patient states he stopped taking all of these medications because they did not make him feel unwell. He states that he felt like he was "stoned" all the time. The patient was found to be in congestive heart failure. He was started on IV Lasix. He was also started on IV heparin secondary to abnormal troponins. He denies h aving any chest pain or pressure. EKG on admission reveals atrial fibrillation/flutter. The patient denies a history of atrial fibrillation or atrial flutter. DIAGNOSTICS: - EKG reveals atrial fibrillation with no signs of acute ischemia - Chest xray pulmonary venous congestion with cardiomegaly and small left-sided pleural effusion - Laboratory data: WBC 13.5. Hemoglobin 14.5. Platelet count 178. Sodium 137. Potassium 3.5. BUN is 47. Creatinine 1.17. Lactic acid 2.1. AST 84. ALT 89. proBNP 12,900. Troponin 0.070. - Current home cardiac medications include none - Most recent echocardiogram obtained in January 2023 revealed ejection fraction 15 to 20%, severe pulmonary hypertension, mild TR, mild MR - Cardiac catheterization history: January 2023 revealing coronary artery di sease including 100% proximal LAD stenosis, 40 to 50% mid circumflex stenosis, 90% RCA in-stent stenosis. Elevated left and right-sided filling pressures. Decreased cardiac output and cardiac index. Pulmonary hypertension related to left-sided heart failure. Patient underwent balloon angioplasty of the RCA. 04/17 Patient has been transferred out of the intensive care unit now on the cardiac stepdown unit. He is noted to have decreased lower extremity edema. He remains on dobutamine drip and IV Lasix as well as midodrine. Yesterday, frequency of Lasix was increased to 3 times daily. He is also maintained on amiodarone. Cj is on hold for planned EGD on Wednesday. Repeat chest x-ray reveals stable mild cardiomegaly and small left pleural effusion. Chronic parenchymal changes bilaterally redemonstrated. No new infiltrates. No significant change.. 04/18 Patient has been continued on dobutamine drip at 2 mcg and also Lasix 40 mg IV every 8 hours. He continues to have good urine output with negative fluid balance and weight is decreasing. Patient has improvement of his renal function. Repeat blood work reveals hemoglobin 10.9, WBC 11.8. Sodium 136, potassium 3.8, BUN 38 creatinine 1.25. Patient is scheduled for EGD tomorrow. 04/19/2023 Patient examined this morning. He is walking around in his room upon evaluation. He denies any chest pain or pressure. He denies any shortness of breath. He is scheduled to undergo endoscopy today. His Eliquis remains on hold. PHYSICAL EXAM: VITAL SIGNS: Reviewed. GENERAL: Well-developed in no acute distress. NECK: Supple. No JVD or thyromegaly LUNGS: Respirations even and unlabored. Lungs essentially clear to auscultation bilaterally. HEART: Regular rate and rhythm. S1 and S2 heard. EXTREMITIES: Normal range of motion. No clubbing or cyanosis. Peripheral pulses intact. No lower extremity edema ASSESSMENT: Shortness of breath Acute on chronic heart failure with reduced EF, 15 to 20% New onset atrial fibrillation/flutter Abnormal troponins, flat, type II IN Coronary artery disease with previous CABG and stenting Status post balloon angioplasty of RCA in-stent stenosis, January 2023 Ischemic cardiomyopathy, refusing AICD implantation Pulmonary hypertension History of medication noncompliance Reported intolerance to multiple medications including beta-blockers and Aldactone Transaminitis Former nicotine dependence Chronic cholecystitis Acute GI bleed with black tarry stools PLAN: Continue current cardiac medications Discontinue IV Lasix Begin oral Lasix 40 mg twice a day Patient not on maximized medical treatment due to patient stated intolerance of multiple medications and refusal to take these on an outpatient basis Shericequis remains on hold. Patient scheduled for endoscopy today with general surgery Further recommendations pending patient course Nurse practitioner note has been reviewed by physician. Signing provider agrees with the documented findings, assessment, and plan of care documented by TOP INSTALLER as a scribe. Objective - Vital Signs Vital signs: Vital Signs Temp 98.3 F 02/19/24 08:50 Pulse 60 04/19/23 08:50 Resp 18 04/19/23 08:50 BP 108/67 04/19/23 08:50 Pulse Ox 97 04/19/23 08:50 FiO2 Intake & Output 04/18/23 04/19/23 04/19/23 18:59 06:59 18:59 Intake Total 616 Output Total 350 1325 Balance 266 -1325 Intake: Oral 616 Output: Urine 350 1325 Other: Voiding Method Toilet Toilet Toilet Urinal Urinal Urinal - Labs CBC & Chem 7: 04/19/23 08:29 04/19/23 08:29 Labs: Abnormal Lab Results - Last 24 Hours (Table) 04/19/23 04/19/23 Range/Units 08:29 08:29 WBC 12.9 H (3.8-10.6) k/uL RBC 3.75 L (4.30-5.90) m/uL Hgb 11.6 L (13.0-17.5) gm/dL Hct 35.1 L (39.0-53.0) % RDW 16.1 H (11.5-15.5) % Sodium 134 L (137-145) mmol/L Potassium 3.0 L (3.5-5.1) mmol/L Chloride 92 L (98-107) mmol/L Carbon Dioxide 33 H (22-30) mmol/L BUN 38 H (9-20) mg/dL Glucose 102 H (74-99) mg/dL Total Bilirubin 2.2 H (0.2-1.3) mg/dL AST 69 H (17-59) U/L ALT 83 H (4-49) U/L Alkaline Phosphatase 204 H (38-126) U/L
[2023-04-19 12:45] VITALS: RESP 16
--- NOTE | 2023-04-19 12:55 | P.PN ---
Subjective Patient is seen for follow-up for acute kidney injury. No complaints of shortness of breath. Renal function has improved with serum creatinine staying at about 1.2 mg/dL. Maintained on oral Lasix. Objective - Vital Signs Vital signs: Vital Signs Temp 98 F 04/19/23 12:15 Pulse 56 L 04/19/23 12:15 Resp 16 04/19/23 12:15 BP 106/58 04/19/23 12:15 Pulse Ox 97 04/19/23 12:15 FiO2 Intake & Output 04/18/23 04/19/23 04/19/23 18:59 06:59 18:59 Intake Total 616 Output Total 350 1325 Balance 266 -1325 Intake: Oral 616 Output: Urine 350 1325 Other: Voiding Method Toilet Toilet Toilet Urinal Urinal Urinal - Exam Patient is awake, comfortable, no acute distress Examination of the heart S1 and S2 Examination of the lungs bilateral breath sounds are heard Abdomen is soft nontender Examination of lower extremities shows edema 1+ bilaterally FRENCH BINDING FOLDER exam grossly intact - Labs CBC & Chem 7: 04/19/23 08:29 04/19/23 08:29 Labs: Abnormal Lab Results - Last 24 Hours (Table) 04/19/23 04/19/23 Range/Units 08:29 08:29 WBC 12.9 H (3.8-10.6) k/uL RBC 3.75 L (4.30-5.90) m/uL Hgb 11.6 L (13.0-17.5) gm/dL Hct 35.1 L (39.0-53.0) % RDW 16.1 H (11.5-15.5) % Sodium 134 L (137-145) mmol/L Potassium 3.0 L (3.5-5.1) mmol/L Chloride 92 L (98-107) mmol/L Carbon Dioxide 33 H (22-30) mmol/L BUN 38 H (9-20) mg/dL Glucose 102 H (74-99) mg/dL Total Bilirubin 2.2 H (0.2-1.3) mg/dL AST 69 H (17-59) U/L ALT 83 H (4-49) U/L Alkaline Phosphatase 204 H (38-126) U/L Assessment and Plan Assessment: 1. Acute kidney injury secondary to ATN secondary to hypotension and cardiorenal syndrome. Creatinine peaked at 2.8, improved 1.2 today which is baseline. UA benign. No hydronephrosis noted on kidney ultrasound. 2. Hypervolemic hyponatremia. Better. 3. Acute on chronic systolic CHF with ejection fraction of 15 to 20% with severe pulmonary hypertension. 4. Coronary disease with cardiac stenting. 5. A-fib/flutter. Cardiology following. 6. Fluid overload. Improving with diuresis. Plan: Stable for discharge from nephrology standpoint. Continue current dose of diuretics
[2023-04-19] MEDS ORDERED: LIDOCAINE 1% INJ 10MG/ML (20 ML MDV) ONE (13:56)
[2023-04-19] MEDS ORDERED: PROPOFOL 10 MG/ML 20 ML VIAL IV ONE (13:56)
[2023-04-19] MEDS: SODIUM CHLORIDE 0.9% 500 ML 500 ML IV ONE (14:03)
--- NOTE | 2023-04-19 14:10 | P.PN ---
Subjective Progress Note Date: 04/19/23 Hospital course: Patient is a very pleasant 73-year-old male with a past medical history of CAD status post CABG, Chronic systolic heart failure with previously known EF of 15 to 20%, ischemic cardiomyopathy, severe pulmonary hypertension, and medication noncompliance. Pt reports that his consultant intern is Dr. King and that he has not seen him since his last hospitalization back in January. Patient reports consultant intern recommended AICD placement secondary to his severely impaired heart function but patient declined stating he will never get that procedure. During last hospitalization patient was also discharged home on aspirin 81 mg daily, Lasix 40 mg daily, losartan 12.5 mg daily, Plavix 75 mg daily, Jardiance 10 mg daily and as needed nitroglycerin sublingual tablets 0.4 mg. Patient reports he did not take any of these medications because they are not good for you. Patient states the last time he took medications was during previous hospita lization. Patient denies following up outpatient with PCP and reports last time he saw his consultant intern was just after his last hospitalization back in January. He presented to the emergency department 04/08/2023 for reports of progressively worsening shortness of breath accompanied by bilateral lower extremity swelling. He underwent full evaluation in the emergency department. Vital signs upon arrival showing heart rate of 133, blood pressure 125/86, respiratory rate 20, temp 97.8 F, and SpO2 of 98% on room air. EKG showing atrial flutter with RVR at 116 bpm with occasional PACs. Labs completed and reviewed. CBC showing leukocytosis with WBC count of 13.2, coagulation profile showing elevated PT of 15.6 and INR of 1.5. BMP showing hyperkalemia with potassium of 5.8 but reported as a hemolyzed specimen, elevated BUN of 48, and blood glucose of 112. Lactic acid elevated at 2.2. Liver profile showing hyperbilirubinemia with bilirubin of 3.8 and transaminitis with AST of 179, ALT of 108, and alkaline phosphatase of 177. Troponin elevated at 0.070 and proBNP of 12,900. Chest x-ray was completed showing pulmonary venous congestion with cardiomegaly and small left-sided pleural effusion. Abdominal ultrasound showing gallbladder adenomyomatosis. In the emergency department patient was given aspirin 325 mg p.o. x 1 dose, Lasix 40 mg IVP x 1 dose, and started on low intensity heparin infusion at 10 units/kg/h. Patient admitted under our services with consultation to cardiology for acute systolic heart failure exacerbation and general surgery for gallbladder adenomyomatosis accompanied by hyperbilirubinemia and transaminitis. Troponins trended resulting at 0.070 and 0.066. Patient evaluated by general surgery recommending outpatient cholecystectomy once patient is medically stable. Patient was evaluated by cardiology. Heart failure medication regimen was initiated with metoprolol 12.5 mg daily, Entresto 24/26 mg tablet twice daily, Plavix 75 mg daily, atorvastatin 40 mg daily, and Eliquis 5 mg twice daily. Patient also placed on IV diuresis with Lasix and started on dobutamine infusion, now discontinued. He has been persistently hypotensive and was Transferred to the medical ICU where he was found to have 2 episodes of black tarry stools. General surgery was consulted, Stopping patient's Eliquis and Plavix and Dr. Smith taking pt for EGD. Currently hemoglobin remains stable, patient has had no further episodes of black tarry stools and was transferred back to stepdown unit . Renal function improving as hypotension resolving. Physical exam: Patient seen and evaluated at bedside this morning, he was awaiting to be taken down for EGD. Vital signs reviewed and stable. General: Nontoxic, no distress and appears stated age. Derm: Skin warm and dry, normal coloration for ethnicity. Head: Atraumatic, normocephalic and symmetric. Eyes: EOMs intact, no lid lag, and anicteric sclera Mouth: no lip lesions, mucus membranes moist Cardiovascular: Irregularly irregular, systolic murmur, positive posterior tibial pulses bilaterally, and cap refill < 2 seconds. Lungs: Respirations even, regular, and unlabored on room air. Lungs clear to auscultation bilaterally with no rhonchi, no rales, no wheezing, and no accessory muscle usage. Abdominal: soft, nontender to palpation, no guarding, no appreciable organomegaly Ext: ROM intact. No gross muscle atrophy, 1+ bilateral lower extremity edema, no contractures Neuro: Speech clear, face symmetrical and CN II-XII grossly intact with no noted focal neuro deficits Psych: Alert and oriented to person, place, time, and situation. Appropriate and pleasant affect. Assessment and Plan of Care: Acute exacerbation of chronic systolic heart failure with EF of 15 to 20% Acute hypoxic respiratory failure secondary to CHF exacerbation. New onset atrial fibrillation/flutter with episodes of RVR Elevated troponins, flat likely chronic secondary to CHF Acute kidney injury History of CAD status post CABG Ischemic cardiomyopathy Severe pulmonary hypertension Acute kidney injury, nonoliguric, resolving Hypotension, resolved Hypervolemic hyponatremia -Cardiology note reviewed: Generation Manager stopped dobutamine infusion on 04/18/23. Lasix continued at 40 IV every 8 hours along with Midodrine 10 mg TID. -Pulmonology note reviewed -Nephrology note reviewed, administered one time dose of Metalazone 2.5 mg on 04/18 and recommending to maintain midodrine 10 mg 3 times daily, IV Lasix 40 mg IVP every 8 hours and continue to hold antihypertensives -Continue Daily weights and close monitoring of I's and O's. -Patient to remain on continuous telemetry monitoring. -Continue atorvastatin 40 mg nightly, amiodarone 200 mg twice daily, and metoprolol 12.5 mg daily, -Eliquis and Plavix held secondary to suspected upper GI bleed. Suspected upper GI bleed Mild normocytic anemia -Continue pantoprazole 40 mg IVP twice daily -General surgery following and taking pt for EGD today -Recommend resumption of Plavix and Eliquis once cleared by general surgery to resume. Transaminitis with hyperbilirubinemia, possibly secondary to gallbladder adenomyomatosis vs right-sided heart failure Lactic acidosis, resolved Elevated INR -Abdominal ultrasound showing gallbladder adenomyomatosis -General surgery evaluated recommending outpatient cholecystectomy once medically stable -Hepatitis panel nonreactive Patient with guarded prognosis. Data and imaging reviewed: Labs completed and reviewed. CBC showing mild leukocytosis with WBC count of 12.9 and stable normocytic anemia with hemoglobin of 11.6. BMP showing mild hypokalemia with potassium of 3.0, hyponatremia with sodium of 134, hypochloremia with chloride of 92, and hypercarbia with bicarb of 33. Renal function remained stable with BUN of 38, creatinine 1.22, and GFR 59. Liver profile continues to show hyperbilirubinemia with transaminitis with total bili of 2.2, AST of 69, ALT 683, and alkaline phosphatase of 204. Vital signs reviewed. Blood pressure 108/67, heart rate 60, respiratory rate 18, temp 98.3 F, and SpO2 of 97% on room air. CODE STATUS: Full code DVT prophylaxis: CRISTINA fajardo and SCDs, Eliquis and Plavix held secondary to concerns of upper GI bleed and plans for EGD Anticipated discharge date: Pending clinical course Anticipated discharge place: Pending clinical course Patient was seen independently by Nurse Pracitioner. This document was prepared using [employer] dictation software. Please allow for errors in devops, while rare they do occur. This patient was seen independently by my colleague Ofelia GRULLON. I agree with the assessment and plan. Objective - Vital Signs Vital signs: Vital Signs Temp 97.8 F 04/19/23 00:00 Pulse 68 04/19/23 04:00 Resp 16 04/19/23 04:00 BP 106/63 04/19/23 04:00 Pulse Ox 94 L 04/19/23 04:00 FiO2 Intake & Output 04/18/23 04/19/23 04/19/23 18:59 06:59 18:59 Intake Total 616 Output Total 350 1325 Balance 266 -1325 Intake: Oral 616 Output: Urine 350 1325 Other: Voiding Method Toilet Toilet Urinal Urinal - Labs CBC & Chem 7: 04/20/23 10:53 04/20/23 10:53 Labs: Abnormal Lab Results - Last 24 Hours (Table) 04/18/23 04/18/23 Range/Units 07:58 07:58 WBC 11.8 H (3.8-10.6) k/uL RBC 3.57 L (4.30-5.90) m/uL Hgb 10.9 L (13.0-17.5) gm/dL Hct 34.2 L (39.0-53.0) % RDW 16.1 H (11.5-15.5) % Sodium 136 L (137-145) mmol/L BUN 38 H (9-20) mg/dL Glucose 174 H (74-99) mg/dL Total Bilirubin 1.9 H (0.2-1.3) mg/dL AST 64 H (17-59) U/L ALT 77 H (4-49) U/L Alkaline Phosphatase 185 H (38-126) U/L Albumin 3.3 L (3.5-5.0) g/dL
--- NOTE | 2023-04-19 14:22 | P.OP ---
Date of Procedure: 04/19/23 Preoperative Diagnosis: Gastritis Postoperative Diagnosis: Mild antral gastritis Small hiatal hernia Mild esophagitis Procedure(s) Performed: EGD Anesthesia: MAC Surgeon: James Smith Pathology: other (Antrum) Condition: stable Disposition: PACU Description of Procedure: Patient was placed on the endoscopy table in the lateral position. He received IV sedation. The gas was placed oropharynx passed in the esophagus into the stomach. Scope was then placed through the pylorus. The first and second portion of the duodenum appeared normal. Scope was then repacked the antrum this appeared mildly inflamed. A biopsy was performed. The scope was then retroflexed remainder the stomach appeared normal. There was a small hiatal hernia. The GE junction was at 40 cm. The distal esophagus appeared mildly inflamed and a biopsy performed. The proximal esophagus appeared normal. Scope withdrawn for the patient.
--- NOTE | 2023-04-19 14:33 | P.PN ---
Subjective Progress Note Date: 04/19/23 CHIEF COMPLAINT: CHF exacerbation HISTORY OF PRESENT ILLNESS: Patient denies any abdominal pain. Denies any nausea or vomiting. Afebrile hemoglobin stable at 11.6 K 3.0 and being replaced. Patient status post EGD today. PHYSICAL EXAM: VITAL SIGNS: Reviewed. GENERAL: Well-developed in no acute distress. ABDOMEN: Soft. Nondistended. Nontender. NEUROLOGIC: Alert and oriented. Cranial nerves II through XII grossly intact. ASSESSMENT: 1. Acute GI bleed with black tarry stools 2. Significant cardiac history 3. Chronic cholecystitis PLAN: -Patient had no source of active bleed noted on EGD. He may need colonoscopy Physician Drying Frame Operator note has been reviewed by physician. Signing provider agrees with the documented findings, assessment, and plan of care. Objective - Vital Signs Vital signs: Vital Signs Temp 98 F 04/19/23 12:15 Pulse 56 L 04/19/23 12:15 Resp 16 04/19/23 12:15 BP 106/58 04/19/23 12:15 Pulse Ox 97 04/19/23 12:15 FiO2 Intake & Output 04/18/23 04/19/23 04/19/23 18:59 06:59 18:59 Intake Total 616 100 Output Total 350 1325 Balance 266 -1325 100 Intake: IV 100 Oral 616 Output: Urine 350 1325 Other: Voiding Method Toilet Toilet Toilet Urinal Urinal Urinal - Labs CBC & Chem 7: 04/19/23 08:29 04/19/23 08:29 Labs: Abnormal Lab Results - Last 24 Hours (Table) 04/19/23 04/19/23 Range/Units 08:29 08:29 WBC 12.9 H (3.8-10.6) k/uL RBC 3.75 L (4.30-5.90) m/uL Hgb 11.6 L (13.0-17.5) gm/dL Hct 35.1 L (39.0-53.0) % RDW 16.1 H (11.5-15.5) % Sodium 134 L (137-145) mmol/L Potassium 3.0 L (3.5-5.1) mmol/L Chloride 92 L (98-107) mmol/L Carbon Dioxide 33 H (22-30) mmol/L BUN 38 H (9-20) mg/dL Glucose 102 H (74-99) mg/dL Total Bilirubin 2.2 H (0.2-1.3) mg/dL AST 69 H (17-59) U/L ALT 83 H (4-49) U/L Alkaline Phosphatase 204 H (38-126) U/L
[2023-04-19] MEDS: POTASSIUM CHLORIDE ER 20 MEQ TAB.ER PO STA (16:04)
[2023-04-20] MEDS: LACTATED RINGERS 1,000 ML IV SCH (08:59)
--- NOTE | 2023-04-20 10:03 | P.DS ---
Providers Date of admission: 04/08/23 16:59 Expected date of discharge: 04/20/23 Attending physician: Sarah Nguyen MD Consults: 04/08/23 16:48 Consult Physician Routine Consulting Provider: Kameron King Consult Reason/Comments: CHF exacerbation Do you want consulting provider notified?: Yes 04/13/23 14:06 Consult Physician Routine Consulting Provider: Obed Coyne Consult Reason/Comments: FÉLIX Do you want consulting provider notified?: Yes 04/14/23 14:05 Consult Physician Routine Consulting Provider: Rafita Byrd Consult Reason/Comments: ICU management Do you want consulting provider notified?: Already Contacted 04/16/23 09:52 Consult Physician Routine Consulting Provider: James Simth Consult Reason/Comments: blood in stool Do you want consulting provider notified?: Yes Primary care physician: Stated None Hospital Course: Discharge Diagnosis: Acute exacerbation of chronic systolic heart failure with EF of 15 to 20%. Patient to continue Lasix 40 mg twice daily, aspirin 81 mg daily, atorvastatin 40 mg nightly, midodrine 10 mg 3 times daily, amiodarone 200 mg twice daily, and metoprolol 12.5 mg daily, Acute hypoxic respiratory failure secondary to CHF exacerbation. Resolved. New onset atrial fibrillation/flutter with episodes of RVR. Patient to continue Eliquis 5 mg twice daily, amiodarone 200 mg twice daily, and metoprolol 12.5 mg daily. Patient was cleared by both senior c web developer and general surgeon to resume Eliquis. Elevated troponins, flat likely chronic secondary to CHF. Acute kidney injury, resolved History of CAD status post CABG Ischemic cardiomyopathy Severe pulmonary hypertension Hypotension, resolved. Patient to continue midodrine 10 mg 3 times daily. Hypervolemic hyponatremia Hypokalemia. Replaced. Patient discharged home on K-Dur 20 mEq daily along with prescription for repeat BMP in 3 days with results to be sent to PCP and senior c web developer for follow-up and management. Suspected upper GI bleed. Patient underwent endoscopy, showing no signs of active bleeding. Patient to follow-up outpatient with general surgeon for furt her discussion and possible colonoscopy. Patient had no further episodes of melena. Cleared by general surgery team and cardiology to resume Eliquis. Discharged home on Protonix 40 mg daily. Mild normocytic anemia Transaminitis with hyperbilirubinemia, possibly secondary to gallbladder adenomyomatosis vs right-sided heart failure. General surgery evaluated recommending outpatient cholecystectomy once medically stable Lactic acidosis, resolved. Elevated INR. Hospital Course: Patient is a very pleasant 73-year-old male with a past medical history of CAD status post CABG, Chronic systolic heart failure with previously known EF of 15 to 20%, ischemic cardiomyopathy, severe pulmonary hypertension, and medication noncompliance. Pt reports that his senior c web developer is Dr. King and that he has not seen him since his last hospitalization back in January. Patient reports senior c web developer recommended AICD placement secondary to his severely impaired heart function but patient declined stating he will never get that procedure. During last hospitalization patient was also discharged home on aspirin 81 mg daily, Lasix 40 mg daily, losartan 12.5 mg daily, Plavix 75 mg daily, Jardiance 10 mg daily and as needed nitroglycerin sublingual tablets 0.4 mg. Patient reports he did not take any of these medications because they are not good for you. Patient states the last time he took medications was during previous hospitalization. Patient denies following up outpatient with PCP and reports last time he saw his senior c web developer was just after his last hospitalization back in January. He presented to the emergency department 04/08/2023 for reports of progressively worsening shortness of breath accompanied by bilateral lower extremity swelling. He underwent full evaluation in the emergency department. Vital signs upon arrival showing heart rate of 133, blood pressure 125/86, respiratory rate 20, temp 97.8 F, and SpO2 of 98% on room air. EKG showing atrial flutter with RVR at 116 bpm with occasional PACs. Labs completed and reviewed. CBC showing leukocytosis with WBC count of 13.2, coagulation profile showing elevated PT of 15.6 and INR of 1.5. BMP showing hyperkalemia with potassium of 5.8 but reported as a hemolyzed specimen, elevated BUN of 48, and blood glucose of 112. Lactic acid elevated at 2.2. Liver profile showing hyperbilirubinemia with bilirubin of 3.8 and transaminitis with AST of 179, ALT of 108, and alkaline phosphatase of 177. Troponin elevated at 0.070 and proBNP of 12,900. Chest x-ray was completed showing pulmonary venous congestion with cardiomegaly and small left-sided pleural effusion. Abdominal ultrasound showing gallbladder adenomyomatosis. In the emergency department patient was given aspirin 325 mg p.o. x 1 dose, Lasix 40 mg IVP x 1 dose, and started on low intensity heparin infusion at 10 units/kg/h. Patient admitted under our services with consultation to cardiology for acute systolic heart failure exacerbation and general surgery for gallbladder adenomyomatosis accompanied by hyperbilirubinemia and transaminitis. Troponins trended resulting at 0.070 and 0.066. Patient evaluated by general surgery recommending outpatient cholecystectomy once patient is medically stable. Patient was evaluated by cardiology. Heart failure medication regimen was initiated with metoprolol 12.5 mg daily, Entresto 24/26 mg tablet twice daily, Plavix 75 mg daily, atorvastatin 40 mg daily, and Eliquis 5 mg twice daily. Patient also placed on IV diuresis with Lasix and started on dobutamine infusion, now discontinued. He has been persistently hypotensive and was Transferred to the medical ICU where he was found to have 2 episodes of black tarry stools. General surgery was consulted, Stopping patient's Eliquis and Plavix and Dr. Smith taking pt for EGD. Currently hemoglobin remains stable, patient has had no further episodes of black tarry stools and was transferred back to stepdown unit . Renal function improvied as hypotension resolved. Patient underwent EGD which was negative for any signs of upper GI bleeding. General surgery recommending outpatient follow- up in his office for further evaluation and discussion of possible scheduling of colonoscopy. Patient cleared by cardiology and general surgery. Cardiology and general surgery stated patient okay to resume Eliquis 5 mg twice daily along with aspirin 81 mg daily. Patient is medically stable for discharge at this time. Patient being discharged home on multiple new medications including Lasix 40 mg twice daily, K-Dur 20 milliequivalents daily, aspirin 81 mg daily, atorvastatin 40 mg nightly, Protonix 40 mg daily, midodrine 10 mg 3 times daily, amiodarone 200 mg twice daily, Eliquis 5 mg twice daily, and metoprolol 12.5 mg daily. Patient to follow-up outpatient with PCP, senior c web developer, and general surgeon. Appointments were scheduled prior to discharge. Physical exam: Vital signs reviewed and stable. General: Nontoxic, no distress and appears stated age. Derm: Skin warm and dry, normal coloration for ethnicity. Head: Atraumatic, normocephalic and symmetric. Eyes: EOMs intact, no lid lag, and anicteric sclera Mouth: no lip lesions, mucus membranes moist Cardiovascular: Irregularly irregular, systolic murmur, positive posterior tibial pulses bilaterally, and cap refill < 2 seconds. Lungs: Respirations even, regular, and unlabored on room air. Lungs clear to auscultation bilaterally with no rhonchi, no rales, no wheezing, and no accessory muscle usage. Abdominal: soft, nontender to palpation, no guarding, no appreciable organomegaly Ext: ROM intact. No gross muscle atrophy, 1+ bilateral lower extremity edema, no contractures Neuro: Speech clear, face symmetrical and CN II-XII grossly intact with no noted focal neuro deficits Psych: Alert and oriented to person, place, time, and situation. Appropriate and pleasant affect. A total of 41 minutes of time were spent preparing this complex discharge summary. Pt was discharged on 04/20/2023 at 9:54 AM. Patient was seen independently by Nurse Practitioner. This document was prepared using [employer] dictation software. Please allow for errors in manager audit while rare they do occur. This patient was seen independently by my colleague Ofelia GRULLON. I agree with the assessment and plan. Patient Condition at Discharge: Fair Plan - Discharge Summary New Discharge Prescriptions: New Furosemide [Lasix] 40 mg PO BID@0900,1600 30 Days #60 tab Atorvastatin [Lipitor] 40 mg PO HS 30 Days #30 tab Metoprolol Succinate (ER) [Toprol XL] 12.5 mg PO DAILY 30 Days #15 tab Potassium Chloride ER [K-Dur 20] 20 meq PO DAILY 30 Days #30 tab Amiodarone [Cordarone] 200 mg PO BID 30 Days #60 tab Midodrine [ProAmatine] 10 mg PO AC-TID 30 Days #90 tab Apixaban [Eliquis] 5 mg PO BID 30 Days #60 tab Pantoprazole [Protonix] 40 mg PO DAILY 90 Days #90 tab Continue Aspirin [Adult Low Dose Aspirin EC] 81 mg PO DAILY Discharge Medication List Aspirin [Adult Low Dose Aspirin EC] 81 mg PO DAILY 11/17/21 [History] Amiodarone [Cordarone] 200 mg PO BID 30 Days #60 tab 04/20/23 [Rx] Apixaban [Eliquis] 5 mg PO BID 30 Days #60 tab 04/20/23 [Rx] Atorvastatin [Lipitor] 40 mg PO HS 30 Days #30 tab 04/20/23 [Rx] Furosemide [Lasix] 40 mg PO BID@0900,1600 30 Days #60 tab 04/20/23 [Rx] Metoprolol Succinate (ER) [Toprol XL] 12.5 mg PO DAILY 30 Days #15 tab 04/20/23 [Rx] Midodrine [ProAmatine] 10 mg PO AC-TID 30 Days #90 tab 04/20/23 [Rx] Pantoprazole [Protonix] 40 mg PO DAILY 90 Days #90 tab 04/20/23 [Rx] Potassium Chloride ER [K-Dur 20] 20 meq PO DAILY 30 Days #30 tab 04/20/23 [Rx] Follow up Appointment(s)/Referral(s): Kameron King DO [STAFF PHYSICIAN] - 04/27/23 10:30 am (Wednesday) Ming Antunez III, MD [STAFF PHYSICIAN] - 05/13/23 4:30 pm (New pcp. Please arrive 20 mins early. They will mail paperwork to you.) James Smith MD [STAFF PHYSICIAN] - 05/04/23 3:45 pm (Wednesday) Ambulatory/Diagnostic Orders: Basic Metabolic Panel [LAB.AMB] Time Frame: 3 Days, Location: None Selected Patient Instructions/Handouts: Heart Failure (DC) Activity/Diet/Wound Care/Special Instructions: Activity: As tolerated. Take breaks as needed. Diet: Heart healthy and carb consistent diet. Avoid salts, or foods with hidden salts such as canned or boxed foods and frozen dinners. Extra salt makes your heart work harder and traps the fluid in your body for longer. Special Instructions: Weigh yourself every morning after you urinate. If you gain 3 pounds overnight or more than 5 pounds in one week, call your primary physician and senior c web developer for guidance on your medications or they may want to see you in their office. Keep a daily log of your weights and be sure to bring with you at follow up visits with your PCP and senior c web developer. Take all of your medications as directed, especially your water pills. NEVER skip a dose. And remember to keep all of your doctor's appointments and follow- up as needed. Elevate your legs when you are not up moving around to help with circulation and prevent swelling. Compression stockings are also a great way to improve lower extremity circulation and prevent/improve lower extremity edema. Call your primary care provider and senior c web developer if you notice any extra swelling in your legs, ankles, feet or abdomen, if you have a new dry cough, if your shortness of breath worsens with activity or at rest, or if you feel more fatigued. Thank you for allowing us to participate in your care, it was truly a pleasure having you for our patient!!! Discharge/Stand Alone Forms: Who Do I Call?, Personal Ict Development Manager, Area PCPs Discharge Disposition: HOME SELF-CARE
[2023-04-20 10:29] VITALS: TEMP 98.3
[2023-04-20] MEDS: APIXABAN 5 MG TAB PO SCH (11:38)
[2023-04-20 11:42] VITALS: BP 118/69; PULSE 69
[2023-04-20 11:56] LABS: HCT 41.6 % (39.0-53.0); HGB 13.3 gm/dL (13.0-17.5); Hypochromasia Slight; MCH 30.9 pg (25.0-35.0); MCHC 32.1 g/dL (31.0-37.0); MCV 96.3 fL (80.0-100.0); Mean Platelet Volume 8.6; Platelet Count 288 k/uL (150-450); RBC 4.32 m/uL (4.30-5.90); RDW 15.6 % (11.5-15.5); WBC 11.7 k/uL (3.8-10.6)
[2023-04-20 12:13] VITALS: BMI 26.3
[2023-04-20 12:24] LABS: ALT 89 U/L (4-49); AST 85 U/L (17-59); African American GFR (CKD) 63 (>60 ml/min/1.73 sqM); Alkaline Phosphatase 225 U/L (38-126); Anion Gap 10 mmol/L; Blood Urea Nitrogen 40 mg/dL (9-20); Carbon Dioxide 37 mmol/L (22-30); Chloride 88 mmol/L (98-107); Glucose 143 mg/dL (74-99); Magnesium 2.3 mg/dL (1.6-2.3); Non-African American GFR(CKD) 55 (>60 ml/min/1.73 sqM); Potassium 2.9 mmol/L (3.5-5.1); Sodium 135 mmol/L (137-145); Total Bilirubin 2.5 mg/dL (0.2-1.3); Total Protein 7.4 g/dL (6.3-8.2)
[2023-04-20] MEDS: POTASSIUM CHLORIDE ER 20 MEQ TAB.ER PO SCH (12:35)
--- NOTE | 2023-04-20 18:29 | P.PN ---
Subjective Patient is seen for follow-up for acute kidney injury. No complaints of shortness of breath. Renal function has improved with serum creatinine staying at about 1.2 mg/dL. Maintained on oral Lasix. 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 Acute kidney injury secondary to ATN secondary to hypotension and cardiorenal syndrome. Creatinine peaked at 2.8, improved 1.2 today which is baseline. UA benign. No hydronephrosis noted on kidney ultrasound. 2. Hypervolemic hyponatremia. Better. 3. Acute on chronic systolic CHF with ejection fraction of 15 to 20% with severe pulmonary hypertension. 4. Coronary disease with cardiac stenting. 5. A-fib/flutter. Cardiology following. 6. Fluid overload. Improving with diuresis. Plan: Stable for discharge from nephrology standpoint. Continue current dose of diuretics
--- NOTE | 2023-04-22 11:15 | CDI ---
Documentation Clarification Form Date: From: Falguni Reid Phone: Admit Date: 04/08/2023 04:59:00 PM Patient Name: Iam Mims Visit Number: [id number] Discharge Date: 04/20/2023 12:46:00 PM ATTENTION: The Clinical Documentation Specialists (CDI) and [facility] Coding Staff appreciate your assistance in clarifying documentation. Please respond to the clarification below the line at the bottom and electronically sign. The CDI & [facility] Coding staff will review the response and follow-up if needed. Please note: Queries are made part of the Legal Health Record. If you have any questions, please contact the author of this message via ITS. Dr. Obed Coyne Unspecified CKD/cardiorenal syndrome is documented per Nephrology Consult 04/14 and following Progress Notes. Additional clarification regarding the stage of CKD is requested. History/Risk Factors: 73yo M, HTN w ACSHF, ATN on CKD, CRS, PHTN, CAD w stents, Afib/flutter, GIB, Rx noncompliance Historical: CR1.2 baseline Clinical Indicators: BUN: 04/08- 04/10 47-48 04/11 61 04/13 79 04/14- 04/15 101 04/18- 04/19 38 CR: 04/08-04/04 1.10- 1.40 04/13 2.27 04/14 2.80 04/15 2.28 AfAm GFR: 04/08-04/10 67-77 04/11 57 04/13 32 04/14 25 04/15 32 04/18 66 Non AfAm GFR: 04/08- 04/11 50-66 04/13 28 04/14 21 04/15 27 04/18-04/19 57-59 Treatment: UA benign. Nohydronephrosisnoted onkidney ultrasound. On dobutamine drip and IV Lasix. Please clarify the stage of the CKD, if known: [ ] CKD Stage 2 [ ] CKD Stage 3 [ ] CKD Stage 3a [ ] CKD Stage 3b [ ] CKD Stage 4 [ ] Other, please specify [ z] Unable to determine Reference: [employer] Stage 1 eGFR = 90 and kidney damage for =3 months Stage 2 eGFR 60-89 and kidney damage for =3 months Stage 3a eGFR 45-59 and kidney damage for =3 months Stage 3b eGFR 30-44 and kidney damage for =3 months Stage 4 eGFR 15-29 r and kidney damage for =3 months Stage 5 eGFR <15 and kidney damage for =3 months (Template Last revised: March 2023) MTDD
== END 2023-04-20 12:46 | disposition home or self-care (01) | DRG 280 ==
LOC: EC 11:30 → 3SCARD 16:59 → 2SICU 04-14 10:35 → 3SCARD 04-17 00:57
PROVIDERS: ADMIT Internal Medicine; ATTEND Internal Medicine
PROC: 3E033XZ Introduction of Vasopressor into Peripheral Vein, Percutaneous Approach (ICD-10-PCS; 2023-04-11)
PROC: 0DB78ZX Excision of Stomach, Pylorus, Via Natural or Artificial Opening Endoscopic, Diagnostic (ICD-10-PCS; 2023-04-19)
PROC: 0DB38ZX Excision of Lower Esophagus, Via Natural or Artificial Opening Endoscopic, Diagnostic (ICD-10-PCS; principal; 2023-04-19 07:30)
DX: I13.0 Hypertensive heart and chronic kidney disease with heart failure and stage 1 through stage 4 chronic kidney disease, or unspecified chronic kidney disease (principal); I50.23 Acute on chronic systolic (congestive) heart failure; I21.A1 Myocardial infarction type 2; J96.01 Acute respiratory failure with hypoxia; N17.0 Acute kidney failure with tubular necrosis; K29.51 Unspecified chronic gastritis with bleeding; K20.91 Esophagitis, unspecified with bleeding; I48.92 Unspecified atrial flutter; E87.1 Hypo-osmolality and hyponatremia; K92.1 Melena; E87.20 Acidosis, unspecified; I27.22 Pulmonary hypertension due to left heart disease; I48.91 Unspecified atrial fibrillation; K81.1 Chronic cholecystitis; I95.9 Hypotension, unspecified; K76.1 Chronic passive congestion of liver; N18.9 Chronic kidney disease, unspecified; I25.5 Ischemic cardiomyopathy; T50.1X6A Underdosing of loop [high-ceiling] diuretics, initial encounter; T46.5X6A Underdosing of other antihypertensive drugs, initial encounter; T45.526A Underdosing of antithrombotic drugs, initial encounter; T50.2X5A Adverse effect of carbonic-anhydrase inhibitors, benzothiadiazides and other diuretics, initial encounter; T38.3X6A Underdosing of insulin and oral hypoglycemic [antidiabetic] drugs, initial encounter; Z79.01 Long term (current) use of anticoagulants; Z95.1 Presence of aortocoronary bypass graft; I25.10 Atherosclerotic heart disease of native coronary artery without angina pectoris; T39.016A Underdosing of aspirin, initial encounter; K82.8 Other specified diseases of gallbladder; E80.6 Other disorders of bilirubin metabolism; E87.5 Hyperkalemia; E87.6 Hypokalemia; K44.9 Diaphragmatic hernia without obstruction or gangrene; Z79.82 Long term (current) use of aspirin; Z87.891 Personal history of nicotine dependence; I25.2 Old myocardial infarction; Z95.5 Presence of coronary angioplasty implant and graft; Z79.02 Long term (current) use of antithrombotics/antiplatelets; Z79.84 Long term (current) use of oral hypoglycemic drugs; Z91.128 Patient's intentional underdosing of medication regimen for other reason; Z88.8 Allergy status to other drugs, medicaments and biological substances; Z88.0 Allergy status to penicillin; Z79.899 Other long term (current) drug therapy
CPT/HCPCS: 36415; 43239; 71045; 71046; 76705; 76770; 80048; 80053; 80074; 81001; 82533; 82803; 83605; 83690; 83735; 83880; 84132; 84443; 84484; 85025; 85027; 85610; 85730; 88305; 93005; 94760; 96365; 96366; 96375; 96376; 99285